=== PATIENT | male | born 1965 | race Caucasian/White ===

== ENCOUNTER → 2019-01-20 | Outpatient (CLI) | payer BC ==
[~2019-01-20] MED LIST: BUPIVACAINE MPF 0.5% 10 ML VIAL for KCIC. IJ ONE; IOHEXOL 300 MG/ML 50 ML VIAL. INT ART ONE; LIDOCAINE 1% Multi-Dose 20 ML VIAL. ID ONE; methylPREDNISolone ACETATE 40 MG/ML VIAL. INT ART ONE
--- NOTE | 2019-01-20 15:36 | KCIC ---
Examination: Fluoro Guided Therapeutic injection right hip. History: Right hip pain Findings: Relative benefits risks and alternatives to the procedure were discussed and verbal and written informed consent was obtained. The patient was carefully prepped and draped in a sterile fashion. Lidocaine was used for local anesthesia. A 22-gauge spinal needle was advanced to the level of the hip joint at the femoral neck. A mixture of 4 mL of lidocaine, 4 mL of Omnipaque 300, 4ml bupivacaine and 80 mg of Depo-Medrol was injected. Total fluoroscopic time 23 seconds. Total fluoroscopic images 1. No immediate complications. IMPRESSION: Therapeutic right hip steroid injection. Electronically signed by: Bernardino Munoz MD (01/20/2019 3:33 PM) [facility]-[id number]
== END ==
LOC: KCIC 10:01
PROVIDERS: ATTEND Orthopaedic Surgery Sports Medicine
DX: M25.551 Pain in right hip (principal); G89.29 Other chronic pain
CPT/HCPCS: 20610; 77002

== ENCOUNTER → 2020-02-29 | Outpatient (CLI) | payer BC ==
[~2020-02-29] MED LIST changes: -BUPIVACAINE MPF 0.5% 10 ML VIAL for KCIC. IJ ONE; +BUPIVACAINE MPF 0.5% 10 ML VIAL. INT ART ONE; +CONTRAST GIVEN. MC PRN
--- NOTE | 2020-02-29 17:05 | KCIC ---
Examination: Fluoro Guided Therapeutic injection bilateral hips History: Bilateral hip pain COMPARISON: 01/20/2019 Findings: Relative benefits risks and alternatives to the procedure were discussed and verbal and written informed consent was obtained. The patient was carefully prepped and draped in a sterile fashion. Lidocaine was used for local anesthesia. A 22-gauge spinal needle was advanced to the level of the hip joint at the femoral neck. A mixture of 40 Evans-Aramis and, 4 mL of bupivacaine, 4 mL of Omnipaque, 80 mg of Depo-Medrol was injected in the right and left hip joints. Digital image was obtained showing contrast in the joint. The left hip injection joint image could not be saved. No complications. Impression: Therapeutic injection bilateral hips. 48 seconds fluoroscopy for right hip and 23 seconds of fluoroscopy for left hip. 1 fluoroscopic image. Electronically signed by: Bernardino Munoz MD (02/29/2020 5:02 PM) [id number]
== END | disposition home or self-care (01) ==
LOC: KCIC 12:46
PROVIDERS: ATTEND Orthopaedic Surgery Sports Medicine
DX: M16.0 Bilateral primary osteoarthritis of hip (principal)
CPT/HCPCS: 20610; 77002; J1030; J3490; Q9967

== ENCOUNTER 2021-01-30 16:52 | Inpatient (IN) | payer BC ==
[~2021-01-30] VITALS: Ht 182.9 cm; Wt 100.1 kg
[2021-01-30 17:36] VITALS: BP 149/89
[2021-01-30] MEDS ORDERED: ACETAMINOPHEN 325 MG TABLET. PO PRN (19:00)
[2021-01-30 19:35] VITALS: BP 154/90
[2021-01-30] MEDS ORDERED: MORP2CAR3 IV (19:54)
[2021-01-30] MEDS ORDERED: IPRA4AER IH (19:54)
[2021-01-30] MEDS ORDERED: CHOL5000 PO (19:54)
[2021-01-30] MEDS ORDERED: ZINC220T3 PO (19:54)
[2021-01-30] MEDS ORDERED: ENOX30DI SQ (19:54)
[2021-01-30] MEDS ORDERED: CETI10TA74 PO (19:54)
[2021-01-30] MEDS ORDERED: ACET325T21 PO (19:54)
[2021-01-30] MEDS ORDERED: METH125V10 IJ (19:54)
[2021-01-30] MEDS ORDERED: ASCO500T3 PO (19:54)
[2021-01-30] MEDS ORDERED: FAMO-63 PO (19:54)
[2021-01-30] MEDS ORDERED: REMDESIVIR LOAD in IV NORMAL SALINE 250ML TV IV ONE (20:00)
--- NOTE | 2021-01-30 20:55 | NUR ---
Pt in bed assessment completed vss poc explained pt denied pain but c/o upset stomach pt a little anxious will resume care and continue to monitor pt. Call light in reach.
[2021-01-30] MEDS ORDERED: ENOXAPARIN 30 MG/0.3 ML SYRINGE. SQ SCH (21:00)
[2021-01-30] MEDS ORDERED: IPRATRPIUM/ALBUTEROL 0.5/2.5MG 3 ML NEBU. NEB SCH (21:00)
[2021-01-30] MEDS ORDERED: NON FORMULARY ITEM (Ipratropium/Albuterol Sulfate (Combivent Respimat Inhal) 2 INH) IH SCH (21:00)
[2021-01-30] MEDS: IPRATROPIUM/ALBUTEROL 20/100mcg/INH INHALER. INH SCH (21:00)
[2021-01-30] MEDS: methylPREDNISolone SOD SUCC PF 125 MG/2 ML VIAL. IV SCH (21:22)
[2021-01-30] MEDS: FAMOTIDINE 20 MG TABLET. PO SCH (21:22)
[2021-01-30] MEDS: ENOXAPARIN 40 MG/0.4 ML SYRINGE. SQ SCH (21:22)
[2021-01-30 22:34] VITALS: BP 145/85
[2021-01-31] MEDS: ACETAMINOPHEN 325 MG TABLET. PO PRN ×3 (02:54→18:39)
[2021-01-31 03:00] VITALS: BP 149/85
[2021-01-31] MEDS: methylPREDNISolone SOD SUCC PF 125 MG/2 ML VIAL. IV SCH ×3 (06:24→22:17)
[2021-01-31 07:00] VITALS: BP 130/84
[2021-01-31] MEDS: IPRATROPIUM/ALBUTEROL 20/100mcg/INH INHALER. INH SCH ×4 (08:00→19:27)
[2021-01-31] MEDS: ZINC SULFATE 220 MG CAPSULE. PO SCH (09:30)
[2021-01-31] MEDS: CETIRIZINE HCL 10 MG TABLET. PO SCH (09:30)
[2021-01-31] MEDS: CHOLECALCIFEROL (VITAMIN D3) 5,000 UNIT CAPSULE PO SCH (09:30)
[2021-01-31] MEDS: ASCORBIC ACID 1,000 MG TABLET PO SCH (09:30)
--- NOTE | 2021-01-31 11:18 | CONS ---
DATE OF CONSULTATION: 01/31/2021 REFERRING PHYSICIAN: Dr. Sharp. REASON FOR CONSULTATION: COVID-19 positive. HISTORY OF PRESENT ILLNESS: A 56-year-old male, otherwise healthy, presented to [facility] on 01/29/2021 with complaints of fever, headache, cough, congestion, sore throat, shortness of breath, nonproductive cough which kept on worsening. The patient was exposed to his son with COVID who did well in 3 days without any intervention. The patient was hypoxic at ED, initially requiring 2 liters of O2 by nasal cannula. Chest x-ray showed mild basilar infiltrates. COVID test was positive. The patient was transferred to [facility] for pulmonary evaluation and treatment. The patient was started on remdesivir, steroids. Currently, he is requiring 15 liters high flow O2 by nasal cannula, remains afebrile. T-max was 99.3. He had a little clear sputum after he took a bath this morning. Otherwise, basically feels the same. PAST MEDICAL HISTORY: DJD. PAST SURGICAL HISTORY: Appendectomy. SOCIAL HISTORY: Nonsmoker, nondrinker. Retired, worked for the [employer]. Lives with his children. He has not been Vaccinated for COVID 19 CURRENT MEDICATIONS: Methylprednisolone, remdesivir. Other medications reviewed in medication list. ALLERGIES: No known drug allergies. FAMILY HISTORY: As per HPI. REVIEW OF SYSTEMS: Loss of taste, low appetite; otherwise as per above in HPI. PHYSICAL EXAMINATION: VITAL SIGNS: Temperature 96.5, pulse 75, respiratory rate 18, blood pressure 130/84, oxygen saturation 92% on high flow nasal cannula 15 liters. HEENT: Normocephalic, atraumatic. Anicteric. No thrush. NECK: Supple, no JVD. LUNGS: Crackles bilaterally. No accessory muscle use. HEART: S1, S2. No murmurs. ABDOMEN: Soft, nontender, nondistended. Bowel sounds present. EXTREMITIES: No edema, no cyanosis. DERMATOLOGIC: Warm, dry, no generalized rash. NEUROLOGIC: Alert, oriented, grossly nonfocal. PSYCHIATRIC: Calm and cooperative. PIV looks clean. LABORATORY DATA: Labs none here. COVID positive at [facility]. WBC 7.4, hemoglobin 16.3, platelets 169. Sodium 138, potassium 3.4, chloride 101, bicarbonate 25, BUN 20, creatinine 1.1, glucose 135. Lactate 1.6. LFTs: AST 61, ALT 49, alkaline phosphatase 60, total protein 7.2. SARS COVID positive. Coronavirus positive. DIAGNOSTICS: Chest x-ray at [facility], mild ill-defined and bibasilar opacities. IMPRESSION: 1. COVID-19 pneumonia. 2. Acute hypoxic respiratory failure. 3. Degenerative joint disease. 4. Lymphopenia. 5. Hypokalemia. 6. Abnormal LFTs. RECOMMENDATIONS: 1. Continue remdesivir and steroids per primary. 2. Continue supportive care. 3. Follow up labs and cultures. 4. Maintain aspiration precaution. 5. Pulmonary consulted. 6. Medical records from [facility], reviewed. 7. Discussed with nursing staff. Thank you for allowing me to participate in this patient's care. If you have any questions, do not hesitate to contact me. TIM/KIKI DR: Evelyn TID: [id number] [facility]PITALHayley
[2021-01-31 11:33] VITALS: BP 143/85
--- NOTE | 2021-01-31 12:40 | NUR ---
SS following for discharge planning. SS reviewed pt chart and discussed with pt RN. Pt is from home with spouse and is currently requiring oxygen at ten to fifteen liters nasal canula. COVID19 positive. Pt on IV Remdesivir and IV Solu Medrol. ID and Pulmonology consulted. SS will continue to follow for discharge planning.
--- NOTE | 2021-01-31 15:04 | PDOC1 ---
History and Physical Date of Service: DOS: DATE: 01/31/21 TIME: 14:57 Chief Complaint: Chief Complain: Shortness of breath History of Present Illness: HPI: Patient is a 56-year-old male with no significant past medical history except for degenerative joint disease who was transferred from [facility] yesterday with complaints of fever, headache, dry cough, shortness of breath for the past 3 days. Patient stated that he was actually exposed from his son he was worsening and required to come to the ED at [facility] and he was found to be hypoxic and required 2 L of nasal cannula oxygen. Chest x-ray over there showed bilateral mild bibasilar infiltrates. Covid test was positive and patient was transferred to [facility] for pulmonary evaluation and treatment. Patient was started on Remdesivir and IV steroids. Currently patient is requiring 15 L high flow nasal cannula and IV steroids. Past Medical/Surgical History: PMH/PSH: Past medical history: Degenerative joint disease Surgical history: Appendectomy Allergies: Allergies: Coded Allergies: No Known Drug Allergies (Unverified , 01/20/19) Family History: Family History: Reviewed with no relevant findings Social History: Social History: SOCIAL HISTORY: Nonsmoker, nondrinker. Retired, working for the [employer]. Lives with his children. Current Medications: Current Medications Current Medications Acetaminophen (Tylenol) 650 mg PRN Q6HRS PRN PO MILD PAIN / TEMP > 100.3'F Last administered on 01/30/21at 20:09; Start 01/30/21 at 19:00; Stop 01/30/21 at 20:15; Status DC Enoxaparin Sodium (Lovenox Per Pharmacy Prophylaxis Dosing) 1 each PRN DAILY PRN MC SEE COMMENTS; Start 01/30/21 at 19:45 Enoxaparin Sodium (Lovenox 40mg Syringe) 40 mg Q24H SQ Last administered on 01/30/21at 21:22; Start 01/30/21 at 20:00 Remdesivir 200 mg/ Sodium Chloride 210 ml @ 210 mls/hr 1X ONCE IV Last administered on 01/30/21at 20:08; Start 01/30/21 at 20:00; Stop 01/30/21 at 20:59; Status DC Remdesivir 100 mg/ Sodium Chloride 230 ml @ 460 mls/hr Q24H IV ; Start 01/31/21 at 20:00; Stop 02/03/21 at 20:29 Acetaminophen (Tylenol) 650 mg PRN Q6HRS PRN PO pain or fever Last administered on 01/31/21at 09:42; Start 01/30/21 at 19:45 Ascorbic Acid (Vitamin C) 1,000 mg DAILY PO Last administered on 01/31/21at 09:30; Start 01/31/21 at 09:00 Cetirizine HCl (ZyrTEC) 10 mg DAILY PO Last administered on 01/31/21at 09:30; Start 01/31/21 at 09:00 Vitamin D (Vitamin D3) 5,000 unit DAILY PO Last administered on 01/31/21 09:30; Start 01/31/21 at 09:00 Enoxaparin Sodium (Lovenox 30mg Syringe) 30 mg Q24H SQ ; Start 01/30/21 at 21:00; Status Cancel Famotidine (Pepcid) 20 mg HS PO Last administered on 01/30/21at 21:22; Start 01/30/21 at 21:00 Non-Formulary Medication (Ipratropium/ Albuterol Sulfate (Combivent Respimat Inhal)) 2 inh QID IH ; Start 01/30/21 at 21:00; Status UNV Methylprednisolone Sodium Succinate (SOLU-Medrol 125MG VIAL) 60 mg Q8HRS IV Last administered on 01/31/21at 06:24; Start 01/30/21 at 22:00 Morphine Sulfate (Morphine Sulfate) 2 mg PRN Q2HR PRN IVP MODERATE TO SEVERE PAIN; Start 01/30/21 at 20:30 Zinc Sulfate (Orazinc) 220 mg DAILY PO Last administered on 01/31/21at 09:30; Start 01/31/21 at 09:00 Albuterol/ Ipratropium (Duoneb) 3 ml RTQID NEB ; Start 01/30/21 at 21:00; Status Cancel Albuterol/ Ipratropium (Combivent Respimat 20-100 Mcg) 2 puff RTQID INH Last administered on 01/31/21at 08:00; Start 01/30/21 at 21:00 Active Scripts Active Reported Morphine Sulfate 2 Mg/1 Ml Cartridge 2 Mg IV PRN Q4HRS PRN Zinc Sulfate 50 Mg Tablet 220 Mg PO DAILY Methylprednisolone Sod Succ 125 Mg Vial 60 Mg IJ Q8HRS Combivent Respimat Inhal (Ipratropium/Albuterol Sulfate) 4 Gm Aer.w.adap 2 Inh IH QID Pepcid (Famotidine) 20 Mg Tablet 20 Mg PO HS Lovenox (Enoxaparin Sodium) 30 Mg/0.3 Ml Disp.syrin 30 Mg SQ DAILY Vitamin D3 (Vitamin D) 125 Mcg Capsule 125 Mcg PO DAILY 5,000 UNITS = 125 MCG Zyrtec (Cetirizine Hcl) 10 Mg Tablet 1 Tab PO DAILY Ascorbic Acid 500 Mg Tablet 2 Mg PO DAILY Acetaminophen 325 Mg Tablet 2 Tab PO PRN Q6HRS PRN 30 Days No Known Medications Prior To Admisstion (Info) Each 1 Each ROS: Review of Systems Review of System REVIEW OF SYSTEMS: GENERAL: Denies weakness SKIN: No bruising, hair changes or rashes. EYES: No blurred, double or loss of vision. NOSE AND THROAT: No history of nosebleeds, hoarseness or sore throat. HEART: No history of palpitations, chest pain or shortness of breath on exertion. LUNGS: Denies cough, hemoptysis, wheezing or shortness of breath. GASTROINTESTINAL: Denies changes in appetite, nausea, vomiting, diarrhea or constipation. GENITOURINARY: No history of frequency, urgency, hesitancy or nocturia. NEUROLOGIC: Denies history of numbness, tingling, or tremor. PSYCHIATRIC: No history of panic, anxiety or depression. ENDOCRINE: No history of heat or cold intolerance, polyuria or polydipsia. EXTREMITIES: Denies joint pain, pain on walking or stiffness. Physical Exam: Vital Signs: Vital Signs Date Time Temp Pulse Resp B/P (MAP) Pulse Ox O2 Delivery O2 Flow Rate FiO2 01/31/21 11:33 97.9 85 18 143/85 (104) 89 High Flow Nasal Cannula 15.0 97.9 Physcial Exam: General: Well developed, well nourished, no acute distress, well appearing. Resting comfortably in bed HEENT: Pupils equally round and reactive to light, EOMI, no discharge, normal conjunctiva Neck: Supple, no nuchal rigidity, no JVD, trachea midline, no tenderness Cardiac: RRR, no murmurs, no gallops, no rubs Chest/Lungs: CTAB, no wheeze, no rhonchi, no crackles. Diminished bilateral breath sounds Abdomen: soft, non-distended, no guarding, no peritoneal signs, non-tender Back: No tenderness Extremities: no edema, pulses intact, non-tender,capillary refill <3 sec bilateral upper and lower extremities, Neuro: Alert and oriented x 4, no focal deficits, normal speech Labs: Labs: No recent images or labs to review Images: Images Chest x-ray from [facility] showed bilateral basilar infiltrates Assessment/Plan Assessment/Plan Acute hypoxic respiratory failure COVID-19 pneumonia Admit to medicine for further management Pulmonology consult ID consult Continue IV Remdesivir Continue IV thiamine and vitamin C Continue IV steroids Pending ferritin, LDH, CRP, D-dimer labs Titrate O2 supplementation to maintain O2 saturation greater than 92% Lovenox for DVT prophylaxis Protonix while on steroids GI prophylaxis ADA diet Full code Discussed with RN and SW Disposition patient management as above Surrogate decision maker is the Justifications for Admission Other Justification GURMEET ALBRIGHT MD Jan 31, 2021 15:04
--- NOTE | 2021-01-31 15:10 | PDOC ---
PULMONARY PROGRESS NOTES DATE: 01/31/21 TIME: 15:09 Vitals Vital Signs Date Time Temp Pulse Resp B/P (MAP) Pulse Ox O2 Delivery O2 Flow Rate FiO2 01/31/21 11:33 97.9 85 18 143/85 (104) 89 High Flow Nasal Cannula 15.0 97.9 Medications Active Scripts Medications Dose Route/Sig Max Daily Dose Days Date Category Dose Instructions Morphine Sulfate 2 Mg/1 Ml Cartridge 2 Mg IV PRN Q4HRS PRN 01/30/21 Reported Zinc Sulfate 50 Mg Tablet 220 Mg PO DAILY 01/30/21 Reported Methylprednisolone Sod Succ 125 Mg Vial 60 Mg IJ Q8HRS 01/30/21 Reported Combivent Respimat Inhal (Ipratropium/Albuterol Sulfate) 4 Gm Aer.w.adap 2 Inh IH QID 01/30/21 Reported Pepcid (Famotidine) 20 Mg Tablet 20 Mg PO HS 01/30/21 Reported Lovenox (Enoxaparin Sodium) 30 Mg/0.3 Ml Disp.syrin 30 Mg SQ DAILY 01/30/21 Reported Vitamin D3 (Vitamin D) 125 Mcg Capsule 125 Mcg PO DAILY 01/30/21 Reported 5,000 UNITS = 125 MCG Zyrtec (Cetirizine Hcl) 10 Mg Tablet 1 Tab PO DAILY 01/30/21 Reported Ascorbic Acid 500 Mg Tablet 2 Mg PO DAILY 01/30/21 Reported Acetaminophen 325 Mg Tablet 2 Tab PO PRN Q6HRS PRN 30 01/30/21 Reported No Known Medications Prior To Admisstion (Info) Each 1 Each 02/29/20 Reported Impression . Full consult dictated Spoke with Continue current care group for COVID-19 viral pneumonia REILLY MARAVILLA MD Jan 31, 2021 15:10
[2021-01-31 15:29] VITALS: BP 148/91
--- NOTE | 2021-01-31 16:14 | CONS ---
DATE OF CONSULTATION: 01/31/2021 ATTENDING PHYSICIAN: Zi Sharp DO REASON FOR CONSULTATION: The patient is seen in Pulmonary consultation at the request of Dr. Sharp for abnormal x-ray, COVID-19 viral pneumonia. HISTORY OF PRESENT ILLNESS: The patient is a 56-year-old healthy individual who presented to [facility] 2 days ago with complaints of fever, chills and body aches, tested positive for COVID-19. Initially, he required 2 liters. He is currently up to 15 liters nasal cannula. The patient is awake, alert, following commands. He is unvaccinated. 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 He states that he had COVID last 09/2019. He had symptoms at that time, lost his taste. He never has been vaccinated post-COVID a year ago. He thinks that currently he contracted COVID from his son who is also unvaccinated. He had chest x-ray which revealed bilateral pulmonary infiltrates. PAST MEDICAL HISTORY: DJD. PAST SURGICAL HISTORY: Appendectomy. SOCIAL HISTORY: He is a nonsmoker. Retired from the [employer]. Lives with his and children. CURRENT MEDICATIONS: List was reviewed. He has received Remdesivir and steroids. ALLERGIES: No known drug allergies. FAMILY HISTORY: As indicated above, his son with COVID. REVIEW OF SYSTEMS: As indicated in the history of present illness, otherwise other systems were reviewed and negative. PHYSICAL EXAMINATION: GENERAL: The patient was awake, alert, in no significant respiratory distress. He was evaluated during the COVID-19 pandemic on visual inspection. No significant respiratory distress. No paroxysmal breathing pattern. LABORATORY DATA: MAR was reviewed. Chest x-ray as indicated above. There were bilateral pulmonary infiltrates. I reviewed his records from [facility]. Initial O2 sat on room air was 88%. Sodium was 138, potassium 3.4, BUN was 20, creatinine was 1.1. Lactic acid level was 1.6. AST and ALT were noted at 61 and 49. WBC was 7.4, hemoglobin and hematocrit 16 and 49. IMPRESSION: 1. Acute hypoxemic respiratory failure secondary to COVID-19 viral pneumonia. 2. COVID-19 viral pneumonia. 3. Abnormal chest x-ray, compatible with viral pneumonia. PLAN: 1. We will continue support with oxygen supplementation. If required, we will increase to either nonrebreather or Vapotherm. 2. Continue Remdesivir and steroids. 3. Follow labs. The above was discussed with the . I do appreciate the privilege in sharing in the patient's care. GARRET/RADHIKA DR: Nohemy TID: [id number]
[2021-01-31] MEDS: MORPHINE SULFATE 2 MG/ML INJ. IVP PRN (18:22)
[2021-01-31] MEDS: ALPRAZolam 0.25 MG TABLET PO PRN (18:39)
[2021-01-31 18:46] VITALS: BP 157/83
[2021-01-31] MEDS: REMDESIVIR 100mg in NORMAL SALINE 250ML X 4 DAYS IV SCH (19:25)
[2021-01-31] MEDS: ENOXAPARIN 40 MG/0.4 ML SYRINGE. SQ SCH (19:26)
--- NOTE | 2021-01-31 19:30 | NUR ---
Assessment Completed vss poc explained pt denied pain call light in reach will resume care and continue to monitor pt.
[2021-01-31] MEDS: FAMOTIDINE 20 MG TABLET. PO SCH (20:28)
[2021-01-31 22:58] VITALS: BP 126/79
[2021-02-01 02:51] VITALS: BP 134/80
[2021-02-01] MEDS: methylPREDNISolone SOD SUCC PF 125 MG/2 ML VIAL. IV SCH ×3 (05:43→21:55)
[2021-02-01 07:00] VITALS: BP 146/82
--- NOTE | 2021-02-01 07:37 | PDOC ---
Infectious Disease Note Subjective: Subjective Patient remains on nonrebreather Feels the same Denies any nausea, vomiting, diarrhea, abdominal pain, chest pain Vital Signs: Vital Signs Vital Signs Date Time Temp Pulse Resp B/P (MAP) Pulse Ox O2 Delivery O2 Flow Rate FiO2 02/01/21 02:51 97.5 68 18 134/80 (98) 92 High Flow Nasal Cannula 15.0 97.5 Physical Exam: PHYSICAL EXAM GEN axo3 male in nad HEENT: Normocephalic, atraumatic. Anicteric. No thrush. NECK: Supple, no JVD. LUNGS: Crackles bilaterally. No accessory muscle use. HEART: S1, S2. No murmurs. ABDOMEN: Soft, nontender, nondistended. Bowel sounds present. EXTREMITIES: No edema, no cyanosis. DERMATOLOGIC: Warm, dry, no generalized rash. NEUROLOGIC: Alert, oriented, grossly nonfocal. PSYCHIATRIC: Calm and cooperative. PIV looks clean. Medications: Inpatient Meds: Medications reviewed. Objective: Assessment: 1. COVID-19 pneumonia. 2. Acute hypoxic respiratory failure. 3. Degenerative joint disease. 4. Lymphopenia. 5. Hypokalemia. 6. Abnormal LFTs. Plan: Plan of Care 1. Continue remdesivir and steroids per primary. 2. Continue supportive care. 3. Follow up labs and cultures. 4. Maintain aspiration precaution. 5. Pulmonary consulted. 6. Medical records from [facility], reviewed. . Discussed with nursing staff. NBA VICKERS MD Feb 01, 2021 07:36
[2021-02-01] MEDS: IPRATROPIUM/ALBUTEROL 20/100mcg/INH INHALER. INH SCH ×4 (08:00→20:51)
--- NOTE | 2021-02-01 08:38 | PDOC ---
PULMONARY PROGRESS NOTES DATE: 02/01/21 TIME: 08:38 Subjective Pt. remains on 15 liters NC anxious on exam Vitals Vital Signs Date Time Temp Pulse Resp B/P (MAP) Pulse Ox O2 Delivery O2 Flow Rate FiO2 02/01/21 02:51 97.5 68 18 134/80 (98) 92 High Flow Nasal Cannula 15.0 97.5 Comments Pt. seen during covid -19 pandemic visual exam preformed RRR on NC o2 no distress no obvious rash or edema Medications Active Scripts Medications Dose Route/Sig Max Daily Dose Days Date Category Dose Instructions Morphine Sulfate 2 Mg/1 Ml Cartridge 2 Mg IV PRN Q4HRS PRN 01/30/21 Reported Zinc Sulfate 50 Mg Tablet 220 Mg PO DAILY 01/30/21 Reported Methylprednisolone Sod Succ 125 Mg Vial 60 Mg IJ Q8HRS 01/30/21 Reported Combivent Respimat Inhal (Ipratropium/Albuterol Sulfate) 4 Gm Aer.w.adap 2 Inh IH QID 01/30/21 Reported Pepcid (Famotidine) 20 Mg Tablet 20 Mg PO HS 01/30/21 Reported Lovenox (Enoxaparin Sodium) 30 Mg/0.3 Ml Disp.syrin 30 Mg SQ DAILY 01/30/21 Reported Vitamin D3 (Vitamin D) 125 Mcg Capsule 125 Mcg PO DAILY 01/30/21 Reported 5,000 UNITS = 125 MCG Zyrtec (Cetirizine Hcl) 10 Mg Tablet 1 Tab PO DAILY 01/30/21 Reported Ascorbic Acid 500 Mg Tablet 2 Mg PO DAILY 01/30/21 Reported Acetaminophen 325 Mg Tablet 2 Tab PO PRN Q6HRS PRN 30 01/30/21 Reported No Known Medications Prior To Admisstion (Info) Each 1 Each 02/29/20 Reported Impression . IMPRESSION: 1. Acute hypoxemic respiratory failure secondary to COVID-19 viral pneumonia. 2. COVID-19 viral pneumonia. 3. Abnormal chest x-ray, compatible with viral pneumonia. Plan . Updated 02/01/21 Continue supplemental oxygen to keep sats above 92%, on 15 liters NC, may require Vapotherm BIPAP PRN Continue Remdesivir Continue steroids. PRN tx of Anxiety D/W RN and RT PLAN: 1. We will continue support with oxygen supplementation. If required, we will increase to either nonrebreather or Vapotherm. 2. Continue Remdesivir and steroids. 3. Follow labs. The above was discussed with the . I do appreciate the privilege in sharing in the patient's care. REILLY MARAVILLA MD Feb 01, 2021 08:38
[2021-02-01] MEDS: ALPRAZolam 0.25 MG TABLET PO PRN (08:59)
--- NOTE | 2021-02-01 09:00 | NUR ---
pt Oxygen saturation in low 80's to high 70's. Pt currently on 15 L NC. Pt placed on 15L non rebreather as well, oxygen saturation was at 84%. Physician notified and order given for bipap. Respiratory placed patient on bipap and oxygen saturation at 97%. ABG order given. Pt stable and resting comfortably at this time. Call light in reach.
[2021-02-01] MEDS: ZINC SULFATE 220 MG CAPSULE. PO SCH (09:01)
[2021-02-01] MEDS: CETIRIZINE HCL 10 MG TABLET. PO SCH (09:01)
[2021-02-01] MEDS: CHOLECALCIFEROL (VITAMIN D3) 5,000 UNIT CAPSULE PO SCH (09:01)
[2021-02-01] MEDS: ASCORBIC ACID 1,000 MG TABLET PO SCH (09:01)
[2021-02-01 11:00] VITALS: BP 138/79
--- NOTE | 2021-02-01 11:30 | NUR ---
Pt and son continually calling regarding patient updates and "numbers". Family are stating concerns given from other family members who are in the healthcare field and work with COVID patients. Family members are requesting certain treatments and medications. Physician is aware and has spoken with family. Family would like to request the patient be placed on vapotherm and given ativan for "air hunger". Family educated regarding disease process and equipment and treatments used. Family verbalized understanding, however, continued to ask for "treatments and test" that other family members would like. states that patient's sister works at the [employer] and is suggesting that staff obtain a "CT to get a baseline so you don't miss something". Sister would also like the patient to be placed on vapotherm and would like to know why the patient wasn't placed on bipap and given ativan upon admit. Again, and son educated on disease process and treatment plans. Son and inquiring about how long patient will be ill and if he will be okay. Son is concerned stating that the current treatment is not working and is requesting staff to check the patients lung capacity and to start different antibiotics. Families concerns and requests were given to pulmonology and physician to call family.
--- NOTE | 2021-02-01 11:44 | RAD ---
XR CHEST 1V 02/01/2021 11:31 AM Reason: hypoxia Comparison: Chest radiograph January 29, 2021 Technique: AP portable upright radiograph the chest Findings: Increased patchy airspace opacities and interstitial opacity bilaterally. No significant pleural effu maikel. The cardiomediastinal silhouette is stable. No pneumothorax. Impression: Worsening interstitial and airspace disease. Electronically signed by: Clovis Gage (02/01/2021 11:41 AM) [id number]
[2021-02-01 11:59] LABS: BASE EXCESS ABG 6 mmol/L (-3-3); HCO3 ABG 31 mmol/L (21-28); PCO2 ABG 46 mmHg (35-46); PO2 ABG 85 mmHg (75-108); SAT O2 ABG 96 % (92-99)
[2021-02-01 12:00] LABS: FIO2 ABG 100
--- NOTE | 2021-02-01 13:43 | PDOC ---
[employer] PROGRESS NOTE Date of Service DOS: DATE: 02/01/21 TIME: 13:41 Chief Complaint Chief Complaint Acute hypoxic respiratory failure COVID-19 pneumonia Admit to medicine for further management Pulmonology consult ID consult Continue IV Remdesivir Continue IV thiamine and vitamin C Continue IV steroids Pending ferritin, LDH, CRP, D-dimer labs Titrate O2 supplementation to maintain O2 saturation greater than 92% Lovenox for DVT prophylaxis Protonix while on steroids GI prophylaxis ADA diet Full code Discussed with RN and SW Disposition patient management as above Surrogate decision maker is the History of Present Illness History of Present Illness 56-year-old male with no significant past medical history except for degenerative joint disease who was transferred from [facility] yesterday with complaints of fever, headache, dry cough, shortness of breath for the past 3 days. Patient stated that he was actually exposed from his son he was worsening and required to come to the ED at [facility] and he was found to be hypoxic and required 2 L of nasal cannula oxygen. Chest x-ray over there showed bilateral mild bibasilar infiltrates. Covid test was positive and patient was transferred to [facility] for pulmonary evaluation and treatment. Patient was started on Remdesivir and IV steroids. Currently patient is requiring 15 L high flow nasal cannula and IV steroids. 02/01/2021 No acute events overnight. Patient was saturating 92% on 15 L nasal cannula and he had desatted down to 70% after he had to blow his nose. Patient was placed on BiPAP at 100% FiO2. Chest leg appears to be worsening. Patient's chart, labs, images were reviewed and discussed with RN Vitals/I&O Vitals/I&O: Vital Signs Date Time Temp Pulse Resp B/P (MAP) Pulse Ox O2 Delivery O2 Flow Rate FiO2 02/01/21 11:48 94 BiPAP/CPAP 02/01/21 11:00 98.3 61 18 138/79 (98) 98.3 02/01/21 07:00 15.0 I & O 01/31/21 01/31/21 02/01/21 15:00 23:00 07:00 Intake Total 120 ml 200 ml Output Total 700 ml Balance 120 ml -500 ml Physical Exam Physical Exam: GEN axo3 male in nad HEENT: Normocephalic, atraumatic. Anicteric. No thrush. NECK: Supple, no JVD. LUNGS: Crackles bilaterally. No accessory muscle use. HEART: S1, S2. No murmurs. ABDOMEN: Soft, nontender, nondistended. Bowel sounds present. EXTREMITIES: No edema, no cyanosis. DERMATOLOGIC: Warm, dry, no generalized rash. NEUROLOGIC: Alert, oriented, grossly nonfocal. PSYCHIATRIC: Calm and cooperative. PIV looks clean. Labs Labs: Laboratory Tests Test 02/01/21 11:56 O2 Saturation 96 % (92-99) Arterial Blood pH 7.44 (7.35-7.45) Arterial Blood pCO2 at Patient Temp 46 mmHg (35-46) Arterial Blood pO2 at Patient Temp 85 mmHg (75-108) Arterial Blood HCO3 31 mmol/L (21-28) Arterial Blood Base Excess 6 mmol/L (-3-3) FiO2 100 Comment Review of Relevant I have reviewed the following items rosalinda (where applicable) has been applied. Medications: Current Medications Medications (Trade) Dose Ordered Sig/Mateus Route PRN Reason Start Time Stop Time Status Last Admin Dose Admin Remdesivir 100 mg/ Sodium Chloride 230 ml @ 460 mls/hr Q24H IV 01/31/21 20:00 02/03/21 20:29 01/31/21 19:25 Alprazolam (Xanax) 0.25 mg PRN Q8HRS PRN PO ANXIETY / AGITATION 01/31/21 15:15 02/01/21 08:59 Justifications for Admission Other Justification GURMEET ALBRIGHT MD Feb 01, 2021 13:43
--- NOTE | 2021-02-01 13:50 | NUR ---
SS following up with discharge planning. SS reviewed pt chart and discussed with pt RN. Pt is currently requiring BIPAP at 90% and 15 liters nasal canula PRN. COVID19 positive. Pt on IV Remdesivir and IV Solu Medrol. SS will continue to follow for discharge planning.
[2021-02-01 15:00] VITALS: BP 99/56
--- NOTE | 2021-02-01 15:00 | NUR ---
Pt not on front desk monitor, upon entering patient room, patient noted to have taken bipap, oxygen probe, and front desk monitor off and was in the bathroom on RA. Pt noted to be short of breath and lips, nose, and ear lobes were blue. Pt stated he woke up and thought he was in [place]. He stated that he looked out the window and wasn't sure where he was; "I saw palm trees and boats". Pt was given IV Ativan per family request. Pt attempted to argue with staff to use the shower to get cleaned up. It was explained to the patient that if he did not get placed back on the bipap that he would mostly likely stop breathing. Pt finally agreed, allowed staff to place him back on 15L NC and 15L non rebreather. Pt taken back to bed and placed back on the bipap. Oxygen saturation started at 70% and patient slowly recovered to 93%. Pt continued to state he was confused as to what happened and what is going on. Pt re-educated on the disease process and his increasing need for oxygen. Pt back in bed on bipap resting comfortably with call light in reach.
--- NOTE | 2021-02-01 18:00 | NUR ---
Pt oxygen saturation showing 70% on the monitor. Upon entering the room, pt had taken bipap off. Pt states "I just can't do this anymore"; "I thought this was temporary and I can't take it anymore". Pt was educated that he needed quite a bit of oxygen and the 15 L NC and 15 L non rebreather were no longer allowing his body to get adequate oxygen. Pt agreed to go back on the bipap if nursing staff notified respiratory. Respiratory notified and vapotherm brought to patient room. Pt now on 40L vapotherm in addition to 15L nonbreather. Pt oxygen saturation is noted to be ranging from 92%-96%. Bipap is on standby and patient educated on the possibility of needing to use the bipap again. Pt verbalized understanding. Pt resting in bed with call light in reach.
[2021-02-01 19:00] VITALS: BP 138/79
--- NOTE | 2021-02-01 19:50 | NUR ---
pt in bed assessment completed vss poc explained vss pt denied pain, pt on Vapotherm@40L 15L non rebreather pt o2 sats 92% will resume care and continue to monitor pt. Call light in reach.
[2021-02-01] MEDS: REMDESIVIR 100mg in NORMAL SALINE 250ML X 4 DAYS IV SCH (19:55)
[2021-02-01] MEDS: ENOXAPARIN 40 MG/0.4 ML SYRINGE. SQ SCH (19:55)
[2021-02-01] MEDS: FAMOTIDINE 20 MG TABLET. PO SCH (20:51)
[2021-02-01 22:30] VITALS: BP 134/81
[2021-02-02] MEDS: STERILE WATER for RESP 1,000 ML BAG. INH PRN (00:34)
[2021-02-02 02:36] VITALS: BP 129/75
[2021-02-02 04:11] LABS: ALBUMIN 2.3 g/dL (3.4-5.0); ALBUMIN/GLOBULIN RATIO 0.6 (1.0-1.7); CALCIUM 8.7 mg/dL (8.5-10.1); CREATININE 0.8 mg/dL (0.7-1.3); POTASSIUM 4.1 mmol/L (3.5-5.1); TOTAL BILIRUBIN 1.1 mg/dL (0.2-1.0); TOTAL PROTEIN 5.9 g/dL (6.4-8.2)
[2021-02-02 04:35] LABS: HEMATOCRIT 45.1 % (39.0-53.0); HEMOGLOBIN 15.2 g/dL (13.0-17.5); RED BLOOD COUNT 4.82 x10^6/uL (4.30-5.70); RED CELL DISTRIBUTION WIDTH 12.8 % (11.5-14.5); WHITE BLOOD COUNT 10.2 x10^3/uL (4.0-11.0)
[2021-02-02] MEDS: methylPREDNISolone SOD SUCC PF 125 MG/2 ML VIAL. IV SCH ×3 (05:35→21:25)
[2021-02-02 07:00] VITALS: BP 147/88
--- NOTE | 2021-02-02 09:13 | PDOC ---
PULMONARY PROGRESS NOTES DATE: 02/02/21 TIME: 09:13 Subjective Pt. is resting on BIPAP tolerating BIPAP well Vitals Vital Signs Date Time Temp Pulse Resp B/P (MAP) Pulse Ox O2 Delivery O2 Flow Rate FiO2 02/02/21 07:00 97.9 64 20 147/88 (107) 95 BiPAP/CPAP 97.9 02/02/21 03:36 40.0 Comments Pt. seen during pandemic visual exam preformed RRR BIPAP no distress no obvious rash or edema Labs Laboratory Tests Test 02/01/21 11:56 02/02/21 03:30 O2 Saturation 96 % (92-99) Arterial Blood pH 7.44 (7.35-7.45) Arterial Blood pCO2 at Patient Temp 46 mmHg (35-46) Arterial Blood pO2 at Patient Temp 85 mmHg (75-108) Arterial Blood HCO3 31 mmol/L (21-28) Arterial Blood Base Excess 6 mmol/L (-3-3) FiO2 100 White Blood Count 10.2 x10^3/uL (4.0-11.0) Red Blood Count 4.82 x10^6/uL (4.30-5.70) Hemoglobin 15.2 g/dL (13.0-17.5) Hematocrit 45.1 % (39.0-53.0) Mean Corpuscular Volume 94 fL (79-100) Mean Corpuscular Hemoglobin 32 pg (25-35) Mean Corpuscular Hemoglobin Concent 34 g/dL (31-37) Red Cell Distribution Width 12.8 % (11.5-14.5) Platelet Count 265 x10^3/uL (140-400) Sodium Level 139 mmol/L (136-145) Potassium Level 4.1 mmol/L (3.5-5.1) Chloride Level 103 mmol/L (98-107) Carbon Dioxide Level 33 mmol/L (21-32) Anion Gap 3 (6-14) Blood Urea Nitrogen 30 mg/dL (8-26) Creatinine 0.8 mg/dL (0.7-1.3) Estimated GFR (Cockcroft-Gault) 100.0 BUN/Creatinine Ratio 38 (6-20) Glucose Level 140 mg/dL (70-99) Calcium Level 8.7 mg/dL (8.5-10.1) Total Bilirubin 1.1 mg/dL (0.2-1.0) Aspartate Amino Transf (AST/SGOT) 141 U/L (15-37) Alanine Aminotransferase (ALT/SGPT) 196 U/L (16-63) Alkaline Phosphatase 50 U/L (46-116) Total Protein 5.9 g/dL (6.4-8.2) Albumin 2.3 g/dL (3.4-5.0) Albumin/Globulin Ratio 0.6 (1.0-1.7) Laboratory Tests Test 02/01/21 11:56 02/02/21 03:30 O2 Saturation 96 % (92-99) Arterial Blood pH 7.44 (7.35-7.45) Arterial Blood pCO2 at Patient Temp 46 mmHg (35-46) Arterial Blood pO2 at Patient Temp 85 mmHg (75-108) Arterial Blood HCO3 31 mmol/L (21-28) Arterial Blood Base Excess 6 mmol/L (-3-3) FiO2 100 White Blood Count 10.2 x10^3/uL (4.0-11.0) Red Blood Count 4.82 x10^6/uL (4.30-5.70) Hemoglobin 15.2 g/dL (13.0-17.5) Hematocrit 45.1 % (39.0-53.0) Mean Corpuscular Volume 94 fL (79-100) Mean Corpuscular Hemoglobin 32 pg (25-35) Mean Corpuscular Hemoglobin Concent 34 g/dL (31-37) Red Cell Distribution Width 12.8 % (11.5-14.5) Platelet Count 265 x10^3/uL (140-400) Sodium Level 139 mmol/L (136-145) Potassium Level 4.1 mmol/L (3.5-5.1) Chloride Level 103 mmol/L (98-107) Carbon Dioxide Level 33 mmol/L (21-32) Anion Gap 3 (6-14) Blood Urea Nitrogen 30 mg/dL (8-26) Creatinine 0.8 mg/dL (0.7-1.3) Estimated GFR (Cockcroft-Gault) 100.0 BUN/Creatinine Ratio 38 (6-20) Glucose Level 140 mg/dL (70-99) Calcium Level 8.7 mg/dL (8.5-10.1) Total Bilirubin 1.1 mg/dL (0.2-1.0) Aspartate Amino Transf (AST/SGOT) 141 U/L (15-37) Alanine Aminotransferase (ALT/SGPT) 196 U/L (16-63) Alkaline Phosphatase 50 U/L (46-116) Total Protein 5.9 g/dL (6.4-8.2) Albumin 2.3 g/dL (3.4-5.0) Albumin/Globulin Ratio 0.6 (1.0-1.7) Medications Active Scripts Medications Dose Route/Sig Max Daily Dose Days Date Category Dose Instructions Morphine Sulfate 2 Mg/1 Ml Cartridge 2 Mg IV PRN Q4HRS PRN 01/30/21 Reported Zinc Sulfate 50 Mg Tablet 220 Mg PO DAILY 01/30/21 Reported Methylprednisolone Sod Succ 125 Mg Vial 60 Mg IJ Q8HRS 01/30/21 Reported Combivent Respimat Inhal (Ipratropium/Albuterol Sulfate) 4 Gm Aer.w.adap 2 Inh IH QID 01/30/21 Reported Pepcid (Famotidine) 20 Mg Tablet 20 Mg PO HS 01/30/21 Reported Lovenox (Enoxaparin Sodium) 30 Mg/0.3 Ml Disp.syrin 30 Mg SQ DAILY 01/30/21 Reported Vitamin D3 (Vitamin D) 125 Mcg Capsule 125 Mcg PO DAILY 01/30/21 Reported 5,000 UNITS = 125 MCG Zyrtec (Cetirizine Hcl) 10 Mg Tablet 1 Tab PO DAILY 01/30/21 Reported Ascorbic Acid 500 Mg Tablet 2 Mg PO DAILY 01/30/21 Reported Acetaminophen 325 Mg Tablet 2 Tab PO PRN Q6HRS PRN 30 01/30/21 Reported No Known Medications Prior To Admisstion (Info) Each 1 Each 02/29/20 Reported Impression . IMPRESSION: 1. Acute hypoxemic respiratory failure secondary to COVID-19 viral pneumonia. 2. COVID-19 viral pneumonia. 3. Abnormal chest x-ray, compatible with viral pneumonia. Plan . Updated 02/02/21 Continue supplemental oxygen to keep sats above 92%, Continue BIPAP Follow ID recs for ABX Continue Remdesivir for full course Continue steroids for full ten day course DC benzo pt. didn't tolerate well, obtain EKG and start IV haldol for anxiety D/W RN and RT Discussed with at bedside Updated 02/01/21 Continue supplemental oxygen to keep sats above 92%, on 15 liters NC, may require Vapotherm BIPAP PRN Continue Remdesivir Continue steroids. PRN tx of Anxiety D/W RN and RT REILLY MARAVILLA MD Feb 02, 2021 09:13
--- NOTE | 2021-02-02 09:13 | PDOC ---
PULMONARY PROGRESS NOTES DATE: 02/02/21 TIME: 09:13 Subjective Pt. remains on 15 liters NC anxious on exam Vitals Vital Signs Date Time Temp Pulse Resp B/P (MAP) Pulse Ox O2 Delivery O2 Flow Rate FiO2 02/02/21 07:00 97.9 64 20 147/88 (107) 95 BiPAP/CPAP 97.9 02/02/21 03:36 40.0 Comments Pt. seen during pandemic visual exam preformed RRR on NC o2 no distress no obvious rash or edema Labs Laboratory Tests Test 02/01/21 11:56 02/02/21 03:30 O2 Saturation 96 % (92-99) Arterial Blood pH 7.44 (7.35-7.45) Arterial Blood pCO2 at Patient Temp 46 mmHg (35-46) Arterial Blood pO2 at Patient Temp 85 mmHg (75-108) Arterial Blood HCO3 31 mmol/L (21-28) Arterial Blood Base Excess 6 mmol/L (-3-3) FiO2 100 White Blood Count 10.2 x10^3/uL (4.0-11.0) Red Blood Count 4.82 x10^6/uL (4.30-5.70) Hemoglobin 15.2 g/dL (13.0-17.5) Hematocrit 45.1 % (39.0-53.0) Mean Corpuscular Volume 94 fL (79-100) Mean Corpuscular Hemoglobin 32 pg (25-35) Mean Corpuscular Hemoglobin Concent 34 g/dL (31-37) Red Cell Distribution Width 12.8 % (11.5-14.5) Platelet Count 265 x10^3/uL (140-400) Sodium Level 139 mmol/L (136-145) Potassium Level 4.1 mmol/L (3.5-5.1) Chloride Level 103 mmol/L (98-107) Carbon Dioxide Level 33 mmol/L (21-32) Anion Gap 3 (6-14) Blood Urea Nitrogen 30 mg/dL (8-26) Creatinine 0.8 mg/dL (0.7-1.3) Estimated GFR (Cockcroft-Gault) 100.0 BUN/Creatinine Ratio 38 (6-20) Glucose Level 140 mg/dL (70-99) Calcium Level 8.7 mg/dL (8.5-10.1) Total Bilirubin 1.1 mg/dL (0.2-1.0) Aspartate Amino Transf (AST/SGOT) 141 U/L (15-37) Alanine Aminotransferase (ALT/SGPT) 196 U/L (16-63) Alkaline Phosphatase 50 U/L (46-116) Total Protein 5.9 g/dL (6.4-8.2) Albumin 2.3 g/dL (3.4-5.0) Albumin/Globulin Ratio 0.6 (1.0-1.7) Laboratory Tests Test 02/01/21 11:56 02/02/21 03:30 O2 Saturation 96 % (92-99) Arterial Blood pH 7.44 (7.35-7.45) Arterial Blood pCO2 at Patient Temp 46 mmHg (35-46) Arterial Blood pO2 at Patient Temp 85 mmHg (75-108) Arterial Blood HCO3 31 mmol/L (21-28) Arterial Blood Base Excess 6 mmol/L (-3-3) FiO2 100 White Blood Count 10.2 x10^3/uL (4.0-11.0) Red Blood Count 4.82 x10^6/uL (4.30-5.70) Hemoglobin 15.2 g/dL (13.0-17.5) Hematocrit 45.1 % (39.0-53.0) Mean Corpuscular Volume 94 fL (79-100) Mean Corpuscular Hemoglobin 32 pg (25-35) Mean Corpuscular Hemoglobin Concent 34 g/dL (31-37) Red Cell Distribution Width 12.8 % (11.5-14.5) Platelet Count 265 x10^3/uL (140-400) Sodium Level 139 mmol/L (136-145) Potassium Level 4.1 mmol/L (3.5-5.1) Chloride Level 103 mmol/L (98-107) Carbon Dioxide Level 33 mmol/L (21-32) Anion Gap 3 (6-14) Blood Urea Nitrogen 30 mg/dL (8-26) Creatinine 0.8 mg/dL (0.7-1.3) Estimated GFR (Cockcroft-Gault) 100.0 BUN/Creatinine Ratio 38 (6-20) Glucose Level 140 mg/dL (70-99) Calcium Level 8.7 mg/dL (8.5-10.1) Total Bilirubin 1.1 mg/dL (0.2-1.0) Aspartate Amino Transf (AST/SGOT) 141 U/L (15-37) Alanine Aminotransferase (ALT/SGPT) 196 U/L (16-63) Alkaline Phosphatase 50 U/L (46-116) Total Protein 5.9 g/dL (6.4-8.2) Albumin 2.3 g/dL (3.4-5.0) Albumin/Globulin Ratio 0.6 (1.0-1.7) Medications Active Scripts Medications Dose Route/Sig Max Daily Dose Days Date Category Dose Instructions Morphine Sulfate 2 Mg/1 Ml Cartridge 2 Mg IV PRN Q4HRS PRN 01/30/21 Reported Zinc Sulfate 50 Mg Tablet 220 Mg PO DAILY 01/30/21 Reported Methylprednisolone Sod Succ 125 Mg Vial 60 Mg IJ Q8HRS 01/30/21 Reported Combivent Respimat Inhal (Ipratropium/Albuterol Sulfate) 4 Gm Aer.w.adap 2 Inh IH QID 01/30/21 Reported Pepcid (Famotidine) 20 Mg Tablet 20 Mg PO HS 01/30/21 Reported Lovenox (Enoxaparin Sodium) 30 Mg/0.3 Ml Disp.syrin 30 Mg SQ DAILY 01/30/21 Reported Vitamin D3 (Vitamin D) 125 Mcg Capsule 125 Mcg PO DAILY 01/30/21 Reported 5,000 UNITS = 125 MCG Zyrtec (Cetirizine Hcl) 10 Mg Tablet 1 Tab PO DAILY 01/30/21 Reported Ascorbic Acid 500 Mg Tablet 2 Mg PO DAILY 01/30/21 Reported Acetaminophen 325 Mg Tablet 2 Tab PO PRN Q6HRS PRN 30 01/30/21 Reported No Known Medications Prior To Admisstion (Info) Each 1 Each 02/29/20 Reported Impression . IMPRESSION: 1. Acute hypoxemic respiratory failure secondary to COVID-19 viral pneumonia. 2. COVID-19 viral pneumonia. 3. Abnormal chest x-ray, compatible with viral pneumonia. Plan . Updated 02/01/21 Continue supplemental oxygen to keep sats above 92%, on 15 liters NC, may require Vapotherm BIPAP PRN Continue Remdesivir Continue steroids. PRN tx of Anxiety D/W RN and RT PLAN: 1. We will continue support with oxygen supplementation. If required, we will increase to either nonrebreather or Vapotherm. 2. Continue Remdesivir and steroids. 3. Follow labs. The above was discussed with the . I do appreciate the privilege in sharing in the patient's care. REILLY MARAVILLA MD Feb 02, 2021 09:13
[2021-02-02] MEDS: ASCORBIC ACID 1,000 MG TABLET PO SCH (09:18)
[2021-02-02] MEDS: IPRATROPIUM/ALBUTEROL 20/100mcg/INH INHALER. INH SCH ×4 (09:18→21:24)
[2021-02-02] MEDS: THIAMINE 100 MG TABLET. PO SCH (09:18)
[2021-02-02] MEDS: CHOLECALCIFEROL (VITAMIN D3) 5,000 UNIT CAPSULE PO SCH (09:18)
[2021-02-02] MEDS: ZINC SULFATE 220 MG CAPSULE. PO SCH (09:19)
[2021-02-02] MEDS: CETIRIZINE HCL 10 MG TABLET. PO SCH (09:19)
--- NOTE | 2021-02-02 10:01 | PDOC ---
Infectious Disease Note Subjective: Subjective Patient on BiPAP Discussed with RN Vital Signs: Vital Signs Vital Signs Date Time Temp Pulse Resp B/P (MAP) Pulse Ox O2 Delivery O2 Flow Rate FiO2 02/02/21 07:00 97.9 64 20 147/88 (107) 95 BiPAP/CPAP 97.9 02/02/21 03:36 40.0 Physical Exam: PHYSICAL EXAM GEN axo3 male in nad HEENT: Normocephalic, atraumatic. Anicteric. No thrush. NECK: Supple, no JVD. LUNGS: Crackles bilaterally. No accessory muscle use. HEART: S1, S2. No murmurs. ABDOMEN: Soft, nontender, nondistended. Bowel sounds present. EXTREMITIES: No edema, no cyanosis. DERMATOLOGIC: Warm, dry, no generalized rash. NEUROLOGIC: Alert, oriented, grossly nonfocal. PSYCHIATRIC: Calm and cooperative. PIV looks clean. Medications: Inpatient Meds: Medications reviewed. Labs: Lab Laboratory Tests Test 02/01/21 11:56 02/02/21 03:30 O2 Saturation 96 % (92-99) Arterial Blood pH 7.44 (7.35-7.45) Arterial Blood pCO2 at Patient Temp 46 mmHg (35-46) Arterial Blood pO2 at Patient Temp 85 mmHg (75-108) Arterial Blood HCO3 31 mmol/L (21-28) Arterial Blood Base Excess 6 mmol/L (-3-3) FiO2 100 White Blood Count 10.2 x10^3/uL (4.0-11.0) Red Blood Count 4.82 x10^6/uL (4.30-5.70) Hemoglobin 15.2 g/dL (13.0-17.5) Hematocrit 45.1 % (39.0-53.0) Mean Corpuscular Volume 94 fL (79-100) Mean Corpuscular Hemoglobin 32 pg (25-35) Mean Corpuscular Hemoglobin Concent 34 g/dL (31-37) Red Cell Distribution Width 12.8 % (11.5-14.5) Platelet Count 265 x10^3/uL (140-400) Sodium Level 139 mmol/L (136-145) Potassium Level 4.1 mmol/L (3.5-5.1) Chloride Level 103 mmol/L (98-107) Carbon Dioxide Level 33 mmol/L (21-32) Anion Gap 3 (6-14) Blood Urea Nitrogen 30 mg/dL (8-26) Creatinine 0.8 mg/dL (0.7-1.3) Estimated GFR (Cockcroft-Gault) 100.0 BUN/Creatinine Ratio 38 (6-20) Glucose Level 140 mg/dL (70-99) Calcium Level 8.7 mg/dL (8.5-10.1) Total Bilirubin 1.1 mg/dL (0.2-1.0) Aspartate Amino Transf (AST/SGOT) 141 U/L (15-37) Alanine Aminotransferase (ALT/SGPT) 196 U/L (16-63) Alkaline Phosphatase 50 U/L (46-116) Total Protein 5.9 g/dL (6.4-8.2) Albumin 2.3 g/dL (3.4-5.0) Albumin/Globulin Ratio 0.6 (1.0-1.7) Objective: Assessment: 1. COVID-19 pneumonia. 2. Acute hypoxic respiratory failure. 3. Degenerative joint disease. 4. Lymphopenia. 5. Hypokalemia. 6. Abnormal LFTs. Plan: Plan of Care 1. Continue supportive care. 2. Follow up labs and cultures. 3.on remdesivir and steroids per primary. 4. Maintain aspiration precaution. 5. Monitor LFTs closely . Discussed with nursing staff. NBA VICKERS MD Feb 02, 2021 10:01
--- NOTE | 2021-02-02 10:54 | PDOC ---
[employer] PROGRESS NOTE Date of Service DOS: DATE: 02/02/21 TIME: 10:52 Chief Complaint Chief Complaint Acute hypoxic respiratory failure COVID-19 pneumonia requiring BiPAP Obesity class I Admit to medicine for further management Pulmonology consult ID consult Continue IV Remdesivir Continue IV thiamine and vitamin C Continue IV steroids Pending ferritin, LDH, CRP, D-dimer labs Titrate O2 supplementation to maintain O2 saturation greater than 92% Lovenox for DVT prophylaxis Protonix while on steroids GI prophylaxis ADA diet Full code Discussed with RN and SW Disposition patient management as above Surrogate decision maker is the History of Present Illness History of Present Illness 56-year-old male with no significant past medical history except for degenerative joint disease who was transferred from [facility] yesterday with complaints of fever, headache, dry cough, shortness of breath for the past 3 days. Patient stated that he was actually exposed from his son he was worsening and required to come to the ED at [facility] and he was found to be hypoxic and required 2 L of nasal cannula oxygen. Chest x-ray over there showed bilateral mild bibasilar infiltrates. Covid test was positive and patient was transferred to [facility] for pulmonary evaluation and treatment. Patient was started on Remdesivir and IV steroids. Currently patient is requiring 15 L high flow nasal cannula and IV steroids. 02/01/2021 No acute events overnight. Patient was saturating 92% on 15 L nasal cannula and he had desatted down to 70% after he had to blow his nose. Patient was placed on BiPAP at 100% FiO2. Chest leg appears to be worsening. Patient's chart, l abs, images were reviewed and discussed with RN 08/05/2020 No acute events overnight. Patient saturating 96% on Vapotherm and BiPAP. Patient's chart, labs, images were reviewed and discussed with RN Vitals/I&O Vitals/I&O: Vital Signs Date Time Temp Pulse Resp B/P (MAP) Pulse Ox O2 Delivery O2 Flow Rate FiO2 02/02/21 10:10 92 BiPAP/CPAP 02/02/21 07:00 97.9 64 20 147/88 (107) 97.9 02/02/21 03:36 40.0 I & O 02/01/21 02/01/21 02/02/21 14:59 22:59 06:59 Intake Total 0 ml 0 ml Output Total 100 ml Balance 0 ml -100 ml Physical Exam Physical Exam: GEN axo3 male in nad HEENT: Normocephalic, atraumatic. Anicteric. No thrush. NECK: Supple, no JVD. LUNGS: Crackles bilaterally. No accessory muscle use. HEART: S1, S2. No murmurs. ABDOMEN: Soft, nontender, nondistended. Bowel sounds present. EXTREMITIES: No edema, no cyanosis. DERMATOLOGIC: Warm, dry, no generalized rash. NEUROLOGIC: Alert, oriented, grossly nonfocal. PSYCHIATRIC: Calm and cooperative. PIV looks clean. General: Alert, No acute distress Heart: Regular rate Lungs: Clear Abdomen: Normal bowel sounds Extremities: No clubbing Skin: No rashes, No significant lesion Labs Labs: Laboratory Tests Test 02/01/21 11:56 02/02/21 03:30 O2 Saturation 96 % (92-99) Arterial Blood pH 7.44 (7.35-7.45) Arterial Blood pCO2 at Patient Temp 46 mmHg (35-46) Arterial Blood pO2 at Patient Temp 85 mmHg (75-108) Arterial Blood HCO3 31 mmol/L (21-28) Arterial Blood Base Excess 6 mmol/L (-3-3) FiO2 100 White Blood Count 10.2 x10^3/uL (4.0-11.0) Red Blood Count 4.82 x10^6/uL (4.30-5.70) Hemoglobin 15.2 g/dL (13.0-17.5) Hematocrit 45.1 % (39.0-53.0) Mean Corpuscular Volume 94 fL (79-100) Mean Corpuscular Hemoglobin 32 pg (25-35) Mean Corpuscular Hemoglobin Concent 34 g/dL (31-37) Red Cell Distribution Width 12.8 % (11.5-14.5) Platelet Count 265 x10^3/uL (140-400) Sodium Level 139 mmol/L (136-145) Potassium Level 4.1 mmol/L (3.5-5.1) Chloride Level 103 mmol/L (98-107) Carbon Dioxide Level 33 mmol/L (21-32) Anion Gap 3 (6-14) Blood Urea Nitrogen 30 mg/dL (8-26) Creatinine 0.8 mg/dL (0.7-1.3) Estimated GFR (Cockcroft-Gault) 100.0 BUN/Creatinine Ratio 38 (6-20) Glucose Level 140 mg/dL (70-99) Calcium Level 8.7 mg/dL (8.5-10.1) Total Bilirubin 1.1 mg/dL (0.2-1.0) Aspartate Amino Transf (AST/SGOT) 141 U/L (15-37) Alanine Aminotransferase (ALT/SGPT) 196 U/L (16-63) Alkaline Phosphatase 50 U/L (46-116) Total Protein 5.9 g/dL (6.4-8.2) Albumin 2.3 g/dL (3.4-5.0) Albumin/Globulin Ratio 0.6 (1.0-1.7) Comment Review of Relevant I have reviewed the following items rosalinda (where applicable) has been applied. Medications: Current Medications Medications (Trade) Dose Ordered Sig/Mateus Route PRN Reason Start Time Stop Time Status Last Admin Dose Admin Lorazepam (Ativan Inj) 1 mg PRN Q8HRS PRN IVP ANXIETY / AGITATION 02/01/21 11:15 02/01/21 14:05 Thiamine Mononitrate (Vitamin B-1) 100 mg DAILY PO 02/02/21 09:00 02/02/21 09:18 Sterile Water (WATER for RESP) 1,000 ml CONT PRN INH VIA VAPOTHERM DEVICE 02/01/21 19:15 02/02/21 00:34 Justifications for Admission Other Justification GURMEET ALBRIGHT MD Feb 02, 2021 10:53
[2021-02-02 11:00] VITALS: BP 139/84
--- NOTE | 2021-02-02 13:53 | NUR ---
SS following up with discharge planning. SS reviewed pt chart and discussed with pt RN. Pt is currently on the BIPAP at 100%. COVID19 positive. Pt on IV Remdesivir and IV Solu Medrol. SS will continue to follow for discharge planning.
[2021-02-02] MEDS ORDERED: HALOPERIDOL LACTATE 5 MG/ML VIAL. IVP PRN (14:15)
[2021-02-02 15:00] VITALS: BP 142/83
[2021-02-02 19:45] VITALS: BP 162/93
[2021-02-02] MEDS: REMDESIVIR 100mg in NORMAL SALINE 250ML X 4 DAYS IV SCH (21:24)
[2021-02-02] MEDS: FAMOTIDINE 20 MG TABLET. PO SCH (21:24)
[2021-02-02] MEDS: ENOXAPARIN 40 MG/0.4 ML SYRINGE. SQ SCH (21:25)
[2021-02-02] MEDS: MORPHINE SULFATE 2 MG/ML INJ. IVP PRN ×2 (21:26→23:22)
[2021-02-02] MEDS: ACETAMINOPHEN 325 MG TABLET. PO PRN (21:28)
[2021-02-02 23:00] VITALS: BP 150/94
[2021-02-03 03:50] VITALS: BP 142/85
[2021-02-03] MEDS: methylPREDNISolone SOD SUCC PF 125 MG/2 ML VIAL. IV SCH ×3 (06:15→21:22)
[2021-02-03 07:00] VITALS: BP 139/83
--- NOTE | 2021-02-03 07:52 | PDOC ---
Infectious Disease Note Subjective: Subjective Patient on BiPAP Discussed with RN Vital Signs: Vital Signs Vital Signs Date Time Temp Pulse Resp B/P (MAP) Pulse Ox O2 Delivery O2 Flow Rate FiO2 02/03/21 04:00 96 BiPAP/CPAP 02/03/21 03:50 97.7 58 32 142/85 (104) 97.7 02/02/21 23:52 40.0 Physical Exam: PHYSICAL EXAM GEN axo3 male in nad HEENT: Normocephalic, atraumatic. Anicteric. No thrush. NECK: Supple, no JVD. LUNGS: Crackles bilaterally. No accessory muscle use. HEART: S1, S2. No murmurs. ABDOMEN: Soft, nontender, nondistended. Bowel sounds present. EXTREMITIES: No edema, no cyanosis. DERMATOLOGIC: Warm, dry, no generalized rash. NEUROLOGIC: Alert, oriented, grossly nonfocal. PSYCHIATRIC: Calm and cooperative. PIV looks clean. Medications: Inpatient Meds: Medications reviewed. Objective: Assessment: 1. COVID-19 pneumonia. 2. Acute hypoxic respiratory failure. 3. Degenerative joint disease. 4. Lymphopenia. 5. Hypokalemia. 6. Abnormal LFTs. Plan: Plan of Care 1. Continue supportive care. 2. Follow up labs and cultures. 3.on remdesivir and steroids per primary. 4. Maintain aspiration precaution. 5. Monitor lfts closely . Discussed with nursing staff. NBA VICKERS MD Feb 03, 2021 07:52
[2021-02-03] MEDS: IPRATROPIUM/ALBUTEROL 20/100mcg/INH INHALER. INH SCH ×4 (08:00→20:00)
[2021-02-03] MEDS: ASCORBIC ACID 1,000 MG TABLET PO SCH (09:27)
[2021-02-03] MEDS: ZINC SULFATE 220 MG CAPSULE. PO SCH (09:27)
[2021-02-03] MEDS: CHOLECALCIFEROL (VITAMIN D3) 5,000 UNIT CAPSULE PO SCH (09:27)
[2021-02-03] MEDS: THIAMINE 100 MG TABLET. PO SCH (09:27)
[2021-02-03] MEDS: CETIRIZINE HCL 10 MG TABLET. PO SCH (09:27)
[2021-02-03] MEDS: ACETAMINOPHEN 325 MG TABLET. PO PRN ×2 (09:33→21:22)
--- NOTE | 2021-02-03 09:56 | PDOC ---
[employer] PROGRESS NOTE Date of Service DOS: DATE: 02/03/21 TIME: 09:52 Chief Complaint Chief Complaint SEPSIS, was POA severe malnutrition was POA, with obesity, BMI 32 Acute hypoxic respiratory failure COVID-19 pneumonia requiring BiPAP transaminitis, ID consult Continue IV Remdesivir Continue IV thiamine and vitamin C Continue IV steroids Pending ferritin, LDH, CRP, D-dimer labs Titrate O2 supplementation to maintain O2 saturation greater than 92% Lovenox for DVT prophylaxis Protonix while on steroids GI prophylaxis ADA diet Full code Discussed with RN and SW Disposition patient management as above Surrogate decision maker is the History of Present Illness History of Present Illness 56-year-old male with no significant past medical history except for degenerative joint disease who was transferred from [facility] yesterday with complaints of fever, headache, dry cough, shortness of breath for the past 3 days. Patient stated that he was actually exposed from his son he was worsening and required to come to the ED at [facility] and he was found to be hypoxic and required 2 L of nasal cannula oxygen. Chest x-ray over there showed bilateral mild bibasilar infiltrates. Covid test was positive and patient was transferred to [facility] for pulmonary evaluation and treatment. Patient was started on Remdesivir and IV steroids. Currently patient is requiring 15 L high flow nasal cannula and IV steroids. 02/02/2021 No acute events overnight. Patient was saturating 92% on 15 L nasal cannula and he had desatted down to 70% after he had to blow his nose. Patient was placed on BiPAP at 100% FiO2. Chest leg appears to be worsening. Patient's chart, labs, images were reviewed and discussed with AMERICA vieira Po inakem, dry, dark urine Vitals/I&O Vitals/I&O: Vital Signs Date Time Temp Pulse Resp B/P (MAP) Pulse Ox O2 Delivery O2 Flow Rate FiO2 02/03/21 07:58 92 BiPAP/CPAP 02/03/21 07:00 97.5 55 16 139/83 (101) 97.5 02/02/21 23:52 40.0 I & O 02/02/21 02/02/21 02/03/21 15:00 23:00 07:00 Intake Total 500 ml 0 ml Output Total 600 ml 600 ml Balance -600 ml 500 ml -600 ml Physical Exam Physical Exam: GEN axo3 male in some mild resp distres LIMTIED COVID EXAM . NEUROLOGIC: Alert, oriented, grossly nonfocal. PSYCHIATRIC: Calm and cooperative. General: Alert, mild distress Heart: Regular rate (tele reg, reviewed) Lungs: Other (no gross rhonchi) Extremities: No clubbing Labs Labs: cough is worse at night, LFT up noted Review of Systems Review of Systems: cont current, day 3/4 remdesivir Comment Review of Relevant I have reviewed the following items rosalinda (where applicable) has been applied. Justifications for Admission Other Justification MARGIE FOLEY MD Feb 03, 2021 09:55
[2021-02-03] MEDS ORDERED: DEXTROSE 50% 25 GM / 50ML DISP.SYRIN. IV PRN (10:15)
[2021-02-03 11:00] VITALS: BP 143/89
[2021-02-03] MEDS: POTASSIUM CL 20MEQ D5-0.45NACL 1,000 ML IV SCH ×2 (11:36→21:21)
[2021-02-03] MEDS: INSULIN LISPRO 300 UNITS/3 ML VIAL. SQ SCH ×2 (12:00→17:00)
--- NOTE | 2021-02-03 13:41 | PDOC ---
PULMONARY PROGRESS NOTES DATE: 02/03/21 TIME: 13:39 Subjective Patient's slept well Currently on BiPAP Not more short of breath Vitals Vital Signs Date Time Temp Pulse Resp B/P (MAP) Pulse Ox O2 Delivery O2 Flow Rate FiO2 02/03/21 11:30 97 BiPAP/CPAP 02/03/21 11:00 97.6 70 18 143/89 (107) 97.6 02/02/21 23:52 40.0 Comments Pt. seen during id - pandemic visual exam preformed RRR BIPAP no distress no obvious rash or edema Labs Laboratory Tests Test 02/02/21 03:30 White Blood Count 10.2 x10^3/uL (4.0-11.0) Red Blood Count 4.82 x10^6/uL (4.30-5.70) Hemoglobin 15.2 g/dL (13.0-17.5) Hematocrit 45.1 % (39.0-53.0) Mean Corpuscular Volume 94 fL (79-100) Mean Corpuscular Hemoglobin 32 pg (25-35) Mean Corpuscular Hemoglobin Concent 34 g/dL (31-37) Red Cell Distribution Width 12.8 % (11.5-14.5) Platelet Count 265 x10^3/uL (140-400) Sodium Level 139 mmol/L (136-145) Potassium Level 4.1 mmol/L (3.5-5.1) Chloride Level 103 mmol/L (98-107) Carbon Dioxide Level 33 mmol/L (21-32) Anion Gap 3 (6-14) Blood Urea Nitrogen 30 mg/dL (8-26) Creatinine 0.8 mg/dL (0.7-1.3) Estimated GFR (Cockcroft-Gault) 100.0 BUN/Creatinine Ratio 38 (6-20) Glucose Level 140 mg/dL (70-99) Calcium Level 8.7 mg/dL (8.5-10.1) Total Bilirubin 1.1 mg/dL (0.2-1.0) Aspartate Amino Transf (AST/SGOT) 141 U/L (15-37) Alanine Aminotransferase (ALT/SGPT) 196 U/L (16-63) Alkaline Phosphatase 50 U/L (46-116) Total Protein 5.9 g/dL (6.4-8.2) Albumin 2.3 g/dL (3.4-5.0) Albumin/Globulin Ratio 0.6 (1.0-1.7) Medications Active Scripts Medications Dose Route/Sig Max Daily Dose Days Date Category Dose Instructions Morphine Sulfate 2 Mg/1 Ml Cartridge 2 Mg IV PRN Q4HRS PRN 01/30/21 Reported Zinc Sulfate 50 Mg Tablet 220 Mg PO DAILY 01/30/21 Reported Methylprednisolone Sod Succ 125 Mg Vial 60 Mg IJ Q8HRS 01/30/21 Reported Combivent Respimat Inhal (Ipratropium/Albuterol Sulfate) 4 Gm Aer.w.adap 2 Inh IH QID 01/30/21 Reported Pepcid (Famotidine) 20 Mg Tablet 20 Mg PO HS 01/30/21 Reported Lovenox (Enoxaparin Sodium) 30 Mg/0.3 Ml Disp.syrin 30 Mg SQ DAILY 01/30/21 Reported Vitamin D3 (Vitamin D) 125 Mcg Capsule 125 Mcg PO DAILY 01/30/21 Reported 5,000 UNITS = 125 MCG Zyrtec (Cetirizine Hcl) 10 Mg Tablet 1 Tab PO DAILY 01/30/21 Reported Ascorbic Acid 500 Mg Tablet 2 Mg PO DAILY 01/30/21 Reported Acetaminophen 325 Mg Tablet 2 Tab PO PRN Q6HRS PRN 30 01/30/21 Reported No Known Medications Prior To Admisstion (Info) Each 1 Each 02/29/20 Reported Impression . IMPRESSION: 1. Acute hypoxemic respiratory failure secondary to COVID-19 viral pneumonia. 2. COVID-19 viral pneumonia. 3. Abnormal chest x-ray, compatible with viral pneumonia. Plan . Updated 02/03 Patient continues to do well with BiPAP High flow oxygen when eating Remdesivir Steroids As needed Haldol, for anxiety Updated 02/02/21 Continue supplemental oxygen to keep sats above 92%, Continue BIPAP Follow ID recs for ABX Continue Remdesivir for full course Continue steroids for full ten day course DC benzo pt. didn't tolerate well, obtain EKG and start IV haldol for anxiety D/W RN and RT Discussed with at bedside Updated 02/01/21 Continue supplemental oxygen to keep sats above 92%, on 15 liters NC, may require Vapotherm BIPAP PRN Continue Remdesivir Continue steroids. PRN tx of Anxiety D/W RN and RT REILLY MARAVILLA MD 31, 2021 13:41
[2021-02-03 15:00] VITALS: BP 138/83
[2021-02-03 19:45] VITALS: BP 141/86
[2021-02-03] MEDS: REMDESIVIR 100mg in NORMAL SALINE 250ML X 4 DAYS IV SCH (21:20)
[2021-02-03] MEDS: ENOXAPARIN 40 MG/0.4 ML SYRINGE. SQ SCH (21:21)
[2021-02-03] MEDS: FAMOTIDINE 20 MG TABLET. PO SCH (21:22)
[2021-02-03] MEDS: MORPHINE SULFATE 2 MG/ML INJ. IVP PRN (21:23)
[2021-02-03 23:20] VITALS: BP 140/87
[2021-02-04 03:40] VITALS: BP 143/90
[2021-02-04 04:37] LABS: BASO % 0 % (0-3); EOS % 0 % (0-3); HEMATOCRIT 45.5 % (39.0-53.0); HEMOGLOBIN 15.4 g/dL (13.0-17.5); LYMPH # 0.4 x10^3/uL (1.0-4.8); LYMPH % 4 % (24-48); MEAN CORPUSCULAR HEMOGLOBIN 32 pg (25-35); MEAN CORPUSCULAR HGB CONC 34 g/dL (31-37); MEAN CORPUSCULAR VOLUME 95 fL (79-100); MONO # 0.3 x10^3/uL (0.0-1.1); MONO % 3 % (0-9); NEUT % 93 % (31-73); PLATELET COUNT 262 x10^3/uL (140-400); WHITE BLOOD COUNT 10.9 x10^3/uL (4.0-11.0)
[2021-02-04 04:58] LABS: ALBUMIN 2.4 g/dL (3.4-5.0); ALBUMIN/GLOBULIN RATIO 0.7 (1.0-1.7); CALCIUM 8.3 mg/dL (8.5-10.1); CREATININE 0.7 mg/dL (0.7-1.3); GFR 116.7; POTASSIUM 4.8 mmol/L (3.5-5.1); TOTAL BILIRUBIN 0.6 mg/dL (0.2-1.0); TOTAL PROTEIN 5.9 g/dL (6.4-8.2)
[2021-02-04 05:37] LABS: % BANDS 6 % (0-9); % LYMPHS 4 % (24-48); % SEGS 90 % (35-66); PLT ESTIMATE ADEQUATE (ADEQUATE)
[2021-02-04] MEDS: methylPREDNISolone SOD SUCC PF 125 MG/2 ML VIAL. IV SCH ×3 (05:54→21:16)
[2021-02-04 07:00] VITALS: BP 147/88
[2021-02-04] MEDS: IPRATROPIUM/ALBUTEROL 20/100mcg/INH INHALER. INH SCH ×4 (08:00→21:14)
[2021-02-04] MEDS: INSULIN LISPRO 300 UNITS/3 ML VIAL. SQ SCH (08:00)
[2021-02-04] MEDS: POTASSIUM CL 20MEQ D5-0.45NACL 1,000 ML IV SCH ×2 (08:25→16:54)
[2021-02-04] MEDS: CHOLECALCIFEROL (VITAMIN D3) 5,000 UNIT CAPSULE PO SCH (08:26)
[2021-02-04] MEDS: ZINC SULFATE 220 MG CAPSULE. PO SCH (08:26)
[2021-02-04] MEDS: ACETAMINOPHEN 325 MG TABLET. PO PRN ×2 (08:26→21:15)
[2021-02-04] MEDS: THIAMINE 100 MG TABLET. PO SCH (08:26)
[2021-02-04] MEDS: CETIRIZINE HCL 10 MG TABLET. PO SCH (08:26)
--- NOTE | 2021-02-04 08:27 | PDOC ---
[employer] PROGRESS NOTE Date of Service DOS: DATE: 02/04/21 TIME: 08:25 Chief Complaint Chief Complaint SEPSIS, was POA severe malnutrition was POA, with obesity, BMI 32 Acute hypoxic respiratory failure COVID-19 pneumonia requiring BiPAP transaminitis, iv fluid started Continue IV Remdesivir Continue IV thiamine and vitamin C Continue IV steroids Pending ferritin, LDH, CRP, D-dimer labs Titrate O2 supplementation to maintain O2 saturation greater than 92% Lovenox for DVT prophylaxis History of Present Illness History of Present Illness 56-year-old male - transferred from [facility] yesterday with complaints of fever, headache, dry cough, shortness of breath for the past 3 days. Patient stated that he was actually exposed from his son he was worsening and required to come to the ED at [facility] and he was found to be hypoxic and required 2 L of nasal cannula oxygen. Chest x-ray over there showed bilateral mild bibasilar infiltrates. Covid test was positive and patient was transferred to [facility] for pulmonary evaluation and treatment. Patient was started on Remdesivir and IV steroids. Currently patient is requiring 15 L high flow nasal cannula and IV steroids. 02/04,. IV fluid started yesterday still weak, cough, poor po intake Vitals/I&O Vitals/I&O: Vital Signs Date Time Temp Pulse Resp B/P (MAP) Pulse Ox O2 Delivery O2 Flow Rate FiO2 02/04/21 06:01 95 BiPAP/CPAP 02/04/21 03:40 97.1 59 20 143/90 (107) 97.1 02/03/21 21:53 80.0 I & O 02/03/21 02/03/21 02/04/21 15:00 23:00 07:00 Intake Total 480 ml 1440 ml 0 ml Output Total 700 ml 650 ml 650 ml Balance -220 ml 790 ml -650 ml Physical Exam Physical Exam: GEN axo3 male in some mild resp distres LIMTIED COVID EXAM . NEUROLOGIC: Alert, oriented, grossly nonfocal. PSYCHIATRIC: Calm and cooperative. General: Alert, mild distress Heart: Regular rate (tele reg, reviewed) Extremities: No clubbing Labs Labs: Laboratory Tests Test 02/03/21 21:06 02/04/21 04:00 Glucose (Fingerstick) 156 mg/dL (70-99) White Blood Count 10.9 x10^3/uL (4.0-11.0) Red Blood Count 4.80 x10^6/uL (4.30-5.70) Hemoglobin 15.4 g/dL (13.0-17.5) Hematocrit 45.5 % (39.0-53.0) Mean Corpuscular Volume 95 fL (79-100) Mean Corpuscular Hemoglobin 32 pg (25-35) Mean Corpuscular Hemoglobin Concent 34 g/dL (31-37) Red Cell Distribution Width 13.0 % (11.5-14.5) Platelet Count 262 x10^3/uL (140-400) Neutrophils (%) (Auto) 93 % (31-73) Lymphocytes (%) (Auto) 4 % (24-48) Monocytes (%) (Auto) 3 % (0-9) Eosinophils (%) (Auto) 0 % (0-3) Basophils (%) (Auto) 0 % (0-3) Neutrophils # (Auto) 10.0 x10^3/uL (1.8-7.7) Lymphocytes # (Auto) 0.4 x10^3/uL (1.0-4.8) Monocytes # (Auto) 0.3 x10^3/uL (0.0-1.1) Eosinophils # (Auto) 0.0 x10^3/uL (0.0-0.7) Basophils # (Auto) 0.0 x10^3/uL (0.0-0.2) Segmented Neutrophils % 90 % (35-66) Band Neutrophils % 6 % (0-9) Lymphocytes % 4 % (24-48) Platelet Estimate Adequate (ADEQUATE) Sodium Level 137 mmol/L (136-145) Potassium Level 4.8 mmol/L (3.5-5.1) Chloride Level 105 mmol/L (98-107) Carbon Dioxide Level 28 mmol/L (21-32) Anion Gap 4 (6-14) Blood Urea Nitrogen 22 mg/dL (8-26) Creatinine 0.7 mg/dL (0.7-1.3) Estimated GFR (Cockcroft-Gault) 116.7 BUN/Creatinine Ratio 31 (6-20) Glucose Level 175 mg/dL (70-99) Calcium Level 8.3 mg/dL (8.5-10.1) Total Bilirubin 0.6 mg/dL (0.2-1.0) Aspartate Amino Transf (AST/SGOT) 83 U/L (15-37) Alanine Aminotransferase (ALT/SGPT) 254 U/L (16-63) Alkaline Phosphatase 54 U/L (46-116) Total Protein 5.9 g/dL (6.4-8.2) Albumin 2.4 g/dL (3.4-5.0) Albumin/Globulin Ratio 0.7 (1.0-1.7) Comment Review of Relevant I have reviewed the following items rosalinda (where applicable) has been applied. Medications: Current Medications Medications (Trade) Dose Ordered Sig/Mateus Route PRN Reason Start Time Stop Time Status Last Admin Dose Admin Potassium Chloride/Dextrose/ Sod Cl 1,000 ml @ 100 mls/hr Q10H IV 02/03/21 10:15 02/03/21 21:21 Justifications for Admission Other Justification AMRGIE FOLEY MD Feb 04, 2021 08:27
--- NOTE | 2021-02-04 08:32 | PDOC ---
Infectious Disease Note Subjective: Subjective Patient on BiPAP Frustrated as he is not able to go home Remdesivir discontinued yesterday Discussed with RN Vital Signs: Vital Signs Vital Signs Date Time Temp Pulse Resp B/P (MAP) Pulse Ox O2 Delivery O2 Flow Rate FiO2 02/04/21 06:01 95 BiPAP/CPAP 02/04/21 03:40 97.1 59 20 143/90 (107) 97.1 02/03/21 21:53 80.0 Physical Exam: PHYSICAL EXAM GEN axo3 male in some mild resp distres LIMTIED COVID EXAM . NEUROLOGIC: Alert, oriented, grossly nonfocal. PSYCHIATRIC: Calm and cooperative. Medications: Inpatient Meds: Medications reviewed. Labs: Lab Laboratory Tests Test 02/03/21 21:06 02/04/21 04:00 Glucose (Fingerstick) 156 mg/dL (70-99) White Blood Count 10.9 x10^3/uL (4.0-11.0) Red Blood Count 4.80 x10^6/uL (4.30-5.70) Hemoglobin 15.4 g/dL (13.0-17.5) Hematocrit 45.5 % (39.0-53.0) Mean Corpuscular Volume 95 fL (79-100) Mean Corpuscular Hemoglobin 32 pg (25-35) Mean Corpuscular Hemoglobin Concent 34 g/dL (31-37) Red Cell Distribution Width 13.0 % (11.5-14.5) Platelet Count 262 x10^3/uL (140-400) Neutrophils (%) (Auto) 93 % (31-73) Lymphocytes (%) (Auto) 4 % (24-48) Monocytes (%) (Auto) 3 % (0-9) Eosinophils (%) (Auto) 0 % (0-3) Basophils (%) (Auto) 0 % (0-3) Neutrophils # (Auto) 10.0 x10^3/uL (1.8-7.7) Lymphocytes # (Auto) 0.4 x10^3/uL (1.0-4.8) Monocytes # (Auto) 0.3 x10^3/uL (0.0-1.1) Eosinophils # (Auto) 0.0 x10^3/uL (0.0-0.7) Basophils # (Auto) 0.0 x10^3/uL (0.0-0.2) Segmented Neutrophils % 90 % (35-66) Band Neutrophils % 6 % (0-9) Lymphocytes % 4 % (24-48) Platelet Estimate Adequate (ADEQUATE) Sodium Level 137 mmol/L (136-145) Potassium Level 4.8 mmol/L (3.5-5.1) Chloride Level 105 mmol/L (98-107) Carbon Dioxide Level 28 mmol/L (21-32) Anion Gap 4 (6-14) Blood Urea Nitrogen 22 mg/dL (8-26) Creatinine 0.7 mg/dL (0.7-1.3) Estimated GFR (Cockcroft-Gault) 116.7 BUN/Creatinine Ratio 31 (6-20) Glucose Level 175 mg/dL (70-99) Calcium Level 8.3 mg/dL (8.5-10.1) Total Bilirubin 0.6 mg/dL (0.2-1.0) Aspartate Amino Transf (AST/SGOT) 83 U/L (15-37) Alanine Aminotransferase (ALT/SGPT) 254 U/L (16-63) Alkaline Phosphatase 54 U/L (46-116) Total Protein 5.9 g/dL (6.4-8.2) Albumin 2.4 g/dL (3.4-5.0) Albumin/Globulin Ratio 0.7 (1.0-1.7) Objective: Assessment: 1. COVID-19 pneumonia. 2. Acute hypoxic respiratory failure. 3. Degenerative joint disease. 4. Lymphopenia. 5. Hypokalemia. Resolved 6. Abnormal LFTs. Worsened Plan: Plan of Care 1. Continue supportive care. 2. Follow up labs and cultures. 3. s/p remdesivir.on steroids per primary. 4. Maintain aspiration precaution. 5. We will sign off, call if any questions . Discussed with nursing staff. NBA VICKERS MD Feb 04, 2021 08:32
[2021-02-04] MEDS ORDERED: INSULIN GLARGINE SYRINGE. SQ SCH (09:00)
--- NOTE | 2021-02-04 09:21 | PDOC ---
PULMONARY PROGRESS NOTES DATE: 02/04/21 TIME: 09:17 Subjective No new symptoms, feels better, slept okay 75% BiPAP Vitals Vital Signs Date Time Temp Pulse Resp B/P (MAP) Pulse Ox O2 Delivery O2 Flow Rate FiO2 02/04/21 07:00 96.3 68 22 147/88 (107) 93 BiPAP/CPAP 96.3 02/03/21 21:53 80.0 Comments Pt. seen during covid - pandemic visual exam preformed RRR BIPAP no distress no obvious rash or edema Labs Laboratory Tests Test 02/03/21 21:06 02/04/21 04:00 02/04/21 08:30 Glucose (Fingerstick) 156 mg/dL (70-99) 141 mg/dL (70-99) White Blood Count 10.9 x10^3/uL (4.0-11.0) Red Blood Count 4.80 x10^6/uL (4.30-5.70) Hemoglobin 15.4 g/dL (13.0-17.5) Hematocrit 45.5 % (39.0-53.0) Mean Corpuscular Volume 95 fL (79-100) Mean Corpuscular Hemoglobin 32 pg (25-35) Mean Corpuscular Hemoglobin Concent 34 g/dL (31-37) Red Cell Distribution Width 13.0 % (11.5-14.5) Platelet Count 262 x10^3/uL (140-400) Neutrophils (%) (Auto) 93 % (31-73) Lymphocytes (%) (Auto) 4 % (24-48) Monocytes (%) (Auto) 3 % (0-9) Eosinophils (%) (Auto) 0 % (0-3) Basophils (%) (Auto) 0 % (0-3) Neutrophils # (Auto) 10.0 x10^3/uL (1.8-7.7) Lymphocytes # (Auto) 0.4 x10^3/uL (1.0-4.8) Monocytes # (Auto) 0.3 x10^3/uL (0.0-1.1) Eosinophils # (Auto) 0.0 x10^3/uL (0.0-0.7) Basophils # (Auto) 0.0 x10^3/uL (0.0-0.2) Segmented Neutrophils % 90 % (35-66) Band Neutrophils % 6 % (0-9) Lymphocytes % 4 % (24-48) Platelet Estimate Adequate (ADEQUATE) Sodium Level 137 mmol/L (136-145) Potassium Level 4.8 mmol/L (3.5-5.1) Chloride Level 105 mmol/L (98-107) Carbon Dioxide Level 28 mmol/L (21-32) Anion Gap 4 (6-14) Blood Urea Nitrogen 22 mg/dL (8-26) Creatinine 0.7 mg/dL (0.7-1.3) Estimated GFR (Cockcroft-Gault) 116.7 BUN/Creatinine Ratio 31 (6-20) Glucose Level 175 mg/dL (70-99) Calcium Level 8.3 mg/dL (8.5-10.1) Total Bilirubin 0.6 mg/dL (0.2-1.0) Aspartate Amino Transf (AST/SGOT) 83 U/L (15-37) Alanine Aminotransferase (ALT/SGPT) 254 U/L (16-63) Alkaline Phosphatase 54 U/L (46-116) Total Protein 5.9 g/dL (6.4-8.2) Albumin 2.4 g/dL (3.4-5.0) Albumin/Globulin Ratio 0.7 (1.0-1.7) Laboratory Tests Test 02/03/21 21:06 02/04/21 04:00 02/04/21 08:30 Glucose (Fingerstick) 156 mg/dL (70-99) 141 mg/dL (70-99) White Blood Count 10.9 x10^3/uL (4.0-11.0) Red Blood Count 4.80 x10^6/uL (4.30-5.70) Hemoglobin 15.4 g/dL (13.0-17.5) Hematocrit 45.5 % (39.0-53.0) Mean Corpuscular Volume 95 fL (79-100) Mean Corpuscular Hemoglobin 32 pg (25-35) Mean Corpuscular Hemoglobin Concent 34 g/dL (31-37) Red Cell Distribution Width 13.0 % (11.5-14.5) Platelet Count 262 x10^3/uL (140-400) Neutrophils (%) (Auto) 93 % (31-73) Lymphocytes (%) (Auto) 4 % (24-48) Monocytes (%) (Auto) 3 % (0-9) Eosinophils (%) (Auto) 0 % (0-3) Basophils (%) (Auto) 0 % (0-3) Neutrophils # (Auto) 10.0 x10^3/uL (1.8-7.7) Lymphocytes # (Auto) 0.4 x10^3/uL (1.0-4.8) Monocytes # (Auto) 0.3 x10^3/uL (0.0-1.1) Eosinophils # (Auto) 0.0 x10^3/uL (0.0-0.7) Basophils # (Auto) 0.0 x10^3/uL (0.0-0.2) Segmented Neutrophils % 90 % (35-66) Band Neutrophils % 6 % (0-9) Lymphocytes % 4 % (24-48) Platelet Estimate Adequate (ADEQUATE) Sodium Level 137 mmol/L (136-145) Potassium Level 4.8 mmol/L (3.5-5.1) Chloride Level 105 mmol/L (98-107) Carbon Dioxide Level 28 mmol/L (21-32) Anion Gap 4 (6-14) Blood Urea Nitrogen 22 mg/dL (8-26) Creatinine 0.7 mg/dL (0.7-1.3) Estimated GFR (Cockcroft-Gault) 116.7 BUN/Creatinine Ratio 31 (6-20) Glucose Level 175 mg/dL (70-99) Calcium Level 8.3 mg/dL (8.5-10.1) Total Bilirubin 0.6 mg/dL (0.2-1.0) Aspartate Amino Transf (AST/SGOT) 83 U/L (15-37) Alanine Aminotransferase (ALT/SGPT) 254 U/L (16-63) Alkaline Phosphatase 54 U/L (46-116) Total Protein 5.9 g/dL (6.4-8.2) Albumin 2.4 g/dL (3.4-5.0) Albumin/Globulin Ratio 0.7 (1.0-1.7) Medications Active Scripts Medications Dose Route/Sig Max Daily Dose Days Date Category Dose Instructions Morphine Sulfate 2 Mg/1 Ml Cartridge 2 Mg IV PRN Q4HRS PRN 01/30/21 Reported Zinc Sulfate 50 Mg Tablet 220 Mg PO DAILY 01/30/21 Reported Methylprednisolone Sod Succ 125 Mg Vial 60 Mg IJ Q8HRS 01/30/21 Reported Combivent Respimat Inhal (Ipratropium/Albuterol Sulfate) 4 Gm Aer.w.adap 2 Inh IH QID 01/30/21 Reported Pepcid (Famotidine) 20 Mg Tablet 20 Mg PO HS 01/30/21 Reported Lovenox (Enoxaparin Sodium) 30 Mg/0.3 Ml Disp.syrin 30 Mg SQ DAILY 01/30/21 Reported Vitamin D3 (Vitamin D) 125 Mcg Capsule 125 Mcg PO DAILY 01/30/21 Reported 5,000 UNITS = 125 MCG Zyrtec (Cetirizine Hcl) 10 Mg Tablet 1 Tab PO DAILY 01/30/21 Reported Ascorbic Acid 500 Mg Tablet 2 Mg PO DAILY 01/30/21 Reported Acetaminophen 325 Mg Tablet 2 Tab PO PRN Q6HRS PRN 30 01/30/21 Reported No Known Medications Prior To Admisstion (Info) Each 1 Each 02/29/20 Reported Impression . IMPRESSION: 1. Acute hypoxemic respiratory failure secondary to COVID-19 viral pneumonia. 2. COVID-19 viral pneumonia. 3. Abnormal chest x-ray, compatible with viral pneumonia. 4. Nonspecific anxiety, possible clinical depression Plan . Updated 02/04 Continue BiPAP at 75%, decrease FiO2 as tolerated Stressed the importance of sitting up in a chair, Continue remdesivir, steroids, As needed Haldol for anxiety Discussed case with per telephone, updated her, answered all questions. Updated 02/03 Patient continues to do well with BiPAP High flow oxygen when eating Remdesivir Steroids As needed Haldol, for anxiety REILLY MARAVILLA MD Feb 04, 2021 09:21
[2021-02-04 11:00] VITALS: BP 144/99
[2021-02-04] MEDS: ASCORBIC ACID 1,000 MG TABLET PO SCH (11:47)
[2021-02-04 15:00] VITALS: BP 147/92
[2021-02-04 19:50] VITALS: BP 163/87
--- NOTE | 2021-02-04 20:08 | NUR ---
Patient refusing to continue to have IV fluids running it is keeping him awake with the beeping. Educated patient why he is receiving fluids. He still does not want it. Patient is eating and drinking.
[2021-02-04] MEDS: ENOXAPARIN 40 MG/0.4 ML SYRINGE. SQ SCH (21:15)
[2021-02-04] MEDS: FAMOTIDINE 20 MG TABLET. PO SCH (21:15)
[2021-02-04] MEDS: MORPHINE SULFATE 2 MG/ML INJ. IVP PRN (21:16)
[2021-02-04 23:25] VITALS: BP 137/85
[2021-02-05 03:35] VITALS: BP 147/81
[2021-02-05] MEDS: methylPREDNISolone SOD SUCC PF 125 MG/2 ML VIAL. IV SCH ×3 (05:59→20:34)
[2021-02-05 07:00] VITALS: BP 148/82
[2021-02-05] MEDS ORDERED: TOCILIZUMAB IV ONE (09:00)
[2021-02-05] MEDS ORDERED: NORMAL SALINE IV ONE (09:00)
[2021-02-05 09:27] LABS: BASO % 0 % (0-3); EOS % 0 % (0-3); HEMATOCRIT 48.6 % (39.0-53.0); HEMOGLOBIN 16.4 g/dL (13.0-17.5); LYMPH # 0.5 x10^3/uL (1.0-4.8); LYMPH % 4 % (24-48); MEAN CORPUSCULAR HEMOGLOBIN 32 pg (25-35); MEAN CORPUSCULAR HGB CONC 34 g/dL (31-37); MEAN CORPUSCULAR VOLUME 94 fL (79-100); MONO # 0.4 x10^3/uL (0.0-1.1); MONO % 3 % (0-9); NEUT # 12.5 x10^3/uL (1.8-7.7); NEUT % 93 % (31-73); PLATELET COUNT 220 x10^3/uL (140-400); RED BLOOD COUNT 5.18 x10^6/uL (4.30-5.70); WHITE BLOOD COUNT 13.5 x10^3/uL (4.0-11.0)
--- NOTE | 2021-02-05 10:00 | PDOC ---
PULMONARY PROGRESS NOTES DATE: 02/05/21 TIME: 10:00 Subjective remains on Bipap at 75% hypoxia when off BIPAP frustrated with current illness no increased SOA or cough Vitals Vital Signs Date Time Temp Pulse Resp B/P (MAP) Pulse Ox O2 Delivery O2 Flow Rate FiO2 02/05/21 07:00 98.6 70 28 148/82 (104) 91 BiPAP/CPAP 98.6 02/04/21 21:46 15.0 Comments Pt. seen during covid - pandemic visual exam preformed RRR BIPAP no distress no obvious rash or edema Labs Laboratory Tests Test 02/03/21 21:06 02/04/21 04:00 02/04/21 08:30 02/04/21 11:39 Glucose (Fingerstick) 156 mg/dL (70-99) 141 mg/dL (70-99) 137 mg/dL (70-99) White Blood Count 10.9 x10^3/uL (4.0-11.0) Red Blood Count 4.80 x10^6/uL (4.30-5.70) Hemoglobin 15.4 g/dL (13.0-17.5) Hematocrit 45.5 % (39.0-53.0) Mean Corpuscular Volume 95 fL (79-100) Mean Corpuscular Hemoglobin 32 pg (25-35) Mean Corpuscular Hemoglobin Concent 34 g/dL (31-37) Red Cell Distribution Width 13.0 % (11.5-14.5) Platelet Count 262 x10^3/uL (140-400) Neutrophils (%) (Auto) 93 % (31-73) Lymphocytes (%) (Auto) 4 % (24-48) Monocytes (%) (Auto) 3 % (0-9) Eosinophils (%) (Auto) 0 % (0-3) Basophils (%) (Auto) 0 % (0-3) Neutrophils # (Auto) 10.0 x10^3/uL (1.8-7.7) Lymphocytes # (Auto) 0.4 x10^3/uL (1.0-4.8) Monocytes # (Auto) 0.3 x10^3/uL (0.0-1.1) Eosinophils # (Auto) 0.0 x10^3/uL (0.0-0.7) Basophils # (Auto) 0.0 x10^3/uL (0.0-0.2) Segmented Neutrophils % 90 % (35-66) Band Neutrophils % 6 % (0-9) Lymphocytes % 4 % (24-48) Platelet Estimate Adequate (ADEQUATE) Sodium Level 137 mmol/L (136-145) Potassium Level 4.8 mmol/L (3.5-5.1) Chloride Level 105 mmol/L (98-107) Carbon Dioxide Level 28 mmol/L (21-32) Anion Gap 4 (6-14) Blood Urea Nitrogen 22 mg/dL (8-26) Creatinine 0.7 mg/dL (0.7-1.3) Estimated GFR (Cockcroft-Gault) 116.7 BUN/Creatinine Ratio 31 (6-20) Glucose Level 175 mg/dL (70-99) Calcium Level 8.3 mg/dL (8.5-10.1) Total Bilirubin 0.6 mg/dL (0.2-1.0) Aspartate Amino Transf (AST/SGOT) 83 U/L (15-37) Alanine Aminotransferase (ALT/SGPT) 254 U/L (16-63) Alkaline Phosphatase 54 U/L (46-116) Total Protein 5.9 g/dL (6.4-8.2) Albumin 2.4 g/dL (3.4-5.0) Albumin/Globulin Ratio 0.7 (1.0-1.7) Test 02/05/21 09:00 White Blood Count 13.5 x10^3/uL (4.0-11.0) Red Blood Count 5.18 x10^6/uL (4.30-5.70) Hemoglobin 16.4 g/dL (13.0-17.5) Hematocrit 48.6 % (39.0-53.0) Mean Corpuscular Volume 94 fL (79-100) Mean Corpuscular Hemoglobin 32 pg (25-35) Mean Corpuscular Hemoglobin Concent 34 g/dL (31-37) Red Cell Distribution Width 13.0 % (11.5-14.5) Platelet Count 220 x10^3/uL (140-400) Neutrophils (%) (Auto) 93 % (31-73) Lymphocytes (%) (Auto) 4 % (24-48) Monocytes (%) (Auto) 3 % (0-9) Eosinophils (%) (Auto) 0 % (0-3) Basophils (%) (Auto) 0 % (0-3) Neutrophils # (Auto) 12.5 x10^3/uL (1.8-7.7) Lymphocytes # (Auto) 0.5 x10^3/uL (1.0-4.8) Monocytes # (Auto) 0.4 x10^3/uL (0.0-1.1) Eosinophils # (Auto) 0.0 x10^3/uL (0.0-0.7) Basophils # (Auto) 0.0 x10^3/uL (0.0-0.2) Laboratory Tests Test 02/04/21 11:39 02/05/21 09:00 Glucose (Fingerstick) 137 mg/dL (70-99) White Blood Count 13.5 x10^3/uL (4.0-11.0) Red Blood Count 5.18 x10^6/uL (4.30-5.70) Hemoglobin 16.4 g/dL (13.0-17.5) Hematocrit 48.6 % (39.0-53.0) Mean Corpuscular Volume 94 fL (79-100) Mean Corpuscular Hemoglobin 32 pg (25-35) Mean Corpuscular Hemoglobin Concent 34 g/dL (31-37) Red Cell Distribution Width 13.0 % (11.5-14.5) Platelet Count 220 x10^3/uL (140-400) Neutrophils (%) (Auto) 93 % (31-73) Lymphocytes (%) (Auto) 4 % (24-48) Monocytes (%) (Auto) 3 % (0-9) Eosinophils (%) (Auto) 0 % (0-3) Basophils (%) (Auto) 0 % (0-3) Neutrophils # (Auto) 12.5 x10^3/uL (1.8-7.7) Lymphocytes # (Auto) 0.5 x10^3/uL (1.0-4.8) Monocytes # (Auto) 0.4 x10^3/uL (0.0-1.1) Eosinophils # (Auto) 0.0 x10^3/uL (0.0-0.7) Basophils # (Auto) 0.0 x10^3/uL (0.0-0.2) Medications Active Scripts Medications Dose Route/Sig Max Daily Dose Days Date Category Dose Instructions Morphine Sulfate 2 Mg/1 Ml Cartridge 2 Mg IV PRN Q4HRS PRN 01/30/21 Reported Zinc Sulfate 50 Mg Tablet 220 Mg PO DAILY 01/30/21 Reported Methylprednisolone Sod Succ 125 Mg Vial 60 Mg IJ Q8HRS 01/30/21 Reported Combivent Respimat Inhal (Ipratropium/Albuterol Sulfate) 4 Gm Aer.w.adap 2 Inh IH QID 01/30/21 Reported Pepcid (Famotidine) 20 Mg Tablet 20 Mg PO HS 01/30/21 Reported Lovenox (Enoxaparin Sodium) 30 Mg/0.3 Ml Disp.syrin 30 Mg SQ DAILY 01/30/21 Reported Vitamin D3 (Vitamin D) 125 Mcg Capsule 125 Mcg PO DAILY 01/30/21 Reported 5,000 UNITS = 125 MCG Zyrtec (Cetirizine Hcl) 10 Mg Tablet 1 Tab PO DAILY 01/30/21 Reported Ascorbic Acid 500 Mg Tablet 2 Mg PO DAILY 01/30/21 Reported Acetaminophen 325 Mg Tablet 2 Tab PO PRN Q6HRS PRN 30 01/30/21 Reported No Known Medications Prior To Admisstion (Info) Each 1 Each 02/29/20 Reported Impression . IMPRESSION: 1. Acute hypoxemic respiratory failure secondary to COVID-19 viral pneumonia. 2. COVID-19 viral pneumonia. 3. Abnormal chest x-ray, compatible with viral pneumonia. 4. Nonspecific anxiety, possible clinical depression Plan . Updated 02/05/21 Continue supplemental oxygen to keep sats above 92% on BIPAP 75%, monitor respiratory status closely S/P remdesivir Continue steroids Off ABX and ID has signed off PT/OT DVT/GI PPX :lovenox D/W RN and RT Updated 02/04 Continue BiPAP at 75%, decrease FiO2 as tolerated Stressed the importance of sitting up in a chair, Continue remdesivir, steroids, As needed Haldol for anxiety Discussed case with per telephone, updated her, answered all questions. Updated 02/03 Patient continues to do well with BiPAP High flow oxygen when eating Remdesivir Steroids As needed Haldol, for anxiety REILLY MARAVILLA MD Feb 05, 2021 10:00
[2021-02-05 10:04] LABS: ALBUMIN 2.7 g/dL (3.4-5.0); ALBUMIN/GLOBULIN RATIO 0.7 (1.0-1.7); CREATININE 0.9 mg/dL (0.7-1.3); GFR 87.3; POTASSIUM 4.8 mmol/L (3.5-5.1); TOTAL PROTEIN 6.7 g/dL (6.4-8.2)
[2021-02-05] MEDS: ASCORBIC ACID 1,000 MG TABLET PO SCH (10:11)
[2021-02-05] MEDS: CETIRIZINE HCL 10 MG TABLET. PO SCH (10:11)
[2021-02-05] MEDS: THIAMINE 100 MG TABLET. PO SCH (10:11)
[2021-02-05] MEDS: IPRATROPIUM/ALBUTEROL 20/100mcg/INH INHALER. INH SCH ×4 (10:11→20:00)
[2021-02-05] MEDS: CHOLECALCIFEROL (VITAMIN D3) 5,000 UNIT CAPSULE PO SCH (10:11)
[2021-02-05] MEDS: ZINC SULFATE 220 MG CAPSULE. PO SCH (10:11)
[2021-02-05 11:00] VITALS: BP 141/88
--- NOTE | 2021-02-05 11:01 | PDOC ---
Infectious Disease Note Subjective Subjective Patient on BiPAP Frustrated as he is not able to go home Remdesivir discontinued yesterday Discussed with RN Vital Sign Vital Signs Vital Signs Date Time Temp Pulse Resp B/P (MAP) Pulse Ox O2 Delivery O2 Flow Rate FiO2 02/05/21 07:00 98.6 70 28 148/82 (104) 91 BiPAP/CPAP 98.6 02/04/21 21:46 15.0 Physical Exam PHYSICAL EXAM GEN axo3 male on BIPAP HEENT: Normocephalic, atraumatic. Anicteric. NECK: Supple, no JVD. LUNGS: Crackles bilaterally. HEART: S1, S2. ABDOMEN: Soft, nontender, nondistended. Bowel sounds present. EXTREMITIES: No edema, no cyanosis. DERMATOLOGIC: Warm, dry, no generalized rash. NEUROLOGIC: Alert, oriented, grossly nonfocal. PSYCHIATRIC: Calm and cooperative. PIV looks clean. Labs Lab Laboratory Tests Test 02/04/21 11:39 02/05/21 09:00 Glucose (Fingerstick) 137 mg/dL (70-99) White Blood Count 13.5 x10^3/uL (4.0-11.0) Red Blood Count 5.18 x10^6/uL (4.30-5.70) Hemoglobin 16.4 g/dL (13.0-17.5) Hematocrit 48.6 % (39.0-53.0) Mean Corpuscular Volume 94 fL (79-100) Mean Corpuscular Hemoglobin 32 pg (25-35) Mean Corpuscular Hemoglobin Concent 34 g/dL (31-37) Red Cell Distribution Width 13.0 % (11.5-14.5) Platelet Count 220 x10^3/uL (140-400) Neutrophils (%) (Auto) 93 % (31-73) Lymphocytes (%) (Auto) 4 % (24-48) Monocytes (%) (Auto) 3 % (0-9) Eosinophils (%) (Auto) 0 % (0-3) Basophils (%) (Auto) 0 % (0-3) Neutrophils # (Auto) 12.5 x10^3/uL (1.8-7.7) Lymphocytes # (Auto) 0.5 x10^3/uL (1.0-4.8) Monocytes # (Auto) 0.4 x10^3/uL (0.0-1.1) Eosinophils # (Auto) 0.0 x10^3/uL (0.0-0.7) Basophils # (Auto) 0.0 x10^3/uL (0.0-0.2) Sodium Level 139 mmol/L (136-145) Potassium Level 4.8 mmol/L (3.5-5.1) Chloride Level 100 mmol/L (98-107) Carbon Dioxide Level 35 mmol/L (21-32) Anion Gap 4 (6-14) Blood Urea Nitrogen 23 mg/dL (8-26) Creatinine 0.9 mg/dL (0.7-1.3) Estimated GFR (Cockcroft-Gault) 87.3 BUN/Creatinine Ratio 26 (6-20) Glucose Level 132 mg/dL (70-99) Calcium Level 9.0 mg/dL (8.5-10.1) Total Bilirubin 1.0 mg/dL (0.2-1.0) Aspartate Amino Transf (AST/SGOT) 48 U/L (15-37) Alanine Aminotransferase (ALT/SGPT) 190 U/L (16-63) Alkaline Phosphatase 60 U/L (46-116) Total Protein 6.7 g/dL (6.4-8.2) Albumin 2.7 g/dL (3.4-5.0) Albumin/Globulin Ratio 0.7 (1.0-1.7) Objective Assessment 1. COVID-19 pneumonia. 2. Acute hypoxic respiratory failure. 3. Degenerative joint disease. 4. Lymphopenia. 5. Hypokalemia. Resolved 6. Abnormal LFTs. Worsened Plan Plan of Care 1. Continue supportive care. 2. Follow up labs and cultures. 3. s/p remdesivir.on steroids per primary. 4. Maintain aspiration precaution. 5. We will sign off, call if any questions . Discussed with nursing staff. NINA VICKERS MD Feb 05, 2021 11:01
--- NOTE | 2021-02-05 12:16 | PDOC ---
[employer] PROGRESS NOTE Date of Service DOS: DATE: 02/05/21 TIME: 12:15 Chief Complaint Chief Complaint SEPSIS, was POA severe malnutrition was POA, with obesity, BMI 32 Acute hypoxic respiratory failure COVID-19 pneumonia requiring BiPAP transaminitis, iv fluid started Continue IV Remdesivir Continue IV thiamine and vitamin C Continue IV steroids Pending ferritin, LDH, CRP, D-dimer labs Titrate O2 supplementation to maintain O2 saturation greater than 92% Lovenox for DVT prophylaxis History of Present Illness History of Present Illness Mr Preciado is a 56-year-old male with no significant past medical history except for degenerative joint disease who was transferred from [facility] yesterday with complaints of fever, headache, dry cough, shortness of breath for the past 3 days. Patient stated that he was actually exposed from his son he was worsening and required to come to the ED at [facility] and he was found to be hypoxic and required 2 L of nasal cannula oxygen. Chest x-ray over there showed bilateral mild bibasilar infiltrates. Covid test was positive and patient was transferred to [facility] for pulmonary evaluation and treatment. Patient was started on Remdesivir and IV steroids. Currently patient is requiring 15 L high flow nasal cannula and IV steroids. 02/02/2021 No acute events overnight. Patient was saturating 92% on 15 L nasal cannula and he had desatted down to 70% after he had to blow his nose. Patient was placed on BiPAP at 100% FiO2. Chest leg appears to be worsening. Patient's chart, labs, images were reviewed and discussed with RN 02/04: poor Po intake, dry, dark urine Desaturates to 72% when he takes off his BiPAP. Advised to get back on BIPAP after eating. he is able to place himself back on. Frustrated with the severity of his hypoxia. Vitals/I&O Vitals/I&O: Vital Signs Date Time Temp Pulse Resp B/P (MAP) Pulse Ox O2 Delivery O2 Flow Rate FiO2 02/05/21 11:00 97.1 70 31 141/88 (105) 95 BiPAP/CPAP 97.1 02/04/21 21:46 15.0 I & O 02/04/21 02/04/21 02/05/21 15:00 23:00 07:00 Intake Total 210 ml 420 ml 300 ml Output Total 700 ml 1000 ml 700 ml Balance -490 ml -580 ml -400 ml Physical Exam Physical Exam: GEN axo3 male on BIPAP HEENT: Normocephalic, atraumatic. Anicteric. NECK: Supple, no JVD. LUNGS: Crackles bilaterally. HEART: S1, S2. ABDOMEN: Soft, nontender, nondistended. Bowel sounds present. EXTREMITIES: No edema, no cyanosis. DERMATOLOGIC: Warm, dry, no generalized rash. NEUROLOGIC: Alert, oriented, grossly nonfocal. PSYCHIATRIC: Calm and cooperative. PIV looks clean. General: Alert, mild distress Heart: Regular rate (tele reg, reviewed) Extremities: No clubbing Labs Labs: Laboratory Tests Test 02/05/21 09:00 White Blood Count 13.5 x10^3/uL (4.0-11.0) Red Blood Count 5.18 x10^6/uL (4.30-5.70) Hemoglobin 16.4 g/dL (13.0-17.5) Hematocrit 48.6 % (39.0-53.0) Mean Corpuscular Volume 94 fL (79-100) Mean Corpuscular Hemoglobin 32 pg (25-35) Mean Corpuscular Hemoglobin Concent 34 g/dL (31-37) Red Cell Distribution Width 13.0 % (11.5-14.5) Platelet Count 220 x10^3/uL (140-400) Neutrophils (%) (Auto) 93 % (31-73) Lymphocytes (%) (Auto) 4 % (24-48) Monocytes (%) (Auto) 3 % (0-9) Eosinophils (%) (Auto) 0 % (0-3) Basophils (%) (Auto) 0 % (0-3) Neutrophils # (Auto) 12.5 x10^3/uL (1.8-7.7) Lymphocytes # (Auto) 0.5 x10^3/uL (1.0-4.8) Monocytes # (Auto) 0.4 x10^3/uL (0.0-1.1) Eosinophils # (Auto) 0.0 x10^3/uL (0.0-0.7) Basophils # (Auto) 0.0 x10^3/uL (0.0-0.2) Sodium Level 139 mmol/L (136-145) Potassium Level 4.8 mmol/L (3.5-5.1) Chloride Level 100 mmol/L (98-107) Carbon Dioxide Level 35 mmol/L (21-32) Anion Gap 4 (6-14) Blood Urea Nitrogen 23 mg/dL (8-26) Creatinine 0.9 mg/dL (0.7-1.3) Estimated GFR (Cockcroft-Gault) 87.3 BUN/Creatinine Ratio 26 (6-20) Glucose Level 132 mg/dL (70-99) Calcium Level 9.0 mg/dL (8.5-10.1) Total Bilirubin 1.0 mg/dL (0.2-1.0) Aspartate Amino Transf (AST/SGOT) 48 U/L (15-37) Alanine Aminotransferase (ALT/SGPT) 190 U/L (16-63) Alkaline Phosphatase 60 U/L (46-116) Total Protein 6.7 g/dL (6.4-8.2) Albumin 2.7 g/dL (3.4-5.0) Albumin/Globulin Ratio 0.7 (1.0-1.7) Comment Review of Relevant I have reviewed the following items rosalinda (where applicable) has been applied. Justifications for Admission Other Justification KWABENA SWENSON MD Feb 05, 2021 12:16
--- NOTE | 2021-02-05 13:38 | NUR ---
SS following up with discharge planning. SS reviewed pt chart and discussed with pt RN. Pt is currently on the BIPAP at 75%. COVID19 positive. Pt on IV Solu Medrol. SS will continue to follow for discharge planning.
[2021-02-05 15:00] VITALS: BP 160/87
[2021-02-05 19:21] VITALS: BP 162/104
[2021-02-05] MEDS: FAMOTIDINE 20 MG TABLET. PO SCH (20:33)
[2021-02-05] MEDS: ENOXAPARIN 40 MG/0.4 ML SYRINGE. SQ SCH (20:33)
[2021-02-05] MEDS: MORPHINE SULFATE 2 MG/ML INJ. IVP PRN (20:35)
[2021-02-05] MEDS: ACETAMINOPHEN 325 MG TABLET. PO PRN (20:46)
[2021-02-05 23:20] VITALS: BP 138/85
[2021-02-06 03:29] VITALS: BP 149/82
[2021-02-06] MEDS: methylPREDNISolone SOD SUCC PF 125 MG/2 ML VIAL. IV SCH ×3 (04:52→20:34)
[2021-02-06 07:00] VITALS: BP 137/79
[2021-02-06] MEDS: IPRATROPIUM/ALBUTEROL 20/100mcg/INH INHALER. INH SCH ×4 (08:00→20:33)
[2021-02-06] MEDS: THIAMINE 100 MG TABLET. PO SCH (08:25)
[2021-02-06] MEDS: CETIRIZINE HCL 10 MG TABLET. PO SCH (08:25)
[2021-02-06] MEDS: ZINC SULFATE 220 MG CAPSULE. PO SCH (08:25)
[2021-02-06] MEDS: ASCORBIC ACID 1,000 MG TABLET PO SCH (08:25)
[2021-02-06] MEDS: CHOLECALCIFEROL (VITAMIN D3) 5,000 UNIT CAPSULE PO SCH (08:25)
--- NOTE | 2021-02-06 09:12 | PDOC ---
Infectious Disease Note Subjective Subjective Patient on BiPAP Frustrated as he is not able to go home Remdesivir discontinued yesterday Discussed with AMERICA SINGH No nausea vomiting diarrhea or fever Vital Sign Vital Signs Vital Signs Date Time Temp Pulse Resp B/P (MAP) Pulse Ox O2 Delivery O2 Flow Rate FiO2 02/06/21 05:31 97 BiPAP/CPAP 02/06/21 03:29 97.5 63 20 149/82 (104) 97.5 02/05/21 20:58 15.0 Physical Exam PHYSICAL EXAM GEN axo3 male on BIPAP HEENT: Normocephalic, atraumatic. Anicteric. NECK: Supple, no JVD. LUNGS: Crackles bilaterally. HEART: S1, S2. ABDOMEN: Soft, nontender, nondistended. Bowel sounds present. EXTREMITIES: No edema, no cyanosis. DERMATOLOGIC: Warm, dry, no generalized rash. NEUROLOGIC: Alert, oriented, grossly nonfocal. PSYCHIATRIC: Calm and cooperative. PIV looks clean. Objective Assessment 1. COVID-19 pneumonia. 2. Acute hypoxic respiratory failure. 3. Degenerative joint disease. 4. Lymphopenia. 5. Hypokalemia. Resolved 6. Abnormal LFTs. Worsened Plan Plan of Care 1. Continue supportive care. 2. Follow up labs and cultures. 3. s/p remdesivir.on steroids per primary. 4. Maintain aspiration precaution. 5. . Discussed with nursing staff. NINA VICKERS MD Feb 06, 2021 09:12
--- NOTE | 2021-02-06 09:54 | PDOC ---
PULMONARY PROGRESS NOTES DATE: 02/06/21 TIME: 09:52 Subjective Patient remains 75% BiPAP No increased shortness of breath or cough Afebrile Vitals Vital Signs Date Time Temp Pulse Resp B/P (MAP) Pulse Ox O2 Delivery O2 Flow Rate FiO2 02/06/21 09:41 94 BiPAP/CPAP 02/06/21 03:29 97.5 63 20 149/82 (104) 97.5 02/05/21 20:58 15.0 Comments Pt. seen during covid - pandemic visual exam preformed RRR BIPAP no distress no obvious rash or edema Labs Laboratory Tests Test 02/04/21 11:39 02/05/21 09:00 Glucose (Fingerstick) 137 mg/dL (70-99) White Blood Count 13.5 x10^3/uL (4.0-11.0) Red Blood Count 5.18 x10^6/uL (4.30-5.70) Hemoglobin 16.4 g/dL (13.0-17.5) Hematocrit 48.6 % (39.0-53.0) Mean Corpuscular Volume 94 fL (79-100) Mean Corpuscular Hemoglobin 32 pg (25-35) Mean Corpuscular Hemoglobin Concent 34 g/dL (31-37) Red Cell Distribution Width 13.0 % (11.5-14.5) Platelet Count 220 x10^3/uL (140-400) Neutrophils (%) (Auto) 93 % (31-73) Lymphocytes (%) (Auto) 4 % (24-48) Monocytes (%) (Auto) 3 % (0-9) Eosinophils (%) (Auto) 0 % (0-3) Basophils (%) (Auto) 0 % (0-3) Neutrophils # (Auto) 12.5 x10^3/uL (1.8-7.7) Lymphocytes # (Auto) 0.5 x10^3/uL (1.0-4.8) Monocytes # (Auto) 0.4 x10^3/uL (0.0-1.1) Eosinophils # (Auto) 0.0 x10^3/uL (0.0-0.7) Basophils # (Auto) 0.0 x10^3/uL (0.0-0.2) Sodium Level 139 mmol/L (136-145) Potassium Level 4.8 mmol/L (3.5-5.1) Chloride Level 100 mmol/L (98-107) Carbon Dioxide Level 35 mmol/L (21-32) Anion Gap 4 (6-14) Blood Urea Nitrogen 23 mg/dL (8-26) Creatinine 0.9 mg/dL (0.7-1.3) Estimated GFR (Cockcroft-Gault) 87.3 BUN/Creatinine Ratio 26 (6-20) Glucose Level 132 mg/dL (70-99) Calcium Level 9.0 mg/dL (8.5-10.1) Total Bilirubin 1.0 mg/dL (0.2-1.0) Aspartate Amino Transf (AST/SGOT) 48 U/L (15-37) Alanine Aminotransferase (ALT/SGPT) 190 U/L (16-63) Alkaline Phosphatase 60 U/L (46-116) Total Protein 6.7 g/dL (6.4-8.2) Albumin 2.7 g/dL (3.4-5.0) Albumin/Globulin Ratio 0.7 (1.0-1.7) Medications Active Scripts Medications Dose Route/Sig Max Daily Dose Days Date Category Dose Instructions Morphine Sulfate 2 Mg/1 Ml Cartridge 2 Mg IV PRN Q4HRS PRN 01/30/21 Reported Zinc Sulfate 50 Mg Tablet 220 Mg PO DAILY 01/30/21 Reported Methylprednisolone Sod Succ 125 Mg Vial 60 Mg IJ Q8HRS 01/30/21 Reported Combivent Respimat Inhal (Ipratropium/Albuterol Sulfate) 4 Gm Aer.w.adap 2 Inh IH QID 01/30/21 Reported Pepcid (Famotidine) 20 Mg Tablet 20 Mg PO HS 01/30/21 Reported Lovenox (Enoxaparin Sodium) 30 Mg/0.3 Ml Disp.syrin 30 Mg SQ DAILY 01/30/21 Reported Vitamin D3 (Vitamin D) 125 Mcg Capsule 125 Mcg PO DAILY 01/30/21 Reported 5,000 UNITS = 125 MCG Zyrtec (Cetirizine Hcl) 10 Mg Tablet 1 Tab PO DAILY 01/30/21 Reported Ascorbic Acid 500 Mg Tablet 2 Mg PO DAILY 01/30/21 Reported Acetaminophen 325 Mg Tablet 2 Tab PO PRN Q6HRS PRN 30 01/30/21 Reported No Known Medications Prior To Admisstion (Info) Each 1 Each 02/29/20 Reported Impression . IMPRESSION: 1. Acute hypoxemic respiratory failure secondary to COVID-19 viral pneumonia. 2. COVID-19 viral pneumonia. 3. Abnormal chest x-ray, compatible with viral pneumonia. 4. Nonspecific anxiety, possible clinical depression Plan . Updated 02/06/21 Continue supplemental oxygen to keep sats above 92% on BIPAP 75%, monitor respiratory status closely S/P remdesivir Continue steroids currently on 60 mg IV twice daily, with slow taper, will need full 10-day course, started on 01/30/2021 PT/OT DVT/GI PPX :lovenox D/W RN and RT Updated 02/05/21 Continue supplemental oxygen to keep sats above 92% on BIPAP 75%, monitor respiratory status closely S/P remdesivir Continue steroids Off ABX and ID has signed off PT/OT DVT/GI PPX :lovenox D/W RN and RT Updated 02/04 Continue BiPAP at 75%, decrease FiO2 as tolerated Stressed the importance of sitting up in a chair, Continue remdesivir, steroids, As needed Haldol for anxiety Discussed case with per telephone, updated her, answered all questions. ELIZABETH ODELL MD Feb 06, 2021 09:54
[2021-02-06 11:00] VITALS: BP 135/78
--- NOTE | 2021-02-06 11:10 | PDOC ---
[employer] PROGRESS NOTE Date of Service DOS: DATE: 02/06/21 TIME: 11:09 Chief Complaint Chief Complaint SEPSIS, was POA severe malnutrition was POA, with obesity, BMI 32 Acute hypoxic respiratory failure COVID-19 pneumonia requiring BiPAP transaminitis, iv fluid started Continue IV Remdesivir Continue IV thiamine and vitamin C Continue IV steroids Pending ferritin, LDH, CRP, D-dimer labs Titrate O2 supplementation to maintain O2 saturation greater than 92% Lovenox for DVT prophylaxis History of Present Illness History of Present Illness Mr Preciado is a 56-year-old male with no significant past medical history except for degenerative joint disease who was transferred from [facility] yesterday with complaints of fever, headache, dry cough, shortness of breath for the past 3 days. Patient stated that he was actually exposed from his son he was worsening and required to come to the ED at [facility] and he was found to be hypoxic and required 2 L of nasal cannula oxygen. Chest x-ray over there showed bilateral mild bibasilar infiltrates. Covid test was positive and patient was transferred to [facility] for pulmonary evaluation and treatment. Patient was started on Remdesivir and IV steroids. Currently patient is requiring 15 L high flow nasal cannula and IV steroids. 02/02/2021 No acute events overnight. Patient was saturating 92% on 15 L nasal cannula and he had desatted down to 70% after he had to blow his nose. Patient was placed on BiPAP at 100% FiO2. Chest leg appears to be worsening. Patient's chart, labs, images were reviewed and discussed with RN 02/04: poor Po intake, dry, dark urine 02/05: Desaturates to 72% when he takes off his BiPAP. Advised to get back on BIPAP after eating. he is able to place himself back on. Frustrated with the s everity of his hypoxia. Status post remdesivir. Still requiring BiPAP 75% FiO2 with significant desaturations when he is not wearing assessment with nonrebreather O2. Vitals/I&O Vitals/I&O: Vital Signs Date Time Temp Pulse Resp B/P (MAP) Pulse Ox O2 Delivery O2 Flow Rate FiO2 02/06/21 09:41 94 BiPAP/CPAP 02/06/21 07:00 96.9 66 24 137/79 (98) 96.9 02/05/21 20:58 15.0 I & O 02/05/21 02/05/21 02/06/21 15:00 23:00 07:00 Intake Total 530 ml 400 ml 300 ml Output Total 800 ml 550 ml Balance 530 ml -400 ml -250 ml Physical Exam Physical Exam: GEN axo3 male on BIPAP HEENT: Normocephalic, atraumatic. Anicteric. NECK: Supple, no JVD. LUNGS: Crackles bilaterally. HEART: S1, S2. ABDOMEN: Soft, nontender, nondistended. Bowel sounds present. EXTREMITIES: No edema, no cyanosis. DERMATOLOGIC: Warm, dry, no generalized rash. NEUROLOGIC: Alert, oriented, grossly nonfocal. PSYCHIATRIC: Calm and cooperative. PIV looks clean. General: Alert, mild distress Heart: Regular rate (tele reg, reviewed) Extremities: No clubbing Comment Review of Relevant I have reviewed the following items rosalinda (where applicable) has been applied. Justifications for Admission Other Justification KWABENA SWENSON MD Feb 06, 2021 11:09
--- NOTE | 2021-02-06 12:37 | NUR ---
SS following up with discharge planning. SS reviewed pt chart and discussed with pt RN. Pt is currently on the BIPAP at 75%. COVID19 positive. Pt on IV Solu-Medrol. ID and Pulmonology following. SS will continue to follow with discharge planning.
[2021-02-06 15:00] VITALS: BP 146/81
[2021-02-06 19:05] VITALS: BP 140/80
[2021-02-06] MEDS: FAMOTIDINE 20 MG TABLET. PO SCH (20:33)
[2021-02-06] MEDS: ENOXAPARIN 40 MG/0.4 ML SYRINGE. SQ SCH (20:33)
[2021-02-06] MEDS: ACETAMINOPHEN 325 MG TABLET. PO PRN (20:34)
[2021-02-06 23:35] VITALS: BP 161/94
[2021-02-07 02:18] VITALS: BP 148/85
[2021-02-07] MEDS: methylPREDNISolone SOD SUCC PF 125 MG/2 ML VIAL. IV SCH ×3 (05:10→22:00)
[2021-02-07 07:00] VITALS: BP 139/87
--- NOTE | 2021-02-07 07:49 | PDOC ---
[employer] PROGRESS NOTE Date of Service DOS: DATE: 02/07/21 TIME: 07:47 Chief Complaint Chief Complaint A/P: SEPSIS, was POA Severe malnutrition was POA, with obesity, BMI 32 Acute hypoxic respiratory failure COVID-19 pneumonia requiring BiPAP transaminitis, iv fluid started Continue IV Remdesivir Continue IV thiamine and vitamin C Continue IV steroids Pending ferritin, LDH, CRP, D-dimer labs Titrate O2 supplementation to maintain O2 saturation greater than 92% Lovenox for DVT prophylaxis History of Present Illness History of Present Illness Mr Preciado is a 56-year-old male with no significant past medical history except for degenerative joint disease who was transferred from [facility] with complaints of fever, headache, dry cough, shortness of breath for the past 3 days. Patient stated that he was actually exposed from his son he was worsening and required to come to the ED at [facility] and he was found to be hypoxic and required 2 L of nasal cannula oxygen. Chest x-ray over there showed bilateral mild bibasilar infiltrates. Covid test was positive and patient was transferred to [facility] for pulmonary evaluation and treatment. Patient was started on Remdesivir and IV steroids. Currently patient is requiring 15 L high flow nasal cannula and IV steroids. 02/02: No acute events overnight. Patient was saturating 92% on 15 L nasal cannula and he had desatted down to 70% after he had to blow his nose. Patient was placed on BiPAP at 100% FiO2. Chest leg appears to be worsening. 02/03: Last dose of remdesivir. Could not tolerate vapotherm and is now on BIPAP. 02/04: poor Po intake, dry, dark urine 02/05: Desaturates to 72% when he takes off his BiPAP. Advised to get back on BIPAP after eating. he is able to place himself back on. Frustrated with the severity of his hypoxia. 02/06: Status post remdesivir. Still requiring BiPAP 75% FiO2 with significant desaturations when he is not wearing assessment with nonrebreather O2. Still with significant desaturations when he raises BiPAP even on 15 L high flow nasal cannula. Discussed transitioning back to Vapotherm if we can treat his anxiety. He is amenable to this. He is frustrated with staying in the hospital understands he may be a longer term COVID recovery and is amenable to LTACH referral. I discussed with pulmonology. Vitals/I&O Vitals/I&O: Vital Signs Date Time Temp Pulse Resp B/P (MAP) Pulse Ox O2 Delivery O2 Flow Rate FiO2 02/07/21 07:20 91 BiPAP/CPAP 02/07/21 02:18 97.5 63 24 148/85 (106) 97.5 I & O 02/06/21 02/06/21 02/07/21 15:00 23:00 07:00 Intake Total 200 ml Output Total 675 ml 500 ml 1150 ml Balance -675 ml -500 ml -950 ml Physical Exam Physical Exam: GEN axo3 male on BIPAP HEENT: Normocephalic, atraumatic. Anicteric. NECK: Supple, no JVD. LUNGS: Crackles bilaterally. HEART: S1, S2. ABDOMEN: Soft, nontender, nondistended. Bowel sounds present. EXTREMITIES: No edema, no cyanosis. DERMATOLOGIC: Warm, dry, no generalized rash. NEUROLOGIC: Alert, oriented, grossly nonfocal. PSYCHIATRIC: Calm and cooperative. PIV looks clean. General: Alert, mild distress Heart: Regular rate (tele reg, reviewed) Extremities: No clubbing Comment Review of Relevant I have reviewed the following items rosalinda (where applicable) has been applied. Justifications for Admission Other Justification KWABENA SWENSON MD Feb 07, 2021 07:49
--- NOTE | 2021-02-07 08:29 | NUR ---
PT USES NONREBREATHER WHEN EATING BREAKFAST. SPO2 DROPS TO 78-81% WHEN HE TAKES BITES. PT EDUCATED ON PUTTING NONREBREATHER ON LUL AFTER GETTING A BITE OR EVEN KEEPING NONREBREATHER BELOW MOUTH AND NOSE FOR BLOWBY.
[2021-02-07] MEDS: ASCORBIC ACID 1,000 MG TABLET PO SCH (09:00)
[2021-02-07] MEDS: THIAMINE 100 MG TABLET. PO SCH (09:51)
[2021-02-07] MEDS: CHOLECALCIFEROL (VITAMIN D3) 5,000 UNIT CAPSULE PO SCH (09:51)
[2021-02-07] MEDS: IPRATROPIUM/ALBUTEROL 20/100mcg/INH INHALER. INH SCH ×4 (09:51→20:00)
[2021-02-07] MEDS: CETIRIZINE HCL 10 MG TABLET. PO SCH (09:51)
[2021-02-07] MEDS: ZINC SULFATE 220 MG CAPSULE. PO SCH (09:51)
--- NOTE | 2021-02-07 10:09 | PDOC ---
PULMONARY PROGRESS NOTES DATE: 02/07/21 TIME: 10:08 Subjective Patient patient down to 70% FiO2. Via BiPAP. Setting at 12/6. Feels better. No increased shortness of breath or cough Afebrile Vitals Vital Signs Date Time Temp Pulse Resp B/P (MAP) Pulse Ox O2 Delivery O2 Flow Rate FiO2 02/07/21 07:20 91 BiPAP/CPAP 02/07/21 07:00 97.8 64 16 139/87 (104) 97.8 Comments Pt. seen during covid -19 pandemic visual exam preformed RRR BIPAP no distress no obvious rash or edema Medications Active Scripts Medications Dose Route/Sig Max Daily Dose Days Date Category Dose Instructions Morphine Sulfate 2 Mg/1 Ml Cartridge 2 Mg IV PRN Q4HRS PRN 01/30/21 Reported Zinc Sulfate 50 Mg Tablet 220 Mg PO DAILY 01/30/21 Reported Methylprednisolone Sod Succ 125 Mg Vial 60 Mg IJ Q8HRS 01/30/21 Reported Combivent Respimat Inhal (Ipratropium/Albuterol Sulfate) 4 Gm Aer.w.adap 2 Inh IH QID 01/30/21 Reported Pepcid (Famotidine) 20 Mg Tablet 20 Mg PO HS 01/30/21 Reported Lovenox (Enoxaparin Sodium) 30 Mg/0.3 Ml Disp.syrin 30 Mg SQ DAILY 01/30/21 Reported Vitamin D3 (Vitamin D) 125 Mcg Capsule 125 Mcg PO DAILY 01/30/21 Reported 5,000 UNITS = 125 MCG Zyrtec (Cetirizine Hcl) 10 Mg Tablet 1 Tab PO DAILY 01/30/21 Reported Ascorbic Acid 500 Mg Tablet 2 Mg PO DAILY 01/30/21 Reported Acetaminophen 325 Mg Tablet 2 Tab PO PRN Q6HRS PRN 30 01/30/21 Reported No Known Medications Prior To Admisstion (Info) Each 1 Each 02/29/20 Reported Impression . IMPRESSION: 1. Acute hypoxemic respiratory failure secondary to COVID-19 viral pneumonia./Acute lung injury and early ARDS. Slowly improving 2. COVID-19 viral pneumonia. 3. Abnormal chest x-ray, compatible with viral pneumonia. 4. Nonspecific anxiety, possible clinical depression Plan . Updated 02/06/21 Continue supplemental oxygen to keep sats above 92% on BIPAP 70%, monitor respiratory status closely S/P remdesivir Continue steroids currently on 60 mg IV twice daily, with slow taper, will need full 10-day course, started on 01/30/2021 PT/OT DVT/GI PPX :lovenox D/W RN and RT Updated 02/06/21 Continue supplemental oxygen to keep sats above 92% on BIPAP 75%, monitor respiratory status closely S/P remdesivir Continue steroids currently on 60 mg IV twice daily, with slow taper, will need full 10-day course, started on 01/30/2021 PT/OT DVT/GI PPX :lovenox D/W RN and RT Updated 02/05/21 Continue supplemental oxygen to keep sats above 92% on BIPAP 75%, monitor respiratory status closely S/P remdesivir Continue steroids Off ABX and ID has signed off PT/OT DVT/GI PPX :lovenox D/W RN and RT Updated 02/04 Continue BiPAP at 75%, decrease FiO2 as tolerated Stressed the importance of sitting up in a chair, Continue remdesivir, steroids, As needed Haldol for anxiety Discussed case with per telephone, updated her, answered all questions. ELIZABETH ODELL MD Feb 07, 2021 10:09
--- NOTE | 2021-02-07 10:38 | NUR ---
SS following up with discharge planning. SS reviewed pt chart and discussed with pt RN. Pt is currently on BIPAP at 70%. COVID19 positive. Pt on IV Solu Medrol. Dr. Parker met with pt and discussed plan of care. Pt agreeable to referral to LTACH facility and notified Dr. Parker that his #1 choice is [facility], ; fax [phone], and #2 choice is [facility], ; fax [phone]. Referral phoned and faxed to [facility]. SS will continue to follow for discharge planning. Addendum: 02/07/21 at 1626 by SONAL POLANCO SS [facility] contacted SS and stated that they have no [employer] beds for more than a week. SS phoned and faxed referral to [facility]. Currently awaiting acceptance decision at this time.
[2021-02-07 11:00] VITALS: BP 149/93
--- NOTE | 2021-02-07 11:16 | PDOC ---
Infectious Disease Note Subjective Subjective Patient on BiPAP Frustrated as he is not able to go home Remdesivir discontinued yesterday Discussed with RN Vital Sign Vital Signs Vital Signs Date Time Temp Pulse Resp B/P (MAP) Pulse Ox O2 Delivery O2 Flow Rate FiO2 02/07/21 07:20 91 BiPAP/CPAP 02/07/21 07:00 97.8 64 16 139/87 (104) 97.8 Physical Exam PHYSICAL EXAM GEN axo3 male on BIPAP HEENT: Normocephalic, atraumatic. Anicteric. NECK: Supple, no JVD. LUNGS: Crackles bilaterally. HEART: S1, S2. ABDOMEN: Soft, nontender, nondistended. Bowel sounds present. EXTREMITIES: No edema, no cyanosis. DERMATOLOGIC: Warm, dry, no generalized rash. NEUROLOGIC: Alert, oriented, grossly nonfocal. PSYCHIATRIC: Calm and cooperative. PIV looks clean. Objective Assessment 1. COVID-19 pneumonia. 2. Acute hypoxic respiratory failure. 3. Degenerative joint disease. 4. Lymphopenia. 5. Hypokalemia. Resolved 6. Abnormal LFTs. Worsened Plan Plan of Care 1. Continue supportive care. 2. Follow up labs and cultures. 3. s/p remdesivir.on steroids per primary. 4. Maintain aspiration precaution. 5. . Discussed with nursing staff. NINA VICKERS MD Feb 07, 2021 11:16
--- NOTE | 2021-02-07 12:18 | NUR ---
SPO2 64%. THIS RN ENTERED PT'S ROOM. PT SITTING AT BEDSIDE, FACE SLIGHTLY FLUSHED. PT SAID HE HAD JUST FINISHED EATING AND USING URINAL USING NONREBREATHER. PT TRANSITIONED HIMSELF TO BIPAP. PT'S SPO2 REMAINS 79%. Addendum: 02/07/21 at 1226 by JILL BENAVIDEZ RN RN THIS RN REENTERED PT'S ROOM. PT IS STILL SITTING UPRIGHT ON BEDSIDE. PT SAYS HE'S TRYING TO COUGH SO HE PULLS THE BIPAP AWAY FROM HIS FACE TO DO THIS. PT SAYS HE'S ALSO TRYING TO PERFORM PERICARE. I OFFERED TO HELP BUT PT DECLINED. PT ALSO DECLINES CHANGING THE SETTINGS ON BIPAP UNTIL HE IMPROVES ON SPO2. WILL CONTINUE TO MONITOR.
[2021-02-07 15:00] VITALS: BP 143/83
[2021-02-07 19:30] VITALS: BP 155/87
[2021-02-07] MEDS: ENOXAPARIN 40 MG/0.4 ML SYRINGE. SQ SCH (20:00)
[2021-02-07] MEDS: FAMOTIDINE 20 MG TABLET. PO SCH (21:00)
[2021-02-07 23:25] VITALS: BP 145/89
[2021-02-08 03:40] VITALS: BP 135/85
[2021-02-08] MEDS: methylPREDNISolone SOD SUCC PF 125 MG/2 ML VIAL. IV SCH ×3 (06:28→20:56)
[2021-02-08] MEDS: ACETAMINOPHEN 325 MG TABLET. PO PRN ×2 (06:28→20:55)
[2021-02-08 07:00] VITALS: BP 141/72
[2021-02-08] MEDS: ZINC SULFATE 220 MG CAPSULE. PO SCH (08:31)
[2021-02-08] MEDS: THIAMINE 100 MG TABLET. PO SCH (08:31)
[2021-02-08] MEDS: IPRATROPIUM/ALBUTEROL 20/100mcg/INH INHALER. INH SCH ×4 (08:31→20:00)
[2021-02-08] MEDS: CETIRIZINE HCL 10 MG TABLET. PO SCH (08:31)
[2021-02-08] MEDS: ASCORBIC ACID 1,000 MG TABLET PO SCH (08:31)
[2021-02-08] MEDS: CHOLECALCIFEROL (VITAMIN D3) 5,000 UNIT CAPSULE PO SCH (08:31)
--- NOTE | 2021-02-08 10:04 | PDOC ---
PULMONARY PROGRESS NOTES DATE: 02/08/21 TIME: 10:02 Subjective Patient patient down to 70% FiO2. Via BiPAP. Setting at 12/6. Feels better. Did not tolerated Vapotherm. No increased shortness of breath or cough Afebrile Vitals Vital Signs Date Time Temp Pulse Resp B/P (MAP) Pulse Ox O2 Delivery O2 Flow Rate FiO2 02/08/21 07:55 93 BiPAP/CPAP 02/08/21 07:00 97.8 75 16 141/72 (95) 97.8 Comments Pt. seen during covid -19 pandemic visual exam preformed BIPAP no distress no obvious rash or edema Medications Active Scripts Medications Dose Route/Sig Max Daily Dose Days Date Category Dose Instructions Morphine Sulfate 2 Mg/1 Ml Cartridge 2 Mg IV PRN Q4HRS PRN 01/30/21 Reported Zinc Sulfate 50 Mg Tablet 220 Mg PO DAILY 01/30/21 Reported Methylprednisolone Sod Succ 125 Mg Vial 60 Mg IJ Q8HRS 01/30/21 Reported Combivent Respimat Inhal (Ipratropium/Albuterol Sulfate) 4 Gm Aer.w.adap 2 Inh IH QID 01/30/21 Reported Pepcid (Famotidine) 20 Mg Tablet 20 Mg PO HS 01/30/21 Reported Lovenox (Enoxaparin Sodium) 30 Mg/0.3 Ml Disp.syrin 30 Mg SQ DAILY 01/30/21 Reported Vitamin D3 (Vitamin D) 125 Mcg Capsule 125 Mcg PO DAILY 01/30/21 Reported 5,000 UNITS = 125 MCG Zyrtec (Cetirizine Hcl) 10 Mg Tablet 1 Tab PO DAILY 01/30/21 Reported Ascorbic Acid 500 Mg Tablet 2 Mg PO DAILY 01/30/21 Reported Acetaminophen 325 Mg Tablet 2 Tab PO PRN Q6HRS PRN 30 01/30/21 Reported No Known Medications Prior To Admisstion (Info) Each 1 Each 02/29/20 Reported Impression . IMPRESSION: 1. Acute hypoxemic respiratory failure secondary to COVID-19 viral pneumonia./Acute lung injury and early ARDS. Slowly improving 2. COVID-19 viral pneumonia. 3. Abnormal chest x-ray, compatible with viral pneumonia. 4. Nonspecific anxiety, possible clinical depression Plan . Updated 02/08/21 Continue supplemental oxygen to keep sats above 92% on BIPAP 70%, monitor respiratory status closely S/P remdesivir Continue steroids currently on 60 mg IV twice daily, with slow taper, will need full 10-day course, started on 01/30/2021 PT/OT DVT/GI PPX :lovenox D/W RN and RT Awaiting LTAC transfer Updated 02/07/21 Continue supplemental oxygen to keep sats above 92% on BIPAP 70%, monitor respiratory status closely S/P remdesivir Continue steroids currently on 60 mg IV twice daily, with slow taper, will need full 10-day course, started on 01/30/2021 PT/OT DVT/GI PPX :lovenox D/W RN and RT Updated 02/06/21 Continue supplemental oxygen to keep sats above 92% on BIPAP 75%, monitor respiratory status closely S/P remdesivir Continue steroids currently on 60 mg IV twice daily, with slow taper, will need full 10-day course, started on 01/30/2021 PT/OT DVT/GI PPX :lovenox D/W RN and RT Updated 02/05/21 Continue supplemental oxygen to keep sats above 92% on BIPAP 75%, monitor respiratory status closely S/P remdesivir Continue steroids Off ABX and ID has signed off PT/OT DVT/GI PPX :lovenox D/W RN and RT Updated 02/04 Continue BiPAP at 75%, decrease FiO2 as tolerated Stressed the importance of sitting up in a chair, Continue remdesivir, steroids, As needed Haldol for anxiety Discussed case with per telephone, updated her, answered all questions. ELIZABETH ODELL MD Feb 08, 2021 10:04
--- NOTE | 2021-02-08 10:57 | PDOC ---
[employer] PROGRESS NOTE Date of Service DOS: DATE: 02/08/21 TIME: 10:56 Chief Complaint Chief Complaint A/P: SEPSIS, was POA Severe malnutrition was POA, with obesity, BMI 32 Acute hypoxic respiratory failure COVID-19 pneumonia requiring BiPAP transaminitis, iv fluid started Continue IV Remdesivir Continue IV thiamine and vitamin C Continue IV steroids Pending ferritin, LDH, CRP, D-dimer labs Titrate O2 supplementation to maintain O2 saturation greater than 92% Lovenox for DVT prophylaxis History of Present Illness History of Present Illness Mr Preciado is a 56-year-old male with no significant past medical history except for degenerative joint disease who was transferred from [facility] with complaints of fever, headache, dry cough, shortness of breath for the past 3 days. Patient stated that he was actually exposed from his son he was worsening and required to come to the ED at [facility] and he was found to be hypoxic and required 2 L of nasal cannula oxygen. Chest x-ray over there showed bilateral mild bibasilar infiltrates. Covid test was positive and patient was transferred to [facility] for pulmonary evaluation and treatment. Patient was started on Remdesivir and IV steroids. Currently patient is requiring 15 L high flow nasal cannula and IV steroids. 02/02: No acute events overnight. Patient was saturating 92% on 15 L nasal cannula and he had desatted down to 70% after he had to blow his nose. Patient was placed on BiPAP at 100% FiO2. Chest leg appears to be worsening. 02/03: Last dose of remdesivir. Could not tolerate vapotherm and is now on BIPAP. 81: poor Po intake, dry, dark urine 8/2: Desaturates to 72% when he takes off his BiPAP. Advised to get back on BIPAP after eating. he is able to place himself back on. Frustrated with the severity of his hypoxia. 83: Status post remdesivir. Still requiring BiPAP 75% FiO2 with significant desaturations when he is not wearing assessment with nonrebreather O2. 84: Still with significant desaturations when he raises BiPAP even on 15 L high flow nasal cannula. Discussed transitioning back to Vapotherm if we can treat his anxiety. He is amenable to this. He is frustrated with staying in the hospital understands he may be a longer term COVID recovery and is amenable to LTACH referral. I discussed with pulmonology. Afebrile. 70% FiO2 on BiPAP 06/11. Feels better. Did not tolerated Vapotherm. Significant desaturations when he transitions to high flow nasal cannula O2 while eating. Discussed referral to LTACH with pulmonology and ID as it appears he will need a longer COVID recovery. Vitals/I&O Vitals/I&O: Vital Signs Date Time Temp Pulse Resp B/P (MAP) Pulse Ox O2 Delivery O2 Flow Rate FiO2 02/08/21 09:45 73 Room Air 02/08/21 07:00 97.8 75 16 141/72 (95) 97.8 I & O 02/07/21 02/07/21 02/08/21 15:00 23:00 07:00 Intake Total 500 ml 200 ml Output Total 1650 ml 200 ml Balance -1150 ml 0 ml Physical Exam Physical Exam: GEN axo3 male on BIPAP HEENT: Normocephalic, atraumatic. Anicteric. NECK: Supple, no JVD. LUNGS: Crackles bilaterally. HEART: S1, S2. ABDOMEN: Soft, nontender, nondistended. Bowel sounds present. EXTREMITIES: No edema, no cyanosis. DERMATOLOGIC: Warm, dry, no generalized rash. NEUROLOGIC: Alert, oriented, grossly nonfocal. PSYCHIATRIC: Calm and cooperative. PIV looks clean. General: Alert, mild distress Heart: Regular rate (tele reg, reviewed) Extremities: No clubbing Comment Review of Relevant I have reviewed the following items rosalinda (where applicable) has been applied. Justifications for Admission Other Justification KWABENA SWENSON MD Feb 08, 2021 10:57
[2021-02-08 11:00] VITALS: BP 141/88
--- NOTE | 2021-02-08 14:38 | NUR ---
SS following up with discharge planning. SS reviewed pt chart and discussed with pt RN. Pt is currently requiring BIPAP at 70%. COVID19 positive. Pt on IV Solu-Medrol. LTACH referral recommended. Pt accepted at [facility], ; fax [phone], pending insurance authorization. SS will continue to follow for discharge planning.
[2021-02-08 15:00] VITALS: BP 139/83
[2021-02-08 19:25] VITALS: BP 148/95
[2021-02-08] MEDS: ENOXAPARIN 40 MG/0.4 ML SYRINGE. SQ SCH (20:55)
[2021-02-08] MEDS: FAMOTIDINE 20 MG TABLET. PO SCH (20:55)
[2021-02-08 23:25] VITALS: BP 144/89
[2021-02-09 03:35] VITALS: BP 128/83
[2021-02-09] MEDS: methylPREDNISolone SOD SUCC PF 125 MG/2 ML VIAL. IV SCH (05:41)
[2021-02-09 07:00] VITALS: BP 142/96
[2021-02-09] MEDS: CETIRIZINE HCL 10 MG TABLET. PO SCH (08:27)
[2021-02-09] MEDS: CHOLECALCIFEROL (VITAMIN D3) 5,000 UNIT CAPSULE PO SCH (08:27)
[2021-02-09] MEDS: IPRATROPIUM/ALBUTEROL 20/100mcg/INH INHALER. INH SCH ×4 (08:27→20:00)
[2021-02-09] MEDS: ZINC SULFATE 220 MG CAPSULE. PO SCH (08:27)
[2021-02-09] MEDS: THIAMINE 100 MG TABLET. PO SCH (08:27)
[2021-02-09] MEDS: ASCORBIC ACID 1,000 MG TABLET PO SCH (10:00)
--- NOTE | 2021-02-09 10:12 | PDOC ---
PULMONARY PROGRESS NOTES DATE: 02/09/21 TIME: 10:10 Subjective Patient on 70% FiO2. Via BiPAP. Setting at 06/11. Feels better. Did not tolerated Vapotherm. But willing to try again No increased shortness of breath or cough Afebrile Vitals Vital Signs Date Time Temp Pulse Resp B/P (MAP) Pulse Ox O2 Delivery O2 Flow Rate FiO2 02/09/21 09:21 83 NonRebreather Mask 15.0 02/09/21 07:00 97.1 86 18 142/96 (111) 97.1 Comments Pt. seen during covid -19 pandemic visual exam preformed BIPAP no distress no obvious rash or edema Medications Active Scripts Medications Dose Route/Sig Max Daily Dose Days Date Category Dose Instructions Morphine Sulfate 2 Mg/1 Ml Cartridge 2 Mg IV PRN Q4HRS PRN 01/30/21 Reported Zinc Sulfate 50 Mg Tablet 220 Mg PO DAILY 01/30/21 Reported Methylprednisolone Sod Succ 125 Mg Vial 60 Mg IJ Q8HRS 01/30/21 Reported Combivent Respimat Inhal (Ipratropium/Albuterol Sulfate) 4 Gm Aer.w.adap 2 Inh IH QID 01/30/21 Reported Pepcid (Famotidine) 20 Mg Tablet 20 Mg PO HS 01/30/21 Reported Lovenox (Enoxaparin Sodium) 30 Mg/0.3 Ml Disp.syrin 30 Mg SQ DAILY 01/30/21 Reported Vitamin D3 (Vitamin D) 125 Mcg Capsule 125 Mcg PO DAILY 01/30/21 Reported 5,000 UNITS = 125 MCG Zyrtec (Cetirizine Hcl) 10 Mg Tablet 1 Tab PO DAILY 01/30/21 Reported Ascorbic Acid 500 Mg Tablet 2 Mg PO DAILY 01/30/21 Reported Acetaminophen 325 Mg Tablet 2 Tab PO PRN Q6HRS PRN 30 01/30/21 Reported No Known Medications Prior To Admisstion (Info) Each 1 Each 02/29/20 Reported Impression . IMPRESSION: 1. Acute hypoxemic respiratory failure secondary to COVID-19 viral pneumonia./Acute lung injury and early ARDS. Slowly improving 2. COVID-19 viral pneumonia. 3. Abnormal chest x-ray, compatible with viral pneumonia. 4. Nonspecific anxiety, possible clinical depression Plan . Updated 02/09/21 Continue supplemental oxygen to keep sats above 92% on BIPAP 70%, monitor respiratory status closely S/P remdesivir Continue steroids currently on 60 mg IV twice daily, with slow taper, will need full 10-day course, started on 01/30/2021,taper PT/OT DVT/GI PPX :lovenox D/W RN and RT Patient willing to try Vapotherm. Discussed with RN. Updated 02/08/21 Continue supplemental oxygen to keep sats above 92% on BIPAP 70%, monitor respiratory status closely S/P remdesivir Continue steroids currently on 60 mg IV twice daily, with slow taper, will need full 10-day course, started on 01/30/2021 PT/OT DVT/GI PPX :lovenox D/W RN and RT Awaiting LTAC transfer Updated 02/07/21 Continue supplemental oxygen to keep sats above 92% on BIPAP 70%, monitor respiratory status closely S/P remdesivir Continue steroids currently on 60 mg IV twice daily, with slow taper, will need full 10-day course, started on 01/30/2021 PT/OT DVT/GI PPX :lovenox D/W RN and RT Updated 02/06/21 Continue supplemental oxygen to keep sats above 92% on BIPAP 75%, monitor re spiratory status closely S/P remdesivir Continue steroids currently on 60 mg IV twice daily, with slow taper, will need full 10-day course, started on 01/30/2021 PT/OT DVT/GI PPX :lovenox D/W RN and RT Updated 02/05/21 Continue supplemental oxygen to keep sats above 92% on BIPAP 75%, monitor respiratory status closely S/P remdesivir Continue steroids Off ABX and ID has signed off PT/OT DVT/GI PPX :lovenox D/W RN and RT Updated 02/04 Continue BiPAP at 75%, decrease FiO2 as tolerated Stressed the importance of sitting up in a chair, Continue remdesivir, steroids, As needed Haldol for anxiety Discussed case with per telephone, updated her, answered all questions. ELIZABETH ODELL MD Feb 09, 2021 10:12
[2021-02-09 11:00] VITALS: BP 142/80
--- NOTE | 2021-02-09 11:02 | PDOC ---
[employer] PROGRESS NOTE Date of Service DOS: DATE: 02/09/21 TIME: 11:00 Chief Complaint Chief Complaint A/P: SEPSIS, was POA Severe malnutrition was POA, with obesity, BMI 32 Acute hypoxic respiratory failure COVID-19 pneumonia requiring BiPAP transaminitis, iv fluid started Continue IV Remdesivir Continue IV thiamine and vitamin C Continue IV steroids Pending ferritin, LDH, CRP, D-dimer labs Titrate O2 supplementation to maintain O2 saturation greater than 92% Lovenox for DVT prophylaxis History of Present Illness History of Present Illness Mr Preciado is a 56-year-old male with no significant past medical history except for degenerative joint disease who was transferred from [facility] with complaints of fever, headache, dry cough, shortness of breath for the past 3 days, admitted on 01/29/2021. Patient stated that he was actually exposed from his son he was worsening and required to come to the ED at [facility] and he was found to be hypoxic and required 2 L of nasal cannula oxygen. Chest x-ray over there showed bilateral mild bibasilar infiltrates. Covid test was positive and patient was transferred to [facility] for pulmonary evaluation and treatment. Patient was started on Remdesivir and IV steroids. Currently patient is requiring 15 L high flow nasal cannula and IV steroids. 02/02: No acute events overnight. Patient was saturating 92% on 15 L nasal cannula and he had desatted down to 70% after he had to blow his nose. Patient was placed on BiPAP at 100% FiO2. Chest leg appears to be worsening. 02/03: Last dose of remdesivir. Could not tolerate vapotherm and is now on BIPAP. 81: poor Po intake, dry, dark urine 82: Desaturates to 72% when he takes off his BiPAP. Advised to get back on BIPAP after eating. he is able to place himself back on. Frustrated with the severity of his hypoxia. 3: Status post remdesivir. Still requiring BiPAP 75% FiO2 with significant desaturations when he is not wearing assessment with nonrebreather O2. 4: Still with significant desaturations when he raises BiPAP even on 15 L high flow nasal cannula. Discussed transitioning back to Vapotherm if we can treat his anxiety. He is amenable to this. He is frustrated with staying in the hospital understands he may be a longer term COVID recovery and is amenable to LTACH referral. I discussed with pulmonology. 02/08: Afebrile. 70% FiO2 on BiPAP 06/11. Feels better. Did not tolerated Vapot herm. Significant desaturations when he transitions to high flow nasal cannula O2 while eating. Discussed referral to LTACH with pulmonology and ID as it appears he will need a longer COVID recovery. Patient on 70% FiO2. Via BiPAP 06/11 when seen by pulmonology. Feels better and is seen on vapotherm 40l/min 100% FiO2 with saturations 89%, tolerating well. Vitals/I&O Vitals/I&O: Vital Signs Date Time Temp Pulse Resp B/P (MAP) Pulse Ox O2 Delivery O2 Flow Rate FiO2 02/09/21 09:21 83 NonRebreather Mask 15.0 02/09/21 07:00 97.1 86 18 142/96 (111) 97.1 I & O 02/08/21 02/08/21 02/09/21 15:00 23:00 07:00 Intake Total 400 ml 300 ml Output Total 1450 ml 1500 ml Balance -1050 ml -1500 ml 300 ml Physical Exam Physical Exam: GEN axo3 male on BIPAP HEENT: Normocephalic, atraumatic. Anicteric. NECK: Supple, no JVD. LUNGS: Crackles bilaterally. HEART: S1, S2. ABDOMEN: Soft, nontender, nondistended. Bowel sounds present. EXTREMITIES: No edema, no cyanosis. DERMATOLOGIC: Warm, dry, no generalized rash. NEUROLOGIC: Alert, oriented, grossly nonfocal. PSYCHIATRIC: Calm and cooperative. PIV looks clean. General: Alert, mild distress Heart: Regular rate (tele reg, reviewed) Extremities: No clubbing Comment Review of Relevant I have reviewed the following items rosalinda (where applicable) has been applied. Justifications for Admission Other Justification KWABENA SWENSON MD Feb 09, 2021 11:02
[2021-02-09] MEDS: ACETAMINOPHEN 325 MG TABLET. PO PRN ×2 (11:51→18:03)
--- NOTE | 2021-02-09 14:22 | NUR ---
SS following up with discharge planning. SS reviewed pt chart and discussed with pt RN. Pt is currently on Vapotherm at 100%. COVID19 positive. Pt on IV Solu-Medrol. LTACH referral recommended. Pt accepted at [facility], ; fax [phone], pending insurance authorization. SS phoned and faxed clinical updates to [facility]. SS will continue to follow for discharge planning. Addendum: 02/09/21 at 1633 by SONAL POLANCO SS [employer] contacted [facility] and denied LTACH. Amadeo from [facility] awaiting denial letter with peer to peer information and will fax to [facility]. Pt's RN notified.
[2021-02-09 15:00] VITALS: BP 135/84
[2021-02-09] MEDS: STERILE WATER for RESP 1,000 ML BAG. INH PRN ×2 (16:32→18:00)
[2021-02-09] MEDS: methylPREDNISolone SOD SUCC PF 40 MG/ML VIAL. IV SCH ×2 (18:04→18:35)
[2021-02-09 19:54] VITALS: BP 135/83
[2021-02-09] MEDS: FAMOTIDINE 20 MG TABLET. PO SCH (20:45)
[2021-02-09] MEDS: ENOXAPARIN 40 MG/0.4 ML SYRINGE. SQ SCH (20:46)
[2021-02-09 22:31] VITALS: BP_SYST 113; BP_SYST 139; BP_DIAS 103; BP_DIAS 62
[2021-02-10 02:04] VITALS: BP 130/77
[2021-02-10] MEDS: methylPREDNISolone SOD SUCC PF 40 MG/ML VIAL. IV SCH ×2 (06:00→18:22)
[2021-02-10] MEDS: ACETAMINOPHEN 325 MG TABLET. PO PRN ×2 (06:41→21:40)
[2021-02-10] MEDS: IPRATROPIUM/ALBUTEROL 20/100mcg/INH INHALER. INH SCH ×4 (08:00→20:00)
--- NOTE | 2021-02-10 08:56 | PDOC ---
[employer] PROGRESS NOTE Date of Service DOS: DATE: 02/10/21 TIME: 08:55 Chief Complaint Chief Complaint A/P: SEPSIS, was POA Severe malnutrition was POA, with obesity, BMI 32 Acute hypoxic respiratory failure COVID-19 pneumonia requiring BiPAP --> Vapotherm transaminitis, Completed IV Remdesivir Continue IV thiamine and vitamin C Continue IV steroids Titrate O2 supplementation to maintain O2 saturation greater than 92% Lovenox for DVT prophylaxis History of Present Illness History of Present Illness Mr Preciado is a 56-year-old male with no significant past medical history except for degenerative joint disease who was transferred from [facility] with complaints of fever, headache, dry cough, shortness of breath for the past 3 days, admitted on 01/29/2021. Patient stated that he was actually exposed from his son he was worsening and required to come to the ED at [facility] and he was found to be hypoxic and required 2 L of nasal cannula oxygen. Chest x-ray over there showed bilateral mild bibasilar infiltrates. Covid test was positive and patient was transferred to [facility] for pulmonary evaluation and treatment. Patient was started on Remdesivir and IV steroids. Currently patient is requiring 15 L high flow nasal cannula and IV steroids. 02/02: No acute events overnight. Patient was saturating 92% on 15 L nasal cannula and he had desatted down to 70% after he had to blow his nose. Patient was placed on BiPAP at 100% FiO2. Chest leg appears to be worsening. 02/03: Last dose of remdesivir. Could not tolerate vapotherm and is now on BIPAP. 81: poor Po intake, dry, dark urine 8/2: Desaturates to 72% when he takes off his BiPAP. Advised to get back on BIPAP after eating. he is able to place himself back on. Frustrated with the severity of his hypoxia. 83: Status post remdesivir. Still requiring BiPAP 75% FiO2 with significant desaturations when he is not wearing assessment with nonrebreather O2. 8/4: Still with significant desaturations when he raises BiPAP even on 15 L high flow nasal cannula. Discussed transitioning back to Vapotherm if we can treat his anxiety. He is amenable to this. He is frustrated with staying in the hospital understands he may be a longer term COVID recovery and is amenable to LTACH referral. I discussed with pulmonology. 02/08: Afebrile. 70% FiO2 on BiPAP 06/11. Feels better. Did not tolerated Vapotherm. Significant desaturations when he transitions to high flow nasal cannula O2 while eating. Discussed referral to LTACH with pulmonology and ID as it appears he will need a longer COVID recovery. 02/09: Patient on 70% FiO2. Via BiPAP 06/11 when seen by pulmonology. Feels better and is seen on vapotherm 40l/min 100% FiO2 with saturations 89%, tolerating well. Transition to Vapotherm well. He is on 40 L/min of 100% FiO2 with O2 saturations 89% to 91%. He is asking if he can try proning today. Still with significant cough of white frothy sputum. Plan: Repeat labs, check NT-proBNP and f/u CXR Vitals/I&O Vitals/I&O: Vital Signs Date Time Temp Pulse Resp B/P (MAP) Pulse Ox O2 Delivery O2 Flow Rate FiO2 02/10/21 07:34 94 VAPOTHERM 40.0 02/10/21 02:04 96.4 63 130/77 (94) 96.4 02/09/21 22:31 19 I & O 02/09/21 02/09/21 02/10/21 15:00 23:00 07:00 Intake Total 760 ml 380 ml 0 ml Output Total 1350 ml 1250 ml Balance -590 ml 380 ml -1250 ml Physical Exam Physical Exam: GEN axo3 male on BIPAP HEENT: Normocephalic, atraumatic. Anicteric. NECK: Supple, no JVD. LUNGS: Crackles bilaterally. HEART: S1, S2. ABDOMEN: Soft, nontender, nondistended. Bowel sounds present. EXTREMITIES: No edema, no cyanosis. DERMATOLOGIC: Warm, dry, no generalized rash. NEUROLOGIC: Alert, oriented, grossly nonfocal. PSYCHIATRIC: Calm and cooperative. PIV looks clean. General: Alert, mild distress Heart: Regular rate (tele reg, reviewed) Extremities: No clubbing Comment Review of Relevant I have reviewed the following items rosalinda (where applicable) has been applied. Medications: Current Medications Medications (Trade) Dose Ordered Sig/Mateus Route PRN Reason Start Time Stop Time Status Last Admin Dose Admin Methylprednisolone Sodium Succinate (SOLU-Medrol 40MG VIAL) 60 mg [id number] IV 02/09/21 18:00 02/10/21 06:00 Justifications for Admission Other Justification KWABENA SWENSON MD Feb 10, 2021 08:56
--- NOTE | 2021-02-10 10:04 | PDOC ---
PULMONARY PROGRESS NOTES DATE: 02/10/21 TIME: 10:02 Subjective Patient is back on Vapotherm. At 100% FiO2 and 40 L and tolerating well. No increased shortness of breath or cough Afebrile Vitals Vital Signs Date Time Temp Pulse Resp B/P (MAP) Pulse Ox O2 Delivery O2 Flow Rate FiO2 02/10/21 07:34 94 VAPOTHERM 40.0 02/10/21 02:04 96.4 63 130/77 (94) 96.4 02/09/21 22:31 19 Comments Pt. seen during covid -19 pandemic visual exam preformed no distress no obvious rash or edema Medications Active Scripts Medications Dose Route/Sig Max Daily Dose Days Date Category Dose Instructions Morphine Sulfate 2 Mg/1 Ml Cartridge 2 Mg IV PRN Q4HRS PRN 01/30/21 Reported Zinc Sulfate 50 Mg Tablet 220 Mg PO DAILY 01/30/21 Reported Methylprednisolone Sod Succ 125 Mg Vial 60 Mg IJ Q8HRS 01/30/21 Reported Combivent Respimat Inhal (Ipratropium/Albuterol Sulfate) 4 Gm Aer.w.adap 2 Inh IH QID 01/30/21 Reported Pepcid (Famotidine) 20 Mg Tablet 20 Mg PO HS 01/30/21 Reported Lovenox (Enoxaparin Sodium) 30 Mg/0.3 Ml Disp.syrin 30 Mg SQ DAILY 01/30/21 Reported Vitamin D3 (Vitamin D) 125 Mcg Capsule 125 Mcg PO DAILY 01/30/21 Reported 5,000 UNITS = 125 MCG Zyrtec (Cetirizine Hcl) 10 Mg Tablet 1 Tab PO DAILY 01/30/21 Reported Ascorbic Acid 500 Mg Tablet 2 Mg PO DAILY 01/30/21 Reported Acetaminophen 325 Mg Tablet 2 Tab PO PRN Q6HRS PRN 30 01/30/21 Reported No Known Medications Prior To Admisstion (Info) Each 1 Each 02/29/20 Reported Impression . IMPRESSION: 1. Acute hypoxemic respiratory failure secondary to COVID-19 viral pneumonia./Acute lung injury and early ARDS. Slowly improving 2. COVID-19 viral pneumonia. 3. Abnormal chest x-ray, compatible with viral pneumonia. 4. Nonspecific anxiety, possible clinical depression Plan . Updated 02/10/21 Continue supplemental oxygen to keep sats above 92% currently back on Vapotherm and tolerating well. 100% FiO2 and 40 L flow. S/P remdesivir Continue steroids with taper Off antibiotics. PT/OT DVT/GI PPX :lovenox D/W RN and RT Updated 02/09/21 Continue supplemental oxygen to keep sats above 92% on BIPAP 70%, monitor respiratory status closely S/P remdesivir Continue steroids currently on 60 mg IV twice daily, with slow taper, will need full 10-day course, started on 01/30/2021,taper PT/OT DVT/GI PPX :lovenox D/W RN and RT Patient willing to try Vapotherm. Discussed with RN. Updated 02/08/21 Continue supplemental oxygen to keep sats above 92% on BIPAP 70%, monitor respiratory status closely S/P remdesivir Continue steroids currently on 60 mg IV twice daily, with slow taper, will need full 10-day course, started on 01/30/2021 PT/OT DVT/GI PPX :lovenox D/W RN and RT Awaiting LTAC transfer Updated 02/07/21 Continue supplemental oxygen to keep sats above 92% on BIPAP 70%, monitor respiratory status closely S/P remdesivir Continue steroids currently on 60 mg IV twice daily, with slow taper, will need full 10-day course, started on 01/30/2021 PT/OT DVT/GI PPX :lovenox D/W RN and RT Updated 02/06/21 Continue supplemental oxygen to keep sats above 92% on BIPAP 75%, monitor respiratory status closely S/P remdesivir Continue steroids currently on 60 mg IV twice daily, with slow taper, will need full 10-day course, started on 01/30/2021 PT/OT DVT/GI PPX :lovenox D/W RN and RT Updated 02/05/21 Continue supplemental oxygen to keep sats above 92% on BIPAP 75%, monitor respiratory status closely S/P remdesivir Continue steroids Off ABX and ID has signed off PT/OT DVT/GI PPX :lovenox D/W RN and RT Updated 02/04 Continue BiPAP at 75%, decrease FiO2 as tolerated Stressed the importance of sitting up in a chair, Continue remdesivir, steroids, As needed Haldol for anxiety Discussed case with per telephone, updated her, answered all questions. ELIZABETH ODELL MD Feb 10, 2021 10:04
[2021-02-10] MEDS: THIAMINE 100 MG TABLET. PO SCH (11:01)
[2021-02-10] MEDS: ASCORBIC ACID 1,000 MG TABLET PO SCH (11:01)
[2021-02-10] MEDS: CETIRIZINE HCL 10 MG TABLET. PO SCH (11:01)
[2021-02-10] MEDS: CHOLECALCIFEROL (VITAMIN D3) 5,000 UNIT CAPSULE PO SCH (11:01)
[2021-02-10] MEDS: ZINC SULFATE 220 MG CAPSULE. PO SCH (11:01)
--- NOTE | 2021-02-10 11:24 | RAD ---
EXAM: AP View of the chest DATE: 02/10/2021 10:14 AM INDICATION: Reason: COVID 19 Poor progression, concern for secondary process / Spl. Instructions: / History: COMPARISON: 02/01/2021 FINDINGS/ IMPRESSION: The heart is not enlarged. Mediastinal and hilar contours are stable. Diffuse bilateral parenchymal airspace opacities have progressed compared to 02/01/2021. No pleural effusion or pneumothorax. Electronically signed by: Aaron Robertson MD (02/10/2021 11:21 AM) [id number]
[2021-02-10 11:31] VITALS: BP 146/79
[2021-02-10 15:00] VITALS: BP 109/61
[2021-02-10 19:39] VITALS: BP 119/78
--- NOTE | 2021-02-10 19:55 | NUR ---
Pt in bed assessment completed vss poc explained pt denied pain at time of assessment will resume care and continue to monitor pt. Call light in reach.
[2021-02-10] MEDS: ENOXAPARIN 40 MG/0.4 ML SYRINGE. SQ SCH (21:40)
[2021-02-10] MEDS: FAMOTIDINE 20 MG TABLET. PO SCH (21:41)
[2021-02-10 22:23] VITALS: BP 132/80
[2021-02-11] MEDS: STERILE WATER for RESP 1,000 ML BAG. INH PRN ×3 (01:15→20:44)
[2021-02-11 02:41] VITALS: BP 118/68
[2021-02-11 05:03] LABS: BASO % 0 % (0-3); EOS % 0 % (0-3); HEMOGLOBIN 15.3 g/dL (13.0-17.5); LYMPH # 0.3 x10^3/uL (1.0-4.8); LYMPH % 2 % (24-48); MEAN CORPUSCULAR HEMOGLOBIN 32 pg (25-35); MEAN CORPUSCULAR HGB CONC 34 g/dL (31-37); MEAN CORPUSCULAR VOLUME 93 fL (79-100); MONO # 0.5 x10^3/uL (0.0-1.1); MONO % 4 % (0-9); NEUT # 13.2 x10^3/uL (1.8-7.7); NEUT % 94 % (31-73); PLATELET COUNT 126 x10^3/uL (140-400); RED BLOOD COUNT 4.84 x10^6/uL (4.30-5.70); RED CELL DISTRIBUTION WIDTH 12.8 % (11.5-14.5)
[2021-02-11 05:36] LABS: ALBUMIN 2.2 g/dL (3.4-5.0); ALBUMIN/GLOBULIN RATIO 0.6 (1.0-1.7); CALCIUM 8.4 mg/dL (8.5-10.1); CREATININE 0.8 mg/dL (0.7-1.3); POTASSIUM 4.6 mmol/L (3.5-5.1); TOTAL BILIRUBIN 0.6 mg/dL (0.2-1.0); TOTAL PROTEIN 5.6 g/dL (6.4-8.2)
[2021-02-11] MEDS: methylPREDNISolone SOD SUCC PF 40 MG/ML VIAL. IV SCH ×2 (05:37→18:19)
[2021-02-11 07:00] VITALS: BP 130/81
[2021-02-11] MEDS: IPRATROPIUM/ALBUTEROL 20/100mcg/INH INHALER. INH SCH ×4 (08:00→20:43)
[2021-02-11 11:00] VITALS: BP 138/73
[2021-02-11] MEDS: CHOLECALCIFEROL (VITAMIN D3) 5,000 UNIT CAPSULE PO SCH (11:17)
[2021-02-11] MEDS: CETIRIZINE HCL 10 MG TABLET. PO SCH (11:17)
[2021-02-11] MEDS: THIAMINE 100 MG TABLET. PO SCH (11:17)
[2021-02-11] MEDS: ZINC SULFATE 220 MG CAPSULE. PO SCH (11:17)
[2021-02-11] MEDS: ASCORBIC ACID 1,000 MG TABLET PO SCH (11:17)
--- NOTE | 2021-02-11 12:13 | PDOC ---
PULMONARY PROGRESS NOTES DATE: 02/11/21 TIME: 12:12 Subjective Patient is on Vapotherm. At 100% FiO2 and 40 L and tolerating well. No increased shortness of breath or cough Afebrile Vitals Vital Signs Date Time Temp Pulse Resp B/P (MAP) Pulse Ox O2 Delivery O2 Flow Rate FiO2 02/11/21 11:40 92 VAPOTHERM 40.0 02/11/21 07:00 97.5 80 18 130/81 (97) 97.5 Comments Pt. seen during covid -19 pandemic visual exam preformed no distress no obvious rash or edema Labs Laboratory Tests Test 02/11/21 04:30 White Blood Count 14.0 x10^3/uL (4.0-11.0) Red Blood Count 4.84 x10^6/uL (4.30-5.70) Hemoglobin 15.3 g/dL (13.0-17.5) Hematocrit 45.0 % (39.0-53.0) Mean Corpuscular Volume 93 fL (79-100) Mean Corpuscular Hemoglobin 32 pg (25-35) Mean Corpuscular Hemoglobin Concent 34 g/dL (31-37) Red Cell Distribution Width 12.8 % (11.5-14.5) Platelet Count 126 x10^3/uL (140-400) Neutrophils (%) (Auto) 94 % (31-73) Lymphocytes (%) (Auto) 2 % (24-48) Monocytes (%) (Auto) 4 % (0-9) Eosinophils (%) (Auto) 0 % (0-3) Basophils (%) (Auto) 0 % (0-3) Neutrophils # (Auto) 13.2 x10^3/uL (1.8-7.7) Lymphocytes # (Auto) 0.3 x10^3/uL (1.0-4.8) Monocytes # (Auto) 0.5 x10^3/uL (0.0-1.1) Eosinophils # (Auto) 0.0 x10^3/uL (0.0-0.7) Basophils # (Auto) 0.0 x10^3/uL (0.0-0.2) Sodium Level 139 mmol/L (136-145) Potassium Level 4.6 mmol/L (3.5-5.1) Chloride Level 104 mmol/L (98-107) Carbon Dioxide Level 32 mmol/L (21-32) Anion Gap 3 (6-14) Blood Urea Nitrogen 23 mg/dL (8-26) Creatinine 0.8 mg/dL (0.7-1.3) Estimated GFR (Cockcroft-Gault) 100.0 BUN/Creatinine Ratio 29 (6-20) Glucose Level 133 mg/dL (70-99) Calcium Level 8.4 mg/dL (8.5-10.1) Total Bilirubin 0.6 mg/dL (0.2-1.0) Aspartate Amino Transf (AST/SGOT) 27 U/L (15-37) Alanine Aminotransferase (ALT/SGPT) 122 U/L (16-63) Alkaline Phosphatase 61 U/L (46-116) QR-Hwb-U-Type Natriuretic Peptide 135 pg/mL (0-124) Total Protein 5.6 g/dL (6.4-8.2) Albumin 2.2 g/dL (3.4-5.0) Albumin/Globulin Ratio 0.6 (1.0-1.7) Laboratory Tests Test 02/11/21 04:30 White Blood Count 14.0 x10^3/uL (4.0-11.0) Red Blood Count 4.84 x10^6/uL (4.30-5.70) Hemoglobin 15.3 g/dL (13.0-17.5) Hematocrit 45.0 % (39.0-53.0) Mean Corpuscular Volume 93 fL (79-100) Mean Corpuscular Hemoglobin 32 pg (25-35) Mean Corpuscular Hemoglobin Concent 34 g/dL (31-37) Red Cell Distribution Width 12.8 % (11.5-14.5) Platelet Count 126 x10^3/uL (140-400) Neutrophils (%) (Auto) 94 % (31-73) Lymphocytes (%) (Auto) 2 % (24-48) Monocytes (%) (Auto) 4 % (0-9) Eosinophils (%) (Auto) 0 % (0-3) Basophils (%) (Auto) 0 % (0-3) Neutrophils # (Auto) 13.2 x10^3/uL (1.8-7.7) Lymphocytes # (Auto) 0.3 x10^3/uL (1.0-4.8) Monocytes # (Auto) 0.5 x10^3/uL (0.0-1.1) Eosinophils # (Auto) 0.0 x10^3/uL (0.0-0.7) Basophils # (Auto) 0.0 x10^3/uL (0.0-0.2) Sodium Level 139 mmol/L (136-145) Potassium Level 4.6 mmol/L (3.5-5.1) Chloride Level 104 mmol/L (98-107) Carbon Dioxide Level 32 mmol/L (21-32) Anion Gap 3 (6-14) Blood Urea Nitrogen 23 mg/dL (8-26) Creatinine 0.8 mg/dL (0.7-1.3) Estimated GFR (Cockcroft-Gault) 100.0 BUN/Creatinine Ratio 29 (6-20) Glucose Level 133 mg/dL (70-99) Calcium Level 8.4 mg/dL (8.5-10.1) Total Bilirubin 0.6 mg/dL (0.2-1.0) Aspartate Amino Transf (AST/SGOT) 27 U/L (15-37) Alanine Aminotransferase (ALT/SGPT) 122 U/L (16-63) Alkaline Phosphatase 61 U/L (46-116) EI-Swn-P-Type Natriuretic Peptide 135 pg/mL (0-124) Total Protein 5.6 g/dL (6.4-8.2) Albumin 2.2 g/dL (3.4-5.0) Albumin/Globulin Ratio 0.6 (1.0-1.7) Medications Active Scripts Medications Dose Route/Sig Max Daily Dose Days Date Category Dose Instructions Morphine Sulfate 2 Mg/1 Ml Cartridge 2 Mg IV PRN Q4HRS PRN 01/30/21 Reported Zinc Sulfate 50 Mg Tablet 220 Mg PO DAILY 01/30/21 Reported Methylprednisolone Sod Succ 125 Mg Vial 60 Mg IJ Q8HRS 01/30/21 Reported Combivent Respimat Inhal (Ipratropium/Albuterol Sulfate) 4 Gm Aer.w.adap 2 Inh IH QID 01/30/21 Reported Pepcid (Famotidine) 20 Mg Tablet 20 Mg PO HS 01/30/21 Reported Lovenox (Enoxaparin Sodium) 30 Mg/0.3 Ml Disp.syrin 30 Mg SQ DAILY 01/30/21 Reported Vitamin D3 (Vitamin D) 125 Mcg Capsule 125 Mcg PO DAILY 01/30/21 Reported 5,000 UNITS = 125 MCG Zyrtec (Cetirizine Hcl) 10 Mg Tablet 1 Tab PO DAILY 01/30/21 Reported Ascorbic Acid 500 Mg Tablet 2 Mg PO DAILY 01/30/21 Reported Acetaminophen 325 Mg Tablet 2 Tab PO PRN Q6HRS PRN 30 01/30/21 Reported No Known Medications Prior To Admisstion (Info) Each 1 Each 02/29/20 Reported Impression . IMPRESSION: 1. Acute hypoxemic respiratory failure secondary to COVID-19 viral pneumonia./Acute lung injury and early ARDS. Slowly improving 2. COVID-19 viral pneumonia. 3. Abnormal chest x-ray, compatible with viral pneumonia. 4. Nonspecific anxiety, possible clinical depression Plan . Updated 02/11/21 Continue supplemental oxygen to keep sats above 92% currently back on Vapotherm and tolerating well. 100% FiO2 and 40 L flow. S/P remdesivir Continue steroids with taper Off antibiotics. PT/OT DVT/GI PPX :lovenox D/W RN and RT remains critical but stable Updated 02/10/21 Continue supplemental oxygen to keep sats above 92% currently back on Vapotherm and tolerating well. 100% FiO2 and 40 L flow. S/P remdesivir Continue steroids with taper Off antibiotics. PT/OT DVT/GI PPX :lovenox D/W RN and RT Updated 02/09/21 Continue supplemental oxygen to keep sats above 92% on BIPAP 70%, monitor respiratory status closely S/P remdesivir Continue steroids currently on 60 mg IV twice daily, with slow taper, will need full 10-day course, started on 01/30/2021,taper PT/OT DVT/GI PPX :lovenox D/W RN and RT Patient willing to try Vapotherm. Discussed with RN. Updated 02/08/21 Continue supplemental oxygen to keep sats above 92% on BIPAP 70%, monitor respiratory status closely S/P remdesivir Continue steroids currently on 60 mg IV twice daily, with slow taper, will need full 10-day course, started on 01/30/2021 PT/OT DVT/GI PPX :lovenox D/W RN and RT Awaiting LTAC transfer Updated 02/07/21 Continue supplemental oxygen to keep sats above 92% on BIPAP 70%, monitor respiratory status closely S/P remdesivir Continue steroids currently on 60 mg IV twice daily, with slow taper, will need full 10-day course, started on 01/30/2021 PT/OT DVT/GI PPX :lovenox D/W RN and RT Updated 02/06/21 Continue supplemental oxygen to keep sats above 92% on BIPAP 75%, monitor respiratory status closely S/P remdesivir Continue steroids currently on 60 mg IV twice daily, with slow taper, will need full 10-day course, started on 01/30/2021 PT/OT DVT/GI PPX :lovenox D/W RN and RT Updated 02/05/21 Continue supplemental oxygen to keep sats above 92% on BIPAP 75%, monitor respiratory status closely S/P remdesivir Continue steroids Off ABX and ID has signed off PT/OT DVT/GI PPX :lovenox D/W RN and RT Updated 02/04 Continue BiPAP at 75%, decrease FiO2 as tolerated Stressed the importance of sitting up in a chair, Continue remdesivir, steroids, As needed Haldol for anxiety Discussed case with per telephone, updated her, answered all questions. ELIZABETH ODELL MD Feb 11, 2021 12:13
--- NOTE | 2021-02-11 14:03 | PDOC ---
[employer] PROGRESS NOTE Date of Service DOS: DATE: 02/11/21 TIME: 13:57 Chief Complaint Chief Complaint SEPSIS, was POA Severe malnutrition was POA, with obesity, BMI 32 Acute hypoxic respiratory failure COVID-19 pneumonia r transaminitis History of Present Illness History of Present Illness Mr Preciado is a 56-year-old male with no significant past medical history except for degenerative joint disease who was transferred from [facility] with complaints of fever, headache, dry cough, shortness of breath for the past 3 days, admitted on 01/29/2021. Patient stated that he was actually exposed from his son he was worsening and required to come to the ED at [facility] and he was found to be hypoxic and required 2 L of nasal cannula oxygen. Chest x-ray over there showed bilateral mild bibasilar infiltrates. Covid test was positive and patient was transferred to [facility] for pulmonary evaluation and treatment. Patient was started on Remdesivir and IV steroids. Currently patient is requiring 15 L high flow nasal cannula and IV steroids. 02/02: No acute events overnight. Patient was saturating 92% on 15 L nasal cannula and he had desatted down to 70% after he had to blow his nose. Patient was placed on BiPAP at 100% FiO2. Chest leg appears to be worsening. 02/03: Last dose of remdesivir. Could not tolerate vapotherm and is now on BIPAP. 02/04: poor Po intake, dry, dark urine 02/05: Desaturates to 72% when he takes off his BiPAP. Advised to get back on BIPAP after eating. he is able to place himself back on. Frustrated with the severity of his hypoxia. 02/06: Status post remdesivir. Still requiring BiPAP 75% FiO2 with significant desaturations when he is not wearing assessment with nonrebreather O2. 02/07: Still with significant desaturations when he raises BiPAP even on 15 L high flow nasal cannula. Discussed transitioning back to Vapotherm if we can treat his anxiety. He is amenable to this. He is frustrated with staying in the hospital understands he may be a longer term COVID recovery and is amenable to LTACH referral. I discussed with pulmonology. 02/08: Afebrile. 70% FiO2 on BiPAP 06/11. Feels better. Did not tolerated Vapotherm. Significant desaturations when he transitions to high flow nasal cannula O2 while eating. Discussed referral to LTACH with pulmonology and ID as it appears he will need a longer COVID recovery. 02/09: Patient on 70% FiO2. Via BiPAP 06/11 when seen by pulmonology. Feels better and is seen on vapotherm 40l/min 100% FiO2 with saturations 89%, tolerating well. 02/11/2021 patient seen at edge of bed. FiO2 at 89%. Dropped to low 80s while talking to us. Educated patient on conserving energy and working to keep FiO2 higher. D/W RN Chart Reviewed Vitals/I&O Vitals/I&O: Vital Signs Date Time Temp Pulse Resp B/P (MAP) Pulse Ox O2 Delivery O2 Flow Rate FiO2 02/11/21 11:40 92 VAPOTHERM 40.0 02/11/21 11:00 98.3 89 18 138/73 (94) 98.3 I & O 02/10/21 02/10/21 02/11/21 15:00 23:00 07:00 Intake Total 580 ml 760 ml 300 ml Output Total 450 ml 600 ml 950 ml Balance 130 ml 160 ml -650 ml Physical Exam Physical Exam: GEN axo3 male on BIPAP HEENT: Normocephalic, atraumatic. Anicteric. NECK: Supple, no JVD. LUNGS: Crackles bilaterally. HEART: S1, S2. ABDOMEN: Soft, nontender, nondistended. Bowel sounds present. EXTREMITIES: No edema, no cyanosis. DERMATOLOGIC: Warm, dry, no generalized rash. NEUROLOGIC: Alert, oriented, grossly nonfocal. PSYCHIATRIC: Calm and cooperative. PIV looks clean. General: Alert, mild distress Heart: Regular rate (tele reg, reviewed) Abdomen: Normal bowel sounds Extremities: No clubbing Skin: No rashes Labs Labs: Laboratory Tests Test 02/11/21 04:30 White Blood Count 14.0 x10^3/uL (4.0-11.0) Red Blood Count 4.84 x10^6/uL (4.30-5.70) Hemoglobin 15.3 g/dL (13.0-17.5) Hematocrit 45.0 % (39.0-53.0) Mean Corpuscular Volume 93 fL (79-100) Mean Corpuscular Hemoglobin 32 pg (25-35) Mean Corpuscular Hemoglobin Concent 34 g/dL (31-37) Red Cell Distribution Width 12.8 % (11.5-14.5) Platelet Count 126 x10^3/uL (140-400) Neutrophils (%) (Auto) 94 % (31-73) Lymphocytes (%) (Auto) 2 % (24-48) Monocytes (%) (Auto) 4 % (0-9) Eosinophils (%) (Auto) 0 % (0-3) Basophils (%) (Auto) 0 % (0-3) Neutrophils # (Auto) 13.2 x10^3/uL (1.8-7.7) Lymphocytes # (Auto) 0.3 x10^3/uL (1.0-4.8) Monocytes # (Auto) 0.5 x10^3/uL (0.0-1.1) Eosinophils # (Auto) 0.0 x10^3/uL (0.0-0.7) Basophils # (Auto) 0.0 x10^3/uL (0.0-0.2) Sodium Level 139 mmol/L (136-145) Potassium Level 4.6 mmol/L (3.5-5.1) Chloride Level 104 mmol/L (98-107) Carbon Dioxide Level 32 mmol/L (21-32) Anion Gap 3 (6-14) Blood Urea Nitrogen 23 mg/dL (8-26) Creatinine 0.8 mg/dL (0.7-1.3) Estimated GFR (Cockcroft-Gault) 100.0 BUN/Creatinine Ratio 29 (6-20) Glucose Level 133 mg/dL (70-99) Calcium Level 8.4 mg/dL (8.5-10.1) Total Bilirubin 0.6 mg/dL (0.2-1.0) Aspartate Amino Transf (AST/SGOT) 27 U/L (15-37) Alanine Aminotransferase (ALT/SGPT) 122 U/L (16-63) Alkaline Phosphatase 61 U/L (46-116) NY-Xko-G-Type Natriuretic Peptide 135 pg/mL (0-124) Total Protein 5.6 g/dL (6.4-8.2) Albumin 2.2 g/dL (3.4-5.0) Albumin/Globulin Ratio 0.6 (1.0-1.7) Review of Systems Review of Systems: bowel and bladder continent denies L[place]ON[place] or dizziness denies fever or chills Assessment and Plan Assessmemt and Plan SEPSIS, was POA Severe malnutrition was POA, with obesity, BMI 32 Acute hypoxic respiratory failure COVID-19 pneumonia requiring transaminitis, Plan Continue COVID protocol Completed IV Remdesivir Continue IV thiamine and vitamin C Continue IV steroids Titrate O2 supplementation to maintain O2 saturation greater than 92% Lovenox for DVT prophylaxis Trend labs PT/OT anoxic encephalopathy Full code Cardiac monitoring Pulmonary following Infectious disease following Appreciate subspecialist input Discussed with RN Chart reviewed Prognosis guarded CC time 31 minutes Comment Review of Relevant I have reviewed the following items rosalinda (where applicable) has been applied. Justifications for Admission Other Justification LETICIA GIBBS III DO Feb 11, 2021 14:03
[2021-02-11 15:00] VITALS: BP 129/84
[2021-02-11 19:25] VITALS: BP 139/84
--- NOTE | 2021-02-11 19:40 | NUR ---
PT IN BED AWAKE ASSESSMENT COMPLETED VSS POC EXPLAINED PT DENIED PAIN WILL RESUME CARE AND CONTINUE TO MONITOR PT.
[2021-02-11] MEDS: ENOXAPARIN 40 MG/0.4 ML SYRINGE. SQ SCH (20:43)
[2021-02-11] MEDS: FAMOTIDINE 20 MG TABLET. PO SCH (20:44)
[2021-02-11 22:48] VITALS: BP 134/79
[2021-02-12 02:42] VITALS: BP 124/70
[2021-02-12] MEDS: methylPREDNISolone SOD SUCC PF 40 MG/ML VIAL. IV SCH ×2 (05:35→17:33)
[2021-02-12 06:18] VITALS: BP 137/78
[2021-02-12] MEDS: STERILE WATER for RESP 1,000 ML BAG. INH PRN ×2 (08:34→19:50)
[2021-02-12] MEDS: THIAMINE 100 MG TABLET. PO SCH (09:31)
[2021-02-12] MEDS: ASCORBIC ACID 1,000 MG TABLET PO SCH (09:31)
[2021-02-12] MEDS: IPRATROPIUM/ALBUTEROL 20/100mcg/INH INHALER. INH SCH ×4 (09:31→20:17)
[2021-02-12] MEDS: ZINC SULFATE 220 MG CAPSULE. PO SCH (09:31)
[2021-02-12] MEDS: CHOLECALCIFEROL (VITAMIN D3) 5,000 UNIT CAPSULE PO SCH (09:31)
[2021-02-12] MEDS: CETIRIZINE HCL 10 MG TABLET. PO SCH (09:31)
--- NOTE | 2021-02-12 09:47 | PDOC ---
PULMONARY PROGRESS NOTES DATE: 02/12/21 TIME: 09:46 Subjective Patient is on Vapotherm. Down to 95% FiO2 and 40 L and tolerating well. No increased shortness of breath or cough Afebrile Vitals Vital Signs Date Time Temp Pulse Resp B/P (MAP) Pulse Ox O2 Delivery O2 Flow Rate FiO2 02/12/21 08:32 90 VAPOTHERM 40.0 02/12/21 06:18 95.0 85 20 137/78 (97) 95.0 Comments Pt. seen during covid -19 pandemic visual exam preformed no distress no obvious rash or edema Labs Laboratory Tests Test 02/11/21 04:30 White Blood Count 14.0 x10^3/uL (4.0-11.0) Red Blood Count 4.84 x10^6/uL (4.30-5.70) Hemoglobin 15.3 g/dL (13.0-17.5) Hematocrit 45.0 % (39.0-53.0) Mean Corpuscular Volume 93 fL (79-100) Mean Corpuscular Hemoglobin 32 pg (25-35) Mean Corpuscular Hemoglobin Concent 34 g/dL (31-37) Red Cell Distribution Width 12.8 % (11.5-14.5) Platelet Count 126 x10^3/uL (140-400) Neutrophils (%) (Auto) 94 % (31-73) Lymphocytes (%) (Auto) 2 % (24-48) Monocytes (%) (Auto) 4 % (0-9) Eosinophils (%) (Auto) 0 % (0-3) Basophils (%) (Auto) 0 % (0-3) Neutrophils # (Auto) 13.2 x10^3/uL (1.8-7.7) Lymphocytes # (Auto) 0.3 x10^3/uL (1.0-4.8) Monocytes # (Auto) 0.5 x10^3/uL (0.0-1.1) Eosinophils # (Auto) 0.0 x10^3/uL (0.0-0.7) Basophils # (Auto) 0.0 x10^3/uL (0.0-0.2) Sodium Level 139 mmol/L (136-145) Potassium Level 4.6 mmol/L (3.5-5.1) Chloride Level 104 mmol/L (98-107) Carbon Dioxide Level 32 mmol/L (21-32) Anion Gap 3 (6-14) Blood Urea Nitrogen 23 mg/dL (8-26) Creatinine 0.8 mg/dL (0.7-1.3) Estimated GFR (Cockcroft-Gault) 100.0 BUN/Creatinine Ratio 29 (6-20) Glucose Level 133 mg/dL (70-99) Calcium Level 8.4 mg/dL (8.5-10.1) Total Bilirubin 0.6 mg/dL (0.2-1.0) Aspartate Amino Transf (AST/SGOT) 27 U/L (15-37) Alanine Aminotransferase (ALT/SGPT) 122 U/L (16-63) Alkaline Phosphatase 61 U/L (46-116) ZH-Pid-O-Type Natriuretic Peptide 135 pg/mL (0-124) Total Protein 5.6 g/dL (6.4-8.2) Albumin 2.2 g/dL (3.4-5.0) Albumin/Globulin Ratio 0.6 (1.0-1.7) Medications Active Scripts Medications Dose Route/Sig Max Daily Dose Days Date Category Dose Instructions Morphine Sulfate 2 Mg/1 Ml Cartridge 2 Mg IV PRN Q4HRS PRN 01/30/21 Reported Zinc Sulfate 50 Mg Tablet 220 Mg PO DAILY 01/30/21 Reported Methylprednisolone Sod Succ 125 Mg Vial 60 Mg IJ Q8HRS 01/30/21 Reported Combivent Respimat Inhal (Ipratropium/Albuterol Sulfate) 4 Gm Aer.w.adap 2 Inh IH QID 01/30/21 Reported Pepcid (Famotidine) 20 Mg Tablet 20 Mg PO HS 01/30/21 Reported Lovenox (Enoxaparin Sodium) 30 Mg/0.3 Ml Disp.syrin 30 Mg SQ DAILY 01/30/21 Reported Vitamin D3 (Vitamin D) 125 Mcg Capsule 125 Mcg PO DAILY 01/30/21 Reported 5,000 UNITS = 125 MCG Zyrtec (Cetirizine Hcl) 10 Mg Tablet 1 Tab PO DAILY 01/30/21 Reported Ascorbic Acid 500 Mg Tablet 2 Mg PO DAILY 01/30/21 Reported Acetaminophen 325 Mg Tablet 2 Tab PO PRN Q6HRS PRN 30 01/30/21 Reported No Known Medications Prior To Admisstion (Info) Each 1 Each 02/29/20 Reported Impression . IMPRESSION: 1. Acute hypoxemic respiratory failure secondary to COVID-19 viral pneumo chris./Acute lung injury and early ARDS. Slowly improving 2. COVID-19 viral pneumonia. 3. Abnormal chest x-ray, compatible with viral pneumonia. 4. Nonspecific anxiety, possible clinical depression Plan . Updated 02/12/21 Continue supplemental oxygen to keep sats above 92% currently on Vapotherm and tolerating well. 95% FiO2 and 40 L flow. S/P remdesivir Continue steroids with taper Off antibiotics. PT/OT DVT/GI PPX :lovenox D/W RN and RT remains critical but stable Updated 02/11/21 Continue supplemental oxygen to keep sats above 92% currently back on Vapotherm and tolerating well. 100% FiO2 and 40 L flow. S/P remdesivir Continue steroids with taper Off antibiotics. PT/OT DVT/GI PPX :lovenox D/W RN and RT remains critical but stable Updated 02/10/21 Continue supplemental oxygen to keep sats above 92% currently back on Vapotherm and tolerating well. 100% FiO2 and 40 L flow. S/P remdesivir Continue steroids with taper Off antibiotics. PT/OT DVT/GI PPX :lovenox D/W RN and RT Updated 02/09/21 Continue supplemental oxygen to keep sats above 92% on BIPAP 70%, monitor respiratory status closely S/P remdesivir Continue steroids currently on 60 mg IV twice daily, with slow taper, will need full 10-day course, started on 01/30/2021,taper PT/OT DVT/GI PPX :lovenox D/W RN and RT Patient willing to try Vapotherm. Discussed with RN. Updated 02/08/21 Continue supplemental oxygen to keep sats above 92% on BIPAP 70%, monitor respiratory status closely S/P remdesivir Continue steroids currently on 60 mg IV twice daily, with slow taper, will need full 10-day course, started on 01/30/2021 PT/OT DVT/GI PPX :lovenox D/W RN and RT Awaiting LTAC transfer Updated 02/07/21 Continue supplemental oxygen to keep sats above 92% on BIPAP 70%, monitor resp iratory status closely S/P remdesivir Continue steroids currently on 60 mg IV twice daily, with slow taper, will need full 10-day course, started on 01/30/2021 PT/OT DVT/GI PPX :lovenox D/W RN and RT Updated 02/06/21 Continue supplemental oxygen to keep sats above 92% on BIPAP 75%, monitor respiratory status closely S/P remdesivir Continue steroids currently on 60 mg IV twice daily, with slow taper, will need full 10-day course, started on 01/30/2021 PT/OT DVT/GI PPX :lovenox D/W RN and RT Updated 02/05/21 Continue supplemental oxygen to keep sats above 92% on BIPAP 75%, monitor respiratory status closely S/P remdesivir Continue steroids Off ABX and ID has signed off PT/OT DVT/GI PPX :lovenox D/W RN and RT Updated 02/04 Continue BiPAP at 75%, decrease FiO2 as tolerated Stressed the importance of sitting up in a chair, Continue remdesivir, steroids, As needed Haldol for anxiety Discussed case with per telephone, updated her, answered all questions. ELIZABETH ODELL MD Feb 12, 2021 09:47
[2021-02-12 09:53] LABS: BASO % 0 % (0-3); EOS % 0 % (0-3); HEMATOCRIT 47.3 % (39.0-53.0); HEMOGLOBIN 15.9 g/dL (13.0-17.5); LYMPH # 0.3 x10^3/uL (1.0-4.8); LYMPH % 2 % (24-48); MEAN CORPUSCULAR HEMOGLOBIN 31 pg (25-35); MEAN CORPUSCULAR HGB CONC 34 g/dL (31-37); MEAN CORPUSCULAR VOLUME 93 fL (79-100); MONO # 0.4 x10^3/uL (0.0-1.1); MONO % 2 % (0-9); NEUT # 15.9 x10^3/uL (1.8-7.7); NEUT % 96 % (31-73); PLATELET COUNT 132 x10^3/uL (140-400); RED BLOOD COUNT 5.06 x10^6/uL (4.30-5.70); RED CELL DISTRIBUTION WIDTH 12.9 % (11.5-14.5); WHITE BLOOD COUNT 16.6 x10^3/uL (4.0-11.0)
[2021-02-12 10:11] LABS: ALBUMIN 2.4 g/dL (3.4-5.0); ALBUMIN/GLOBULIN RATIO 0.6 (1.0-1.7); CALCIUM 8.8 mg/dL (8.5-10.1); CREATININE 0.9 mg/dL (0.7-1.3); GFR 87.3; POTASSIUM 4.6 mmol/L (3.5-5.1); TOTAL BILIRUBIN 0.5 mg/dL (0.2-1.0); TOTAL PROTEIN 6.1 g/dL (6.4-8.2)
[2021-02-12] MEDS ORDERED: POLYETHYLENE GLYCOL 3350 17 GM PACKET. PO PRN (10:30)
[2021-02-12 11:44] VITALS: BP 130/84
--- NOTE | 2021-02-12 11:50 | PDOC ---
[employer] PROGRESS NOTE Date of Service DOS: DATE: 02/12/21 TIME: 11:44 Chief Complaint Chief Complaint SEPSIS, was POA Severe malnutrition was POA, with obesity, BMI 32 Acute hypoxic respiratory failure COVID-19 pneumonia r transaminitis History of Present Illness History of Present Illness Mr Preciado is a 56-year-old male with no significant past medical history except for degenerative joint disease who was transferred from [facility] with complaints of fever, headache, dry cough, shortness of breath for the past 3 days, admitted on 01/29/2021. Patient stated that he was actually exposed from his son he was worsening and required to come to the ED at [facility] and he was found to be hypoxic and required 2 L of nasal cannula oxygen. Chest x-ray over there showed bilateral mild bibasilar infiltrates. Covid test was positive and patient was transferred to [facility] for pulmonary evaluation and treatment. Patient was started on Remdesivir and IV steroids. Currently patient is requiring 15 L high flow nasal cannula and IV steroids. 02/02: No acute events overnight. Patient was saturating 92% on 15 L nasal cannula and he had desatted down to 70% after he had to blow his nose. Patient was placed on BiPAP at 100% FiO2. Chest leg appears to be worsening. 02/03: Last dose of remdesivir. Could not tolerate vapotherm and is now on BIPAP. 02/04: poor Po intake, dry, dark urine 02/05: Desaturates to 72% when he takes off his BiPAP. Advised to get back on BIPAP after eating. he is able to place himself back on. Frustrated with the severity of his hypoxia. 3: Status post remdesivir. Still requiring BiPAP 75% FiO2 with significant desaturations when he is not wearing assessment with nonrebreather O2. 4: Still with significant desaturations when he raises BiPAP even on 15 L high flow nasal cannula. Discussed transitioning back to Vapotherm if we can treat his anxiety. He is amenable to this. He is frustrated with staying in the hospital understands he may be a longer term COVID recovery and is amenable to LTACH referral. I discussed with pulmonology. 02/08: Afebrile. 70% FiO2 on BiPAP 06/11. Feels better. Did not tolerated Vapotherm. Significant desaturations when he transitions to high flow nasal cannula O2 while eating. Discussed referral to LTACH with pulmonology and ID as it appears he will need a longer COVID recovery. 02/09: Patient on 70% FiO2. Via BiPAP 06/11 when seen by pulmonology. Feels better and is seen on vapotherm 40l/min 100% FiO2 with saturations 89%, tolerating well. 02/11/2021 patient seen at edge of bed. FiO2 at 89%. Dropped to low 80s while talking to us. Educated patient on conserving energy and working to keep FiO2 higher. D/W RN Chart Reviewed 02/12/2021 Patient was seen and examined in bed. FiO2 of 87% while on Vapotherm with 40L of 90% O2. D/W RN, Chart Review Patient has not had a bowel movement in two days. Patient feels he is doing better but his FiO2 still drops with activity or speaking Discussed need to rest and focus on breathing to maintain proper FiO2. Vitals/I&O Vitals/I&O: Vital Signs Date Time Temp Pulse Resp B/P (MAP) Pulse Ox O2 Delivery O2 Flow Rate FiO2 02/12/21 10:19 90 VAPOTHERM 40.0 02/12/21 06:18 95.0 85 20 137/78 (97) 95.0 I & O 02/11/21 02/11/21 02/12/21 15:00 23:00 07:00 Intake Total 580 ml 100 ml Output Total 600 ml 600 ml Balance 580 ml -600 ml -500 ml Physical Exam Physical Exam: GEN axo3 male on BIPAP HEENT: Normocephalic, atraumatic. Anicteric. NECK: Supple, no JVD. LUNGS: Crackles bilaterally. HEART: S1, S2. ABDOMEN: Soft, nontender, nondistended. Bowel sounds present. EXTREMITIES: No edema, no cyanosis. DERMATOLOGIC: Warm, dry, no generalized rash. NEUROLOGIC: Alert, oriented, grossly nonfocal. PSYCHIATRIC: Calm and cooperative. PIV looks clean. General: Alert, mild distress Heart: Regular rate (tele reg, reviewed) Abdomen: Normal bowel sounds Extremities: No clubbing Skin: No rashes Labs Labs: Laboratory Tests Test 02/12/21 09:05 White Blood Count 16.6 x10^3/uL (4.0-11.0) Red Blood Count 5.06 x10^6/uL (4.30-5.70) Hemoglobin 15.9 g/dL (13.0-17.5) Hematocrit 47.3 % (39.0-53.0) Mean Corpuscular Volume 93 fL (79-100) Mean Corpuscular Hemoglobin 31 pg (25-35) Mean Corpuscular Hemoglobin Concent 34 g/dL (31-37) Red Cell Distribution Width 12.9 % (11.5-14.5) Platelet Count 132 x10^3/uL (140-400) Neutrophils (%) (Auto) 96 % (31-73) Lymphocytes (%) (Auto) 2 % (24-48) Monocytes (%) (Auto) 2 % (0-9) Eosinophils (%) (Auto) 0 % (0-3) Basophils (%) (Auto) 0 % (0-3) Neutrophils # (Auto) 15.9 x10^3/uL (1.8-7.7) Lymphocytes # (Auto) 0.3 x10^3/uL (1.0-4.8) Monocytes # (Auto) 0.4 x10^3/uL (0.0-1.1) Eosinophils # (Auto) 0.0 x10^3/uL (0.0-0.7) Basophils # (Auto) 0.0 x10^3/uL (0.0-0.2) Sodium Level 138 mmol/L (136-145) Potassium Level 4.6 mmol/L (3.5-5.1) Chloride Level 102 mmol/L (98-107) Carbon Dioxide Level 28 mmol/L (21-32) Anion Gap 8 (6-14) Blood Urea Nitrogen 21 mg/dL (8-26) Creatinine 0.9 mg/dL (0.7-1.3) Estimated GFR (Cockcroft-Gault) 87.3 BUN/Creatinine Ratio 23 (6-20) Glucose Level 155 mg/dL (70-99) Calcium Level 8.8 mg/dL (8.5-10.1) Total Bilirubin 0.5 mg/dL (0.2-1.0) Aspartate Amino Transf (AST/SGOT) 28 U/L (15-37) Alanine Aminotransferase (ALT/SGPT) 111 U/L (16-63) Alkaline Phosphatase 95 U/L (46-116) Total Protein 6.1 g/dL (6.4-8.2) Albumin 2.4 g/dL (3.4-5.0) Albumin/Globulin Ratio 0.6 (1.0-1.7) Review of Systems Review of Systems: Patient denies any numbness or tingling in extremities Denies [place] or dizziness Assessment and Plan Assessmemt and Plan SEPSIS, was POA Severe malnutrition was POA, with obesity, BMI 32 Acute hypoxic respiratory failure COVID-19 pneumonia requiring transaminitis, Plan Begin laxative Continue COVID protocol Completed IV Remdesivir Continue IV thiamine and vitamin C Continue IV steroids Maintain O2 saturation greater than 92% DVT prophylaxis with Lovenox Trend labs PT/OT Anoxic encephalopathy Full code Cardiac monitoring Pulmonary following Infectious disease following Appreciate subspecialist input Prognosis guarded Comment Review of Relevant I have reviewed the following items rosalinda (where applicable) has been applied. Medications: Current Medications Medications (Trade) Dose Ordered Sig/Mateus Route PRN Reason Start Time Stop Time Status Last Admin Dose Admin Guaifenesin (Mucinex) 1,200 mg BID PO 02/11/21 21:00 02/12/21 09:31 Justifications for Admission Other Justification LETICIA GIBBS III DO Feb 12, 2021 11:50
[2021-02-12 15:00] VITALS: BP 147/73
--- NOTE | 2021-02-12 15:10 | NUR ---
SS following up with discharge planning. SS reviewed pt chart and discussed with pt RN. Pt is currently on Vapotherm at 40 liters. COVID19 positive. Pt on IV Solu-Medrol. Insurance denied pt for LTACH placement. SS will continue to follow for discharge planning.
[2021-02-12 19:26] VITALS: BP 147/80
--- NOTE | 2021-02-12 19:45 | NUR ---
Assessment completed vss poc explained pt denied pain at time of assessment pt request Tylenol 325mg instead of 650mg ordered will resume care and continue to monitor pt.
[2021-02-12] MEDS: FAMOTIDINE 20 MG TABLET. PO SCH (20:18)
[2021-02-12] MEDS: ACETAMINOPHEN 325 MG TABLET. PO PRN (20:18)
[2021-02-12] MEDS: ENOXAPARIN 40 MG/0.4 ML SYRINGE. SQ SCH (20:18)
[2021-02-12 22:40] VITALS: BP 130/76
[2021-02-13 02:29] VITALS: BP 130/87
[2021-02-13 04:50] LABS: BASO % 0 % (0-3); EOS % 0 % (0-3); HEMATOCRIT 44.4 % (39.0-53.0); HEMOGLOBIN 15.1 g/dL (13.0-17.5); LYMPH # 0.4 x10^3/uL (1.0-4.8); LYMPH % 3 % (24-48); MEAN CORPUSCULAR HEMOGLOBIN 32 pg (25-35); MEAN CORPUSCULAR HGB CONC 34 g/dL (31-37); MEAN CORPUSCULAR VOLUME 93 fL (79-100); MONO # 0.4 x10^3/uL (0.0-1.1); MONO % 3 % (0-9); NEUT # 13.4 x10^3/uL (1.8-7.7); NEUT % 94 % (31-73); PLATELET COUNT 118 x10^3/uL (140-400); RED BLOOD COUNT 4.78 x10^6/uL (4.30-5.70); RED CELL DISTRIBUTION WIDTH 13.2 % (11.5-14.5); WHITE BLOOD COUNT 14.2 x10^3/uL (4.0-11.0)
[2021-02-13 05:17] LABS: ALBUMIN 2.2 g/dL (3.4-5.0); ALBUMIN/GLOBULIN RATIO 0.6 (1.0-1.7); CALCIUM 8.5 mg/dL (8.5-10.1); CREATININE 0.7 mg/dL (0.7-1.3); GFR 116.7; POTASSIUM 4.3 mmol/L (3.5-5.1); TOTAL BILIRUBIN 0.5 mg/dL (0.2-1.0); TOTAL PROTEIN 5.6 g/dL (6.4-8.2)
[2021-02-13] MEDS: methylPREDNISolone SOD SUCC PF 40 MG/ML VIAL. IV SCH ×2 (06:01→17:49)
[2021-02-13] MEDS: STERILE WATER for RESP 1,000 ML BAG. INH PRN ×2 (06:01→08:14)
[2021-02-13 07:00] VITALS: BP 134/84
[2021-02-13] MEDS: ASCORBIC ACID 1,000 MG TABLET PO SCH (09:59)
[2021-02-13] MEDS: THIAMINE 100 MG TABLET. PO SCH (09:59)
[2021-02-13] MEDS: ZINC SULFATE 220 MG CAPSULE. PO SCH (09:59)
[2021-02-13] MEDS: CETIRIZINE HCL 10 MG TABLET. PO SCH (09:59)
[2021-02-13] MEDS: CHOLECALCIFEROL (VITAMIN D3) 5,000 UNIT CAPSULE PO SCH (09:59)
[2021-02-13] MEDS: IPRATROPIUM/ALBUTEROL 20/100mcg/INH INHALER. INH SCH ×4 (10:00→20:00)
--- NOTE | 2021-02-13 10:46 | PDOC ---
PULMONARY PROGRESS NOTES DATE: 02/13/21 TIME: 10:45 Subjective Patient is on Vapotherm. Down to 90% FiO2 and 40 L and tolerating well. No increased shortness of breath or cough Afebrile Vitals Vital Signs Date Time Temp Pulse Resp B/P (MAP) Pulse Ox O2 Delivery O2 Flow Rate FiO2 02/13/21 10:06 88 VAPOTHERM 40.0 02/13/21 07:00 97.9 89 18 134/84 (101) 97.9 Comments Pt. seen during covid -19 pandemic visual exam preformed no distress no obvious rash or edema Labs Laboratory Tests Test 02/12/21 09:05 02/13/21 03:34 White Blood Count 16.6 x10^3/uL (4.0-11.0) 14.2 x10^3/uL (4.0-11.0) Red Blood Count 5.06 x10^6/uL (4.30-5.70) 4.78 x10^6/uL (4.30-5.70) Hemoglobin 15.9 g/dL (13.0-17.5) 15.1 g/dL (13.0-17.5) Hematocrit 47.3 % (39.0-53.0) 44.4 % (39.0-53.0) Mean Corpuscular Volume 93 fL (79-100) 93 fL (79-100) Mean Corpuscular Hemoglobin 31 pg (25-35) 32 pg (25-35) Mean Corpuscular Hemoglobin Concent 34 g/dL (31-37) 34 g/dL (31-37) Red Cell Distribution Width 12.9 % (11.5-14.5) 13.2 % (11.5-14.5) Platelet Count 132 x10^3/uL (140-400) 118 x10^3/uL (140-400) Neutrophils (%) (Auto) 96 % (31-73) 94 % (31-73) Lymphocytes (%) (Auto) 2 % (24-48) 3 % (24-48) Monocytes (%) (Auto) 2 % (0-9) 3 % (0-9) Eosinophils (%) (Auto) 0 % (0-3) 0 % (0-3) Basophils (%) (Auto) 0 % (0-3) 0 % (0-3) Neutrophils # (Auto) 15.9 x10^3/uL (1.8-7.7) 13.4 x10^3/uL (1.8-7.7) Lymphocytes # (Auto) 0.3 x10^3/uL (1.0-4.8) 0.4 x10^3/uL (1.0-4.8) Monocytes # (Auto) 0.4 x10^3/uL (0.0-1.1) 0.4 x10^3/uL (0.0-1.1) Eosinophils # (Auto) 0.0 x10^3/uL (0.0-0.7) 0.0 x10^3/uL (0.0-0.7) Basophils # (Auto) 0.0 x10^3/uL (0.0-0.2) 0.0 x10^3/uL (0.0-0.2) Sodium Level 138 mmol/L (136-145) 138 mmol/L (136-145) Potassium Level 4.6 mmol/L (3.5-5.1) 4.3 mmol/L (3.5-5.1) Chloride Level 102 mmol/L (98-107) 104 mmol/L (98-107) Carbon Dioxide Level 28 mmol/L (21-32) 30 mmol/L (21-32) Anion Gap 8 (6-14) 4 (6-14) Blood Urea Nitrogen 21 mg/dL (8-26) 24 mg/dL (8-26) Creatinine 0.9 mg/dL (0.7-1.3) 0.7 mg/dL (0.7-1.3) Estimated GFR (Cockcroft-Gault) 87.3 116.7 BUN/Creatinine Ratio 23 (6-20) 34 (6-20) Glucose Level 155 mg/dL (70-99) 130 mg/dL (70-99) Calcium Level 8.8 mg/dL (8.5-10.1) 8.5 mg/dL (8.5-10.1) Total Bilirubin 0.5 mg/dL (0.2-1.0) 0.5 mg/dL (0.2-1.0) Aspartate Amino Transf (AST/SGOT) 28 U/L (15-37) 31 U/L (15-37) Alanine Aminotransferase (ALT/SGPT) 111 U/L (16-63) 110 U/L (16-63) Alkaline Phosphatase 95 U/L (46-116) 71 U/L (46-116) Total Protein 6.1 g/dL (6.4-8.2) 5.6 g/dL (6.4-8.2) Albumin 2.4 g/dL (3.4-5.0) 2.2 g/dL (3.4-5.0) Albumin/Globulin Ratio 0.6 (1.0-1.7) 0.6 (1.0-1.7) Laboratory Tests Test 02/13/21 03:34 White Blood Count 14.2 x10^3/uL (4.0-11.0) Red Blood Count 4.78 x10^6/uL (4.30-5.70) Hemoglobin 15.1 g/dL (13.0-17.5) Hematocrit 44.4 % (39.0-53.0) Mean Corpuscular Volume 93 fL (79-100) Mean Corpuscular Hemoglobin 32 pg (25-35) Mean Corpuscular Hemoglobin Concent 34 g/dL (31-37) Red Cell Distribution Width 13.2 % (11.5-14.5) Platelet Count 118 x10^3/uL (140-400) Neutrophils (%) (Auto) 94 % (31-73) Lymphocytes (%) (Auto) 3 % (24-48) Monocytes (%) (Auto) 3 % (0-9) Eosinophils (%) (Auto) 0 % (0-3) Basophils (%) (Auto) 0 % (0-3) Neutrophils # (Auto) 13.4 x10^3/uL (1.8-7.7) Lymphocytes # (Auto) 0.4 x10^3/uL (1.0-4.8) Monocytes # (Auto) 0.4 x10^3/uL (0.0-1.1) Eosinophils # (Auto) 0.0 x10^3/uL (0.0-0.7) Basophils # (Auto) 0.0 x10^3/uL (0.0-0.2) Sodium Level 138 mmol/L (136-145) Potassium Level 4.3 mmol/L (3.5-5.1) Chloride Level 104 mmol/L (98-107) Carbon Dioxide Level 30 mmol/L (21-32) Anion Gap 4 (6-14) Blood Urea Nitrogen 24 mg/dL (8-26) Creatinine 0.7 mg/dL (0.7-1.3) Estimated GFR (Cockcroft-Gault) 116.7 BUN/Creatinine Ratio 34 (6-20) Glucose Level 130 mg/dL (70-99) Calcium Level 8.5 mg/dL (8.5-10.1) Total Bilirubin 0.5 mg/dL (0.2-1.0) Aspartate Amino Transf (AST/SGOT) 31 U/L (15-37) Alanine Aminotransferase (ALT/SGPT) 110 U/L (16-63) Alkaline Phosphatase 71 U/L (46-116) Total Protein 5.6 g/dL (6.4-8.2) Albumin 2.2 g/dL (3.4-5.0) Albumin/Globulin Ratio 0.6 (1.0-1.7) Medications Active Scripts Medications Dose Route/Sig Max Daily Dose Days Date Category Dose Instructions Morphine Sulfate 2 Mg/1 Ml Cartridge 2 Mg IV PRN Q4HRS PRN 01/30/21 Reported Zinc Sulfate 50 Mg Tablet 220 Mg PO DAILY 01/30/21 Reported Methylprednisolone Sod Succ 125 Mg Vial 60 Mg IJ Q8HRS 01/30/21 Reported Combivent Respimat Inhal (Ipratropium/Albuterol Sulfate) 4 Gm Aer.w.adap 2 Inh IH QID 01/30/21 Reported Pepcid (Famotidine) 20 Mg Tablet 20 Mg PO HS 01/30/21 Reported Lovenox (Enoxaparin Sodium) 30 Mg/0.3 Ml Disp.syrin 30 Mg SQ DAILY 01/30/21 Reported Vitamin D3 (Vitamin D) 125 Mcg Capsule 125 Mcg PO DAILY 01/30/21 Reported 5,000 UNITS = 125 MCG Zyrtec (Cetirizine Hcl) 10 Mg Tablet 1 Tab PO DAILY 01/30/21 Reported Ascorbic Acid 500 Mg Tablet 2 Mg PO DAILY 01/30/21 Reported Acetaminophen 325 Mg Tablet 2 Tab PO PRN Q6HRS PRN 30 01/30/21 Reported No Known Medications Prior To Admisstion (Info) Each 1 Each 02/29/20 Reported Impression . IMPRESSION: 1. Acute hypoxemic respiratory failure secondary to COVID-19 viral pneumonia./Acute lung injury and early ARDS. Slowly improving 2. COVID-19 viral pneumonia. 3. Abnormal chest x-ray, compatible with viral pneumonia. 4. Nonspecific anxiety, possible clinical depression Plan . Updated 02/13/21 Continue supplemental oxygen to keep sats above 92% currently on Vapotherm and tolerating well. 90% FiO2 and 40 L flow. S/P remdesivir Continue steroids with taper Off antibiotics. PT/OT DVT/GI PPX :lovenox D/W RN and RT remains critical but stable and slowly improving Updated 02/12/21 Continue supplemental oxygen to keep sats above 92% currently on Vapotherm and tolerating well. 95% FiO2 and 40 L flow. S/P remdesivir Continue steroids with taper Off antibiotics. PT/OT DVT/GI PPX :lovenox D/W RN and RT remains critical but stable Updated 02/11/21 Continue supplemental oxygen to keep sats above 92% currently back on Vapotherm and tolerating well. 100% FiO2 and 40 L flow. S/P remdesivir Continue steroids with taper Off antibiotics. PT/OT DVT/GI PPX :lovenox D/W RN and RT remains critical but stable Updated 02/10/21 Continue supplemental oxygen to keep sats above 92% currently back on Vapotherm and tolerating well. 100% FiO2 and 40 L flow. S/P remdesivir Continue steroids with taper Off antibiotics. PT/OT DVT/GI PPX :lovenox D/W RN and RT Updated 02/09/21 Continue supplemental oxygen to keep sats above 92% on BIPAP 70%, monitor respiratory status closely S/P remdesivir Continue steroids currently on 60 mg IV twice daily, with slow taper, will need full 10-day course, started on 01/30/2021,taper PT/OT DVT/GI PPX :lovenox D/W RN and RT Patient willing to try Vapotherm. Discussed with RN. Updated 02/08/21 Continue supplemental oxygen to keep sats above 92% on BIPAP 70%, monitor respiratory status closely S/P remdesivir Continue steroids currently on 60 mg IV twice daily, with slow taper, will need full 10-day course, started on 01/30/2021 PT/OT DVT/GI PPX :lovenox D/W RN and RT Awaiting LTAC transfer Updated 02/07/21 Continue supplemental oxygen to keep sats above 92% on BIPAP 70%, monitor respiratory status closely S/P remdesivir Continue steroids currently on 60 mg IV twice daily, with slow taper, will need full 10-day course, started on 01/30/2021 PT/OT DVT/GI PPX :lovenox D/W RN and RT Updated 02/06/21 Continue supplemental oxygen to keep sats above 92% on BIPAP 75%, monitor respiratory status closely S/P remdesivir Continue steroids currently on 60 mg IV twice daily, with slow taper, will need full 10-day course, started on 01/30/2021 PT/OT DVT/GI PPX :lovenox D/W RN and RT Updated 02/05/21 Continue supplemental oxygen to keep sats above 92% on BIPAP 75%, monitor respiratory status closely S/P remdesivir Continue steroids Off ABX and ID has signed off PT/OT DVT/GI PPX :lovenox D/W RN and RT Updated 02/04 Continue BiPAP at 75%, decrease FiO2 as tolerated Stressed the importance of sitting up in a chair, Continue remdesivir, steroids, As needed Haldol for anxiety Discussed case with per telephone, updated her, answered all questions. ELIZABETH ODELL MD Feb 13, 2021 10:46
[2021-02-13 11:00] VITALS: BP 122/64
--- NOTE | 2021-02-13 12:10 | PDOC ---
[employer] PROGRESS NOTE Date of Service DOS: DATE: 02/13/21 TIME: 12:04 Chief Complaint Chief Complaint SEPSIS, was POA Severe malnutrition was POA, with obesity, BMI 32 Acute hypoxic respiratory failure COVID-19 pneumonia r transaminitis History of Present Illness History of Present Illness Mr Preciado is a 56-year-old male with no significant past medical history except for degenerative joint disease who was transferred from [facility] with complaints of fever, headache, dry cough, shortness of breath for the past 3 days, admitted on 01/29/2021. Patient stated that he was actually exposed from his son he was worsening and required to come to the ED at [facility] and he was found to be hypoxic and required 2 L of nasal cannula oxygen. Chest x-ray over there showed bilateral mild bibasilar infiltrates. Covid test was positive and patient was transferred to [facility] for pulmonary evaluation and treatment. Patient was started on Remdesivir and IV steroids. Currently patient is requiring 15 L high flow nasal cannula and IV steroids. 02/02: No acute events overnight. Patient was saturating 92% on 15 L nasal cannula and he had desatted down to 70% after he had to blow his nose. Patient was placed on BiPAP at 100% FiO2. Chest leg appears to be worsening. 02/03: Last dose of remdesivir. Could not tolerate vapotherm and is now on BIPAP. 02/04: poor Po intake, dry, dark urine 02/05: Desaturates to 72% when he takes off his BiPAP. Advised to get back on BIPAP after eating. he is able to place himself back on. Frustrated with the severity of his hypoxia. 3: Status post remdesivir. Still requiring BiPAP 75% FiO2 with significant desaturations when he is not wearing assessment with nonrebreather O2. 02/07: Still with significant desaturations when he raises BiPAP even on 15 L high flow nasal cannula. Discussed transitioning back to Vapotherm if we can treat his anxiety. He is amenable to this. He is frustrated with staying in the hospital understands he may be a longer term COVID recovery and is amenable to LTACH referral. I discussed with pulmonology. 02/08: Afebrile. 70% FiO2 on BiPAP 06/11. Feels better. Did not tolerated Vapotherm. Significant desaturations when he transitions to high flow nasal cannula O2 while eating. Discussed referral to LTACH with pulmonology and ID as it appears he will need a longer COVID recovery. 02/09: Patient on 70% FiO2. Via BiPAP 06/11 when seen by pulmonology. Feels better and is seen on vapotherm 40l/min 100% FiO2 with saturations 89%, tolerating well. 02/11/2021 patient seen at edge of bed. FiO2 at 89%. Dropped to low 80s while talking to us. Educated patient on conserving energy and working to keep FiO2 higher. D/W RN Chart Reviewed 02/12/2021 Patient was seen and examined in bed. FiO2 of 87% while on Vapotherm with 40L of 90% O2. D/W RN, Chart Review Patient has not had a bowel movement in two days. Patient feels he is doing better but his FiO2 still drops with activity or speaking Discussed need to rest and focus on breathing to maintain proper FiO2. 02/13/2021 Patient was resting in bed with NAD Seen and examined in bed. FiO2 of 92% while on Vapotherm with 40L of 90% O2. D/W RN Chart Review Discussed need to rest and focus on breathing to maintain proper FiO2 Vitals/I&O Vitals/I&O: Vital Signs Date Time Temp Pulse Resp B/P (MAP) Pulse Ox O2 Delivery O2 Flow Rate FiO2 02/13/21 11:50 96 VAPOTHERM 40.0 02/13/21 11:00 98.1 68 18 122/64 (83) 98.1 I & O 02/12/21 02/12/21 02/13/21 15:00 23:00 07:00 Intake Total 900 ml 620 ml 420 ml Output Total 450 ml 600 ml 1600 ml Balance 450 ml 20 ml -1180 ml Physical Exam Physical Exam: GEN axo3 male on BIPAP HEENT: Normocephalic, atraumatic. Anicteric. NECK: Supple, no JVD. LUNGS: Crackles bilaterally. HEART: S1, S2. ABDOMEN: Soft, nontender, nondistended. Bowel sounds present. EXTREMITIES: No edema, no cyanosis. DERMATOLOGIC: Warm, dry, no generalized rash. NEUROLOGIC: Alert, oriented, grossly nonfocal. PSYCHIATRIC: Calm and cooperative. PIV looks clean. General: Alert, mild distress Heart: Regular rate (tele reg, reviewed) Abdomen: Normal bowel sounds Extremities: No clubbing Skin: No rashes Labs Labs: Laboratory Tests Test 02/13/21 03:34 White Blood Count 14.2 x10^3/uL (4.0-11.0) Red Blood Count 4.78 x10^6/uL (4.30-5.70) Hemoglobin 15.1 g/dL (13.0-17.5) Hematocrit 44.4 % (39.0-53.0) Mean Corpuscular Volume 93 fL (79-100) Mean Corpuscular Hemoglobin 32 pg (25-35) Mean Corpuscular Hemoglobin Concent 34 g/dL (31-37) Red Cell Distribution Width 13.2 % (11.5-14.5) Platelet Count 118 x10^3/uL (140-400) Neutrophils (%) (Auto) 94 % (31-73) Lymphocytes (%) (Auto) 3 % (24-48) Monocytes (%) (Auto) 3 % (0-9) Eosinophils (%) (Auto) 0 % (0-3) Basophils (%) (Auto) 0 % (0-3) Neutrophils # (Auto) 13.4 x10^3/uL (1.8-7.7) Lymphocytes # (Auto) 0.4 x10^3/uL (1.0-4.8) Monocytes # (Auto) 0.4 x10^3/uL (0.0-1.1) Eosinophils # (Auto) 0.0 x10^3/uL (0.0-0.7) Basophils # (Auto) 0.0 x10^3/uL (0.0-0.2) Sodium Level 138 mmol/L (136-145) Potassium Level 4.3 mmol/L (3.5-5.1) Chloride Level 104 mmol/L (98-107) Carbon Dioxide Level 30 mmol/L (21-32) Anion Gap 4 (6-14) Blood Urea Nitrogen 24 mg/dL (8-26) Creatinine 0.7 mg/dL (0.7-1.3) Estimated GFR (Cockcroft-Gault) 116.7 BUN/Creatinine Ratio 34 (6-20) Glucose Level 130 mg/dL (70-99) Calcium Level 8.5 mg/dL (8.5-10.1) Total Bilirubin 0.5 mg/dL (0.2-1.0) Aspartate Amino Transf (AST/SGOT) 31 U/L (15-37) Alanine Aminotransferase (ALT/SGPT) 110 U/L (16-63) Alkaline Phosphatase 71 U/L (46-116) Total Protein 5.6 g/dL (6.4-8.2) Albumin 2.2 g/dL (3.4-5.0) Albumin/Globulin Ratio 0.6 (1.0-1.7) Review of Systems Review of Systems: Denies [place] or dizzness Bladder continent Denies fevers, chills or pain Assessment and Plan Assessmemt and Plan SEPSIS, was POA Severe malnutrition was POA, with obesity, BMI 32 Acute hypoxic respiratory failure COVID-19 pneumonia requiring transaminitis, Plan COVID protocol Completed IV Remdesivir Continue IV thiamine and vitamin C Continue IV steroids Maintain O2 saturation greater than 92% via NC or 100% non-rebreather DVT prophylaxis Trend labs PT/OT Full code Cardiac monitoring Appreciate Pulmonology and Infectious Disease Input Prognosis guarded Comment Review of Relevant I have reviewed the following items rosalinda (where applicable) has been applied. Justifications for Admission Other Justification LETICIA GIBBS III DO Feb 13, 2021 12:10
--- NOTE | 2021-02-13 13:12 | NUR ---
SS following up with discharge planning. SS reviewed pt chart and discussed with pt RN. Pt is currently on Vapotherm. COVID19 positive. Pt on IV Solu Medrol. PT/OT recommended home. [employer] denied pt for LTACH placement. SS will continue to follow for discharge planning.
[2021-02-13 15:00] VITALS: BP 139/78
[2021-02-13 19:00] VITALS: BP 134/87
[2021-02-13] MEDS: ACETAMINOPHEN 325 MG TABLET. PO PRN (21:46)
[2021-02-13] MEDS: ENOXAPARIN 40 MG/0.4 ML SYRINGE. SQ SCH (21:46)
[2021-02-13] MEDS: FAMOTIDINE 20 MG TABLET. PO SCH (21:48)
[2021-02-13 23:00] VITALS: BP 128/79
[2021-02-14 03:00] VITALS: BP 120/76
[2021-02-14 05:02] LABS: BASO % 0 % (0-3); EOS % 0 % (0-3); HEMATOCRIT 43.9 % (39.0-53.0); LYMPH # 0.4 x10^3/uL (1.0-4.8); LYMPH % 2 % (24-48); MEAN CORPUSCULAR HEMOGLOBIN 32 pg (25-35); MEAN CORPUSCULAR HGB CONC 34 g/dL (31-37); MEAN CORPUSCULAR VOLUME 93 fL (79-100); MONO # 0.5 x10^3/uL (0.0-1.1); MONO % 3 % (0-9); NEUT # 15.8 x10^3/uL (1.8-7.7); NEUT % 94 % (31-73); PLATELET COUNT 126 x10^3/uL (140-400); RED BLOOD COUNT 4.71 x10^6/uL (4.30-5.70); RED CELL DISTRIBUTION WIDTH 13.2 % (11.5-14.5); WHITE BLOOD COUNT 16.7 x10^3/uL (4.0-11.0)
[2021-02-14 05:28] LABS: ALBUMIN 2.2 g/dL (3.4-5.0); ALBUMIN/GLOBULIN RATIO 0.7 (1.0-1.7); CALCIUM 8.4 mg/dL (8.5-10.1); CREATININE 0.8 mg/dL (0.7-1.3); POTASSIUM 4.9 mmol/L (3.5-5.1); TOTAL BILIRUBIN 0.5 mg/dL (0.2-1.0); TOTAL PROTEIN 5.4 g/dL (6.4-8.2)
[2021-02-14] MEDS: methylPREDNISolone SOD SUCC PF 40 MG/ML VIAL. IV SCH (05:45)
[2021-02-14 07:00] VITALS: BP 143/95
--- NOTE | 2021-02-14 09:23 | PDOC ---
[employer] PROGRESS NOTE Date of Service DOS: DATE: 02/14/21 TIME: 09:18 Chief Complaint Chief Complaint SEPSIS, was POA Severe malnutrition was POA, with obesity, BMI 32 Acute hypoxic respiratory failure COVID-19 pneumonia r transaminitis History of Present Illness History of Present Illness Mr Preciado is a 56-year-old male with no significant past medical history except for degenerative joint disease who was transferred from [facility] with complaints of fever, headache, dry cough, shortness of breath for the past 3 days, admitted on 01/29/2021. Patient stated that he was actually exposed from his son he was worsening and required to come to the ED at [facility] and he was found to be hypoxic and required 2 L of nasal cannula oxygen. Chest x-ray over there showed bilateral mild bibasilar infiltrates. Covid test was positive and patient was transferred to [facility] for pulmonary evaluation and treatment. Patient was started on Remdesivir and IV steroids. Currently patient is requiring 15 L high flow nasal cannula and IV steroids. 02/02: No acute events overnight. Patient was saturating 92% on 15 L nasal cannula and he had desatted down to 70% after he had to blow his nose. Patient was placed on BiPAP at 100% FiO2. Chest leg appears to be worsening. 02/03: Last dose of remdesivir. Could not tolerate vapotherm and is now on BIPAP. 02/04: poor Po intake, dry, dark urine 02/05: Desaturates to 72% when he takes off his BiPAP. Advised to get back on BIPAP after eating. he is able to place himself back on. Frustrated with the severity of his hypoxia. 3: Status post remdesivir. Still requiring BiPAP 75% FiO2 with significant desaturations when he is not wearing assessment with nonrebreather O2. 4: Still with significant desaturations when he raises BiPAP even on 15 L high flow nasal cannula. Discussed transitioning back to Vapotherm if we can treat his anxiety. He is amenable to this. He is frustrated with staying in the hospital understands he may be a longer term COVID recovery and is amenable to LTACH referral. I discussed with pulmonology. 02/08: Afebrile. 70% FiO2 on BiPAP 06/11. Feels better. Did not tolerated Vapotherm. Significant desaturations when he transitions to high flow nasal cannula O2 while eating. Discussed referral to LTACH with pulmonology and ID as it appears he will need a longer COVID recovery. 02/09: Patient on 70% FiO2. Via BiPAP 06/11 when seen by pulmonology. Feels better and is seen on vapotherm 40l/min 100% FiO2 with saturations 89%, tolerating well. 02/11/2021 patient seen at edge of bed. FiO2 at 89%. Dropped to low 80s while talking to us. Educated patient on conserving energy and working to keep FiO2 higher. D/W RN Chart Reviewed 02/12/2021 Patient was seen and examined in bed. FiO2 of 87% while on Vapotherm with 40L of 90% O2. D/W RN, Chart Review Patient has not had a bowel movement in two days. Patient feels he is doing better but his FiO2 still drops with activity or speaking Discussed need to rest and focus on breathing to maintain proper FiO2. 02/13/2021 Patient was resting in bed with NAD Seen and examined in bed. FiO2 of 92% while on Vapotherm with 40L of 90% O2. D/W RN Chart Review Discussed need to rest and focus on breathing to maintain proper FiO2 02/14/2021 Patient was awake, alert and NAD Seen and examine in bed. FiO2 92% while on Vapotherm with 40L of 90% O2 Discussed that we will continue to monitor for clinical improvement Vitals/I&O Vitals/I&O: Vital Signs Date Time Temp Pulse Resp B/P (MAP) Pulse Ox O2 Delivery O2 Flow Rate FiO2 02/14/21 08:08 89 VAPOTHERM 40.0 02/14/21 07:00 96.8 87 18 143/95 (111) 96.8 I & O 02/13/21 02/13/21 02/14/21 15:00 23:00 07:00 Intake Total 240 ml 700 ml 200 ml Output Total 400 ml 300 ml 550 ml Balance -160 ml 400 ml -350 ml Physical Exam Physical Exam: GEN axo3 male on BIPAP HEENT: Normocephalic, atraumatic. Anicteric. NECK: Supple, no JVD. LUNGS: Crackles bilaterally. HEART: S1, S2. ABDOMEN: Soft, nontender, nondistended. Bowel sounds present. EXTREMITIES: No edema, no cyanosis. DERMATOLOGIC: Warm, dry, no generalized rash. NEUROLOGIC: Alert, oriented, grossly nonfocal. PSYCHIATRIC: Calm and cooperative. PIV looks clean. General: Alert, mild distress Heart: Regular rate (tele reg, reviewed) Abdomen: Normal bowel sounds Extremities: No clubbing Skin: No rashes Labs Labs: Laboratory Tests Test 02/14/21 03:00 White Blood Count 16.7 x10^3/uL (4.0-11.0) Red Blood Count 4.71 x10^6/uL (4.30-5.70) Hemoglobin 15.0 g/dL (13.0-17.5) Hematocrit 43.9 % (39.0-53.0) Mean Corpuscular Volume 93 fL (79-100) Mean Corpuscular Hemoglobin 32 pg (25-35) Mean Corpuscular Hemoglobin Concent 34 g/dL (31-37) Red Cell Distribution Width 13.2 % (11.5-14.5) Platelet Count 126 x10^3/uL (140-400) Neutrophils (%) (Auto) 94 % (31-73) Lymphocytes (%) (Auto) 2 % (24-48) Monocytes (%) (Auto) 3 % (0-9) Eosinophils (%) (Auto) 0 % (0-3) Basophils (%) (Auto) 0 % (0-3) Neutrophils # (Auto) 15.8 x10^3/uL (1.8-7.7) Lymphocytes # (Auto) 0.4 x10^3/uL (1.0-4.8) Monocytes # (Auto) 0.5 x10^3/uL (0.0-1.1) Eosinophils # (Auto) 0.0 x10^3/uL (0.0-0.7) Basophils # (Auto) 0.0 x10^3/uL (0.0-0.2) Sodium Level 138 mmol/L (136-145) Potassium Level 4.9 mmol/L (3.5-5.1) Chloride Level 102 mmol/L (98-107) Carbon Dioxide Level 30 mmol/L (21-32) Anion Gap 6 (6-14) Blood Urea Nitrogen 26 mg/dL (8-26) Creatinine 0.8 mg/dL (0.7-1.3) Estimated GFR (Cockcroft-Gault) 100.0 BUN/Creatinine Ratio 33 (6-20) Glucose Level 130 mg/dL (70-99) Calcium Level 8.4 mg/dL (8.5-10.1) Total Bilirubin 0.5 mg/dL (0.2-1.0) Aspartate Amino Transf (AST/SGOT) 37 U/L (15-37) Alanine Aminotransferase (ALT/SGPT) 118 U/L (16-63) Alkaline Phosphatase 73 U/L (46-116) Total Protein 5.4 g/dL (6.4-8.2) Albumin 2.2 g/dL (3.4-5.0) Albumin/Globulin Ratio 0.7 (1.0-1.7) Review of Systems Review of Systems: Denies fever or chills Denies numbess or tingling Denies heart palpatation or chest pain Bowel and bladder continent Assessment and Plan Assessmemt and Plan SEPSIS, was POA Severe malnutrition was POA, with obesity, BMI 32 Acute hypoxic respiratory failure COVID-19 pneumonia requiring transaminitis, Plan COVID protocol Completed IV Remdesivir Continue IV thiamine and vitamin C Continue IV steroids Maintain O2 saturation greater than 92% Appreciate Pulmonology and Infectious Disease Input DVT prophylaxis Trend labs PT/OT Full code Cardiac monitoring Prognosis guarded Comment Review of Relevant I have reviewed the following items rosalinda (where applicable) has been applied. Justifications for Admission Other Justification LETICIA GIBBS III DO Feb 14, 2021 09:23
--- NOTE | 2021-02-14 09:56 | PDOC ---
PULMONARY PROGRESS NOTES DATE: 02/14/21 TIME: 09:53 Subjective Patient remains on Vapotherm 40 L, 90% No increased shortness of breath or cough Afebrile No overnight concerns per nursing. Vitals Vital Signs Date Time Temp Pulse Resp B/P (MAP) Pulse Ox O2 Delivery O2 Flow Rate FiO2 02/14/21 08:08 89 VAPOTHERM 40.0 02/14/21 07:00 96.8 87 18 143/95 (111) 96.8 Comments Pt. seen during covid -19 pandemic visual exam preformed no distress Vapotherm no obvious rash or edema Labs Laboratory Tests Test 02/13/21 03:34 02/14/21 03:00 White Blood Count 14.2 x10^3/uL (4.0-11.0) 16.7 x10^3/uL (4.0-11.0) Red Blood Count 4.78 x10^6/uL (4.30-5.70) 4.71 x10^6/uL (4.30-5.70) Hemoglobin 15.1 g/dL (13.0-17.5) 15.0 g/dL (13.0-17.5) Hematocrit 44.4 % (39.0-53.0) 43.9 % (39.0-53.0) Mean Corpuscular Volume 93 fL (79-100) 93 fL (79-100) Mean Corpuscular Hemoglobin 32 pg (25-35) 32 pg (25-35) Mean Corpuscular Hemoglobin Concent 34 g/dL (31-37) 34 g/dL (31-37) Red Cell Distribution Width 13.2 % (11.5-14.5) 13.2 % (11.5-14.5) Platelet Count 118 x10^3/uL (140-400) 126 x10^3/uL (140-400) Neutrophils (%) (Auto) 94 % (31-73) 94 % (31-73) Lymphocytes (%) (Auto) 3 % (24-48) 2 % (24-48) Monocytes (%) (Auto) 3 % (0-9) 3 % (0-9) Eosinophils (%) (Auto) 0 % (0-3) 0 % (0-3) Basophils (%) (Auto) 0 % (0-3) 0 % (0-3) Neutrophils # (Auto) 13.4 x10^3/uL (1.8-7.7) 15.8 x10^3/uL (1.8-7.7) Lymphocytes # (Auto) 0.4 x10^3/uL (1.0-4.8) 0.4 x10^3/uL (1.0-4.8) Monocytes # (Auto) 0.4 x10^3/uL (0.0-1.1) 0.5 x10^3/uL (0.0-1.1) Eosinophils # (Auto) 0.0 x10^3/uL (0.0-0.7) 0.0 x10^3/uL (0.0-0.7) Basophils # (Auto) 0.0 x10^3/uL (0.0-0.2) 0.0 x10^3/uL (0.0-0.2) Sodium Level 138 mmol/L (136-145) 138 mmol/L (136-145) Potassium Level 4.3 mmol/L (3.5-5.1) 4.9 mmol/L (3.5-5.1) Chloride Level 104 mmol/L (98-107) 102 mmol/L (98-107) Carbon Dioxide Level 30 mmol/L (21-32) 30 mmol/L (21-32) Anion Gap 4 (6-14) 6 (6-14) Blood Urea Nitrogen 24 mg/dL (8-26) 26 mg/dL (8-26) Creatinine 0.7 mg/dL (0.7-1.3) 0.8 mg/dL (0.7-1.3) Estimated GFR (Cockcroft-Gault) 116.7 100.0 BUN/Creatinine Ratio 34 (6-20) 33 (6-20) Glucose Level 130 mg/dL (70-99) 130 mg/dL (70-99) Calcium Level 8.5 mg/dL (8.5-10.1) 8.4 mg/dL (8.5-10.1) Total Bilirubin 0.5 mg/dL (0.2-1.0) 0.5 mg/dL (0.2-1.0) Aspartate Amino Transf (AST/SGOT) 31 U/L (15-37) 37 U/L (15-37) Alanine Aminotransferase (ALT/SGPT) 110 U/L (16-63) 118 U/L (16-63) Alkaline Phosphatase 71 U/L (46-116) 73 U/L (46-116) Total Protein 5.6 g/dL (6.4-8.2) 5.4 g/dL (6.4-8.2) Albumin 2.2 g/dL (3.4-5.0) 2.2 g/dL (3.4-5.0) Albumin/Globulin Ratio 0.6 (1.0-1.7) 0.7 (1.0-1.7) Laboratory Tests Test 02/14/21 03:00 White Blood Count 16.7 x10^3/uL (4.0-11.0) Red Blood Count 4.71 x10^6/uL (4.30-5.70) Hemoglobin 15.0 g/dL (13.0-17.5) Hematocrit 43.9 % (39.0-53.0) Mean Corpuscular Volume 93 fL (79-100) Mean Corpuscular Hemoglobin 32 pg (25-35) Mean Corpuscular Hemoglobin Concent 34 g/dL (31-37) Red Cell Distribution Width 13.2 % (11.5-14.5) Platelet Count 126 x10^3/uL (140-400) Neutrophils (%) (Auto) 94 % (31-73) Lymphocytes (%) (Auto) 2 % (24-48) Monocytes (%) (Auto) 3 % (0-9) Eosinophils (%) (Auto) 0 % (0-3) Basophils (%) (Auto) 0 % (0-3) Neutrophils # (Auto) 15.8 x10^3/uL (1.8-7.7) Lymphocytes # (Auto) 0.4 x10^3/uL (1.0-4.8) Monocytes # (Auto) 0.5 x10^3/uL (0.0-1.1) Eosinophils # (Auto) 0.0 x10^3/uL (0.0-0.7) Basophils # (Auto) 0.0 x10^3/uL (0.0-0.2) Sodium Level 138 mmol/L (136-145) Potassium Level 4.9 mmol/L (3.5-5.1) Chloride Level 102 mmol/L (98-107) Carbon Dioxide Level 30 mmol/L (21-32) Anion Gap 6 (6-14) Blood Urea Nitrogen 26 mg/dL (8-26) Creatinine 0.8 mg/dL (0.7-1.3) Estimated GFR (Cockcroft-Gault) 100.0 BUN/Creatinine Ratio 33 (6-20) Glucose Level 130 mg/dL (70-99) Calcium Level 8.4 mg/dL (8.5-10.1) Total Bilirubin 0.5 mg/dL (0.2-1.0) Aspartate Amino Transf (AST/SGOT) 37 U/L (15-37) Alanine Aminotransferase (ALT/SGPT) 118 U/L (16-63) Alkaline Phosphatase 73 U/L (46-116) Total Protein 5.4 g/dL (6.4-8.2) Albumin 2.2 g/dL (3.4-5.0) Albumin/Globulin Ratio 0.7 (1.0-1.7) Medications Active Scripts Medications Dose Route/Sig Max Daily Dose Days Date Category Dose Instructions Morphine Sulfate 2 Mg/1 Ml Cartridge 2 Mg IV PRN Q4HRS PRN 01/30/21 Reported Zinc Sulfate 50 Mg Tablet 220 Mg PO DAILY 01/30/21 Reported Methylprednisolone Sod Succ 125 Mg Vial 60 Mg IJ Q8HRS 01/30/21 Reported Combivent Respimat Inhal (Ipratropium/Albuterol Sulfate) 4 Gm Aer.w.adap 2 Inh IH QID 01/30/21 Reported Pepcid (Famotidine) 20 Mg Tablet 20 Mg PO HS 01/30/21 Reported Lovenox (Enoxaparin Sodium) 30 Mg/0.3 Ml Disp.syrin 30 Mg SQ DAILY 01/30/21 Reported Vitamin D3 (Vitamin D) 125 Mcg Capsule 125 Mcg PO DAILY 01/30/21 Reported 5,000 UNITS = 125 MCG Zyrtec (Cetirizine Hcl) 10 Mg Tablet 1 Tab PO DAILY 01/30/21 Reported Ascorbic Acid 500 Mg Tablet 2 Mg PO DAILY 01/30/21 Reported Acetaminophen 325 Mg Tablet 2 Tab PO PRN Q6HRS PRN 30 7/27/21 Reported No Known Medications Prior To Admisstion (Info) Each 1 Each 02/29/20 Reported Impression . IMPRESSION: 1. Acute hypoxemic respiratory failure secondary to COVID-19 viral pne umonia./Acute lung injury and early ARDS. Slowly improving 2. COVID-19 viral pneumonia. 3. Abnormal chest x-ray, compatible with viral pneumonia. 4. Nonspecific anxiety, possible clinical depression Plan . Updated 02/14/21 Continue supplemental oxygen to keep sats above 92% currently on Vapotherm, currently on 90% and 40 liters will slowly wean as tolerated S/P remdesivir Continue steroids with taper, now on daily dosing PT/OT DVT/GI PPX :lovenox D/W RN and RT Social work for DC planning Updated 02/13/21 Continue supplemental oxygen to keep sats above 92% currently on Vapotherm and tolerating well. 90% FiO2 and 40 L flow. S/P remdesivir Continue steroids with taper Off antibiotics. PT/OT DVT/GI PPX :lovenox D/W RN and RT remains critical but stable and slowly improving Updated 02/12/21 Continue supplemental oxygen to keep sats above 92% currently on Vapotherm and tolerating well. 95% FiO2 and 40 L flow. S/P remdesivir Continue steroids with taper Off antibiotics. PT/OT DVT/GI PPX :lovenox D/W RN and RT remains critical but stable ELIZABETH ODELL MD Feb 14, 2021 09:56
[2021-02-14] MEDS: IPRATROPIUM/ALBUTEROL 20/100mcg/INH INHALER. INH SCH ×4 (10:31→20:00)
[2021-02-14] MEDS: CHOLECALCIFEROL (VITAMIN D3) 5,000 UNIT CAPSULE PO SCH (10:32)
[2021-02-14] MEDS: CETIRIZINE HCL 10 MG TABLET. PO SCH (10:32)
[2021-02-14] MEDS: ZINC SULFATE 220 MG CAPSULE. PO SCH (10:32)
[2021-02-14] MEDS: THIAMINE 100 MG TABLET. PO SCH (10:32)
[2021-02-14] MEDS: ASCORBIC ACID 1,000 MG TABLET PO SCH (10:32)
[2021-02-14 11:00] VITALS: BP 135/86
[2021-02-14] MEDS: ACETAMINOPHEN 325 MG TABLET. PO PRN ×2 (11:13→20:46)
--- NOTE | 2021-02-14 12:59 | NUR ---
SS following up with discharge planning. SS reviewed pt chart and discussed with pt RN. Pt is currently on Vapotherm at 40 liters today. COVID19 positive. Pt on IV Solu Medrol. PT/OT recommended home. [employer] denied pt for LTACH placement. SS will continue to follow for discharge planning.
[2021-02-14 15:00] VITALS: BP 135/81
[2021-02-14 19:48] VITALS: BP 139/85
[2021-02-14] MEDS: ENOXAPARIN 40 MG/0.4 ML SYRINGE. SQ SCH (20:46)
[2021-02-14] MEDS: FAMOTIDINE 20 MG TABLET. PO SCH (20:46)
[2021-02-14] MEDS: MORPHINE SULFATE 2 MG/ML INJ. IVP PRN ×2 (20:47→22:56)
--- NOTE | 2021-02-14 22:23 | RAD ---
Exam: Chest one view INDICATION: Chest pain TECHNIQUE: Frontal view of the chest Comparisons: 02/10/2021 FINDINGS: The cardiomediastinal silhouette and pulmonary vessels are within normal limits. Patchy bilateral airspace disease. No pleural effusion. IMPRESSION: Patchy bilateral airspace disease, similar to mildly increased when compared to prior study. Electronically signed by: Aquilino Zayas MD (02/14/2021 10:21 PM) DEVEN
[2021-02-14 22:36] VITALS: BP 145/85
[2021-02-15 03:01] VITALS: BP 140/89
[2021-02-15] MEDS: ACETAMINOPHEN 325 MG TABLET. PO PRN ×2 (06:13→20:46)
[2021-02-15 06:27] LABS: BASO % 0 % (0-3); EOS # 0.1 x10^3/uL (0.0-0.7); EOS % 1 % (0-3); HEMATOCRIT 46.4 % (39.0-53.0); HEMOGLOBIN 15.5 g/dL (13.0-17.5); LYMPH # 0.9 x10^3/uL (1.0-4.8); LYMPH % 5 % (24-48); MEAN CORPUSCULAR HEMOGLOBIN 32 pg (25-35); MEAN CORPUSCULAR HGB CONC 33 g/dL (31-37); MEAN CORPUSCULAR VOLUME 96 fL (79-100); MONO # 0.5 x10^3/uL (0.0-1.1); MONO % 3 % (0-9); NEUT # 15.4 x10^3/uL (1.8-7.7); NEUT % 91 % (31-73); PLATELET COUNT 129 x10^3/uL (140-400); RED BLOOD COUNT 4.86 x10^6/uL (4.30-5.70); RED CELL DISTRIBUTION WIDTH 13.7 % (11.5-14.5)
[2021-02-15 06:41] LABS: ALBUMIN 2.4 g/dL (3.4-5.0); ALBUMIN/GLOBULIN RATIO 0.7 (1.0-1.7); CALCIUM 8.7 mg/dL (8.5-10.1); CREATININE 0.8 mg/dL (0.7-1.3); TOTAL BILIRUBIN 0.7 mg/dL (0.2-1.0); TOTAL PROTEIN 5.8 g/dL (6.4-8.2)
[2021-02-15 07:00] VITALS: BP 127/73
[2021-02-15] MEDS: IPRATROPIUM/ALBUTEROL 20/100mcg/INH INHALER. INH SCH ×4 (08:00→21:08)
--- NOTE | 2021-02-15 08:21 | PDOC ---
PULMONARY PROGRESS NOTES DATE: 02/15/21 TIME: 08:18 Subjective Patient remains on Vapotherm 40 L, 90% Reports episodes of shortness of breath with ambulation overnight, and fatigue this morning Vitals Vital Signs Date Time Temp Pulse Resp B/P (MAP) Pulse Ox O2 Delivery O2 Flow Rate FiO2 02/15/21 06:04 94 VAPOTHERM 40.0 02/15/21 03:01 98.0 83 32 140/89 (106) 98.0 Comments Pt. seen during covid - pandemic visual exam preformed no distress Vapotherm 90% no obvious rash or edema Labs Laboratory Tests Test 02/14/21 03:00 02/15/21 05:20 White Blood Count 16.7 x10^3/uL (4.0-11.0) 17.0 x10^3/uL (4.0-11.0) Red Blood Count 4.71 x10^6/uL (4.30-5.70) 4.86 x10^6/uL (4.30-5.70) Hemoglobin 15.0 g/dL (13.0-17.5) 15.5 g/dL (13.0-17.5) Hematocrit 43.9 % (39.0-53.0) 46.4 % (39.0-53.0) Mean Corpuscular Volume 93 fL (79-100) 96 fL (79-100) Mean Corpuscular Hemoglobin 32 pg (25-35) 32 pg (25-35) Mean Corpuscular Hemoglobin Concent 34 g/dL (31-37) 33 g/dL (31-37) Red Cell Distribution Width 13.2 % (11.5-14.5) 13.7 % (11.5-14.5) Platelet Count 126 x10^3/uL (140-400) 129 x10^3/uL (140-400) Neutrophils (%) (Auto) 94 % (31-73) 91 % (31-73) Lymphocytes (%) (Auto) 2 % (24-48) 5 % (24-48) Monocytes (%) (Auto) 3 % (0-9) 3 % (0-9) Eosinophils (%) (Auto) 0 % (0-3) 1 % (0-3) Basophils (%) (Auto) 0 % (0-3) 0 % (0-3) Neutrophils # (Auto) 15.8 x10^3/uL (1.8-7.7) 15.4 x10^3/uL (1.8-7.7) Lymphocytes # (Auto) 0.4 x10^3/uL (1.0-4.8) 0.9 x10^3/uL (1.0-4.8) Monocytes # (Auto) 0.5 x10^3/uL (0.0-1.1) 0.5 x10^3/uL (0.0-1.1) Eosinophils # (Auto) 0.0 x10^3/uL (0.0-0.7) 0.1 x10^3/uL (0.0-0.7) Basophils # (Auto) 0.0 x10^3/uL (0.0-0.2) 0.0 x10^3/uL (0.0-0.2) Sodium Level 138 mmol/L (136-145) 136 mmol/L (136-145) Potassium Level 4.9 mmol/L (3.5-5.1) 4.0 mmol/L (3.5-5.1) Chloride Level 102 mmol/L (98-107) 100 mmol/L (98-107) Carbon Dioxide Level 30 mmol/L (21-32) 32 mmol/L (21-32) Anion Gap 6 (6-14) 4 (6-14) Blood Urea Nitrogen 26 mg/dL (8-26) 33 mg/dL (8-26) Creatinine 0.8 mg/dL (0.7-1.3) 0.8 mg/dL (0.7-1.3) Estimated GFR (Cockcroft-Gault) 100.0 100.0 BUN/Creatinine Ratio 33 (6-20) 41 (6-20) Glucose Level 130 mg/dL (70-99) 104 mg/dL (70-99) Calcium Level 8.4 mg/dL (8.5-10.1) 8.7 mg/dL (8.5-10.1) Total Bilirubin 0.5 mg/dL (0.2-1.0) 0.7 mg/dL (0.2-1.0) Aspartate Amino Transf (AST/SGOT) 37 U/L (15-37) 22 U/L (15-37) Alanine Aminotransferase (ALT/SGPT) 118 U/L (16-63) 101 U/L (16-63) Alkaline Phosphatase 73 U/L (46-116) 64 U/L (46-116) Total Protein 5.4 g/dL (6.4-8.2) 5.8 g/dL (6.4-8.2) Albumin 2.2 g/dL (3.4-5.0) 2.4 g/dL (3.4-5.0) Albumin/Globulin Ratio 0.7 (1.0-1.7) 0.7 (1.0-1.7) Laboratory Tests Test 02/15/21 05:20 White Blood Count 17.0 x10^3/uL (4.0-11.0) Red Blood Count 4.86 x10^6/uL (4.30-5.70) Hemoglobin 15.5 g/dL (13.0-17.5) Hematocrit 46.4 % (39.0-53.0) Mean Corpuscular Volume 96 fL (79-100) Mean Corpuscular Hemoglobin 32 pg (25-35) Mean Corpuscular Hemoglobin Concent 33 g/dL (31-37) Red Cell Distribution Width 13.7 % (11.5-14.5) Platelet Count 129 x10^3/uL (140-400) Neutrophils (%) (Auto) 91 % (31-73) Lymphocytes (%) (Auto) 5 % (24-48) Monocytes (%) (Auto) 3 % (0-9) Eosinophils (%) (Auto) 1 % (0-3) Basophils (%) (Auto) 0 % (0-3) Neutrophils # (Auto) 15.4 x10^3/uL (1.8-7.7) Lymphocytes # (Auto) 0.9 x10^3/uL (1.0-4.8) Monocytes # (Auto) 0.5 x10^3/uL (0.0-1.1) Eosinophils # (Auto) 0.1 x10^3/uL (0.0-0.7) Basophils # (Auto) 0.0 x10^3/uL (0.0-0.2) Sodium Level 136 mmol/L (136-145) Potassium Level 4.0 mmol/L (3.5-5.1) Chloride Level 100 mmol/L (98-107) Carbon Dioxide Level 32 mmol/L (21-32) Anion Gap 4 (6-14) Blood Urea Nitrogen 33 mg/dL (8-26) Creatinine 0.8 mg/dL (0.7-1.3) Estimated GFR (Cockcroft-Gault) 100.0 BUN/Creatinine Ratio 41 (6-20) Glucose Level 104 mg/dL (70-99) Calcium Level 8.7 mg/dL (8.5-10.1) Total Bilirubin 0.7 mg/dL (0.2-1.0) Aspartate Amino Transf (AST/SGOT) 22 U/L (15-37) Alanine Aminotransferase (ALT/SGPT) 101 U/L (16-63) Alkaline Phosphatase 64 U/L (46-116) Total Protein 5.8 g/dL (6.4-8.2) Albumin 2.4 g/dL (3.4-5.0) Albumin/Globulin Ratio 0.7 (1.0-1.7) Medications Active Scripts Medications Dose Route/Sig Max Daily Dose Days Date Category Dose Instructions Morphine Sulfate 2 Mg/1 Ml Cartridge 2 Mg IV PRN Q4HRS PRN 01/30/21 Reported Zinc Sulfate 50 Mg Tablet 220 Mg PO DAILY 01/30/21 Reported Methylprednisolone Sod Succ 125 Mg Vial 60 Mg IJ Q8HRS 01/30/21 Reported Combivent Respimat Inhal (Ipratropium/Albuterol Sulfate) 4 Gm Aer.w.adap 2 Inh IH QID 01/30/21 Reported Pepcid (Famotidine) 20 Mg Tablet 20 Mg PO HS 01/30/21 Reported Lovenox (Enoxaparin Sodium) 30 Mg/0.3 Ml Disp.syrin 30 Mg SQ DAILY 01/30/21 Reported Vitamin D3 (Vitamin D) 125 Mcg Capsule 125 Mcg PO DAILY 01/30/21 Reported 5,000 UNITS = 125 MCG Zyrtec (Cetirizine Hcl) 10 Mg Tablet 1 Tab PO DAILY 01/30/21 Reported Ascorbic Acid 500 Mg Tablet 2 Mg PO DAILY 01/30/21 Reported Acetaminophen 325 Mg Tablet 2 Tab PO PRN Q6HRS PRN 30 7/27/21 Reported No Known Medications Prior To Admisstion (Info) Each 1 Each 02/29/20 Reported Impression . IMPRESSION: 1. Acute hypoxemic respiratory failure secondary to COVID-19 viral pneumonia./Acute lung injury and early ARDS. Slowly improving 2. COVID-19 viral pneumonia. 3. Abnormal chest x-ray, compatible with viral pneumonia. 4. Nonspecific anxiety, possible clinical depression Plan . Updated 02/15/21 Continue supplemental oxygen to keep sats above 92% currently on Vapotherm, currently on 90% and 40 liters will slowly wean as tolerated, slowly improving Symptomatic treatment of cough Continue steroids with taper PT/OT DVT/GI PPX :lovenox D/W RN and RT Social work for DC planning Updated 02/14/21 Continue supplemental oxygen to keep sats above 92% currently on Vapotherm, currently on 90% and 40 liters will slowly wean as tolerated S/P remdesivir Continue steroids with taper, now on daily dosing PT/OT DVT/GI PPX :lovenox D/W RN and RT Social work for DC planning Updated 02/13/21 Continue supplemental oxygen to keep sats above 92% currently on Vapotherm and tolerating well. 90% FiO2 and 40 L flow. S/P remdesivir Continue steroids with taper Off antibiotics. PT/OT DVT/GI PPX :lovenox D/W RN and RT remains critical but stable and slowly improving MANUEL MCKEON APRN Feb 15, 2021 08:21
[2021-02-15] MEDS: ASCORBIC ACID 1,000 MG TABLET PO SCH (08:49)
[2021-02-15] MEDS: CETIRIZINE HCL 10 MG TABLET. PO SCH (08:49)
[2021-02-15] MEDS: THIAMINE 100 MG TABLET. PO SCH (08:49)
[2021-02-15] MEDS: ZINC SULFATE 220 MG CAPSULE. PO SCH (08:49)
[2021-02-15] MEDS: CHOLECALCIFEROL (VITAMIN D3) 5,000 UNIT CAPSULE PO SCH (08:49)
[2021-02-15] MEDS: methylPREDNISolone SOD SUCC PF 125 MG/2 ML VIAL. IV SCH ×2 (08:55→20:47)
[2021-02-15 11:00] VITALS: BP 126/88
--- NOTE | 2021-02-15 11:13 | PDOC ---
[employer] PROGRESS NOTE Date of Service DOS: DATE: 02/15/21 TIME: 11:05 Chief Complaint Chief Complaint SEPSIS, was POA Severe malnutrition was POA, with obesity, BMI 32 Acute hypoxic respiratory failure COVID-19 pneumonia r transaminitis History of Present Illness History of Present Illness Mr Preciado is a 56-year-old male with no significant past medical history except for degenerative joint disease who was transferred from [facility] with complaints of fever, headache, dry cough, shortness of breath for the past 3 days, admitted on 01/29/2021. Patient stated that he was actually exposed from his son he was worsening and required to come to the ED at [facility] and he was found to be hypoxic and required 2 L of nasal cannula oxygen. Chest x-ray over there showed bilateral mild bibasilar infiltrates. Covid test was positive and patient was transferred to [facility] for pulmonary evaluation and treatment. Patient was started on Remdesivir and IV steroids. Currently patient is requiring 15 L high flow nasal cannula and IV steroids. 02/02: No acute events overnight. Patient was saturating 92% on 15 L nasal cannula and he had desatted down to 70% after he had to blow his nose. Patient was placed on BiPAP at 100% FiO2. Chest leg appears to be worsening. 02/03: Last dose of remdesivir. Could not tolerate vapotherm and is now on BIPAP. 02/04: poor Po intake, dry, dark urine 02/05: Desaturates to 72% when he takes off his BiPAP. Advised to get back on BIPAP after eating. he is able to place himself back on. Frustrated with the severity of his hypoxia. 02/06: Status post remdesivir. Still requiring BiPAP 75% FiO2 with significant desaturations when he is not wearing assessment with nonrebreather O2. 02/07: Still with significant desaturations when he raises BiPAP even on 15 L high flow nasal cannula. Discussed transitioning back to Vapotherm if we can treat his anxiety. He is amenable to this. He is frustrated with staying in the hospital understands he may be a longer term COVID recovery and is amenable to LTACH referral. I discussed with pulmonology. 02/08: Afebrile. 70% FiO2 on BiPAP 06/11. Feels better. Did not tolerated Vapotherm. Significant desaturations when he transitions to high flow nasal cannula O2 while eating. Discussed referral to LTACH with pulmonology and ID as it appears he will need a longer COVID recovery. 02/09: Patient on 70% FiO2. Via BiPAP 06/11 when seen by pulmonology. Feels better and is seen on vapotherm 40l/min 100% FiO2 with saturations 89%, tolerating well. 02/11/2021 patient seen at edge of bed. FiO2 at 89%. Dropped to low 80s while talking to us. Educated patient on conserving energy and working to keep FiO2 higher. D/W RN Chart Reviewed 02/12/2021 Patient was seen and examined in bed. FiO2 of 87% while on Vapotherm with 40L of 90% O2. D/W RN, Chart Review Patient has not had a bowel movement in two days. Patient feels he is doing better but his FiO2 still drops with activity or speaking Discussed need to rest and focus on breathing to maintain proper FiO2. 02/13/2021 Patient was resting in bed with NAD Seen and examined in bed. FiO2 of 92% while on Vapotherm with 40L of 90% O2. D/W RN Chart Review Discussed need to rest and focus on breathing to maintain proper FiO2 02/14/2021 Patient was awake, alert and NAD Seen and examine in bed. FiO2 92% while on Vapotherm with 40L of 90% O2 Discussed that we will continue to monitor for clinical improvement 02/15/2021 Patient resting upon entry into room. Upon exam in bed he was awake, alert and NAD FiO2 90% while on Vapotherm with 40L of 90% O2 Discussed continued monitoring and that he is making slow improvements. Patient was encouraged by improvements and eager to return to as high of function as possible. Vitals/I&O Vitals/I&O: Vital Signs Date Time Temp Pulse Resp B/P (MAP) Pulse Ox O2 Delivery O2 Flow Rate FiO2 02/15/21 08:57 95 VAPOTHERM 40.0 02/15/21 07:00 98.3 90 24 127/73 (91) 98.3 I & O 02/14/21 02/14/21 02/15/21 15:00 23:00 07:00 Intake Total 540 ml 380 ml 0 ml Output Total 850 ml 780 ml 600 ml Balance -310 ml -400 ml -600 ml Physical Exam Physical Exam: GEN axo3 male on BIPAP HEENT: Normocephalic, atraumatic. Anicteric. NECK: Supple, no JVD. LUNGS: Crackles bilaterally. HEART: S1, S2. ABDOMEN: Soft, nontender, nondistended. Bowel sounds present. EXTREMITIES: No edema, no cyanosis. DERMATOLOGIC: Warm, dry, no generalized rash. NEUROLOGIC: Alert, oriented, grossly nonfocal. PSYCHIATRIC: Calm and cooperative. PIV looks clean. General: Alert, mild distress Heart: Regular rate (tele reg, reviewed) Abdomen: Normal bowel sounds Extremities: No clubbing Skin: No rashes Labs Labs: Laboratory Tests Test 02/15/21 05:20 White Blood Count 17.0 x10^3/uL (4.0-11.0) Red Blood Count 4.86 x10^6/uL (4.30-5.70) Hemoglobin 15.5 g/dL (13.0-17.5) Hematocrit 46.4 % (39.0-53.0) Mean Corpuscular Volume 96 fL (79-100) Mean Corpuscular Hemoglobin 32 pg (25-35) Mean Corpuscular Hemoglobin Concent 33 g/dL (31-37) Red Cell Distribution Width 13.7 % (11.5-14.5) Platelet Count 129 x10^3/uL (140-400) Neutrophils (%) (Auto) 91 % (31-73) Lymphocytes (%) (Auto) 5 % (24-48) Monocytes (%) (Auto) 3 % (0-9) Eosinophils (%) (Auto) 1 % (0-3) Basophils (%) (Auto) 0 % (0-3) Neutrophils # (Auto) 15.4 x10^3/uL (1.8-7.7) Lymphocytes # (Auto) 0.9 x10^3/uL (1.0-4.8) Monocytes # (Auto) 0.5 x10^3/uL (0.0-1.1) Eosinophils # (Auto) 0.1 x10^3/uL (0.0-0.7) Basophils # (Auto) 0.0 x10^3/uL (0.0-0.2) Sodium Level 136 mmol/L (136-145) Potassium Level 4.0 mmol/L (3.5-5.1) Chloride Level 100 mmol/L (98-107) Carbon Dioxide Level 32 mmol/L (21-32) Anion Gap 4 (6-14) Blood Urea Nitrogen 33 mg/dL (8-26) Creatinine 0.8 mg/dL (0.7-1.3) Estimated GFR (Cockcroft-Gault) 100.0 BUN/Creatinine Ratio 41 (6-20) Glucose Level 104 mg/dL (70-99) Calcium Level 8.7 mg/dL (8.5-10.1) Total Bilirubin 0.7 mg/dL (0.2-1.0) Aspartate Amino Transf (AST/SGOT) 22 U/L (15-37) Alanine Aminotransferase (ALT/SGPT) 101 U/L (16-63) Alkaline Phosphatase 64 U/L (46-116) Total Protein 5.8 g/dL (6.4-8.2) Albumin 2.4 g/dL (3.4-5.0) Albumin/Globulin Ratio 0.7 (1.0-1.7) Review of Systems Review of Systems: Denies [place] and dizziness Denies SOB Denies chest pain or palpitations Denies N/V Bowel and bladder continent Assessment and Plan Assessmemt and Plan SEPSIS, was POA Severe malnutrition was POA, with obesity, BMI 32 Acute hypoxic respiratory failure COVID-19 pneumonia requiring transaminitis, Plan COVID protocol Completed IV Remdesivir Continue IV thiamine and vitamin C Symptomatic treatment of cough Continue steroids with taper Continue supplemental oxygen to keep sats above 92% currently on Vapotherm, currently on 90% and 40 liters will slowly wean as tolerated, slowly improving Appreciate Pulmonology and Infectious Disease Input DVT prophylaxis Trend labs PT/OT Full code Cardiac monitoring Social work for DC planning Comment Review of Relevant I have reviewed the following items rosalinda (where applicable) has been applied. Medications: Current Medications Medications (Trade) Dose Ordered Sig/Mateus Route PRN Reason Start Time Stop Time Status Last Admin Dose Admin Methylprednisolone Sodium Succinate (SOLU-Medrol 125MG VIAL) 60 mg DAILY IV 02/15/21 09:00 02/15/21 08:55 Justifications for Admission Other Justification LETICIA GIBBS III DO Feb 15, 2021 11:13
[2021-02-15 11:43] LABS: % EOS 1 % (0-5); % LYMPHS 2 % (24-48); % MONOS 4 % (0-10); % SEGS 93 % (35-66)
[2021-02-15 11:44] LABS: PLT ESTIMATE ADEQUATE (ADEQUATE)
[2021-02-15 15:00] VITALS: BP 145/89
[2021-02-15 19:00] VITALS: BP 146/85
[2021-02-15] MEDS: FAMOTIDINE 20 MG TABLET. PO SCH (20:46)
[2021-02-15] MEDS: ENOXAPARIN 40 MG/0.4 ML SYRINGE. SQ SCH (20:46)
[2021-02-16] MEDS: STERILE WATER for RESP 1,000 ML BAG. INH PRN ×2 (02:55→14:00)
[2021-02-16 03:10] VITALS: BP 126/74
[2021-02-16 04:46] LABS: BASO % 0 % (0-3); EOS % 0 % (0-3); HEMATOCRIT 43.3 % (39.0-53.0); HEMOGLOBIN 14.7 g/dL (13.0-17.5); LYMPH # 0.3 x10^3/uL (1.0-4.8); LYMPH % 2 % (24-48); MEAN CORPUSCULAR HEMOGLOBIN 32 pg (25-35); MEAN CORPUSCULAR HGB CONC 34 g/dL (31-37); MEAN CORPUSCULAR VOLUME 93 fL (79-100); MONO # 0.2 x10^3/uL (0.0-1.1); MONO % 1 % (0-9); NEUT # 14.8 x10^3/uL (1.8-7.7); NEUT % 97 % (31-73); PLATELET COUNT 100 x10^3/uL (140-400); RED BLOOD COUNT 4.64 x10^6/uL (4.30-5.70); RED CELL DISTRIBUTION WIDTH 13.3 % (11.5-14.5); WHITE BLOOD COUNT 15.2 x10^3/uL (4.0-11.0)
[2021-02-16 05:52] LABS: ALBUMIN 2.1 g/dL (3.4-5.0); ALBUMIN/GLOBULIN RATIO 0.6 (1.0-1.7); CALCIUM 8.1 mg/dL (8.5-10.1); CREATININE 0.7 mg/dL (0.7-1.3); GFR 116.7; POTASSIUM 4.5 mmol/L (3.5-5.1); TOTAL BILIRUBIN 0.5 mg/dL (0.2-1.0); TOTAL PROTEIN 5.6 g/dL (6.4-8.2)
[2021-02-16 06:40] VITALS: BP 130/73
[2021-02-16] MEDS: ASCORBIC ACID 1,000 MG TABLET PO SCH (08:59)
[2021-02-16] MEDS: IPRATROPIUM/ALBUTEROL 20/100mcg/INH INHALER. INH SCH ×4 (08:59→20:55)
[2021-02-16] MEDS: CETIRIZINE HCL 10 MG TABLET. PO SCH (08:59)
[2021-02-16] MEDS: ACETAMINOPHEN 325 MG TABLET. PO PRN ×2 (08:59→20:56)
[2021-02-16] MEDS: ZINC SULFATE 220 MG CAPSULE. PO SCH (08:59)
[2021-02-16] MEDS: CHOLECALCIFEROL (VITAMIN D3) 5,000 UNIT CAPSULE PO SCH (08:59)
[2021-02-16] MEDS: THIAMINE 100 MG TABLET. PO SCH (08:59)
[2021-02-16 11:00] VITALS: BP 168/88
--- NOTE | 2021-02-16 11:19 | PDOC ---
[employer] PROGRESS NOTE Date of Service DOS: DATE: 02/16/21 TIME: 11:13 Chief Complaint Chief Complaint SEPSIS, was POA Severe malnutrition was POA, with obesity, BMI 32 Acute hypoxic respiratory failure COVID-19 pneumonia r transaminitis History of Present Illness History of Present Illness Mr Preciado is a 56-year-old male with no significant past medical history except for degenerative joint disease who was transferred from [facility] with complaints of fever, headache, dry cough, shortness of breath for the past 3 days, admitted on 01/29/2021. Patient stated that he was actually exposed from his son he was worsening and required to come to the ED at [facility] and he was found to be hypoxic and required 2 L of nasal cannula oxygen. Chest x-ray over there showed bilateral mild bibasilar infiltrates. Covid test was positive and patient was transferred to [facility] for pulmonary evaluation and treatment. Patient was started on Remdesivir and IV steroids. Currently patient is requiring 15 L high flow nasal cannula and IV steroids. 02/02: No acute events overnight. Patient was saturating 92% on 15 L nasal cannula and he had desatted down to 70% after he had to blow his nose. Patient was placed on BiPAP at 100% FiO2. Chest leg appears to be worsening. 02/03: Last dose of remdesivir. Could not tolerate vapotherm and is now on BIPAP. 02/04: poor Po intake, dry, dark urine 02/05: Desaturates to 72% when he takes off his BiPAP. Advised to get back on BIPAP after eating. he is able to place himself back on. Frustrated with the severity of his hypoxia. 3: Status post remdesivir. Still requiring BiPAP 75% FiO2 with significant desaturations when he is not wearing assessment with nonrebreather O2. 4: Still with significant desaturations when he raises BiPAP even on 15 L high flow nasal cannula. Discussed transitioning back to Vapotherm if we can treat his anxiety. He is amenable to this. He is frustrated with staying in the hospital understands he may be a longer term COVID recovery and is amenable to LTACH referral. I discussed with pulmonology. 02/08: Afebrile. 70% FiO2 on BiPAP 06/11. Feels better. Did not tolerated Vapotherm. Significant desaturations when he transitions to high flow nasal cannula O2 while eating. Discussed referral to LTACH with pulmonology and ID as it appears he will need a longer COVID recovery. 02/09: Patient on 70% FiO2. Via BiPAP 06/11 when seen by pulmonology. Feels better and is seen on vapotherm 40l/min 100% FiO2 with saturations 89%, tolerating well. 02/11/2021 patient seen at edge of bed. FiO2 at 89%. Dropped to low 80s while talking to us. Educated patient on conserving energy and working to keep FiO2 higher. D/W RN Chart Reviewed 02/12/2021 Patient was seen and examined in bed. FiO2 of 87% while on Vapotherm with 40L of 90% O2. D/W RN, Chart Review Patient has not had a bowel movement in two days. Patient feels he is doing better but his FiO2 still drops with activity or speaking Discussed need to rest and focus on breathing to maintain proper FiO2. 02/13/2021 Patient was resting in bed with NAD Seen and examined in bed. FiO2 of 92% while on Vapotherm with 40L of 90% O2. D/W RN Chart Review Discussed need to rest and focus on breathing to maintain proper FiO2 02/14/2021 Patient was awake, alert and NAD Seen and examine in bed. FiO2 92% while on Vapotherm with 40L of 90% O2 Discussed that we will continue to monitor for clinical improvement 02/15/2021 Patient resting upon entry into room. Upon exam in bed he was awake, alert and NAD FiO2 90% while on Vapotherm with 40L of 90% O2 Discussed continued monitoring and that he is making slow improvements. Patient was encouraged by improvements and eager to return to as high of function as possible. 02/16/2021 Patient awake, alert and on computer. FiO2 92% while on Vapotherm with 40L of 90% O2 Continuing to make slow improvements Discussed continuing treatment plan at this time Vitals/I&O Vitals/I&O: Vital Signs Date Time Temp Pulse Resp B/P (MAP) Pulse Ox O2 Delivery O2 Flow Rate FiO2 02/16/21 08:17 88 VAPOTHERM 40.0 02/16/21 06:40 97.5 60 26 130/73 (92) 97.5 I & O 802/15/21 02/16/21 15:00 23:00 07:00 Intake Total 550 ml 500 ml 200 ml Output Total 1800 ml 500 ml Balance 550 ml -1300 ml -300 ml Physical Exam Physical Exam: GEN axo3 male on BIPAP HEENT: Normocephalic, atraumatic. Anicteric. NECK: Supple, no JVD. LUNGS: Crackles bilaterally. HEART: S1, S2. ABDOMEN: Soft, nontender, nondistended. Bowel sounds present. EXTREMITIES: No edema, no cyanosis. DERMATOLOGIC: Warm, dry, no generalized rash. NEUROLOGIC: Alert, oriented, grossly nonfocal. PSYCHIATRIC: Calm and cooperative. PIV looks clean. General: Alert, mild distress Heart: Regular rate (tele reg, reviewed) Abdomen: Normal bowel sounds Extremities: No clubbing Skin: No rashes Labs Labs: Laboratory Tests Test 02/16/21 04:30 White Blood Count 15.2 x10^3/uL (4.0-11.0) Red Blood Count 4.64 x10^6/uL (4.30-5.70) Hemoglobin 14.7 g/dL (13.0-17.5) Hematocrit 43.3 % (39.0-53.0) Mean Corpuscular Volume 93 fL (79-100) Mean Corpuscular Hemoglobin 32 pg (25-35) Mean Corpuscular Hemoglobin Concent 34 g/dL (31-37) Red Cell Distribution Width 13.3 % (11.5-14.5) Platelet Count 100 x10^3/uL (140-400) Neutrophils (%) (Auto) 97 % (31-73) Lymphocytes (%) (Auto) 2 % (24-48) Monocytes (%) (Auto) 1 % (0-9) Eosinophils (%) (Auto) 0 % (0-3) Basophils (%) (Auto) 0 % (0-3) Neutrophils # (Auto) 14.8 x10^3/uL (1.8-7.7) Lymphocytes # (Auto) 0.3 x10^3/uL (1.0-4.8) Monocytes # (Auto) 0.2 x10^3/uL (0.0-1.1) Eosinophils # (Auto) 0.0 x10^3/uL (0.0-0.7) Basophils # (Auto) 0.0 x10^3/uL (0.0-0.2) Sodium Level 139 mmol/L (136-145) Potassium Level 4.5 mmol/L (3.5-5.1) Chloride Level 102 mmol/L (98-107) Carbon Dioxide Level 33 mmol/L (21-32) Anion Gap 4 (6-14) Blood Urea Nitrogen 23 mg/dL (8-26) Creatinine 0.7 mg/dL (0.7-1.3) Estimated GFR (Cockcroft-Gault) 116.7 BUN/Creatinine Ratio 33 (6-20) Glucose Level 183 mg/dL (70-99) Calcium Level 8.1 mg/dL (8.5-10.1) Total Bilirubin 0.5 mg/dL (0.2-1.0) Aspartate Amino Transf (AST/SGOT) 21 U/L (15-37) Alanine Aminotransferase (ALT/SGPT) 100 U/L (16-63) Alkaline Phosphatase 62 U/L (46-116) Total Protein 5.6 g/dL (6.4-8.2) Albumin 2.1 g/dL (3.4-5.0) Albumin/Globulin Ratio 0.6 (1.0-1.7) Review of Systems Review of Systems: Denies numbness or tingling in extremities Denies fever or chills Bowel and bladder continent Assessment and Plan Assessmemt and Plan SEPSIS, was POA Severe malnutrition was POA, with obesity, BMI 32 Acute hypoxic respiratory failure COVID-19 pneumonia requiring transaminitis, Plan Continue supplemental oxygen to keep sats above 92% currently on Vapotherm, currently on 90% and 40 liters will slowly wean as tolerated, slowly improving Appreciate Pulmonology and Infectious Disease Input COVID protocol Completed IV Remdesivir Completed steroid taper Continue IV vitamins PRN treatment of cough DVT prophylaxis Trend labs PT/OT Full code Cardiac monitoring Social work for DC planning Comment Review of Relevant I have reviewed the following items rosalinda (where applicable) has been applied. Justifications for Admission Other Justification LETICIA GIBBS III DO Feb 16, 2021 11:19
[2021-02-16 14:47] VITALS: BP 123/80
[2021-02-16 19:45] VITALS: BP 138/87
[2021-02-16] MEDS: ENOXAPARIN 40 MG/0.4 ML SYRINGE. SQ SCH (20:56)
[2021-02-16] MEDS: FAMOTIDINE 20 MG TABLET. PO SCH (20:56)
[2021-02-16 23:05] VITALS: BP 127/85
[2021-02-17] MEDS: STERILE WATER for RESP 1,000 ML BAG. INH PRN ×2 (01:47→10:24)
[2021-02-17 03:50] VITALS: BP 116/71
[2021-02-17 06:56] VITALS: BP 128/78
--- NOTE | 2021-02-17 09:28 | PDOC ---
PULMONARY PROGRESS NOTES DATE: 02/17/21 TIME: 09:27 Subjective Patient remains on Vapotherm 40 L, 85% Reports episodes of shortness of breath with ambulation overnight, and fatigue this morning Vitals Vital Signs Date Time Temp Pulse Resp B/P (MAP) Pulse Ox O2 Delivery O2 Flow Rate FiO2 02/17/21 09:05 94 VAPOTHERM 40.0 02/17/21 06:56 98.2 92 23 128/78 (95) 98.2 Comments Pt. seen during covid - pandemic visual exam preformed no distress Vapotherm 90% no obvious rash or edema Labs Laboratory Tests Test 02/16/21 04:30 White Blood Count 15.2 x10^3/uL (4.0-11.0) Red Blood Count 4.64 x10^6/uL (4.30-5.70) Hemoglobin 14.7 g/dL (13.0-17.5) Hematocrit 43.3 % (39.0-53.0) Mean Corpuscular Volume 93 fL (79-100) Mean Corpuscular Hemoglobin 32 pg (25-35) Mean Corpuscular Hemoglobin Concent 34 g/dL (31-37) Red Cell Distribution Width 13.3 % (11.5-14.5) Platelet Count 100 x10^3/uL (140-400) Neutrophils (%) (Auto) 97 % (31-73) Lymphocytes (%) (Auto) 2 % (24-48) Monocytes (%) (Auto) 1 % (0-9) Eosinophils (%) (Auto) 0 % (0-3) Basophils (%) (Auto) 0 % (0-3) Neutrophils # (Auto) 14.8 x10^3/uL (1.8-7.7) Lymphocytes # (Auto) 0.3 x10^3/uL (1.0-4.8) Monocytes # (Auto) 0.2 x10^3/uL (0.0-1.1) Eosinophils # (Auto) 0.0 x10^3/uL (0.0-0.7) Basophils # (Auto) 0.0 x10^3/uL (0.0-0.2) Sodium Level 139 mmol/L (136-145) Potassium Level 4.5 mmol/L (3.5-5.1) Chloride Level 102 mmol/L (98-107) Carbon Dioxide Level 33 mmol/L (21-32) Anion Gap 4 (6-14) Blood Urea Nitrogen 23 mg/dL (8-26) Creatinine 0.7 mg/dL (0.7-1.3) Estimated GFR (Cockcroft-Gault) 116.7 BUN/Creatinine Ratio 33 (6-20) Glucose Level 183 mg/dL (70-99) Calcium Level 8.1 mg/dL (8.5-10.1) Total Bilirubin 0.5 mg/dL (0.2-1.0) Aspartate Amino Transf (AST/SGOT) 21 U/L (15-37) Alanine Aminotransferase (ALT/SGPT) 100 U/L (16-63) Alkaline Phosphatase 62 U/L (46-116) Total Protein 5.6 g/dL (6.4-8.2) Albumin 2.1 g/dL (3.4-5.0) Albumin/Globulin Ratio 0.6 (1.0-1.7) Medications Active Scripts Medications Dose Route/Sig Max Daily Dose Days Date Category Dose Instructions Morphine Sulfate 2 Mg/1 Ml Cartridge 2 Mg IV PRN Q4HRS PRN 01/30/21 Reported Zinc Sulfate 50 Mg Tablet 220 Mg PO DAILY 01/30/21 Reported Methylprednisolone Sod Succ 125 Mg Vial 60 Mg IJ Q8HRS 01/30/21 Reported Combivent Respimat Inhal (Ipratropium/Albuterol Sulfate) 4 Gm Aer.w.adap 2 Inh IH QID 01/30/21 Reported Pepcid (Famotidine) 20 Mg Tablet 20 Mg PO HS 01/30/21 Reported Lovenox (Enoxaparin Sodium) 30 Mg/0.3 Ml Disp.syrin 30 Mg SQ DAILY 01/30/21 Reported Vitamin D3 (Vitamin D) 125 Mcg Capsule 125 Mcg PO DAILY 01/30/21 Reported 5,000 UNITS = 125 MCG Zyrtec (Cetirizine Hcl) 10 Mg Tablet 1 Tab PO DAILY 01/30/21 Reported Ascorbic Acid 500 Mg Tablet 2 Mg PO DAILY 01/30/21 Reported Acetaminophen 325 Mg Tablet 2 Tab PO PRN Q6HRS PRN 30 01/30/21 Reported No Known Medications Prior To Admisstion (Info) Each 1 Each 02/29/20 Reported Impression . IMPRESSION: 1. Acute hypoxemic respiratory failure secondary to COVID-19 viral pneumonia./Acute lung injury and early ARDS. Slowly improving 2. COVID-19 viral pneumonia. 3. Abnormal chest x-ray, compatible with viral pneumonia. 4. Nonspecific anxiety, possible clinical depression Plan . Updated 02/17/21 Continue supplemental oxygen to keep sats above 92% currently on Vapotherm, currently on 85% and 40 liters will slowly wean as tolerated, slowly improving Symptomatic treatment of cough Continue steroids with taper PT/OT DVT/GI PPX :lovenox D/W RN and RT Social work for DC planning once oxygen requirement improves or if insurance approves for LTAC Updated 02/16/21 Continue supplemental oxygen to keep sats above 92% currently on Vapotherm, currently on 90% and 40 liters will slowly wean as tolerated, slowly improving Symptomatic treatment of cough Continue steroids with taper PT/OT DVT/GI PPX :lovenox D/W RN and RT Social work for DC planning Updated 02/15/21 Continue supplemental oxygen to keep sats above 92% currently on Vapotherm, currently on 90% and 40 liters will slowly wean as tolerated, slowly improving Symptomatic treatment of cough Continue steroids with taper PT/OT DVT/GI PPX :lovenox D/W RN and RT Social work for DC planning Updated 02/14/21 Continue supplemental oxygen to keep sats above 92% currently on Vapotherm, cu rrently on 90% and 40 liters will slowly wean as tolerated S/P remdesivir Continue steroids with taper, now on daily dosing PT/OT DVT/GI PPX :lovenox D/W RN and RT Social work for DC planning Updated 02/13/21 Continue supplemental oxygen to keep sats above 92% currently on Vapotherm and tolerating well. 90% FiO2 and 40 L flow. S/P remdesivir Continue steroids with taper Off antibiotics. PT/OT DVT/GI PPX :lovenox D/W RN and RT remains critical but stable and slowly improving ELIZABETH ODELL MD Feb 17, 2021 09:28
[2021-02-17] MEDS: IPRATROPIUM/ALBUTEROL 20/100mcg/INH INHALER. INH SCH ×4 (10:20→23:08)
[2021-02-17] MEDS: ASCORBIC ACID 1,000 MG TABLET PO SCH (10:21)
[2021-02-17] MEDS: ZINC SULFATE 220 MG CAPSULE. PO SCH (10:21)
[2021-02-17] MEDS: CHOLECALCIFEROL (VITAMIN D3) 5,000 UNIT CAPSULE PO SCH (10:21)
[2021-02-17] MEDS: methylPREDNISolone SOD SUCC PF 125 MG/2 ML VIAL. IV SCH (10:21)
[2021-02-17] MEDS: CETIRIZINE HCL 10 MG TABLET. PO SCH (10:21)
[2021-02-17] MEDS: THIAMINE 100 MG TABLET. PO SCH (10:21)
[2021-02-17 11:00] VITALS: BP 125/75
--- NOTE | 2021-02-17 11:22 | PDOC ---
[employer] PROGRESS NOTE Date of Service DOS: DATE: 02/17/21 TIME: 11:17 Chief Complaint Chief Complaint SEPSIS, was POA Severe malnutrition was POA, with obesity, BMI 32 Acute hypoxic respiratory failure COVID-19 pneumonia r transaminitis History of Present Illness History of Present Illness Mr Preciado is a 56-year-old male with no significant past medical history except for degenerative joint disease who was transferred from [facility] with complaints of fever, headache, dry cough, shortness of breath for the past 3 days, admitted on 01/29/2021. Patient stated that he was actually exposed from his son he was worsening and required to come to the ED at [facility] and he was found to be hypoxic and required 2 L of nasal cannula oxygen. Chest x-ray over there showed bilateral mild bibasilar infiltrates. Covid test was positive and patient was transferred to [facility] for pulmonary evaluation and treatment. Patient was started on Remdesivir and IV steroids. Currently patient is requiring 15 L high flow nasal cannula and IV steroids. 02/02: No acute events overnight. Patient was saturating 92% on 15 L nasal cannula and he had desatted down to 70% after he had to blow his nose. Patient was placed on BiPAP at 100% FiO2. Chest leg appears to be worsening. 02/03: Last dose of remdesivir. Could not tolerate vapotherm and is now on BIPAP. 02/04: poor Po intake, dry, dark urine 02/05: Desaturates to 72% when he takes off his BiPAP. Advised to get back on BIPAP after eating. he is able to place himself back on. Frustrated with the severity of his hypoxia. 3: Status post remdesivir. Still requiring BiPAP 75% FiO2 with significant desaturations when he is not wearing assessment with nonrebreather O2. 4: Still with significant desaturations when he raises BiPAP even on 15 L high flow nasal cannula. Discussed transitioning back to Vapotherm if we can treat his anxiety. He is amenable to this. He is frustrated with staying in the hospital understands he may be a longer term COVID recovery and is amenable to LTACH referral. I discussed with pulmonology. 02/08: Afebrile. 70% FiO2 on BiPAP 06/11. Feels better. Did not tolerated Vapotherm. Significant desaturations when he transitions to high flow nasal cannula O2 while eating. Discussed referral to LTACH with pulmonology and ID as it appears he will need a longer COVID recovery. 02/09: Patient on 70% FiO2. Via BiPAP 06/11 when seen by pulmonology. Feels better and is seen on vapotherm 40l/min 100% FiO2 with saturations 89%, tolerating well. 02/11/2021 patient seen at edge of bed. FiO2 at 89%. Dropped to low 80s while talking to us. Educated patient on conserving energy and working to keep FiO2 higher. D/W RN Chart Reviewed 02/12/2021 Patient was seen and examined in bed. FiO2 of 87% while on Vapotherm with 40L of 90% O2. D/W RN, Chart Review Patient has not had a bowel movement in two days. Patient feels he is doing better but his FiO2 still drops with activity or speaking Discussed need to rest and focus on breathing to maintain proper FiO2. 02/13/2021 Patient was resting in bed with NAD Seen and examined in bed. FiO2 of 92% while on Vapotherm with 40L of 90% O2. D/W RN Chart Review Discussed need to rest and focus on breathing to maintain proper FiO2 02/14/2021 Patient was awake, alert and NAD Seen and examine in bed. FiO2 92% while on Vapotherm with 40L of 90% O2 Discussed that we will continue to monitor for clinical improvement 02/15/2021 Patient resting upon entry into room. Upon exam in bed he was awake, alert and NAD FiO2 90% while on Vapotherm with 40L of 90% O2 Discussed continued monitoring and that he is making slow improvements. Patient was encouraged by improvements and eager to return to as high of function as possible. 02/16/2021 Patient awake, alert and on computer. FiO2 92% while on Vapotherm with 40L of 90% O2 Continuing to make slow improvements Discussed continuing treatment plan at this time 02/17/2021 Patient resting upon entry into room. Upon exam in bed he was awake, alert and NAD FiO2 90% while on Vapotherm with 40L of 85% O2 We will continue to monitor as he is making slow improvements Discharge plan will be created as he continues with current treatment Vitals/I&O Vitals/I&O: Vital Signs Date Time Temp Pulse Resp B/P (MAP) Pulse Ox O2 Delivery O2 Flow Rate FiO2 02/17/21 09:05 94 VAPOTHERM 40.0 02/17/21 06:56 98.2 92 23 128/78 (95) 98.2 I & O 02/16/21 02/16/21 02/17/21 15:00 23:00 07:00 Intake Total 440 ml 560 ml 200 ml Output Total 1200 ml 500 ml Balance 440 ml -640 ml -300 ml Physical Exam Physical Exam: GEN axo3 male on BIPAP HEENT: Normocephalic, atraumatic. Anicteric. NECK: Supple, no JVD. LUNGS: Crackles bilaterally. HEART: S1, S2. ABDOMEN: Soft, nontender, nondistended. Bowel sounds present. EXTREMITIES: No edema, no cyanosis. DERMATOLOGIC: Warm, dry, no generalized rash. NEUROLOGIC: Alert, oriented, grossly nonfocal. PSYCHIATRIC: Calm and cooperative. PIV looks clean. General: Alert, mild distress Heart: Regular rate (tele reg, reviewed) Abdomen: Normal bowel sounds Extremities: No clubbing Skin: No rashes Review of Systems Review of Systems: Denies LONDONO or dizziness Denies fevers or chills Bowel and bladder continent Denies vision changes Assessment and Plan Assessmemt and Plan SEPSIS, was POA Severe malnutrition was POA, with obesity, BMI 32 Acute hypoxic respiratory failure COVID-19 pneumonia requiring transaminitis, Plan Continue supplemental oxygen on Vapotherm, currently on 85% and 40 liters will slowly wean as tolerated, slowly improving Appreciate Pulmonology and Infectious Disease Input DVT prophylaxis COVID protocol Completed IV Remdesivir Completed steroid taper Continue IV vitamins PRN treatment of cough Trend labs PT/OT Full code Cardiac monitoring Prognosis guarded CC time 31 minutes Social work for DC planning once oxygen requirement improves or if insurance approves for LTAC Comment Review of Relevant I have reviewed the following items rosalinda (where applicable) has been applied. Justifications for Admission Other Justification LETICIA GIBBS III DO Feb 17, 2021 11:22
[2021-02-17 15:00] VITALS: BP 147/73
[2021-02-17 19:45] VITALS: BP 144/95
[2021-02-17] MEDS: ENOXAPARIN 40 MG/0.4 ML SYRINGE. SQ SCH (23:08)
[2021-02-17] MEDS: FAMOTIDINE 20 MG TABLET. PO SCH (23:08)
[2021-02-17] MEDS: ACETAMINOPHEN 325 MG TABLET. PO PRN (23:09)
[2021-02-17 23:35] VITALS: BP 124/68
[2021-02-18] MEDS: STERILE WATER for RESP 1,000 ML BAG. INH PRN ×2 (03:19→14:56)
[2021-02-18 07:39] VITALS: BP 120/76
[2021-02-18] MEDS: IPRATROPIUM/ALBUTEROL 20/100mcg/INH INHALER. INH SCH ×4 (08:00→20:00)
[2021-02-18] MEDS: ZINC SULFATE 220 MG CAPSULE. PO SCH (09:31)
[2021-02-18] MEDS: methylPREDNISolone SOD SUCC PF 125 MG/2 ML VIAL. IV SCH (09:32)
[2021-02-18] MEDS: THIAMINE 100 MG TABLET. PO SCH (09:32)
[2021-02-18] MEDS: CHOLECALCIFEROL (VITAMIN D3) 5,000 UNIT CAPSULE PO SCH (09:32)
[2021-02-18] MEDS: CETIRIZINE HCL 10 MG TABLET. PO SCH (09:32)
[2021-02-18] MEDS: ASCORBIC ACID 1,000 MG TABLET PO SCH (09:32)
--- NOTE | 2021-02-18 09:50 | PDOC ---
PULMONARY PROGRESS NOTES DATE: 02/18/21 TIME: 09:50 Subjective Patient remains on Vapotherm 40 L, 85% Reports episodes of shortness of breath with ambulation overnight, and fatigue this morning Vitals Vital Signs Date Time Temp Pulse Resp B/P (MAP) Pulse Ox O2 Delivery O2 Flow Rate FiO2 02/18/21 07:39 98.7 77 21 120/76 (91) 94 vapotherm 98.7 02/18/21 05:00 40.0 Comments Pt. seen during covid -19 pandemic visual exam preformed no distress Vapotherm 90% no obvious rash or edema Medications Active Scripts Medications Dose Route/Sig Max Daily Dose Days Date Category Dose Instructions Morphine Sulfate 2 Mg/1 Ml Cartridge 2 Mg IV PRN Q4HRS PRN 01/30/21 Reported Zinc Sulfate 50 Mg Tablet 220 Mg PO DAILY 01/30/21 Reported Methylprednisolone Sod Succ 125 Mg Vial 60 Mg IJ Q8HRS 01/30/21 Reported Combivent Respimat Inhal (Ipratropium/Albuterol Sulfate) 4 Gm Aer.w.adap 2 Inh IH QID 01/30/21 Reported Pepcid (Famotidine) 20 Mg Tablet 20 Mg PO HS 01/30/21 Reported Lovenox (Enoxaparin Sodium) 30 Mg/0.3 Ml Disp.syrin 30 Mg SQ DAILY 01/30/21 Reported Vitamin D3 (Vitamin D) 125 Mcg Capsule 125 Mcg PO DAILY 01/30/21 Reported 5,000 UNITS = 125 MCG Zyrtec (Cetirizine Hcl) 10 Mg Tablet 1 Tab PO DAILY 01/30/21 Reported Ascorbic Acid 500 Mg Tablet 2 Mg PO DAILY 01/30/21 Reported Acetaminophen 325 Mg Tablet 2 Tab PO PRN Q6HRS PRN 30 01/30/21 Reported No Known Medications Prior To Admisstion (Info) Each 1 Each 02/29/20 Reported Impression . IMPRESSION: 1. Acute hypoxemic respiratory failure secondary to COVID-19 viral pneumonia./Acute lung injury and early ARDS. Slowly improving 2. COVID-19 viral pneumonia. 3. Abnormal chest x-ray, compatible with viral pneumonia. 4. Nonspecific anxiety, possible clinical depression Plan . Updated 02/18/21 Continue supplemental oxygen to keep sats above 92% currently on Vapotherm, currently on 85% and 40 liters will slowly wean as tolerated, slowly improving Symptomatic treatment of cough Continue steroids with taper PT/OT DVT/GI PPX :lovenox D/W RN and RT Social work for DC planning once oxygen requirement improves or if insurance approves for LTAC Updated 02/17/21 Continue supplemental oxygen to keep sats above 92% currently on Vapotherm, currently on 85% and 40 liters will slowly wean as tolerated, slowly improving Symptomatic treatment of cough Continue steroids with taper PT/OT DVT/GI PPX :lovenox D/W RN and RT Social work for DC planning once oxygen requirement improves or if insurance approves for LTAC Updated 02/16/21 Continue supplemental oxygen to keep sats above 92% currently on Vapotherm, currently on 90% and 40 liters will slowly wean as tolerated, slowly improving Symptomatic treatment of cough Continue steroids with taper PT/OT DVT/GI PPX :lovenox D/W RN and RT Social work for DC planning Updated 02/15/21 Continue supplemental oxygen to keep sats above 92% currently on Vapotherm, currently on 90% and 40 liters will slowly wean as tolerated, slowly improving Symptomatic treatment of cough Continue steroids with taper PT/OT DVT/GI PPX :lovenox D/W RN and RT Social work for DC planning Updated 02/14/21 Continue supplemental oxygen to keep sats above 92% currently on Vapotherm, currently on 90% and 40 liters will slowly wean as tolerated S/P remdesivir Continue steroids with taper, now on daily dosing PT/OT DVT/GI PPX :lovenox D/W RN and RT Social work for DC planning Updated 02/13/21 Continue supplemental oxygen to keep sats above 92% currently on Vapotherm and tolerating well. 90% FiO2 and 40 L flow. S/P remdesivir Continue steroids with taper Off antibiotics. PT/OT DVT/GI PPX :lovenox D/W RN and RT remains critical but stable and slowly improving ELIZABETH ODELL MD Feb 18, 2021 09:50
[2021-02-18 11:00] VITALS: BP 109/64
--- NOTE | 2021-02-18 13:13 | PDOC ---
[employer] PROGRESS NOTE Date of Service DOS: DATE: 02/18/21 TIME: 13:07 Chief Complaint Chief Complaint SEPSIS, was POA Severe malnutrition was POA, with obesity, BMI 32 Acute hypoxic respiratory failure COVID-19 pneumonia r transaminitis History of Present Illness History of Present Illness Mr Preciado is a 56-year-old male with no significant past medical history except for degenerative joint disease who was transferred from [facility] with complaints of fever, headache, dry cough, shortness of breath for the past 3 days, admitted on 01/29/2021. Patient stated that he was actually exposed from his son he was worsening and required to come to the ED at [facility] and he was found to be hypoxic and required 2 L of nasal cannula oxygen. Chest x-ray over there showed bilateral mild bibasilar infiltrates. Covid test was positive and patient was transferred to [facility] for pulmonary evaluation and treatment. Patient was started on Remdesivir and IV steroids. Currently patient is requiring 15 L high flow nasal cannula and IV steroids. 02/02: No acute events overnight. Patient was saturating 92% on 15 L nasal cannula and he had desatted down to 70% after he had to blow his nose. Patient was placed on BiPAP at 100% FiO2. Chest leg appears to be worsening. 02/03: Last dose of remdesivir. Could not tolerate vapotherm and is now on BIPAP. 02/04: poor Po intake, dry, dark urine 02/05: Desaturates to 72% when he takes off his BiPAP. Advised to get back on BIPAP after eating. he is able to place himself back on. Frustrated with the severity of his hypoxia. 3: Status post remdesivir. Still requiring BiPAP 75% FiO2 with significant desaturations when he is not wearing assessment with nonrebreather O2. 4: Still with significant desaturations when he raises BiPAP even on 15 L high flow nasal cannula. Discussed transitioning back to Vapotherm if we can treat his anxiety. He is amenable to this. He is frustrated with staying in the hospital understands he may be a longer term COVID recovery and is amenable to LTACH referral. I discussed with pulmonology. 02/08: Afebrile. 70% FiO2 on BiPAP 06/11. Feels better. Did not tolerated Vapotherm. Significant desaturations when he transitions to high flow nasal cannula O2 while eating. Discussed referral to LTACH with pulmonology and ID as it appears he will need a longer COVID recovery. 02/09: Patient on 70% FiO2. Via BiPAP 06/11 when seen by pulmonology. Feels better and is seen on vapotherm 40l/min 100% FiO2 with saturations 89%, tolerating well. 02/11/2021 patient seen at edge of bed. FiO2 at 89%. Dropped to low 80s while talking to us. Educated patient on conserving energy and working to keep FiO2 higher. D/W RN Chart Reviewed 02/12/2021 Patient was seen and examined in bed. FiO2 of 87% while on Vapotherm with 40L of 90% O2. D/W RN, Chart Review Patient has not had a bowel movement in two days. Patient feels he is doing better but his FiO2 still drops with activity or speaking Discussed need to rest and focus on breathing to maintain proper FiO2. 02/13/2021 Patient was resting in bed with NAD Seen and examined in bed. FiO2 of 92% while on Vapotherm with 40L of 90% O2. D/W RN Chart Review Discussed need to rest and focus on breathing to maintain proper FiO2 02/14/2021 Patient was awake, alert and NAD Seen and examine in bed. FiO2 92% while on Vapotherm with 40L of 90% O2 Discussed that we will continue to monitor for clinical improvement 02/15/2021 Patient resting upon entry into room. Upon exam in bed he was awake, alert and NAD FiO2 90% while on Vapotherm with 40L of 90% O2 Discussed continued monitoring and that he is making slow improvements. Patient was encouraged by improvements and eager to return to as high of function as possible. 02/16/2021 Patient awake, alert and on computer. FiO2 92% while on Vapotherm with 40L of 90% O2 Continuing to make slow improvements Discussed continuing treatment plan at this time 02/17/2021 Patient resting upon entry into room. Upon exam in bed he was awake, alert and NAD FiO2 90% while on Vapotherm with 40L of 85% O2 We will continue to monitor as he is making slow improvements Discharge plan will be created as he continues with current treatment 02/18/2021 Patient in prone position upon entry into room. States that he placed himself in this position after he had read that it would help online. Upon exam in bed he was awake, alert and NAD FiO2 90% while on Vapotherm with 40L of 85% O2 D/W RN, Chart review We will continue to monitor and discharge disposition in process via social work Vitals/I&O Vitals/I&O: Vital Signs Date Time Temp Pulse Resp B/P (MAP) Pulse Ox O2 Delivery O2 Flow Rate FiO2 02/18/21 11:00 97.0 78 22 109/64 (79) 99 vapotherm 40.0 97.0 I & O 02/17/21 02/17/21 02/18/21 15:00 23:00 07:00 Intake Total 240 ml 360 ml 500 ml Output Total 1600 ml Balance 240 ml 360 ml -1100 ml Physical Exam Physical Exam: GEN axo3 male on BIPAP HEENT: Normocephalic, atraumatic. Anicteric. NECK: Supple, no JVD. LUNGS: Crackles bilaterally. HEART: S1, S2. ABDOMEN: Soft, nontender, nondistended. Bowel sounds present. EXTREMITIES: No edema, no cyanosis. DERMATOLOGIC: Warm, dry, no generalized rash. NEUROLOGIC: Alert, oriented, grossly nonfocal. PSYCHIATRIC: Calm and cooperative. PIV looks clean. General: Alert, mild distress Heart: Regular rate (tele reg, reviewed) Abdomen: Normal bowel sounds Extremities: No clubbing Skin: No rashes Review of Systems Review of Systems: Denies LONDONO or dizziness Denies fevers or chills Bowel and bladder continent Assessment and Plan Assessmemt and Plan SEPSIS, was POA Severe malnutrition was POA, with obesity, BMI 32 Acute hypoxic respiratory failure COVID-19 pneumonia requiring transaminitis, Plan COVID protocol -Continue supplemental oxygen on Vapotherm, currently on 85% and 40 liters will slowly wean as tolerated, slowly improving -Completed IV Remdesivir -Completed steroid taper -Continue IV vitamins -PRN treatment of cough Appreciate Pulmonology and Infectious Disease Input Trend labs DVT prophylaxis Full code Cardiac monitoring Prognosis guarded CC time 32 minutes Social work for DC planning if insurance approves for LTAC or improved O2 requirement Comment Review of Relevant I have reviewed the following items rosalinda (where applicable) has been applied. Justifications for Admission Other Justification LETICIA GIBBS III DO Feb 18, 2021 13:13
[2021-02-18 15:00] VITALS: BP 103/54
[2021-02-18 19:00] VITALS: BP 182/73
[2021-02-18] MEDS: ENOXAPARIN 40 MG/0.4 ML SYRINGE. SQ SCH (21:25)
[2021-02-18] MEDS: FAMOTIDINE 20 MG TABLET. PO SCH (21:25)
[2021-02-18] MEDS: ACETAMINOPHEN 325 MG TABLET. PO PRN (21:38)
[2021-02-18 23:38] VITALS: BP 154/90
[2021-02-19] MEDS: STERILE WATER for RESP 1,000 ML BAG. INH PRN (01:35)
[2021-02-19 07:00] VITALS: BP 133/92
[2021-02-19] MEDS: CETIRIZINE HCL 10 MG TABLET. PO SCH (08:53)
[2021-02-19] MEDS: CHOLECALCIFEROL (VITAMIN D3) 5,000 UNIT CAPSULE PO SCH (08:53)
[2021-02-19] MEDS: ASCORBIC ACID 1,000 MG TABLET PO SCH (08:53)
[2021-02-19] MEDS: THIAMINE 100 MG TABLET. PO SCH (08:53)
[2021-02-19] MEDS: ZINC SULFATE 220 MG CAPSULE. PO SCH (08:53)
[2021-02-19] MEDS: methylPREDNISolone SOD SUCC PF 125 MG/2 ML VIAL. IV SCH (08:53)
--- NOTE | 2021-02-19 09:16 | PDOC ---
PULMONARY PROGRESS NOTES DATE: 02/19/21 TIME: 09:14 Subjective Patient remains on Vapotherm 40 L, 80% Reports episodes of shortness of breath with ambulation overnight, and fatigue this morning Vitals Vital Signs Date Time Temp Pulse Resp B/P (MAP) Pulse Ox O2 Delivery O2 Flow Rate FiO2 02/19/21 08:10 96 VAPOTHERM 40.0 02/19/21 07:00 96.8 87 20 133/92 (106) 96.8 Comments Pt. seen during covid -19 pandemic visual exam preformed no distress Vapotherm 90% no obvious rash or edema Medications Active Scripts Medications Dose Route/Sig Max Daily Dose Days Date Category Dose Instructions Morphine Sulfate 2 Mg/1 Ml Cartridge 2 Mg IV PRN Q4HRS PRN 01/30/21 Reported Zinc Sulfate 50 Mg Tablet 220 Mg PO DAILY 01/30/21 Reported Methylprednisolone Sod Succ 125 Mg Vial 60 Mg IJ Q8HRS 01/30/21 Reported Combivent Respimat Inhal (Ipratropium/Albuterol Sulfate) 4 Gm Aer.w.adap 2 Inh IH QID 01/30/21 Reported Pepcid (Famotidine) 20 Mg Tablet 20 Mg PO HS 01/30/21 Reported Lovenox (Enoxaparin Sodium) 30 Mg/0.3 Ml Disp.syrin 30 Mg SQ DAILY 01/30/21 Reported Vitamin D3 (Vitamin D) 125 Mcg Capsule 125 Mcg PO DAILY 01/30/21 Reported 5,000 UNITS = 125 MCG Zyrtec (Cetirizine Hcl) 10 Mg Tablet 1 Tab PO DAILY 01/30/21 Reported Ascorbic Acid 500 Mg Tablet 2 Mg PO DAILY 01/30/21 Reported Acetaminophen 325 Mg Tablet 2 Tab PO PRN Q6HRS PRN 30 01/30/21 Reported No Known Medications Prior To Admisstion (Info) Each 1 Each 02/29/20 Reported Impression . IMPRESSION: 1. Acute hypoxemic respiratory failure secondary to COVID-19 viral pneumonia./Acute lung injury and early ARDS. Slowly improving 2. COVID-19 viral pneumonia. 3. Abnormal chest x-ray, compatible with viral pneumonia. 4. Nonspecific anxiety, possible clinical depression Plan . Updated 02/19/21 Continue supplemental oxygen to keep sats above 92% currently on Vapotherm, currently on 80% and 40 liters will slowly wean as tolerated, slowly improving Symptomatic treatment of cough Continue steroids with taper PT/OT DVT/GI PPX :lovenox D/W RN and RT Social work for DC planning once oxygen requirement improves or if insurance approves for LTAC Updated 02/18/21 Continue supplemental oxygen to keep sats above 92% currently on Vapotherm, currently on 85% and 40 liters will slowly wean as tolerated, slowly improving Symptomatic treatment of cough Continue steroids with taper PT/OT DVT/GI PPX :lovenox D/W RN and RT Social work for DC planning once oxygen requirement improves or if insurance approves for LTAC Updated 02/17/21 Continue supplemental oxygen to keep sats above 92% currently on Vapotherm, currently on 85% and 40 liters will slowly wean as tolerated, slowly improving Symptomatic treatment of cough Continue steroids with taper PT/OT DVT/GI PPX :lovenox D/W RN and RT Social work for DC planning once oxygen requirement improves or if insurance approves for LTAC Updated 02/16/21 Continue supplemental oxygen to keep sats above 92% currently on Vapotherm, currently on 90% and 40 liters will slowly wean as tolerated, slowly improving Symptomatic treatment of cough Continue steroids with taper PT/OT DVT/GI PPX :lovenox D/W RN and RT Social work for DC planning Updated 02/15/21 Continue supplemental oxygen to keep sats above 92% currently on Vapotherm, currently on 90% and 40 liters will slowly wean as tolerated, slowly improving Symptomatic treatment of cough Continue steroids with taper PT/OT DVT/GI PPX :lovenox D/W RN and RT Social work for DC planning Updated 02/14/21 Continue supplemental oxygen to keep sats above 92% currently on Vapotherm, currently on 90% and 40 liters will slowly wean as tolerated S/P remdesivir Continue steroids with taper, now on daily dosing PT/OT DVT/GI PPX :lovenox D/W RN and RT Social work for DC planning Updated 02/13/21 Continue supplemental oxygen to keep sats above 92% currently on Vapotherm and tolerating well. 90% FiO2 and 40 L flow. S/P remdesivir Continue steroids with taper Off antibiotics. PT/OT DVT/GI PPX :lovenox D/W RN and RT remains critical but stable and slowly improving ELIZABETH ODELL MD Feb 19, 2021 09:16
[2021-02-19] MEDS: IPRATROPIUM/ALBUTEROL 20/100mcg/INH INHALER. INH SCH ×4 (09:20→22:41)
--- NOTE | 2021-02-19 09:55 | PDOC ---
PROGRESS NOTES Date of Service: DATE: 02/19/21 TIME: 09:55 Chief Complaint Chief Complaint SEPSIS, was POA Severe malnutrition was POA, with obesity, BMI 32 Acute hypoxic respiratory failure COVID-19 pneumonia r transaminitis History of Present Illness History of Present Illness Mr Preciado is a 56-year-old male with no significant past medical history except for degenerative joint disease who was transferred from [facility] with complaints of fever, headache, dry cough, shortness of breath for the past 3 days, admitted on 01/29/2021. Patient stated that he was actually exposed from his son he was worsening and required to come to the ED at [facility] and he was found to be hypoxic and required 2 L of nasal cannula oxygen. Chest x-ray over there showed bilateral mild bibasilar infiltrates. Covid test was positive and patient was transferred to [facility] for pulmonary evaluation and treatment. Patient was started on Remdesivir and IV steroids. Currently patient is requiring 15 L high flow nasal cannula and IV steroids. 02/02: No acute events overnight. Patient was saturating 92% on 15 L nasal cannula and he had desatted down to 70% after he had to blow his nose. Patient was placed on BiPAP at 100% FiO2. Chest leg appears to be worsening. 02/03: Last dose of remdesivir. Could not tolerate vapotherm and is now on BIPAP. 02/04: poor Po intake, dry, dark urine 02/05: Desaturates to 72% when he takes off his BiPAP. Advised to get back on BIPAP after eating. he is able to place himself back on. Frustrated with the severity of his hypoxia. 02/06: Status post remdesivir. Still requiring BiPAP 75% FiO2 with significant desaturations when he is not wearing assessment with nonrebreather O2. 02/07: Still with significant desaturations when he raises BiPAP even on 15 L high flow nasal cannula. Discussed transitioning back to Vapotherm if we can treat his anxiety. He is amenable to this. He is frustrated with staying in the hospital understands he may be a longer term COVID recovery and is amenable to LTACH referral. I discussed with pulmonology. 02/08: Afebrile. 70% FiO2 on BiPAP 06/11. Feels better. Did not tolerated Vapotherm. Significant desaturations when he transitions to high flow nasal cannula O2 while eating. Discussed referral to LTACH with pulmonology and ID as it appears he will need a longer COVID recovery. 02/09: Patient on 70% FiO2. Via BiPAP 06/11 when seen by pulmonology. Feels better and is seen on vapotherm 40l/min 100% FiO2 with saturations 89%, tolerating well. 02/11/2021 patient seen at edge of bed. FiO2 at 89%. Dropped to low 80s while talking to us. Educated patient on conserving energy and working to keep FiO2 higher. D/W RN Chart Reviewed 02/12/2021 Patient was seen and examined in bed. FiO2 of 87% while on Vapotherm with 40L of 90% O2. D/W RN, Chart Review Patient has not had a bowel movement in two days. Patient feels he is doing better but his FiO2 still drops with activity or speaking Discussed need to rest and focus on breathing to maintain proper FiO2. 02/13/2021 Patient was resting in bed with NAD Seen and examined in bed. FiO2 of 92% while on Vapotherm with 40L of 90% O2. D/W RN Chart Review Discussed need to rest and focus on breathing to maintain proper FiO2 02/14/2021 Patient was awake, alert and NAD Seen and examine in bed. FiO2 92% while on Vapotherm with 40L of 90% O2 Discussed that we will continue to monitor for clinical improvement 02/15/2021 Patient resting upon entry into room. Upon exam in bed he was awake, alert and NAD FiO2 90% while on Vapotherm with 40L of 90% O2 Discussed continued monitoring and that he is making slow improvements. Patient was encouraged by improvements and eager to return to as high of function as possible. 02/16/2021 Patient awake, alert and on computer. FiO2 92% while on Vapotherm with 40L of 90% O2 Continuing to make slow improvements Discussed continuing treatment plan at this time 02/17/2021 Patient resting upon entry into room. Upon exam in bed he was awake, alert and NAD FiO2 90% while on Vapotherm with 40L of 85% O2 We will continue to monitor as he is making slow improvements Discharge plan will be created as he continues with current treatment 02/18/2021 Patient in prone position upon entry into room. States that he placed himself in this position after he had read that it would help online. Upon exam in bed he was awake, alert and NAD FiO2 90% while on Vapotherm with 40L of 85% O2 D/W RN, Chart review We will continue to monitor and discharge disposition in process via social work Vitals Vitals Vital Signs Date Time Temp Pulse Resp B/P (MAP) Pulse Ox O2 Delivery O2 Flow Rate FiO2 02/19/21 08:10 96 VAPOTHERM 40.0 02/19/21 07:00 96.8 87 20 133/92 (106) 96.8 Physical Exam Physical Exam GEN [email or web address] male on BIPAP HEENT: Normocephalic, atraumatic. Anicteric. NECK: Supple, no JVD. LUNGS: Crackles bilaterally. HEART: S1, S2. ABDOMEN: Soft, nontender, nondistended. Bowel sounds present. EXTREMITIES: No edema, no cyanosis. DERMATOLOGIC: Warm, dry, no generalized rash. NEUROLOGIC: Alert, oriented, grossly nonfocal. PSYCHIATRIC: Calm and cooperative. PIV looks clean. General: Alert, mild distress Heart: Regular rate (tele reg, reviewed) Abdomen: Normal bowel sounds Extremities: No clubbing Skin: No rashes Comment Review of Relevant I have reviewed the following items rosalinda (where applicable) has been applied. Medications Current Medications Acetaminophen (Tylenol) 650 mg PRN Q6HRS PRN PO MILD PAIN / TEMP > 100.3'F Last administered on 01/30/21at 20:09; Start 01/30/21 at 19:00; Stop 01/30/21 at 20:15; Status DC Enoxaparin Sodium (Lovenox Per Pharmacy Prophylaxis Dosing) 1 each PRN DAILY PRN MC SEE COMMENTS; Start 01/30/21 at 19:45 Enoxaparin Sodium (Lovenox 40mg Syringe) 40 mg Q24H SQ Last administered on 02/18/21at 21:25; Start 01/30/21 at 20:00 Remdesivir 200 mg/ Sodium Chloride 210 ml @ 210 mls/hr 1X ONCE IV Last administered on 01/30/21at 20:08; Start 01/30/21 at 20:00; Stop 01/30/21 at 20: 59; Status DC Remdesivir 100 mg/ Sodium Chloride 230 ml @ 460 mls/hr Q24H IV Last administered on 02/03/21 21:20; Start 01/31/21 at 20:00; Stop 02/03/21 at 20:29; Status DC Acetaminophen (Tylenol) 650 mg PRN Q6HRS PRN PO MILD PAIN OR FEVER Last admin istered on 02/18/21at 21:38; Start 01/30/21 at 19:45 Ascorbic Acid (Vitamin C) 1,000 mg DAILY PO Last administered on 02/19/21 08:53; Start 01/31/21 at 09:00 Cetirizine HCl (ZyrTEC) 10 mg DAILY PO Last administered on 02/19/21 08:53; Start 01/31/21 at 09:00 Vitamin D (Vitamin D3) 5,000 unit DAILY PO Last administered on 02/19/21 08:53; Start 01/31/21 at 09:00 Enoxaparin Sodium (Lovenox 30mg Syringe) 30 mg Q24H SQ ; Start 01/30/21 at 21:00; Status Cancel Famotidine (Pepcid) 20 mg HS PO Last administered on 02/18/21at 21:25; Start 01/30/21 at 21:00 Non-Formulary Medication (Ipratropium/ Albuterol Sulfate (Combivent Respimat Inhal)) 2 inh QID IH ; Start 01/30/21 at 21:00; Status UNV Methylprednisolone Sodium Succinate (SOLU-Medrol 125MG VIAL) 60 mg Q8HRS IV Last administered on 02/09/21at 05:41; Start 01/30/21 at 22:00; Stop 02/09/21 at 10:13; Status DC Morphine Sulfate (Morphine Sulfate) 2 mg PRN Q2HR PRN IVP MODERATE TO SEVERE PAIN Last administered on 02/14/21at 22:56; Start 01/30/21 at 20:30 Zinc Sulfate (Orazinc) 220 mg DAILY PO Last administered on 02/19/21 08:53; Start 01/31/21 at 09:00 Albuterol/ Ipratropium (Duoneb) 3 ml RTQID NEB ; Start 01/30/21 at 21:00; Status Cancel Albuterol/ Ipratropium (Combivent Respimat 20-100 Mcg) 2 puff RTQID INH Last administered on 8/16/21at 09:20; Start 01/30/21 at 21:00 Alprazolam (Xanax) 0.25 mg PRN Q8HRS PRN PO ANXIETY / AGITATION Last administered on 02/01/21at 08:59; Start 01/31/21 at 15:15; Stop 02/02/21 at 14:14; Status DC Lorazepam (Ativan Inj) 1 mg PRN Q8HRS PRN IVP ANXIETY / AGITATION Last administered on 02/01/21at 14:05; Start 02/01/21 at 11:15; Stop 02/02/21 at 14:14; Status DC Thiamine Mononitrate (Vitamin B-1) 100 mg DAILY PO Last administered on 02/19/21at 08:53; Start 02/02/21 at 09:00 Sterile Water (WATER for RESP) 1,000 ml CONT PRN INH VIA VAPOTHERM DEVICE Last administered on 02/19/21at 01:35; Start 02/01/21 at 19:15 Haloperidol Lactate (Haldol Inj) 5 mg PRN Q6HRS PRN IVP AGITATION; Start 02/02/21 at 14:15 Insulin Human Lispro (HumaLOG) 0-7 UNITS TIDWMEALS SQ ; Start 02/03/21 at 12:00; Stop 02/04/21 at 09:08; Status DC Dextrose (Dextrose 50%-Water Syringe) 12.5 gm PRN Q15MIN PRN IV SEE COMMENTS; Start 02/03/21 at 10:15 Potassium Chloride/Dextrose/ Sod Cl 1,000 ml @ 100 mls/hr Q10H IV Last ad ministered on 02/04/21at 16:54; Start 02/03/21 at 10:15; Stop 02/04/21 at 22:33; Status DC Insulin Glargine (Lantus Syringe) 8 unit DAILY SQ ; Start 02/04/21 at 09:00; Stop 02/04/21 at 08:50; Status DC Tocilizumab 800 mg/Sodium Chloride 100 ml @ 100 mls/hr 1X ONCE IV ; Start 02/05/21 at 09:00; Stop 02/05/21 at 09:59; Status Cancel Methylprednisolone Sodium Succinate (SOLU-Medrol 40MG VIAL) 60 mg [id number] IV Last administered on 02/14/21at 05:45; Start 02/09/21 at 18:00; Stop 02/14/21 at 09:54; Status DC Guaifenesin (Mucinex) 1,200 mg BID PO Last administered on 02/19/21at 08:53; Start 02/11/21 at 21:00 Polyethylene Glycol (miraLAX PACKET) 17 gm PRN BID PRN PO CONSTIPATION; Start 02/12/21 at 10:30 Methylprednisolone Sodium Succinate (SOLU-Medrol 125MG VIAL) 60 mg DAILY IV Last administered on 02/19/21at 08:53; Start 02/15/21 at 09:00 Active Scripts Active Reported Morphine Sulfate 2 Mg/1 Ml Cartridge 2 Mg IV PRN Q4HRS PRN Zinc Sulfate 50 Mg Tablet 220 Mg PO DAILY Methylprednisolone Sod Succ 125 Mg Vial 60 Mg IJ Q8HRS Combivent Respimat Inhal (Ipratropium/Albuterol Sulfate) 4 Gm Aer.w.adap 2 Inh IH QID Pepcid (Famotidine) 20 Mg Tablet 20 Mg PO HS Lovenox (Enoxaparin Sodium) 30 Mg/0.3 Ml Disp.syrin 30 Mg SQ DAILY Vitamin D3 (Vitamin D) 125 Mcg Capsule 125 Mcg PO DAILY 5,000 UNITS = 125 MCG Zyrtec (Cetirizine Hcl) 10 Mg Tablet 1 Tab PO DAILY Ascorbic Acid 500 Mg Tablet 2 Mg PO DAILY Acetaminophen 325 Mg Tablet 2 Tab PO PRN Q6HRS PRN 30 Days No Known Medications Prior To Admisstion (Info) Each 1 Each Vitals/I & O Vital Sign - Last 24 Hours 02/18/21 02/18/21 02/18/21 02/18/21 11:00 11:45 15:00 16:19 Temp 97.0 97.8 97.0 97.8 Pulse 78 90 Resp 22 20 B/P (MAP) 109/64 (79) 103/54 (70) Pulse Ox 99 94 96 93 O2 Delivery vapotherm VAPOTHERM vapotherm VAPOTHERM O2 Flow Rate 40.0 40.0 40.0 40.0 02/18/21 02/18/21 02/18/21 02/18/21 19:00 19:35 20:43 23:30 Temp 98.0 98.0 Pulse 86 Resp 26 B/P (MAP) 182/73 (109) Pulse Ox 96 93 94 O2 Delivery vapotherm Vapotherm VAPOTHERM VAPOTHERM O2 Flow Rate 40.0 40.0 40.0 40.0 02/18/21 02/19/21 02/19/21 02/19/21 23:38 02:00 02:44 05:15 Temp 98.0 98.0 Pulse 95 63 Resp 26 B/P (MAP) 154/90 (111) Pulse Ox 97 95 96 95 O2 Delivery vapotherm VAPOTHERM vapotherm VAPOTHERM O2 Flow Rate 40.0 40.0 40.0 40.0 02/19/21 02/19/21 07:00 08:10 Temp 96.8 96.8 Pulse 87 Resp 20 B/P (MAP) 133/92 (106) Pulse Ox 96 96 O2 Delivery Nasal Cannula VAPOTHERM O2 Flow Rate 4.0 40.0 Intake and Output 02/18/21 02/18/21 02/19/21 15:00 23:00 07:00 Intake Total 610 ml 510 ml 150 ml Output Total 660 ml 1500 ml 900 ml Balance -50 ml -990 ml -750 ml Justicifation of Admission Dx: Justifications for Admission: Justification of Admission Dx: Yes Sepsis: Hypoxemia JACQUELINE MCGARRY MD Feb 19, 2021 09:55
[2021-02-19 11:00] VITALS: BP 131/67
[2021-02-19 15:00] VITALS: BP 133/81
[2021-02-19 19:00] VITALS: BP 132/79
[2021-02-19] MEDS: ENOXAPARIN 40 MG/0.4 ML SYRINGE. SQ SCH (22:41)
[2021-02-19] MEDS: FAMOTIDINE 20 MG TABLET. PO SCH (22:42)
[2021-02-19 23:00] VITALS: BP 133/85
[2021-02-20 04:00] VITALS: BP 141/87
[2021-02-20 05:54] LABS: HEMATOCRIT 42.6 % (39.0-53.0); HEMOGLOBIN 14.6 g/dL (13.0-17.5); RED BLOOD COUNT 4.56 x10^6/uL (4.30-5.70); RED CELL DISTRIBUTION WIDTH 13.5 % (11.5-14.5)
[2021-02-20 06:12] LABS: CALCIUM 8.5 mg/dL (8.5-10.1); CREATININE 0.7 mg/dL (0.7-1.3); GFR 116.7; POTASSIUM 3.9 mmol/L (3.5-5.1)
[2021-02-20 07:00] VITALS: BP 131/81
[2021-02-20] MEDS: IPRATROPIUM/ALBUTEROL 20/100mcg/INH INHALER. INH SCH ×4 (08:00→21:32)
--- NOTE | 2021-02-20 08:34 | PDOC ---
PULMONARY PROGRESS NOTES DATE: 02/20/21 TIME: 08:28 Subjective Patient remains on Vapotherm 40 L, 80% afebrile anxious about getting better no overnight concerns Vitals Vital Signs Date Time Temp Pulse Resp B/P (MAP) Pulse Ox O2 Delivery O2 Flow Rate FiO2 02/20/21 07:00 97.3 85 18 131/81 (98) 94 40.0 97.3 02/20/21 05:09 VAPOTHERM Comments Pt. seen during id - pandemic visual exam preformed no distress RRR Vapotherm 80% no obvious rash or edema Labs Laboratory Tests Test 02/20/21 05:10 White Blood Count 13.0 x10^3/uL (4.0-11.0) Red Blood Count 4.56 x10^6/uL (4.30-5.70) Hemoglobin 14.6 g/dL (13.0-17.5) Hematocrit 42.6 % (39.0-53.0) Mean Corpuscular Volume 94 fL (79-100) Mean Corpuscular Hemoglobin 32 pg (25-35) Mean Corpuscular Hemoglobin Concent 34 g/dL (31-37) Red Cell Distribution Width 13.5 % (11.5-14.5) Platelet Count 110 x10^3/uL (140-400) Sodium Level 138 mmol/L (136-145) Potassium Level 3.9 mmol/L (3.5-5.1) Chloride Level 103 mmol/L (98-107) Carbon Dioxide Level 29 mmol/L (21-32) Anion Gap 6 (6-14) Blood Urea Nitrogen 23 mg/dL (8-26) Creatinine 0.7 mg/dL (0.7-1.3) Estimated GFR (Cockcroft-Gault) 116.7 Glucose Level 134 mg/dL (70-99) Calcium Level 8.5 mg/dL (8.5-10.1) Laboratory Tests Test 02/20/21 05:10 White Blood Count 13.0 x10^3/uL (4.0-11.0) Red Blood Count 4.56 x10^6/uL (4.30-5.70) Hemoglobin 14.6 g/dL (13.0-17.5) Hematocrit 42.6 % (39.0-53.0) Mean Corpuscular Volume 94 fL (79-100) Mean Corpuscular Hemoglobin 32 pg (25-35) Mean Corpuscular Hemoglobin Concent 34 g/dL (31-37) Red Cell Distribution Width 13.5 % (11.5-14.5) Platelet Count 110 x10^3/uL (140-400) Sodium Level 138 mmol/L (136-145) Potassium Level 3.9 mmol/L (3.5-5.1) Chloride Level 103 mmol/L (98-107) Carbon Dioxide Level 29 mmol/L (21-32) Anion Gap 6 (6-14) Blood Urea Nitrogen 23 mg/dL (8-26) Creatinine 0.7 mg/dL (0.7-1.3) Estimated GFR (Cockcroft-Gault) 116.7 Glucose Level 134 mg/dL (70-99) Calcium Level 8.5 mg/dL (8.5-10.1) Medications Active Scripts Medications Dose Route/Sig Max Daily Dose Days Date Category Dose Instructions Morphine Sulfate 2 Mg/1 Ml Cartridge 2 Mg IV PRN Q4HRS PRN 01/30/21 Reported Zinc Sulfate 50 Mg Tablet 220 Mg PO DAILY 01/30/21 Reported Methylprednisolone Sod Succ 125 Mg Vial 60 Mg IJ Q8HRS 01/30/21 Reported Combivent Respimat Inhal (Ipratropium/Albuterol Sulfate) 4 Gm Aer.w.adap 2 Inh IH QID 01/30/21 Reported Pepcid (Famotidine) 20 Mg Tablet 20 Mg PO HS 01/30/21 Reported Lovenox (Enoxaparin Sodium) 30 Mg/0.3 Ml Disp.syrin 30 Mg SQ DAILY 01/30/21 Reported Vitamin D3 (Vitamin D) 125 Mcg Capsule 125 Mcg PO DAILY 01/30/21 Reported 5,000 UNITS = 125 MCG Zyrtec (Cetirizine Hcl) 10 Mg Tablet 1 Tab PO DAILY 01/30/21 Reported Ascorbic Acid 500 Mg Tablet 2 Mg PO DAILY 01/30/21 Reported Acetaminophen 325 Mg Tablet 2 Tab PO PRN Q6HRS PRN 30 01/30/21 Reported No Known Medications Prior To Admisstion (Info) Each 1 Each 02/29/20 Reported Impression . IMPRESSION: 1. Acute hypoxemic respiratory failure secondary to COVID-19 viral pneumonia./Acute lung injury and early ARDS. Slowly improving 2. COVID-19 viral pneumonia. 3. Abnormal chest x-ray, compatible with viral pneumonia. 4. Nonspecific anxiety, possible clinical depression Plan . Updated 02/20/21 Continue supplemental oxygen to keep sats above 92% currently on Vapotherm, currently on 80% and 40 liters will slowly wean as tolerated, slowly improving reduce Fi02 to 75% today IS at bedside Continue steroids with taper, will reduce dose today S/P remdesivir/Tocilizumab PT/OT DVT/GI PPX :lovenox D/W RN and RT Socailw ork for DC planning ELIZABETH ODELL MD Feb 20, 2021 08:34
[2021-02-20] MEDS: methylPREDNISolone SOD SUCC PF 125 MG/2 ML VIAL. IV SCH (08:49)
[2021-02-20] MEDS: ZINC SULFATE 220 MG CAPSULE. PO SCH (08:50)
[2021-02-20] MEDS: CHOLECALCIFEROL (VITAMIN D3) 5,000 UNIT CAPSULE PO SCH (08:50)
[2021-02-20] MEDS: ASCORBIC ACID 1,000 MG TABLET PO SCH (08:50)
[2021-02-20] MEDS: CETIRIZINE HCL 10 MG TABLET. PO SCH (08:50)
[2021-02-20] MEDS: THIAMINE 100 MG TABLET. PO SCH (08:50)
--- NOTE | 2021-02-20 09:58 | PDOC ---
PROGRESS NOTES Date of Service: DATE: 02/20/21 TIME: 09:58 Chief Complaint Chief Complaint SEPSIS, was POA Severe malnutrition was POA, with obesity, BMI 32 Acute hypoxic respiratory failure COVID-19 pneumonia r transaminitis History of Present Illness History of Present Illness Mr Preciado is a 56-year-old male with no significant past medical history except for degenerative joint disease who was transferred from [facility] with complaints of fever, headache, dry cough, shortness of breath for the past 3 days, admitted on 01/29/2021. Patient stated that he was actually exposed from his son he was worsening and required to come to the ED at [facility] and he was found to be hypoxic and required 2 L of nasal cannula oxygen. Chest x-ray over there showed bilateral mild bibasilar infiltrates. Covid test was positive and patient was transferred to [facility] for pulmonary evaluation and treatment. Patient was started on Remdesivir and IV steroids. Currently patient is requiring 15 L high flow nasal cannula and IV steroids. 02/02: No acute events overnight. Patient was saturating 92% on 15 L nasal cannula and he had desatted down to 70% after he had to blow his nose. Patient was placed on BiPAP at 100% FiO2. Chest leg appears to be worsening. 02/03: Last dose of remdesivir. Could not tolerate vapotherm and is now on BIPAP. 02/04: poor Po intake, dry, dark urine 02/05: Desaturates to 72% when he takes off his BiPAP. Advised to get back on BIPAP after eating. he is able to place himself back on. Frustrated with the severity of his hypoxia. 02/06: Status post remdesivir. Still requiring BiPAP 75% FiO2 with significant desaturations when he is not wearing assessment with nonrebreather O2. 02/07: Still with significant desaturations when he raises BiPAP even on 15 L high flow nasal cannula. Discussed transitioning back to Vapotherm if we can treat his anxiety. He is amenable to this. He is frustrated with staying in the hospital understands he may be a longer term COVID recovery and is amenable to LTACH referral. I discussed with pulmonology. 02/08: Afebrile. 70% FiO2 on BiPAP 06/11. Feels better. Did not tolerated Vapotherm. Significant desaturations when he transitions to high flow nasal cannula O2 while eating. Discussed referral to LTACH with pulmonology and ID as it appears he will need a longer COVID recovery. 02/09: Patient on 70% FiO2. Via BiPAP 06/11 when seen by pulmonology. Feels better and is seen on vapotherm 40l/min 100% FiO2 with saturations 89%, tolerating well. 02/11/2021 patient seen at edge of bed. FiO2 at 89%. Dropped to low 80s while talking to us. Educated patient on conserving energy and working to keep FiO2 higher. D/W RN Chart Reviewed 02/12/2021 Patient was seen and examined in bed. FiO2 of 87% while on Vapotherm with 40L of 90% O2. D/W RN, Chart Review Patient has not had a bowel movement in two days. Patient feels he is doing better but his FiO2 still drops with activity or speaking Discussed need to rest and focus on breathing to maintain proper FiO2. 02/13/2021 Patient was resting in bed with NAD Seen and examined in bed. FiO2 of 92% while on Vapotherm with 40L of 90% O2. D/W RN Chart Review Discussed need to rest and focus on breathing to maintain proper FiO2 02/14/2021 Patient was awake, alert and NAD Seen and examine in bed. FiO2 92% while on Vapotherm with 40L of 90% O2 Discussed that we will continue to monitor for clinical improvement 02/15/2021 Patient resting upon entry into room. Upon exam in bed he was awake, alert and NAD FiO2 90% while on Vapotherm with 40L of 90% O2 Discussed continued monitoring and that he is making slow improvements. Patient was encouraged by improvements and eager to return to as high of function as possible. 02/16/2021 Patient awake, alert and on computer. FiO2 92% while on Vapotherm with 40L of 90% O2 Continuing to make slow improvements Discussed continuing treatment plan at this time 02/17/2021 Patient resting upon entry into room. Upon exam in bed he was awake, alert and NAD FiO2 90% while on Vapotherm with 40L of 85% O2 We will continue to monitor as he is making slow improvements Discharge plan will be created as he continues with current treatment 02/18/2021 Patient in prone position upon entry into room. States that he placed himself in this position after he had read that it would help online. Upon exam in bed he was awake, alert and NAD FiO2 90% while on Vapotherm with 40L of 85% O2 D/W RN, Chart review We will continue to monitor and discharge disposition in process via social work 02/19/2021 Patient in prone position upon entry into room. States that he placed himself in this position after he had read that it would help online. Upon exam in bed he was awake, alert and NAD FiO2 90% while on Vapotherm with 40L of 85% O2 D/W RN, Chart review We will continue to monitor and discharge disposition in process via social work Patient remains on Vapotherm 40 L, 80% afebrile 02/20/2021 Patient in prone position upon entry into room. States that he placed himself in this position after he had read that it would help online. Upon exam in bed he was awake, alert and NAD FiO2 90% while on Vapotherm with 40L of 85% O2 D/W RN, Chart review We will continue to monitor and discharge disposition in process via social work Patient remains on Vapotherm 40 L, 80% afebrile Vitals Vitals Vital Signs Date Time Temp Pulse Resp B/P (MAP) Pulse Ox O2 Delivery O2 Flow Rate FiO2 02/20/21 09:21 93 VAPOTHERM 40.0 02/20/21 07:00 97.3 85 18 131/81 (98) 97.3 Physical Exam Physical Exam GEN axo3 male on BIPAP HEENT: Normocephalic, atraumatic. Anicteric. NECK: Supple, no JVD. LUNGS: Crackles bilaterally. HEART: S1, S2. ABDOMEN: Soft, nontender, nondistended. Bowel sounds present. EXTREMITIES: No edema, no cyanosis. DERMATOLOGIC: Warm, dry, no generalized rash. NEUROLOGIC: Alert, oriented, grossly nonfocal. PSYCHIATRIC: Calm and cooperative. PIV looks clean. General: Alert, mild distress Heart: Regular rate (tele reg, reviewed) Abdomen: Normal bowel sounds, Soft Extremities: No clubbing Skin: No rashes Labs LABS Laboratory Tests Test 02/20/21 05:10 White Blood Count 13.0 x10^3/uL (4.0-11.0) Red Blood Count 4.56 x10^6/uL (4.30-5.70) Hemoglobin 14.6 g/dL (13.0-17.5) Hematocrit 42.6 % (39.0-53.0) Mean Corpuscular Volume 94 fL (79-100) Mean Corpuscular Hemoglobin 32 pg (25-35) Mean Corpuscular Hemoglobin Concent 34 g/dL (31-37) Red Cell Distribution Width 13.5 % (11.5-14.5) Platelet Count 110 x10^3/uL (140-400) Sodium Level 138 mmol/L (136-145) Potassium Level 3.9 mmol/L (3.5-5.1) Chloride Level 103 mmol/L (98-107) Carbon Dioxide Level 29 mmol/L (21-32) Anion Gap 6 (6-14) Blood Urea Nitrogen 23 mg/dL (8-26) Creatinine 0.7 mg/dL (0.7-1.3) Estimated GFR (Cockcroft-Gault) 116.7 Glucose Level 134 mg/dL (70-99) Calcium Level 8.5 mg/dL (8.5-10.1) Comment Review of Relevant I have reviewed the following items rosalinda (where applicable) has been applied. Labs Laboratory Tests Test 02/20/21 05:10 White Blood Count 13.0 x10^3/uL (4.0-11.0) Red Blood Count 4.56 x10^6/uL (4.30-5.70) Hemoglobin 14.6 g/dL (13.0-17.5) Hematocrit 42.6 % (39.0-53.0) Mean Corpuscular Volume 94 fL (79-100) Mean Corpuscular Hemoglobin 32 pg (25-35) Mean Corpuscular Hemoglobin Concent 34 g/dL (31-37) Red Cell Distribution Width 13.5 % (11.5-14.5) Platelet Count 110 x10^3/uL (140-400) Sodium Level 138 mmol/L (136-145) Potassium Level 3.9 mmol/L (3.5-5.1) Chloride Level 103 mmol/L (98-107) Carbon Dioxide Level 29 mmol/L (21-32) Anion Gap 6 (6-14) Blood Urea Nitrogen 23 mg/dL (8-26) Creatinine 0.7 mg/dL (0.7-1.3) Estimated GFR (Cockcroft-Gault) 116.7 Glucose Level 134 mg/dL (70-99) Calcium Level 8.5 mg/dL (8.5-10.1) Laboratory Tests Test 02/20/21 05:10 White Blood Count 13.0 x10^3/uL (4.0-11.0) Red Blood Count 4.56 x10^6/uL (4.30-5.70) Hemoglobin 14.6 g/dL (13.0-17.5) Hematocrit 42.6 % (39.0-53.0) Mean Corpuscular Volume 94 fL (79-100) Mean Corpuscular Hemoglobin 32 pg (25-35) Mean Corpuscular Hemoglobin Concent 34 g/dL (31-37) Red Cell Distribution Width 13.5 % (11.5-14.5) Platelet Count 110 x10^3/uL (140-400) Sodium Level 138 mmol/L (136-145) Potassium Level 3.9 mmol/L (3.5-5.1) Chloride Level 103 mmol/L (98-107) Carbon Dioxide Level 29 mmol/L (21-32) Anion Gap 6 (6-14) Blood Urea Nitrogen 23 mg/dL (8-26) Creatinine 0.7 mg/dL (0.7-1.3) Estimated GFR (Cockcroft-Gault) 116.7 Glucose Level 134 mg/dL (70-99) Calcium Level 8.5 mg/dL (8.5-10.1) Medications Current Medications Acetaminophen (Tylenol) 650 mg PRN Q6HRS PRN PO MILD PAIN / TEMP > 100.3'F Last administered on 01/30/21at 20:09; Start 01/30/21 at 19:00; Stop 01/30/21 at 20:15; Status DC Enoxaparin Sodium (Lovenox Per Pharmacy Prophylaxis Dosing) 1 each PRN DAILY PRN MC SEE COMMENTS; Start 01/30/21 at 19:45 Enoxaparin Sodium (Lovenox 40mg Syringe) 40 mg Q24H SQ Last administered on 02/19/21at 22:41; Start 01/30/21 at 20:00 Remdesivir 200 mg/ Sodium Chloride 210 ml @ 210 mls/hr 1X ONCE IV Last administered on 01/30/21at 20:08; Start 01/30/21 at 20:00; Stop 01/30/21 at 20:59; Status DC Remdesivir 100 mg/ Sodium Chloride 230 ml @ 460 mls/hr Q24H IV Last administered on 02/03/21at 21:20; Start 01/31/21 at 20:00; Stop 02/03/21 at 20:29; Status DC Acetaminophen (Tylenol) 650 mg PRN Q6HRS PRN PO MILD PAIN OR FEVER Last administered on 02/18/21at 21:38; Start 01/30/21 at 19:45 Ascorbic Acid (Vitamin C) 1,000 mg DAILY PO Last administered on 02/20/21 08:50; Start 01/31/21 at 09:00 Cetirizine HCl (ZyrTEC) 10 mg DAILY PO Last administered on 02/20/21 08:50; Start 01/31/21 at 09:00 Vitamin D (Vitamin D3) 5,000 unit DAILY PO Last administered on 02/20/21 08:50; Start 01/31/21 at 09:00 Enoxaparin Sodium (Lovenox 30mg Syringe) 30 mg Q24H SQ ; Start 01/30/21 at 21: 00; Status Cancel Famotidine (Pepcid) 20 mg HS PO Last administered on 02/19/21at 22:42; Start 01/30/21 at 21:00 Non-Formulary Medication (Ipratropium/ Albuterol Sulfate (Combivent Respimat Inhal)) 2 inh QID IH ; Start 01/30/21 at 21:00; Status UNV Methylprednisolone Sodium Succinate (SOLU-Medrol 125MG VIAL) 60 mg Q8HRS IV Last administered on 02/09/21at 05:41; Start 01/30/21 at 22:00; Stop 02/09/21 at 10:13; Status DC Morphine Sulfate (Morphine Sulfate) 2 mg PRN Q2HR PRN IVP MODERATE TO SEVERE PAIN Last administered on 02/14/21at 22:56; Start 01/30/21 at 20:30 Zinc Sulfate (Orazinc) 220 mg DAILY PO Last administered on 02/20/21 08:50; Start 01/31/21 at 09:00 Albuterol/ Ipratropium (Duoneb) 3 ml RTQID NEB ; Start 01/30/21 at 21:00; Status Cancel Albuterol/ Ipratropium (Combivent Respimat 20-100 Mcg) 2 puff RTQID INH Last administered on 02/19/21at 20:00; Start 01/30/21 at 21:00 Alprazolam (Xanax) 0.25 mg PRN Q8HRS PRN PO ANXIETY / AGITATION Last administered on 02/01/21at 08:59; Start 01/31/21 at 15:15; Stop 02/02/21 at 14:14; Status DC Lorazepam (Ativan Inj) 1 mg PRN Q8HRS PRN IVP ANXIETY / AGITATION Last administered on 02/01/21at 14:05; Start 02/01/21 at 11:15; Stop 02/02/21 at 14:14; Status DC Thiamine Mononitrate (Vitamin B-1) 100 mg DAILY PO Last administered on 02/20/21at 08:50; Start 02/02/21 at 09:00 Sterile Water (WATER for RESP) 1,000 ml CONT PRN INH VIA VAPOTHERM DEVICE Last administered on 02/19/21at 01:35; Start 02/01/21 at 19:15 Haloperidol Lactate (Haldol Inj) 5 mg PRN Q6HRS PRN IVP AGITATION; Start 02/02/21 at 14:15 Insulin Human Lispro (HumaLOG) 0-7 UNITS TIDWMEALS SQ ; Start 02/03/21 at 12:00; Stop 02/04/21 at 09:08; Status DC Dextrose (Dextrose 50%-Water Syringe) 12.5 gm PRN Q15MIN PRN IV SEE COMMENTS; Start 02/03/21 at 10:15 Potassium Chloride/Dextrose/ Sod Cl 1,000 ml @ 100 mls/hr Q10H IV Last administered on 02/04/21at 16:54; Start 02/03/21 at 10:15; Stop 02/04/21 at 22:33; Status DC Insulin Glargine (Lantus Syringe) 8 unit DAILY SQ ; Start 02/04/21 at 09:00; Stop 02/04/21 at 08:50; Status DC Tocilizumab 800 mg/Sodium Chloride 100 ml @ 100 mls/hr 1X ONCE IV ; Start 02/05/21 at 09:00; Stop 02/05/21 at 09:59; Status Cancel Methylprednisolone Sodium Succinate (SOLU-Medrol 40MG VIAL) 60 mg [id number] IV Last administered on 02/14/21at 05:45; Start 02/09/21 at 18:00; Stop 02/14/21 at 09:54; Status DC Guaifenesin (Mucinex) 1,200 mg BID PO Last administered on 02/20/21at 08:50; Start 02/11/21 at 21:00 Polyethylene Glycol (miraLAX PACKET) 17 gm PRN BID PRN PO CONSTIPATION; Start 02/12/21 at 10:30 Methylprednisolone Sodium Succinate (SOLU-Medrol 125MG VIAL) 60 mg DAILY IV Last administered on 02/19/21at 08:53; Start 02/15/21 at 09:00; Stop 02/20/21 at 08:34; Status DC Methylprednisolone Sodium Succinate (SOLU-Medrol 125MG VIAL) 40 mg DAILY IV Last administered on 02/20/21at 08:49; Start 02/20/21 at 09:00 Active Scripts Active Reported Morphine Sulfate 2 Mg/1 Ml Cartridge 2 Mg IV PRN Q4HRS PRN Zinc Sulfate 50 Mg Tablet 220 Mg PO DAILY Methylprednisolone Sod Succ 125 Mg Vial 60 Mg IJ Q8HRS Combivent Respimat Inhal (Ipratropium/Albuterol Sulfate) 4 Gm Aer.w.adap 2 Inh IH QID Pepcid (Famotidine) 20 Mg Tablet 20 Mg PO HS Lovenox (Enoxaparin Sodium) 30 Mg/0.3 Ml Disp.syrin 30 Mg SQ DAILY Vitamin D3 (Vitamin D) 125 Mcg Capsule 125 Mcg PO DAILY 5,000 UNITS = 125 MCG Zyrtec (Cetirizine Hcl) 10 Mg Tablet 1 Tab PO DAILY Ascorbic Acid 500 Mg Tablet 2 Mg PO DAILY Acetaminophen 325 Mg Tablet 2 Tab PO PRN Q6HRS PRN 30 Days No Known Medications Prior To Admisstion (Info) Each 1 Each Vitals/I & O Vital Sign - Last 24 Hours 02/19/21 02/19/21 02/19/21 02/19/21 10:13 11:00 12:31 15:00 Temp 96.3 97.4 96.3 97.4 Pulse 91 84 Resp 20 20 B/P (MAP) 131/67 (88) 133/81 (98) Pulse Ox 96 94 94 95 O2 Delivery VAPOTHERM Nasal Cannula VAPOTHERM vapotherm O2 Flow Rate 40.0 6.0 40.0 40.0 02/19/21 02/19/21 02/19/21 02/19/21 16:00 18:06 19:00 20:00 Temp 98.1 98.1 Pulse 103 Resp 18 B/P (MAP) 132/79 (96) Pulse Ox 93 88 90 94 O2 Delivery VAPOTHERM VAPOTHERM vapotherm VAPOTHERM O2 Flow Rate 40.0 40.0 40.0 40.0 02/19/21 02/19/21 02/19/21 02/20/21 20:00 23:00 23:30 03:40 Temp 97.6 97.6 Pulse 93 Resp 18 B/P (MAP) 133/85 (101) Pulse Ox 96 92 95 O2 Delivery Vapotherm vapotherm VAPOTHERM VAPOTHERM O2 Flow Rate 40.0 40.0 40.0 40.0 02/20/21 02/20/21 02/20/21 02/20/21 04:00 05:09 07:00 09:21 Temp 97.7 97.3 97.7 97.3 Pulse 94 85 Resp 20 18 B/P (MAP) 141/87 (105) 131/81 (98) Pulse Ox 90 94 94 93 O2 Delivery vapotherm VAPOTHERM VAPOTHERM O2 Flow Rate 40.0 40.0 40.0 40.0 Intake and Output 02/19/21 02/19/21 02/20/21 15:00 23:00 07:00 Intake Total 720 ml 460 ml 100 ml Output Total 200 ml 600 ml Balance 520 ml 460 ml -500 ml Justicifation of Admission Dx: Justifications for Admission: Justification of Admission Dx: Yes Sepsis: Hypoxemia JACQUELINE MCGARRY MD Feb 20, 2021 09:58
[2021-02-20 11:00] VITALS: BP 135/81
--- NOTE | 2021-02-20 11:15 | NUR ---
SS following up with discharge planning. SS reviewed pt chart and discussed with pt RN. Pt is currently on Vapotherm at 75%. COVID19 positive. Pt on IV Solu Medrol. PT/OT recommended home. [employer] denied pt for LTACH placement. SS will continue to follow for discharge planning.
[2021-02-20 15:00] VITALS: BP 134/89
[2021-02-20] MEDS: ENOXAPARIN 40 MG/0.4 ML SYRINGE. SQ SCH (21:32)
[2021-02-20] MEDS: FAMOTIDINE 20 MG TABLET. PO SCH (21:32)
[2021-02-20 23:00] VITALS: BP 130/80
[2021-02-21] MEDS: STERILE WATER for RESP 1,000 ML BAG. INH PRN ×2 (00:43→13:00)
[2021-02-21 04:30] VITALS: BP 113/65
[2021-02-21 06:56] VITALS: BP 120/71
--- NOTE | 2021-02-21 08:05 | PDOC ---
PULMONARY PROGRESS NOTES DATE: 02/21/21 TIME: 08:04 Subjective Patient remains on Vapotherm 40 L, 75% afebrile anxious about getting better no overnight concerns Vitals Vital Signs Date Time Temp Pulse Resp B/P (MAP) Pulse Ox O2 Delivery O2 Flow Rate FiO2 02/21/21 06:56 98.0 84 18 120/71 (87) 92 vapotherm 40.0 98.0 Comments Pt. seen during visual exam preformed no distress RRR Vapotherm 80% no obvious rash or edema Labs Laboratory Tests Test 02/20/21 05:10 White Blood Count 13.0 x10^3/uL (4.0-11.0) Red Blood Count 4.56 x10^6/uL (4.30-5.70) Hemoglobin 14.6 g/dL (13.0-17.5) Hematocrit 42.6 % (39.0-53.0) Mean Corpuscular Volume 94 fL (79-100) Mean Corpuscular Hemoglobin 32 pg (25-35) Mean Corpuscular Hemoglobin Concent 34 g/dL (31-37) Red Cell Distribution Width 13.5 % (11.5-14.5) Platelet Count 110 x10^3/uL (140-400) Sodium Level 138 mmol/L (136-145) Potassium Level 3.9 mmol/L (3.5-5.1) Chloride Level 103 mmol/L (98-107) Carbon Dioxide Level 29 mmol/L (21-32) Anion Gap 6 (6-14) Blood Urea Nitrogen 23 mg/dL (8-26) Creatinine 0.7 mg/dL (0.7-1.3) Estimated GFR (Cockcroft-Gault) 116.7 Glucose Level 134 mg/dL (70-99) Calcium Level 8.5 mg/dL (8.5-10.1) Medications Active Scripts Medications Dose Route/Sig Max Daily Dose Days Date Category Dose Instructions Morphine Sulfate 2 Mg/1 Ml Cartridge 2 Mg IV PRN Q4HRS PRN 01/30/21 Reported Zinc Sulfate 50 Mg Tablet 220 Mg PO DAILY 01/30/21 Reported Methylprednisolone Sod Succ 125 Mg Vial 60 Mg IJ Q8HRS 01/30/21 Reported Combivent Respimat Inhal (Ipratropium/Albuterol Sulfate) 4 Gm Aer.w.adap 2 Inh IH QID 01/30/21 Reported Pepcid (Famotidine) 20 Mg Tablet 20 Mg PO HS 01/30/21 Reported Lovenox (Enoxaparin Sodium) 30 Mg/0.3 Ml Disp.syrin 30 Mg SQ DAILY 01/30/21 Reported Vitamin D3 (Vitamin D) 125 Mcg Capsule 125 Mcg PO DAILY 01/30/21 Reported 5,000 UNITS = 125 MCG Zyrtec (Cetirizine Hcl) 10 Mg Tablet 1 Tab PO DAILY 01/30/21 Reported Ascorbic Acid 500 Mg Tablet 2 Mg PO DAILY 01/30/21 Reported Acetaminophen 325 Mg Tablet 2 Tab PO PRN Q6HRS PRN 30 01/30/21 Reported No Known Medications Prior To Admisstion (Info) Each 1 Each 02/29/20 Reported Impression . IMPRESSION: 1. Acute hypoxemic respiratory failure secondary to COVID-19 viral pneumonia./Acute lung injury and early ARDS. Slowly improving 2. COVID-19 viral pneumonia. 3. Abnormal chest x-ray, compatible with viral pneumonia. 4. Nonspecific anxiety, possible clinical depression Plan . Updated 02/21/21 Continue supplemental oxygen to keep sats above 92% currently on Vapotherm, currently on 75% and 40 liters will slowly wean as tolerated, slowly improving reduce Fi02 to 75% today IS at bedside Continue steroids with taper, will reduce dose today and change to PO in am S/P remdesivir/Tocilizumab PT/OT DVT/GI PPX :lovenox D/W RN and RT Socailw ork for DC planning ELIZABETH ODELL MD Feb 21, 2021 08:05
[2021-02-21] MEDS: ASCORBIC ACID 1,000 MG TABLET PO SCH (08:52)
[2021-02-21] MEDS: ZINC SULFATE 220 MG CAPSULE. PO SCH (08:52)
[2021-02-21] MEDS: THIAMINE 100 MG TABLET. PO SCH (08:52)
[2021-02-21] MEDS: CETIRIZINE HCL 10 MG TABLET. PO SCH (08:54)
[2021-02-21] MEDS: CHOLECALCIFEROL (VITAMIN D3) 5,000 UNIT CAPSULE PO SCH (08:54)
[2021-02-21] MEDS: methylPREDNISolone SOD SUCC PF 125 MG/2 ML VIAL. IV SCH (08:55)
[2021-02-21] MEDS: IPRATROPIUM/ALBUTEROL 20/100mcg/INH INHALER. INH SCH ×4 (08:56→20:52)
--- NOTE | 2021-02-21 08:58 | PDOC ---
PROGRESS NOTES Date of Service: DATE: 02/21/21 TIME: 08:56 Chief Complaint Chief Complaint SEPSIS, was POA Severe malnutrition was POA, with obesity, BMI 32 Acute hypoxic respiratory failure COVID-19 pneumonia r transaminitis History of Present Illness History of Present Illness Mr Quinones is a 56-year-old male with no significant past medical history except for degenerative joint disease who was transferred from [facility] with complaints of fever, headache, dry cough, shortness of breath for the past 3 days, admitted on 01/29/2021. Patient stated that he was actually exposed from his son he was worsening and required to come to the ED at [facility] and he was found to be hypoxic and required 2 L of nasal cannula oxygen. Chest x-ray over there showed bilateral mild bibasilar infiltrates. Covid test was positive and patient was transferred to [facility] for pulmonary evaluation and treatment. Patient was started on Remdesivir and IV steroids. Currently patient is requiring 15 L high flow nasal cannula and IV steroids. 02/02: No acute events overnight. Patient was saturating 92% on 15 L nasal cannula and he had desatted down to 70% after he had to blow his nose. Patient was placed on BiPAP at 100% FiO2. Chest leg appears to be worsening. 02/03: Last dose of remdesivir. Could not tolerate vapotherm and is now on BIPAP. 02/04: poor Po intake, dry, dark urine 02/05: Desaturates to 72% when he takes off his BiPAP. Advised to get back on BIPAP after eating. he is able to place himself back on. Frustrated with the severity of his hypoxia. 02/06: Status post remdesivir. Still requiring BiPAP 75% FiO2 with significant desaturations when he is not wearing assessment with nonrebreather O2. 02/07: Still with significant desaturations when he raises BiPAP even on 15 L high flow nasal cannula. Discussed transitioning back to Vapotherm if we can treat his anxiety. He is amenable to this. He is frustrated with staying in the hospital understands he may be a longer term COVID recovery and is amenable to LTACH referral. I discussed with pulmonology. 02/08: Afebrile. 70% FiO2 on BiPAP 06/11. Feels better. Did not tolerated Vapotherm. Significant desaturations when he transitions to high flow nasal cannula O2 while eating. Discussed referral to LTACH with pulmonology and ID as it appears he will need a longer COVID recovery. 02/09: Patient on 70% FiO2. Via BiPAP 06/11 when seen by pulmonology. Feels better and is seen on vapotherm 40l/min 100% FiO2 with saturations 89%, tolerating well. 02/11/2021 patient seen at edge of bed. FiO2 at 89%. Dropped to low 80s while talking to us. Educated patient on conserving energy and working to keep FiO2 higher. D/W RN Chart Reviewed 02/12/2021 Patient was seen and examined in bed. FiO2 of 87% while on Vapotherm with 40L of 90% O2. D/W RN, Chart Review Patient has not had a bowel movement in two days. Patient feels he is doing better but his FiO2 still drops with activity or speaking Discussed need to rest and focus on breathing to maintain proper FiO2. 02/13/2021 Patient was resting in bed with NAD Seen and examined in bed. FiO2 of 92% while on Vapotherm with 40L of 90% O2. D/W RN Chart Review Discussed need to rest and focus on breathing to maintain proper FiO2 02/14/2021 Patient was awake, alert and NAD Seen and examine in bed. FiO2 92% while on Vapotherm with 40L of 90% O2 Discussed that we will continue to monitor for clinical improvement 02/15/2021 Patient resting upon entry into room. Upon exam in bed he was awake, alert and NAD FiO2 90% while on Vapotherm with 40L of 90% O2 Discussed continued monitoring and that he is making slow improvements. Patient was encouraged by improvements and eager to return to as high of function as possible. 02/16/2021 Patient awake, alert and on computer. FiO2 92% while on Vapotherm with 40L of 90% O2 Continuing to make slow improvements Discussed continuing treatment plan at this time 02/17/2021 Patient resting upon entry into room. Upon exam in bed he was awake, alert and NAD FiO2 90% while on Vapotherm with 40L of 85% O2 We will continue to monitor as he is making slow improvements Discharge plan will be created as he continues with current treatment 02/18/2021 Patient in prone position upon entry into room. States that he placed himself in this position after he had read that it would help online. Upon exam in bed he was awake, alert and NAD FiO2 90% while on Vapotherm with 40L of 85% O2 D/W RN, Chart review We will continue to monitor and discharge disposition in process via social work 02/19/2021 Patient in prone position upon entry into room. States that he placed himself in this position after he had read that it would help online. Upon exam in bed he was awake, alert and NAD FiO2 90% while on Vapotherm with 40L of 85% O2 D/W RN, Chart review We will continue to monitor and discharge disposition in process via social work Patient remains on Vapotherm 40 L, 80% afebrile 02/20/2021 Patient in prone position upon entry into room. States that he placed himself in this position after he had read that it would help online. Upon exam in bed he was awake, alert and NAD FiO2 90% while on Vapotherm with 40L of 85% O2 D/W RN, Chart review We will continue to monitor and discharge disposition in process via social work Patient remains on Vapotherm 40 L, 80% afebrile remdesivir/Tocilizumab PT/OT DVT/GI PPX :lovenox 02/21/2021 Upon exam in bed he was awake, alert and NAD on Vapotherm with 40L of 94% O2 D/W RN, Chart review We will continue to monitor and discharge disposition in process via social work SYMPTOMS SLOW TO RESOLVE afebrile remdesivir/Tocilizumab PT/OT DVT/GI PPX :lovenox CXR 02-21 Vitals Vitals Vital Signs Date Time Temp Pulse Resp B/P (MAP) Pulse Ox O2 Delivery O2 Flow Rate FiO2 02/21/21 08:16 94 VAPOTHERM 40.0 02/21/21 06:56 98.0 84 18 120/71 (87) 98.0 Physical Exam Physical Exam GEN axo3 male on BIPAP HEENT: Normocephalic, atraumatic. Anicteric. NECK: Supple, no JVD. LUNGS: Crackles bilaterally. HEART: S1, S2. ABDOMEN: Soft, nontender, nondistended. Bowel sounds present. EXTREMITIES: No edema, no cyanosis. DERMATOLOGIC: Warm, dry, no generalized rash. NEUROLOGIC: Alert, oriented, grossly nonfocal. PSYCHIATRIC: Calm and cooperative. PIV looks clean. General: Alert, Oriented X3, Cooperative, mild distress Heart: Regular rate (tele reg, reviewed) Lungs: Clear Abdomen: Normal bowel sounds, Soft Extremities: No clubbing Skin: No rashes Labs LABS PATIENT: KWABENA QUINONES PACCOUNT: [id number] : 1965 LOCATION: [facility] AGE: 56 SEX: M EXAM STATUS: ADM IN ORD. PHYSICIAN: JACQUELINE MCGARRY MD REASON: PNEUMONIA PROCEDURE: CHEST AP ONLY Single view of the chest. 02/21/2021 11:16 AM Indication: Reason: PNEUMONIA / Spl. Instructions: / History: Comparison: Chest radiograph February 14, 2021 Findings: No pneumothorax. No significant effusion. Severe bilateral interstitial and alveolar infiltrates, overall similar to comparison study. Low lung volumes noted. Allowing for this heart size is normal. No acute osseous changes noted in the interim. IMPRESSION: Severe bilateral infiltrates, overall similar to comparison study. Electronically signed by: Nino Berman MD (02/21/2021 12:14 PM) [id number] DICTATED and SIGNED BY: NINO BERMAN MD DATE: 02/21/21 [id number] 0 Exam: Chest one view INDICATION: Chest pain TECHNIQUE: Frontal view of the chest Comparisons: 02/10/2021 FINDINGS: The cardiomediastinal silhouette and pulmonary vessels are within normal limits. Patchy bilateral airspace disease. No pleural effusion. IMPRESSION: Patchy bilateral airspace disease, similar to mildly increased when compared to prior study. Electronically signed by: Aquilino Carlson MD (02/14/2021 10:21 PM) [id number] DICTATED and SIGNED BY: AQUILINO CARLSON MD DATE: 02/14/[id number] 0 Comment Review of Relevant I have reviewed the following items rosalinda (where applicable) has been applied. Labs Laboratory Tests Test 02/20/21 05:10 White Blood Count 13.0 x10^3/uL (4.0-11.0) Red Blood Count 4.56 x10^6/uL (4.30-5.70) Hemoglobin 14.6 g/dL (13.0-17.5) Hematocrit 42.6 % (39.0-53.0) Mean Corpuscular Volume 94 fL (79-100) Mean Corpuscular Hemoglobin 32 pg (25-35) Mean Corpuscular Hemoglobin Concent 34 g/dL (31-37) Red Cell Distribution Width 13.5 % (11.5-14.5) Platelet Count 110 x10^3/uL (140-400) Sodium Level 138 mmol/L (136-145) Potassium Level 3.9 mmol/L (3.5-5.1) Chloride Level 103 mmol/L (98-107) Carbon Dioxide Level 29 mmol/L (21-32) Anion Gap 6 (6-14) Blood Urea Nitrogen 23 mg/dL (8-26) Creatinine 0.7 mg/dL (0.7-1.3) Estimated GFR (Cockcroft-Gault) 116.7 Glucose Level 134 mg/dL (70-99) Calcium Level 8.5 mg/dL (8.5-10.1) Medications Current Medications Acetaminophen (Tylenol) 650 mg PRN Q6HRS PRN PO MILD PAIN / TEMP > 100.3'F Last administered on 01/30/21at 20:09; Start 01/30/21 at 19:00; Stop 01/30/21 at 20:15; Status DC Enoxaparin Sodium (Lovenox Per Pharmacy Prophylaxis Dosing) 1 each PRN DAILY PRN MC SEE COMMENTS; Start 01/30/21 at 19:45 Enoxaparin Sodium (Lovenox 40mg Syringe) 40 mg Q24H SQ Last administered on 02/20/21at 21:32; Start 01/30/21 at 20:00 Remdesivir 200 mg/ Sodium Chloride 210 ml @ 210 mls/hr 1X ONCE IV Last administered on 01/30/21at 20:08; Start 01/30/21 at 20:00; Stop 01/30/21 at 20:59; Status DC Remdesivir 100 mg/ Sodium Chloride 230 ml @ 460 mls/hr Q24H IV Last administered on 02/03/21at 21:20; Start 01/31/21 at 20:00; Stop 02/03/21 at 20:29; Status DC Acetaminophen (Tylenol) 650 mg PRN Q6HRS PRN PO MILD PAIN OR FEVER Last administered on 02/18/21at 21:38; Start 01/30/21 at 19:45 Ascorbic Acid (Vitamin C) 1,000 mg DAILY PO Last administered on 02/21/21at 08:52; Start 01/31/21 at 09:00 Cetirizine HCl (ZyrTEC) 10 mg DAILY PO Last administered on 02/21/21 08:54; Start 01/31/21 at 09:00 Vitamin D (Vitamin D3) 5,000 unit DAILY PO Last administered on 02/21/21 08:54; Start 01/31/21 at 09:00 Enoxaparin Sodium (Lovenox 30mg Syringe) 30 mg Q24H SQ ; Start 01/30/21 at 21:00; Status Cancel Famotidine (Pepcid) 20 mg HS PO Last administered on 02/20/21at 21:32; Start 01/30/21 at 21:00 Non-Formulary Medication (Ipratropium/ Albuterol Sulfate (Combivent Respimat Inhal)) 2 inh QID IH ; Start 01/30/21 at 21:00; Status UNV Methylprednisolone Sodium Succinate (SOLU-Medrol 125MG VIAL) 60 mg Q8HRS IV Last administered on 02/09/21at 05:41; Start 01/30/21 at 22:00; Stop 02/09/21 at 10:13; Status DC Morphine Sulfate (Morphine Sulfate) 2 mg PRN Q2HR PRN IVP MODERATE TO SEVERE PAIN Last administered on 02/14/21at 22:56; Start 01/30/21 at 20:30 Zinc Sulfate (Orazinc) 220 mg DAILY PO Last administered on 02/21/21at 08:52; Start 01/31/21 at 09:00 Albuterol/ Ipratropium (Duoneb) 3 ml RTQID NEB ; Start 01/30/21 at 21:00; Status Cancel Albuterol/ Ipratropium (Combivent Respimat 20-100 Mcg) 2 puff RTQID INH Last administered on 02/20/21at 21:32; Start 01/30/21 at 21:00 Alprazolam (Xanax) 0.25 mg PRN Q8HRS PRN PO ANXIETY / AGITATION Last administered on 02/01/21at 08:59; Start 01/31/21 at 15:15; Stop 02/02/21 at 14:14; Status DC Lorazepam (Ativan Inj) 1 mg PRN Q8HRS PRN IVP ANXIETY / AGITATION Last administered on 02/01/21at 14:05; Start 02/01/21 at 11:15; Stop 02/02/21 at 14:14; Status DC Thiamine Mononitrate (Vitamin B-1) 100 mg DAILY PO Last administered on 02/21/21at 08:52; Start 02/02/21 at 09:00 Sterile Water (WATER for RESP) 1,000 ml CONT PRN INH VIA VAPOTHERM DEVICE Last administered on 02/21/21at 00:43; Start 02/01/21 at 19:15 Haloperidol Lactate (Haldol Inj) 5 mg PRN Q6HRS PRN IVP AGITATION; Start 02/02/21 at 14:15 Insulin Human Lispro (HumaLOG) 0-7 UNITS TIDWMEALS SQ ; Start 02/03/21 at 12:00; Stop 02/04/21 at 09:08; Status DC Dextrose (Dextrose 50%-Water Syringe) 12.5 gm PRN Q15MIN PRN IV SEE COMMENTS; Start 02/03/21 at 10:15 Potassium Chloride/Dextrose/ Sod Cl 1,000 ml @ 100 mls/hr Q10H IV Last administered on 02/04/21at 16:54; Start 02/03/21 at 10:15; Stop 02/04/21 at 22:33; Status DC Insulin Glargine (Lantus Syringe) 8 unit DAILY SQ ; Start 02/04/21 at 09:00; Stop 02/04/21 at 08:50; Status DC Tocilizumab 800 mg/Sodium Chloride 100 ml @ 100 mls/hr 1X ONCE IV ; Start 02/05/21 at 09:00; Stop 02/05/21 at 09:59; Status Cancel Methylprednisolone Sodium Succinate (SOLU-Medrol 40MG VIAL) 60 mg [id number] IV Last administered on 02/14/21at 05:45; Start 02/09/21 at 18:00; Stop 02/14/21 at 09:54; Status DC Guaifenesin (Mucinex) 1,200 mg BID PO Last administered on 02/21/21at 08:53; Start 02/11/21 at 21:00 Polyethylene Glycol (miraLAX PACKET) 17 gm PRN BID PRN PO CONSTIPATION; Start 02/12/21 at 10:30 Methylprednisolone Sodium Succinate (SOLU-Medrol 125MG VIAL) 60 mg DAILY IV Last administered on 02/19/21at 08:53; Start 02/15/21 at 09:00; Stop 02/20/21 at 08:34; Status DC Methylprednisolone Sodium Succinate (SOLU-Medrol 125MG VIAL) 40 mg DAILY IV Last administered on 02/21/21at 08:55; Start 02/20/21 at 09:00 Active Scripts Active Reported Morphine Sulfate 2 Mg/1 Ml Cartridge 2 Mg IV PRN Q4HRS PRN Zinc Sulfate 50 Mg Tablet 220 Mg PO DAILY Methylprednisolone Sod Succ 125 Mg Vial 60 Mg IJ Q8HRS Combivent Respimat Inhal (Ipratropium/Albuterol Sulfate) 4 Gm Aer.w.adap 2 Inh IH QID Pepcid (Famotidine) 20 Mg Tablet 20 Mg PO HS Lovenox (Enoxaparin Sodium) 30 Mg/0.3 Ml Disp.syrin 30 Mg SQ DAILY Vitamin D3 (Vitamin D) 125 Mcg Capsule 125 Mcg PO DAILY 5,000 UNITS = 125 MCG Zyrtec (Cetirizine Hcl) 10 Mg Tablet 1 Tab PO DAILY Ascorbic Acid 500 Mg Tablet 2 Mg PO DAILY Acetaminophen 325 Mg Tablet 2 Tab PO PRN Q6HRS PRN 30 Days No Known Medications Prior To Admisstion (Info) Each 1 Each Vitals/I & O Vital Sign - Last 24 Hours 02/20/21 02/20/21 02/20/21 02/20/21 09:21 11:00 12:30 15:00 Temp 97.1 96.8 97.1 96.8 Pulse 90 83 Resp 22 20 B/P (MAP) 135/81 (99) 134/89 (104) Pulse Ox 93 95 95 97 O2 Delivery VAPOTHERM vapotherm 45/ 75 VAPOTHERM VAPOTHERM 40/75 O2 Flow Rate 40.0 40.0 02/20/21 02/20/21 02/20/21 02/20/21 17:15 20:00 20:33 23:00 Temp 97.7 97.7 Pulse 84 Resp 20 B/P (MAP) 130/80 (97) Pulse Ox 95 96 96 O2 Delivery VAPOTHERM Vapotherm VAPOTHERM VAPOTHERM 40/75 O2 Flow Rate 40.0 40.0 40.0 02/20/21 02/21/21 02/21/21 02/21/21 23:28 02:25 04:30 05:16 Temp 97.5 97.5 Pulse 80 Resp 18 B/P (MAP) 113/65 (81) Pulse Ox 97 97 95 96 O2 Delivery VAPOTHERM VAPOTHERM vapotherm VAPOTHERM O2 Flow Rate 40.0 40.0 40.0 40.0 02/21/21 02/21/21 06:56 08:16 Temp 98.0 98.0 Pulse 84 Resp 18 B/P (MAP) 120/71 (87) Pulse Ox 92 94 O2 Delivery vapotherm VAPOTHERM O2 Flow Rate 40.0 40.0 Intake and Output 02/20/21 02/20/21 02/21/21 15:00 23:00 07:00 Intake Total 980 ml 210 ml Output Total 400 ml 1800 ml 1000 ml Balance 580 ml -1590 ml -1000 ml Justicifation of Admission Dx: Justifications for Admission: Justification of Admission Dx: Yes Sepsis: Hypoxemia JACQUELINE CMGARRY MD Feb 21, 2021 08:58
[2021-02-21 11:00] VITALS: BP 119/68
--- NOTE | 2021-02-21 12:17 | RAD ---
Single view of the chest. 02/21/2021 11:16 AM Indication: Reason: PNEUMONIA / Spl. Instructions: / History: Comparison: Chest radiograph February 14, 2021 Findings: No pneumothorax. No significant effusion. Severe bilateral interstitial and alveolar infilt rates, overall similar to comparison study. Low lung volumes noted. Allowing for this heart size is n ormal. No acute osseous changes noted in the interim. IMPRESSION: Severe bilateral infiltrates, overall similar to comparison study. Electronically signed by: Nino Cabrera MD (02/21/2021 12:14 PM) [id number]
[2021-02-21 14:57] VITALS: BP 145/83
[2021-02-21 19:00] VITALS: BP 127/71
[2021-02-21] MEDS: ENOXAPARIN 40 MG/0.4 ML SYRINGE. SQ SCH (20:52)
[2021-02-21] MEDS: FAMOTIDINE 20 MG TABLET. PO SCH (20:52)
[2021-02-21 23:00] VITALS: BP_SYST 120; BP_SYST 131; BP_DIAS 61; BP_DIAS 74
[2021-02-22] MEDS: STERILE WATER for RESP 1,000 ML BAG. INH PRN ×2 (00:14→13:04)
[2021-02-22 08:15] VITALS: BP 111/64
--- NOTE | 2021-02-22 09:34 | PDOC ---
PROGRESS NOTES Date of Service: DATE: 02/22/21 TIME: 09:33 Chief Complaint Chief Complaint SEPSIS, was POA Severe malnutrition was POA, with obesity, BMI 32 Acute hypoxic respiratory failure COVID-19 pneumonia r transaminitis History of Present Illness History of Present Illness Mr Preciado is a 56-year-old male with no significant past medical history except for degenerative joint disease who was transferred from [facility] with complaints of fever, headache, dry cough, shortness of breath for the past 3 days, admitted on 01/29/2021. Patient stated that he was actually exposed from his son he was worsening and required to come to the ED at [facility] and he was found to be hypoxic and required 2 L of nasal cannula oxygen. Chest x-ray over there showed bilateral mild bibasilar infiltrates. Covid test was positive and patient was transferred to [facility] for pulmonary evaluation and treatment. Patient was started on Remdesivir and IV steroids. Currently patient is requiring 15 L high flow nasal cannula and IV steroids. 02/02: No acute events overnight. Patient was saturating 92% on 15 L nasal cannula and he had desatted down to 70% after he had to blow his nose. Patient was placed on BiPAP at 100% FiO2. Chest leg appears to be worsening. 02/03: Last dose of remdesivir. Could not tolerate vapotherm and is now on BIPAP. 02/04: poor Po intake, dry, dark urine 02/05: Desaturates to 72% when he takes off his BiPAP. Advised to get back on BIPAP after eating. he is able to place himself back on. Frustrated with the severity of his hypoxia. 02/06: Status post remdesivir. Still requiring BiPAP 75% FiO2 with significant desaturations when he is not wearing assessment with nonrebreather O2. 02/07: Still with significant desaturations when he raises BiPAP even on 15 L high flow nasal cannula. Discussed transitioning back to Vapotherm if we can treat his anxiety. He is amenable to this. He is frustrated with staying in the hospital understands he may be a longer term COVID recovery and is amenable to LTACH referral. I discussed with pulmonology. 02/08: Afebrile. 70% FiO2 on BiPAP 06/11. Feels better. Did not tolerated Vapotherm. Significant desaturations when he transitions to high flow nasal cannula O2 while eating. Discussed referral to LTACH with pulmonology and ID as it appears he will need a longer COVID recovery. 02/09: Patient on 70% FiO2. Via BiPAP 06/11 when seen by pulmonology. Feels better and is seen on vapotherm 40l/min 100% FiO2 with saturations 89%, tolerating well. 02/11/2021 patient seen at edge of bed. FiO2 at 89%. Dropped to low 80s while talking to us. Educated patient on conserving energy and working to keep FiO2 higher. D/W RN Chart Reviewed 02/12/2021 Patient was seen and examined in bed. FiO2 of 87% while on Vapotherm with 40L of 90% O2. D/W RN, Chart Review Patient has not had a bowel movement in two days. Patient feels he is doing better but his FiO2 still drops with activity or speaking Discussed need to rest and focus on breathing to maintain proper FiO2. 02/13/2021 Patient was resting in bed with NAD Seen and examined in bed. FiO2 of 92% while on Vapotherm with 40L of 90% O2. D/W RN Chart Review Discussed need to rest and focus on breathing to maintain proper FiO2 02/14/2021 Patient was awake, alert and NAD Seen and examine in bed. FiO2 92% while on Vapotherm with 40L of 90% O2 Discussed that we will continue to monitor for clinical improvement 02/15/2021 Patient resting upon entry into room. Upon exam in bed he was awake, alert and NAD FiO2 90% while on Vapotherm with 40L of 90% O2 Discussed continued monitoring and that he is making slow improvements. Patient was encouraged by improvements and eager to return to as high of function as possible. 02/16/2021 Patient awake, alert and on computer. FiO2 92% while on Vapotherm with 40L of 90% O2 Continuing to make slow improvements Discussed continuing treatment plan at this time 02/17/2021 Patient resting upon entry into room. Upon exam in bed he was awake, alert and NAD FiO2 90% while on Vapotherm with 40L of 85% O2 We will continue to monitor as he is making slow improvements Discharge plan will be created as he continues with current treatment 02/18/2021 Patient in prone position upon entry into room. States that he placed himself in this position after he had read that it would help online. Upon exam in bed he was awake, alert and NAD FiO2 90% while on Vapotherm with 40L of 85% O2 D/W RN, Chart review We will continue to monitor and discharge disposition in process via social work 02/19/2021 Patient in prone position upon entry into room. States that he placed himself in this position after he had read that it would help online. Upon exam in bed he was awake, alert and NAD FiO2 90% while on Vapotherm with 40L of 85% O2 D/W RN, Chart review We will continue to monitor and discharge disposition in process via social work Patient remains on Vapotherm 40 L, 80% afebrile 02/20/2021 Patient in prone position upon entry into room. States that he placed himself in this position after he had read that it would help online. Upon exam in bed he was awake, alert and NAD FiO2 90% while on Vapotherm with 40L of 85% O2 D/W RN, Chart review We will continue to monitor and discharge disposition in process via social work Patient remains on Vapotherm 40 L, 80% afebrile remdesivir/Tocilizumab PT/OT DVT/GI PPX :lovenox 02/21/2021 Upon exam in bed he was awake, alert and NAD on Vapotherm with 40L of 94% O2 D/W RN, Chart review We will continue to monitor and discharge disposition in process via social work SYMPTOMS SLOW TO RESOLVE afebrile remdesivir/Tocilizumab PT/OT DVT/GI PPX :lovenox CXR 02-2102/22/2021 Upon exam in bed he was awake, alert and NAD 70% on Vapotherm with 40L of 94% O2 D/W RN, Chart review We will continue to monitor and discharge disposition in process via social work SYMPTOMS SLOW TO RESOLVE afebrile remdesivir/Tocilizumab PT/OT DVT/GI PPX :lovenox CXR 02-21 Vitals Vitals Vital Signs Date Time Temp Pulse Resp B/P (MAP) Pulse Ox O2 Delivery O2 Flow Rate FiO2 02/22/21 08:15 93 VAPOTHERM 40.0 02/21/21 23:00 98.1 81 18 120/74 (89) 98.1 Physical Exam Physical Exam GEN axo3 male on BIPAP HEENT: Normocephalic, atraumatic. Anicteric. NECK: Supple, no JVD. LUNGS: Crackles bilaterally. HEART: S1, S2. ABDOMEN: Soft, nontender, nondistended. Bowel sounds present. EXTREMITIES: No edema, no cyanosis. DERMATOLOGIC: Warm, dry, no generalized rash. NEUROLOGIC: Alert, oriented, grossly nonfocal. PSYCHIATRIC: Calm and cooperative. PIV looks clean. General: Alert, Oriented X3, Cooperative, mild distress Heart: Regular rate (tele reg, reviewed) Lungs: Clear Abdomen: Normal bowel sounds, Soft Extremities: No clubbing Skin: No rashes Comment Review of Relevant I have reviewed the following items rosalinda (where applicable) has been applied. Medications Current Medications Acetaminophen (Tylenol) 650 mg PRN Q6HRS PRN PO MILD PAIN / TEMP > 100.3'F Last administered on 01/30/21at 20:09; Start 01/30/21 at 19:00; Stop 01/30/21 at 20:15; Status DC Enoxaparin Sodium (Lovenox Per Pharmacy Prophylaxis Dosing) 1 each PRN DAILY PRN MC SEE COMMENTS; Start 01/30/21 at 19:45 Enoxaparin Sodium (Lovenox 40mg Syringe) 40 mg Q24H SQ Last administered on 02/21/21at 20:52; Start 01/30/21 at 20:00 Remdesivir 200 mg/ Sodium Chloride 210 ml @ 210 mls/hr 1X ONCE IV Last administered on 01/30/21at 20:08; Start 01/30/21 at 20:00; Stop 01/30/21 at 20:59; Status DC Remdesivir 100 mg/ Sodium Chloride 230 ml @ 460 mls/hr Q24H IV Last administered on 02/03/21at 21:20; Start 01/31/21 at 20:00; Stop 02/03/21 at 20:29; Status DC Acetaminophen (Tylenol) 650 mg PRN Q6HRS PRN PO MILD PAIN OR FEVER Last administered on 02/18/21at 21:38; Start 01/30/21 at 19:45 Ascorbic Acid (Vitamin C) 1,000 mg DAILY PO Last administered on 02/21/21at 08:52; Start 01/31/21 at 09:00 Cetirizine HCl (ZyrTEC) 10 mg DAILY PO Last administered on 02/21/21at 08:54; Start 01/31/21 at 09:00 Vitamin D (Vitamin D3) 5,000 unit DAILY PO Last administered on 02/21/21at 08:54; Start 01/31/21 at 09:00 Enoxaparin Sodium (Lovenox 30mg Syringe) 30 mg Q24H SQ ; Start 01/30/21 at 21:00; Status Cancel Famotidine (Pepcid) 20 mg HS PO Last administered on 02/21/21at 20:52; Start 01/30/21 at 21:00 Non-Formulary Medication (Ipratropium/ Albuterol Sulfate (Combivent Respimat Inhal)) 2 inh QID IH ; Start 01/30/21 at 21:00; Status UNV Methylprednisolone Sodium Succinate (SOLU-Medrol 125MG VIAL) 60 mg Q8HRS IV Last administered on 02/09/21at 05:41; Start 01/30/21 at 22:00; Stop 02/09/21 at 10:13; Status DC Morphine Sulfate (Morphine Sulfate) 2 mg PRN Q2HR PRN IVP MODERATE TO SEVERE PAIN Last administered on 02/14/21at 22:56; Start 01/30/21 at 20:30 Zinc Sulfate (Orazinc) 220 mg DAILY PO Last administered on 02/21/21at 08:52; Start 01/31/21 at 09:00 Albuterol/ Ipratropium (Duoneb) 3 ml RTQID NEB ; Start 01/30/21 at 21:00; Sta tus Cancel Albuterol/ Ipratropium (Combivent Respimat 20-100 Mcg) 2 puff RTQID INH Last administered on 02/21/21at 20:52; Start 01/30/21 at 21:00 Alprazolam (Xanax) 0.25 mg PRN Q8HRS PRN PO ANXIETY / AGITATION Last administered on 02/01/21at 08:59; Start 01/31/21 at 15:15; Stop 02/02/21 at 14:14; Status DC Lorazepam (Ativan Inj) 1 mg PRN Q8HRS PRN IVP ANXIETY / AGITATION Last adm inistered on 02/01/21at 14:05; Start 02/01/21 at 11:15; Stop 02/02/21 at 14:14; Status DC Thiamine Mononitrate (Vitamin B-1) 100 mg DAILY PO Last administered on 02/21/21at 08:52; Start 02/02/21 at 09:00 Sterile Water (WATER for RESP) 1,000 ml CONT PRN INH VIA VAPOTHERM DEVICE Last administered on 02/22/21at 00:14; Start 02/01/21 at 19:15 Haloperidol Lactate (Haldol Inj) 5 mg PRN Q6HRS PRN IVP AGITATION; Start 02/02/21 at 14:15 Insulin Human Lispro (HumaLOG) 0-7 UNITS TIDWMEALS SQ ; Start 02/03/21 at 12:00; Stop 02/04/21 at 09:08; Status DC Dextrose (Dextrose 50%-Water Syringe) 12.5 gm PRN Q15MIN PRN IV SEE COMMENTS; Start 02/03/21 at 10:15 Potassium Chloride/Dextrose/ Sod Cl 1,000 ml @ 100 mls/hr Q10H IV Last administered on 02/04/21at 16:54; Start 02/03/21 at 10:15; Stop 02/04/21 at 22:33; Status DC Insulin Glargine (Lantus Syringe) 8 unit DAILY SQ ; Start 02/04/21 at 09:00; Stop 02/04/21 at 08:50; Status DC Tocilizumab 800 mg/Sodium Chloride 100 ml @ 100 mls/hr 1X ONCE IV ; Start 02/05/21 at 09:00; Stop 02/05/21 at 09:59; Status Cancel Methylprednisolone Sodium Succinate (SOLU-Medrol 40MG VIAL) 60 mg [id number] IV Last administered on 02/14/21at 05:45; Start 02/09/21 at 18:00; Stop 02/14/21 at 09:54; Status DC Guaifenesin (Mucinex) 1,200 mg BID PO Last administered on 02/21/21at 20:52; Start 02/11/21 at 21:00 Polyethylene Glycol (miraLAX PACKET) 17 gm PRN BID PRN PO CONSTIPATION; Start 02/12/21 at 10:30 Methylprednisolone Sodium Succinate (SOLU-Medrol 125MG VIAL) 60 mg DAILY IV Last administered on 02/19/21at 08:53; Start 02/15/21 at 09:00; Stop 02/20/21 at 08:34; Status DC Methylprednisolone Sodium Succinate (SOLU-Medrol 125MG VIAL) 40 mg DAILY IV Last administered on 02/21/21at 08:55; Start 02/20/21 at 09:00; Stop 02/21/21 at 20:48; Status DC Prednisone (Prednisone) 30 mg DAILY PO ; Start 02/22/21 at 09:00 Active Scripts Active Reported Morphine Sulfate 2 Mg/1 Ml Cartridge 2 Mg IV PRN Q4HRS PRN Zinc Sulfate 50 Mg Tablet 220 Mg PO DAILY Methylprednisolone Sod Succ 125 Mg Vial 60 Mg IJ Q8HRS Combivent Respimat Inhal (Ipratropium/Albuterol Sulfate) 4 Gm Aer.w.adap 2 Inh IH QID Pepcid (Famotidine) 20 Mg Tablet 20 Mg PO HS Lovenox (Enoxaparin Sodium) 30 Mg/0.3 Ml Disp.syrin 30 Mg SQ DAILY Vitamin D3 (Vitamin D) 125 Mcg Capsule 125 Mcg PO DAILY 5,000 UNITS = 125 MCG Zyrtec (Cetirizine Hcl) 10 Mg Tablet 1 Tab PO DAILY Ascorbic Acid 500 Mg Tablet 2 Mg PO DAILY Acetaminophen 325 Mg Tablet 2 Tab PO PRN Q6HRS PRN 30 Days No Known Medications Prior To Admisstion (Info) Each 1 Each Vitals/I & O Vital Sign - Last 24 Hours 02/21/21 02/21/21 02/21/21 02/21/21 11:00 12:41 14:57 16:26 Temp 98.5 96.8 98.5 96.8 Pulse 92 128 Resp 20 20 B/P (MAP) 119/68 (85) 145/83 (103) Pulse Ox 96 99 81 95 O2 Delivery vapotherm VAPOTHERM vapotherm VAPOTHERM O2 Flow Rate 40.0 40.0 40.0 40.0 02/21/21 02/21/21 02/21/21 02/21/21 19:00 20:00 21:05 23:00 Temp 98.6 98.1 98.6 98.1 Pulse 100 81 Resp 18 18 B/P (MAP) 127/71 (89) 120/74 (89) Pulse Ox 92 95 93 O2 Delivery vapotherm Vapotherm VAPOTHERM vapotherm O2 Flow Rate 40.0 40.0 40.0 40.0 02/22/21 02/22/21 02/22/21 02/22/21 00:33 03:35 05:00 08:15 Pulse Ox 94 94 94 93 O2 Delivery VAPOTHERM VAPOTHERM VAPOTHERM VAPOTHERM O2 Flow Rate 40.0 40.0 40.0 40.0 Intake and Output 02/21/21 02/21/21 02/22/21 15:00 23:00 07:00 Intake Total 545 ml 405 ml 300 ml Output Total 350 ml 900 ml 800 ml Balance 195 ml -495 ml -500 ml Justicifation of Admission Dx: Justifications for Admission: Justification of Admission Dx: Yes Sepsis: Hypoxemia JACQUELINE MCGARRY MD Feb 22, 2021 09:34
[2021-02-22] MEDS: ASCORBIC ACID 1,000 MG TABLET PO SCH (09:45)
[2021-02-22] MEDS: CHOLECALCIFEROL (VITAMIN D3) 5,000 UNIT CAPSULE PO SCH (09:45)
[2021-02-22] MEDS: ZINC SULFATE 220 MG CAPSULE. PO SCH (09:45)
[2021-02-22] MEDS: predniSONE 10 MG TABLET PO SCH (09:45)
[2021-02-22] MEDS: THIAMINE 100 MG TABLET. PO SCH (09:45)
[2021-02-22] MEDS: CETIRIZINE HCL 10 MG TABLET. PO SCH (09:45)
[2021-02-22] MEDS: IPRATROPIUM/ALBUTEROL 20/100mcg/INH INHALER. INH SCH ×4 (09:46→21:06)
--- NOTE | 2021-02-22 10:06 | PDOC ---
PULMONARY PROGRESS NOTES DATE: 02/22/21 TIME: 10:04 Subjective Patient remains on Vapotherm 40 L, 70% afebrile anxious about getting better no overnight concerns Vitals Vital Signs Date Time Temp Pulse Resp B/P (MAP) Pulse Ox O2 Delivery O2 Flow Rate FiO2 02/22/21 08:15 97.5 75 16 111/64 (80) 90 97.5 02/22/21 08:15 VAPOTHERM 40.0 Comments Pt. seen during covid - pandemic visual exam preformed no distress RRR Vapotherm 80% no obvious rash or edema General: Alert, No acute distress Medications Active Scripts Medications Dose Route/Sig Max Daily Dose Days Date Category Dose Instructions Morphine Sulfate 2 Mg/1 Ml Cartridge 2 Mg IV PRN Q4HRS PRN 01/30/21 Reported Zinc Sulfate 50 Mg Tablet 220 Mg PO DAILY 01/30/21 Reported Methylprednisolone Sod Succ 125 Mg Vial 60 Mg IJ Q8HRS 01/30/21 Reported Combivent Respimat Inhal (Ipratropium/Albuterol Sulfate) 4 Gm Aer.w.adap 2 Inh IH QID 01/30/21 Reported Pepcid (Famotidine) 20 Mg Tablet 20 Mg PO HS 01/30/21 Reported Lovenox (Enoxaparin Sodium) 30 Mg/0.3 Ml Disp.syrin 30 Mg SQ DAILY 01/30/21 Reported Vitamin D3 (Vitamin D) 125 Mcg Capsule 125 Mcg PO DAILY 01/30/21 Reported 5,000 UNITS = 125 MCG Zyrtec (Cetirizine Hcl) 10 Mg Tablet 1 Tab PO DAILY 01/30/21 Reported Ascorbic Acid 500 Mg Tablet 2 Mg PO DAILY 01/30/21 Reported Acetaminophen 325 Mg Tablet 2 Tab PO PRN Q6HRS PRN 30 01/30/21 Reported No Known Medications Prior To Admisstion (Info) Each 1 Each 02/29/20 Reported Impression . IMPRESSION: 1. Acute hypoxemic respiratory failure secondary to COVID-19 viral pneumonia./Acute lung injury and early ARDS. Slowly improving 2. COVID-19 viral pneumonia. 3. Abnormal chest x-ray, compatible with viral pneumonia. 4. Nonspecific anxiety, possible clinical depression Plan . Updated 02/22/21 Continue supplemental oxygen to keep sats above 92% currently on Vapotherm, currently on 70% and 40 liters will slowly wean as tolerated, slowly improving Once down to 60% FiO2 via Vapotherm, will try nasal cannula IS at bedside Continue steroids with taper, on p.o. prednisone now S/P remdesivir/Tocilizumab PT/OT DVT/GI PPX :lovenox D/W RN and RT ELIZABETH ODELL MD Feb 22, 2021 10:06
[2021-02-22 10:45] LABS: C-REACTIVE PROTEIN 2.1 mg/L (0-3.3); CALCIUM 8.8 mg/dL (8.5-10.1); CREATININE 0.9 mg/dL (0.7-1.3); GFR 87.3; POTASSIUM 3.8 mmol/L (3.5-5.1)
[2021-02-22 11:30] VITALS: BP 88/47
--- NOTE | 2021-02-22 13:26 | NUR ---
SS following up with discharge planning. SS reviewed pt chart and discussed with pt RN. Pt is currently on Vapotherm at 70%. COVID19 positive. PT/OT recommended home. [employer] denied pt for LTACH placement. SS will continue to follow for discharge planning.
[2021-02-22 19:00] VITALS: BP 124/77
[2021-02-22] MEDS: FAMOTIDINE 20 MG TABLET. PO SCH (21:07)
[2021-02-22] MEDS: ENOXAPARIN 40 MG/0.4 ML SYRINGE. SQ SCH (21:07)
[2021-02-23 07:00] VITALS: BP 117/70
--- NOTE | 2021-02-23 09:11 | PDOC ---
PROGRESS NOTES Date of Service: DATE: 02/23/21 TIME: 09:11 Chief Complaint Chief Complaint SEPSIS, was POA Severe malnutrition was POA, with obesity, BMI 32 Acute hypoxic respiratory failure COVID-19 pneumonia r transaminitis History of Present Illness History of Present Illness Mr Preciado is a 56-year-old male with no significant past medical history except for degenerative joint disease who was transferred from [facility] with complaints of fever, headache, dry cough, shortness of breath for the past 3 days, admitted on 01/29/2021. Patient stated that he was actually exposed from his son he was worsening and required to come to the ED at [facility] and he was found to be hypoxic and required 2 L of nasal cannula oxygen. Chest x-ray over there showed bilateral mild bibasilar infiltrates. Covid test was positive and patient was transferred to [facility] for pulmonary evaluation and treatment. Patient was started on Remdesivir and IV steroids. Currently patient is requiring 15 L high flow nasal cannula and IV steroids. 02/02: No acute events overnight. Patient was saturating 92% on 15 L nasal cannula and he had desatted down to 70% after he had to blow his nose. Patient was placed on BiPAP at 100% FiO2. Chest leg appears to be worsening. 02/03: Last dose of remdesivir. Could not tolerate vapotherm and is now on BIPAP. 02/04: poor Po intake, dry, dark urine 02/05: Desaturates to 72% when he takes off his BiPAP. Advised to get back on BIPAP after eating. he is able to place himself back on. Frustrated with the severity of his hypoxia. 02/06: Status post remdesivir. Still requiring BiPAP 75% FiO2 with significant desaturations when he is not wearing assessment with nonrebreather O2. 02/07: Still with significant desaturations when he raises BiPAP even on 15 L high flow nasal cannula. Discussed transitioning back to Vapotherm if we can treat his anxiety. He is amenable to this. He is frustrated with staying in the hospital understands he may be a longer term COVID recovery and is amenable to LTACH referral. I discussed with pulmonology. 02/08: Afebrile. 70% FiO2 on BiPAP 06/11. Feels better. Did not tolerated Vapotherm. Significant desaturations when he transitions to high flow nasal cannula O2 while eating. Discussed referral to LTACH with pulmonology and ID as it appears he will need a longer COVID recovery. 02/09: Patient on 70% FiO2. Via BiPAP 06/11 when seen by pulmonology. Feels better and is seen on vapotherm 40l/min 100% FiO2 with saturations 89%, tolerating well. 02/11/2021 patient seen at edge of bed. FiO2 at 89%. Dropped to low 80s while talking to us. Educated patient on conserving energy and working to keep FiO2 higher. D/W RN Chart Reviewed 02/12/2021 Patient was seen and examined in bed. FiO2 of 87% while on Vapotherm with 40L of 90% O2. D/W RN, Chart Review Patient has not had a bowel movement in two days. Patient feels he is doing better but his FiO2 still drops with activity or speaking Discussed need to rest and focus on breathing to maintain proper FiO2. 02/13/2021 Patient was resting in bed with NAD Seen and examined in bed. FiO2 of 92% while on Vapotherm with 40L of 90% O2. D/W RN Chart Review Discussed need to rest and focus on breathing to maintain proper FiO2 02/14/2021 Patient was awake, alert and NAD Seen and examine in bed. FiO2 92% while on Vapotherm with 40L of 90% O2 Discussed that we will continue to monitor for clinical improvement 02/15/2021 Patient resting upon entry into room. Upon exam in bed he was awake, alert and NAD FiO2 90% while on Vapotherm with 40L of 90% O2 Discussed continued monitoring and that he is making slow improvements. Patient was encouraged by improvements and eager to return to as high of function as possible. 02/16/2021 Patient awake, alert and on computer. FiO2 92% while on Vapotherm with 40L of 90% O2 Continuing to make slow improvements Discussed continuing treatment plan at this time 02/17/2021 Patient resting upon entry into room. Upon exam in bed he was awake, alert and NAD FiO2 90% while on Vapotherm with 40L of 85% O2 We will continue to monitor as he is making slow improvements Discharge plan will be created as he continues with current treatment 02/18/2021 Patient in prone position upon entry into room. States that he placed himself in this position after he had read that it would help online. Upon exam in bed he was awake, alert and NAD FiO2 90% while on Vapotherm with 40L of 85% O2 D/W RN, Chart review We will continue to monitor and discharge disposition in process via social work 02/19/2021 Patient in prone position upon entry into room. States that he placed himself in this position after he had read that it would help online. Upon exam in bed he was awake, alert and NAD FiO2 90% while on Vapotherm with 40L of 85% O2 D/W RN, Chart review We will continue to monitor and discharge disposition in process via social work Patient remains on Vapotherm 40 L, 80% afebrile 02/20/2021 Patient in prone position upon entry into room. States that he placed himself in this position after he had read that it would help online. Upon exam in bed he was awake, alert and NAD FiO2 90% while on Vapotherm with 40L of 85% O2 D/W RN, Chart review We will continue to monitor and discharge disposition in process via social work Patient remains on Vapotherm 40 L, 80% afebrile remdesivir/Tocilizumab PT/OT DVT/GI PPX :lovenox 02/21/2021 Upon exam in bed he was awake, alert and NAD on Vapotherm with 40L of 94% O2 D/W RN, Chart review We will continue to monitor and discharge disposition in process via social work SYMPTOMS SLOW TO RESOLVE afebrile remdesivir/Tocilizumab PT/OT DVT/GI PPX :lovenox CXR 02-2102/22/2021 Upon exam in bed he was awake, alert and NAD 70% on Vapotherm with 40L of 94% O2 D/W RN, Chart review We will continue to monitor and discharge disposition in process via social work SYMPTOMS SLOW TO RESOLVE afebrile remdesivir/Tocilizumab PT/OT DVT/GI PPX :lovenox CXR 02-2102/23/2021 Upon exam in bed he was DOSING /NAD 70% on Vapotherm with 40L of 94% O2 D/W RN, Chart review We will continue to monitor and discharge disposition in process via social work SYMPTOMS SLOW TO RESOLVE afebrile remdesivir/Tocilizumab PT/OT DVT/GI PPX :lovenox CXR 8-18 02/23/2021 RESTING IN BED 70% on Vapotherm with 40L of 94% O2 D/W RN, Chart review We will continue to monitor and discharge disposition in process via social work SYMPTOMS SLOW TO RESOLVE afebrile remdesivir/Tocilizumab PT/OT DVT/GI PPX :lovenox CXR 02-21 Once down to 60% FiO2 via Vapotherm, try nasal cannula IS at bedside Continue steroids with taper, on p.o. prednisone now D/W RN Vitals Vitals Vital Signs Date Time Temp Pulse Resp B/P (MAP) Pulse Ox O2 Delivery O2 Flow Rate FiO2 02/23/21 07:32 94 VAPOTHERM 40.0 02/23/21 07:00 98.0 96 18 117/70 (86) 98.0 Physical Exam Physical Exam GEN [email or web address] male on BIPAP HEENT: Normocephalic, atraumatic. Anicteric. NECK: Supple, no JVD. LUNGS: Crackles bilaterally. HEART: S1, S2. ABDOMEN: Soft, nontender, nondistended. Bowel sounds present. EXTREMITIES: No edema, no cyanosis. DERMATOLOGIC: Warm, dry, no generalized rash. NEUROLOGIC: Alert, oriented, grossly nonfocal. PSYCHIATRIC: Calm and cooperative. PIV looks clean. General: Alert, Oriented X3, Cooperative, mild distress Heart: Regular rate (tele reg, reviewed) Abdomen: Normal bowel sounds, Soft Extremities: No clubbing Skin: No rashes Comment Review of Relevant I have reviewed the following items rosalinda (where applicable) has been applied. Labs Laboratory Tests Test 02/22/21 09:10 Sodium Level 141 mmol/L (136-145) Potassium Level 3.8 mmol/L (3.5-5.1) Chloride Level 104 mmol/L (98-107) Carbon Dioxide Level 28 mmol/L (21-32) Anion Gap 9 (6-14) Blood Urea Nitrogen 24 mg/dL (8-26) Creatinine 0.9 mg/dL (0.7-1.3) Estimated GFR (Cockcroft-Gault) 87.3 Glucose Level 152 mg/dL (70-99) Calcium Level 8.8 mg/dL (8.5-10.1) Ferritin 1520 ng/mL (26-388) C-Reactive Protein, Quantitative 2.1 mg/L (0-3.3) Medications Current Medications Acetaminophen (Tylenol) 650 mg PRN Q6HRS PRN PO MILD PAIN / TEMP > 100.3'F Last administered on 01/30/21at 20:09; Start 01/30/21 at 19:00; Stop 01/30/21 at 20:15; Status DC Enoxaparin Sodium (Lovenox Per Pharmacy Prophylaxis Dosing) 1 each PRN DAILY PRN MC SEE COMMENTS; Start 01/30/21 at 19:45 Enoxaparin Sodium (Lovenox 40mg Syringe) 40 mg Q24H SQ Last administered on 02/22/21at 21:07; Start 01/30/21 at 20:00 Remdesivir 200 mg/ Sodium Chloride 210 ml @ 210 mls/hr 1X ONCE IV Last administered on 01/30/21at 20:08; Start 01/30/21 at 20:00; Stop 01/30/21 at 20:59; Status DC Remdesivir 100 mg/ Sodium Chloride 230 ml @ 460 mls/hr Q24H IV Last administered on 02/03/21at 21:20; Start 01/31/21 at 20:00; Stop 02/03/21 at 20:29; Status DC Acetaminophen (Tylenol) 650 mg PRN Q6HRS PRN PO MILD PAIN OR FEVER Last administered on 02/18/21at 21:38; Start 01/30/21 at 19:45 Ascorbic Acid (Vitamin C) 1,000 mg DAILY PO Last administered on 02/22/21at 09:45; Start 01/31/21 at 09:00 Cetirizine HCl (ZyrTEC) 10 mg DAILY PO Last administered on 02/22/21at 09:45; Start 01/31/21 at 09:00 Vitamin D (Vitamin D3) 5,000 unit DAILY PO Last administered on 02/22/21at 09:45; Start 01/31/21 at 09:00 Enoxaparin Sodium (Lovenox 30mg Syringe) 30 mg Q24H SQ ; Start 01/30/21 at 21:00; Status Cancel Famotidine (Pepcid) 20 mg HS PO Last administered on 02/22/21at 21:07; Start 01/30/21 at 21:00 Non-Formulary Medication (Ipratropium/ Albuterol Sulfate (Combivent Respimat Inhal)) 2 inh QID IH ; Start 01/30/21 at 21:00; Status UNV Methylprednisolone Sodium Succinate (SOLU-Medrol 125MG VIAL) 60 mg Q8HRS IV Last administered on 02/09/21at 05:41; Start 01/30/21 at 22:00; Stop 02/09/21 at 10:13; Status DC Morphine Sulfate (Morphine Sulfate) 2 mg PRN Q2HR PRN IVP MODERATE TO SEVERE PAIN Last administered on 02/14/21at 22:56; Start 01/30/21 at 20:30 Zinc Sulfate (Orazinc) 220 mg DAILY PO Last administered on 02/22/21at 09:45; Start 01/31/21 at 09:00 Albuterol/ Ipratropium (Duoneb) 3 ml RTQID NEB ; Start 01/30/21 at 21:00; Status Cancel Albuterol/ Ipratropium (Combivent Respimat 20-100 Mcg) 2 puff RTQID INH Last administered on 02/22/21at 21:06; Start 01/30/21 at 21:00 Alprazolam (Xanax) 0.25 mg PRN Q8HRS PRN PO ANXIETY / AGITATION Last administered on 02/01/21at 08:59; Start 01/31/21 at 15:15; Stop 02/02/21 at 14:14; Status DC Lorazepam (Ativan Inj) 1 mg PRN Q8HRS PRN IVP ANXIETY / AGITATION Last administered on 02/01/21at 14:05; Start 02/01/21 at 11:15; Stop 02/02/21 at 14:14; Status DC Thiamine Mononitrate (Vitamin B-1) 100 mg DAILY PO Last administered on 02/22/21at 09:45; Start 02/02/21 at 09:00 Sterile Water (WATER for RESP) 1,000 ml CONT PRN INH VIA VAPOTHERM DEVICE Last administered on 02/22/21at 13:04; Start 02/01/21 at 19:15 Haloperidol Lactate (Haldol Inj) 5 mg PRN Q6HRS PRN IVP AGITATION; Start 02/02/21 at 14:15 Insulin Human Lispro (HumaLOG) 0-7 UNITS TIDWMEALS SQ ; Start 02/03/21 at 12:00; Stop 02/04/21 at 09:08; Status DC Dextrose (Dextrose 50%-Water Syringe) 12.5 gm PRN Q15MIN PRN IV SEE COMMENTS; Start 02/03/21 at 10:15 Potassium Chloride/Dextrose/ Sod Cl 1,000 ml @ 100 mls/hr Q10H IV Last administered on 02/04/21at 16:54; Start 02/03/21 at 10:15; Stop 02/04/21 at 22:33; Status DC Insulin Glargine (Lantus Syringe) 8 unit DAILY SQ ; Start 02/04/21 at 09:00; Stop 02/04/21 at 08:50; Status DC Tocilizumab 800 mg/Sodium Chloride 100 ml @ 100 mls/hr 1X ONCE IV ; Start 02/05/21 at 09:00; Stop 02/05/21 at 09:59; Status Cancel Methylprednisolone Sodium Succinate (SOLU-Medrol 40MG VIAL) 60 mg [id number] IV Last administered on 02/14/21at 05:45; Start 02/09/21 at 18:00; Stop 02/14/21 at 09:54; Status DC Guaifenesin (Mucinex) 1,200 mg BID PO Last administered on 02/22/21at 21:07; Start 02/11/21 at 21:00 Polyethylene Glycol (miraLAX PACKET) 17 gm PRN BID PRN PO CONSTIPATION; Start 02/12/21 at 10:30 Methylprednisolone Sodium Succinate (SOLU-Medrol 125MG VIAL) 60 mg DAILY IV Last administered on 02/19/21at 08:53; Start 02/15/21 at 09:00; Stop 02/20/21 at 08:34; Status DC Methylprednisolone Sodium Succinate (SOLU-Medrol 125MG VIAL) 40 mg DAILY IV Last administered on 02/21/21at 08:55; Start 02/20/21 at 09:00; Stop 02/21/21 at 20:48; Status DC Prednisone (Prednisone) 30 mg DAILY PO Last administered on 02/22/21at 09:45; Start 02/22/21 at 09:00 Active Scripts Active Reported Morphine Sulfate 2 Mg/1 Ml Cartridge 2 Mg IV PRN Q4HRS PRN Zinc Sulfate 50 Mg Tablet 220 Mg PO DAILY Methylprednisolone Sod Succ 125 Mg Vial 60 Mg IJ Q8HRS Combivent Respimat Inhal (Ipratropium/Albuterol Sulfate) 4 Gm Aer.w.adap 2 Inh IH QID Pepcid (Famotidine) 20 Mg Tablet 20 Mg PO HS Lovenox (Enoxaparin Sodium) 30 Mg/0.3 Ml Disp.syrin 30 Mg SQ DAILY Vitamin D3 (Vitamin D) 125 Mcg Capsule 125 Mcg PO DAILY 5,000 UNITS = 125 MCG Zyrtec (Cetirizine Hcl) 10 Mg Tablet 1 Tab PO DAILY Ascorbic Acid 500 Mg Tablet 2 Mg PO DAILY Acetaminophen 325 Mg Tablet 2 Tab PO PRN Q6HRS PRN 30 Days No Known Medications Prior To Admisstion (Info) Each 1 Each Vitals/I & O Vital Sign - Last 24 Hours 02/22/21 02/22/21 02/22/21 02/22/21 11:30 11:30 13:02 16:15 Temp 98.0 98.0 98.0 98.0 Pulse 91 Resp 18 B/P (MAP) 88/47 (61) Pulse Ox 95 90 94 O2 Delivery VAPOTHERM VAPOTHERM O2 Flow Rate 40.0 40.0 02/22/21 02/22/21 02/22/21 02/22/21 17:00 19:00 20:00 21:05 Temp 97.8 97.6 97.8 97.6 Pulse 115 Resp B/P (MAP) 124/77 (93) Pulse Ox 94 93 95 O2 Delivery vapotherm Vapotherm VAPOTHERM O2 Flow Rate 40.0 40.0 40.0 02/23/21 02/23/21 02/23/21 02/23/21 00:50 03:22 05:49 07:00 Temp 98.0 98.0 Pulse 96 Resp 18 B/P (MAP) 117/70 (86) Pulse Ox 97 95 94 93 O2 Delivery VAPOTHERM VAPOTHERM VAPOTHERM vapotherm O2 Flow Rate 40.0 40.0 40.0 40.0 02/23/21 07:32 Pulse Ox 94 O2 Delivery VAPOTHERM O2 Flow Rate 40.0 Intake and Output 02/22/21 02/22/21 02/23/21 15:00 23:00 07:00 Output Total 400 ml 400 ml 800 ml Balance -400 ml -400 ml -800 ml Justicifation of Admission Dx: Justifications for Admission: Justification of Admission Dx: Yes Sepsis: Hypoxemia JACQUELINE MCGARRY MD Feb 23, 2021 09:11
[2021-02-23] MEDS: CHOLECALCIFEROL (VITAMIN D3) 5,000 UNIT CAPSULE PO SCH (10:35)
[2021-02-23] MEDS: ZINC SULFATE 220 MG CAPSULE. PO SCH (10:35)
[2021-02-23] MEDS: CETIRIZINE HCL 10 MG TABLET. PO SCH (10:37)
[2021-02-23] MEDS: predniSONE 10 MG TABLET PO SCH (10:37)
[2021-02-23] MEDS: ASCORBIC ACID 1,000 MG TABLET PO SCH (10:37)
[2021-02-23] MEDS: IPRATROPIUM/ALBUTEROL 20/100mcg/INH INHALER. INH SCH ×4 (10:38→20:58)
[2021-02-23] MEDS: THIAMINE 100 MG TABLET. PO SCH (10:38)
--- NOTE | 2021-02-23 10:39 | PDOC ---
PULMONARY PROGRESS NOTES DATE: 02/23/21 TIME: 10:38 Subjective Patient remains on Vapotherm 40 L, 60% afebrile anxious about getting better no overnight concerns Vitals Vital Signs Date Time Temp Pulse Resp B/P (MAP) Pulse Ox O2 Delivery O2 Flow Rate FiO2 02/23/21 07:32 94 VAPOTHERM 40.0 02/23/21 07:00 98.0 96 18 117/70 (86) 98.0 Comments Pt. seen during visual exam preformed no distress RRR Vapotherm 80% no obvious rash or edema General: Alert, No acute distress Labs Laboratory Tests Test 02/22/21 09:10 Sodium Level 141 mmol/L (136-145) Potassium Level 3.8 mmol/L (3.5-5.1) Chloride Level 104 mmol/L (98-107) Carbon Dioxide Level 28 mmol/L (21-32) Anion Gap 9 (6-14) Blood Urea Nitrogen 24 mg/dL (8-26) Creatinine 0.9 mg/dL (0.7-1.3) Estimated GFR (Cockcroft-Gault) 87.3 Glucose Level 152 mg/dL (70-99) Calcium Level 8.8 mg/dL (8.5-10.1) Ferritin 1520 ng/mL (26-388) C-Reactive Protein, Quantitative 2.1 mg/L (0-3.3) Medications Active Scripts Medications Dose Route/Sig Max Daily Dose Days Date Category Dose Instructions Morphine Sulfate 2 Mg/1 Ml Cartridge 2 Mg IV PRN Q4HRS PRN 01/30/21 Reported Zinc Sulfate 50 Mg Tablet 220 Mg PO DAILY 01/30/21 Reported Methylprednisolone Sod Succ 125 Mg Vial 60 Mg IJ Q8HRS 01/30/21 Reported Combivent Respimat Inhal (Ipratropium/Albuterol Sulfate) 4 Gm Aer.w.adap 2 Inh IH QID 01/30/21 Reported Pepcid (Famotidine) 20 Mg Tablet 20 Mg PO HS 01/30/21 Reported Lovenox (Enoxaparin Sodium) 30 Mg/0.3 Ml Disp.syrin 30 Mg SQ DAILY 01/30/21 Reported Vitamin D3 (Vitamin D) 125 Mcg Capsule 125 Mcg PO DAILY 01/30/21 Reported 5,000 UNITS = 125 MCG Zyrtec (Cetirizine Hcl) 10 Mg Tablet 1 Tab PO DAILY 01/30/21 Reported Ascorbic Acid 500 Mg Tablet 2 Mg PO DAILY 01/30/21 Reported Acetaminophen 325 Mg Tablet 2 Tab PO PRN Q6HRS PRN 30 01/30/21 Reported No Known Medications Prior To Admisstion (Info) Each 1 Each 02/29/20 Reported Impression . IMPRESSION: 1. Acute hypoxemic respiratory failure secondary to COVID-19 viral pneumonia./Acute lung injury and early ARDS. Slowly improving 2. COVID-19 viral pneumonia. 3. Abnormal chest x-ray, compatible with viral pneumonia. 4. Nonspecific anxiety, possible clinical depression Plan . Updated 02/23/21 Continue supplemental oxygen to keep sats above 92% currently on Vapotherm, currently on 60% and 40 liters will slowly wean as tolerated, slowly improving will try nasal cannula IS at bedside Continue steroids with taper, on p.o. prednisone now S/P remdesivir/Tocilizumab PT/OT DVT/GI PPX :lovenox D/W RN and RT Updated 02/22/21 Continue supplemental oxygen to keep sats above 92% currently on Vapotherm, currently on 70% and 40 liters will slowly wean as tolerated, slowly improving Once down to 60% FiO2 via Vapotherm, will try nasal cannula IS at bedside Continue steroids with taper, on p.o. prednisone now S/P remdesivir/Tocilizumab PT/OT DVT/GI PPX :lovenox D/W RN and RT ELIZABETH ODELL MD Feb 23, 2021 10:39
[2021-02-23 11:00] VITALS: BP 122/80
--- NOTE | 2021-02-23 11:30 | NUR ---
SS following up with discharge planning. SS reviewed pt chart and discussed with pt RN. Pt is currently on Vapotherm at 60%. COVID19 positive. PT/OT recommended home. [employer] denied pt for LTACH placement. SS will continue to follow for discharge planning.
[2021-02-23] MEDS: STERILE WATER for RESP 1,000 ML BAG. INH PRN (13:40)
[2021-02-23 15:00] VITALS: BP 126/80
[2021-02-23 19:40] VITALS: BP 112/64
[2021-02-23] MEDS: ENOXAPARIN 40 MG/0.4 ML SYRINGE. SQ SCH (20:58)
[2021-02-23] MEDS: FAMOTIDINE 20 MG TABLET. PO SCH (20:58)
[2021-02-23 22:12] VITALS: BP 124/78
[2021-02-24 04:46] LABS: BASO % 0 % (0-3); EOS # 0.2 x10^3/uL (0.0-0.7); EOS % 2 % (0-3); HEMATOCRIT 40.1 % (39.0-53.0); HEMOGLOBIN 13.7 g/dL (13.0-17.5); LYMPH # 1.2 x10^3/uL (1.0-4.8); LYMPH % 15 % (24-48); MEAN CORPUSCULAR HEMOGLOBIN 32 pg (25-35); MEAN CORPUSCULAR HGB CONC 34 g/dL (31-37); MEAN CORPUSCULAR VOLUME 93 fL (79-100); MONO # 0.3 x10^3/uL (0.0-1.1); MONO % 4 % (0-9); NEUT # 6.3 x10^3/uL (1.8-7.7); NEUT % 79 % (31-73); PLATELET COUNT 103 x10^3/uL (140-400); RED CELL DISTRIBUTION WIDTH 13.3 % (11.5-14.5)
[2021-02-24] MEDS: STERILE WATER for RESP 1,000 ML BAG. INH PRN (04:54)
[2021-02-24 05:31] LABS: ALBUMIN 2.3 g/dL (3.4-5.0); ALBUMIN/GLOBULIN RATIO 0.8 (1.0-1.7); CALCIUM 8.1 mg/dL (8.5-10.1); CREATININE 0.8 mg/dL (0.7-1.3); POTASSIUM 3.8 mmol/L (3.5-5.1); TOTAL BILIRUBIN 0.3 mg/dL (0.2-1.0); TOTAL PROTEIN 5.3 g/dL (6.4-8.2)
[2021-02-24 07:00] VITALS: BP 114/64
[2021-02-24] MEDS: predniSONE 10 MG TABLET PO SCH (09:47)
[2021-02-24] MEDS: CHOLECALCIFEROL (VITAMIN D3) 5,000 UNIT CAPSULE PO SCH (09:47)
[2021-02-24] MEDS: CETIRIZINE HCL 10 MG TABLET. PO SCH (09:47)
[2021-02-24] MEDS: ZINC SULFATE 220 MG CAPSULE. PO SCH (09:47)
[2021-02-24] MEDS: ASCORBIC ACID 1,000 MG TABLET PO SCH (09:47)
[2021-02-24] MEDS: THIAMINE 100 MG TABLET. PO SCH (09:48)
[2021-02-24] MEDS: IPRATROPIUM/ALBUTEROL 20/100mcg/INH INHALER. INH SCH ×4 (09:48→22:19)
--- NOTE | 2021-02-24 10:01 | PDOC ---
PULMONARY PROGRESS NOTES DATE: 02/24/21 TIME: 09:59 Subjective Patient remains on Vapotherm 23 lpm 21% fi02 afebrile feels better sob better. Vitals Vital Signs Date Time Temp Pulse Resp B/P (MAP) Pulse Ox O2 Delivery O2 Flow Rate FiO2 02/24/21 07:33 96 Nasal Cannula 6.0 02/24/21 07:00 97.6 94 20 114/64 (81) 97.6 Comments Pt. seen during pandemic visual exam preformed no distress RRR Vapotherm no obvious rash or edema General: Alert, No acute distress Labs Laboratory Tests Test 02/24/21 04:00 White Blood Count 8.0 x10^3/uL (4.0-11.0) Red Blood Count 4.30 x10^6/uL (4.30-5.70) Hemoglobin 13.7 g/dL (13.0-17.5) Hematocrit 40.1 % (39.0-53.0) Mean Corpuscular Volume 93 fL (79-100) Mean Corpuscular Hemoglobin 32 pg (25-35) Mean Corpuscular Hemoglobin Concent 34 g/dL (31-37) Red Cell Distribution Width 13.3 % (11.5-14.5) Platelet Count 103 x10^3/uL (140-400) Neutrophils (%) (Auto) 79 % (31-73) Lymphocytes (%) (Auto) 15 % (24-48) Monocytes (%) (Auto) 4 % (0-9) Eosinophils (%) (Auto) 2 % (0-3) Basophils (%) (Auto) 0 % (0-3) Neutrophils # (Auto) 6.3 x10^3/uL (1.8-7.7) Lymphocytes # (Auto) 1.2 x10^3/uL (1.0-4.8) Monocytes # (Auto) 0.3 x10^3/uL (0.0-1.1) Eosinophils # (Auto) 0.2 x10^3/uL (0.0-0.7) Basophils # (Auto) 0.0 x10^3/uL (0.0-0.2) Sodium Level 140 mmol/L (136-145) Potassium Level 3.8 mmol/L (3.5-5.1) Chloride Level 105 mmol/L (98-107) Carbon Dioxide Level 30 mmol/L (21-32) Anion Gap 5 (6-14) Blood Urea Nitrogen 20 mg/dL (8-26) Creatinine 0.8 mg/dL (0.7-1.3) Estimated GFR (Cockcroft-Gault) 100.0 BUN/Creatinine Ratio 25 (6-20) Glucose Level 95 mg/dL (70-99) Calcium Level 8.1 mg/dL (8.5-10.1) Ferritin 1315 ng/mL (26-388) Total Bilirubin 0.3 mg/dL (0.2-1.0) Aspartate Amino Transf (AST/SGOT) 25 U/L (15-37) Alanine Aminotransferase (ALT/SGPT) 101 U/L (16-63) Alkaline Phosphatase 63 U/L (46-116) Total Protein 5.3 g/dL (6.4-8.2) Albumin 2.3 g/dL (3.4-5.0) Albumin/Globulin Ratio 0.8 (1.0-1.7) Laboratory Tests Test 02/24/21 04:00 White Blood Count 8.0 x10^3/uL (4.0-11.0) Red Blood Count 4.30 x10^6/uL (4.30-5.70) Hemoglobin 13.7 g/dL (13.0-17.5) Hematocrit 40.1 % (39.0-53.0) Mean Corpuscular Volume 93 fL (79-100) Mean Corpuscular Hemoglobin 32 pg (25-35) Mean Corpuscular Hemoglobin Concent 34 g/dL (31-37) Red Cell Distribution Width 13.3 % (11.5-14.5) Platelet Count 103 x10^3/uL (140-400) Neutrophils (%) (Auto) 79 % (31-73) Lymphocytes (%) (Auto) 15 % (24-48) Monocytes (%) (Auto) 4 % (0-9) Eosinophils (%) (Auto) 2 % (0-3) Basophils (%) (Auto) 0 % (0-3) Neutrophils # (Auto) 6.3 x10^3/uL (1.8-7.7) Lymphocytes # (Auto) 1.2 x10^3/uL (1.0-4.8) Monocytes # (Auto) 0.3 x10^3/uL (0.0-1.1) Eosinophils # (Auto) 0.2 x10^3/uL (0.0-0.7) Basophils # (Auto) 0.0 x10^3/uL (0.0-0.2) Sodium Level 140 mmol/L (136-145) Potassium Level 3.8 mmol/L (3.5-5.1) Chloride Level 105 mmol/L (98-107) Carbon Dioxide Level 30 mmol/L (21-32) Anion Gap 5 (6-14) Blood Urea Nitrogen 20 mg/dL (8-26) Creatinine 0.8 mg/dL (0.7-1.3) Estimated GFR (Cockcroft-Gault) 100.0 BUN/Creatinine Ratio 25 (6-20) Glucose Level 95 mg/dL (70-99) Calcium Level 8.1 mg/dL (8.5-10.1) Ferritin 1315 ng/mL (26-388) Total Bilirubin 0.3 mg/dL (0.2-1.0) Aspartate Amino Transf (AST/SGOT) 25 U/L (15-37) Alanine Aminotransferase (ALT/SGPT) 101 U/L (16-63) Alkaline Phosphatase 63 U/L (46-116) Total Protein 5.3 g/dL (6.4-8.2) Albumin 2.3 g/dL (3.4-5.0) Albumin/Globulin Ratio 0.8 (1.0-1.7) Medications Active Scripts Medications Dose Route/Sig Max Daily Dose Days Date Category Dose Instructions Morphine Sulfate 2 Mg/1 Ml Cartridge 2 Mg IV PRN Q4HRS PRN 01/30/21 Reported Zinc Sulfate 50 Mg Tablet 220 Mg PO DAILY 01/30/21 Reported Methylprednisolone Sod Succ 125 Mg Vial 60 Mg IJ Q8HRS 01/30/21 Reported Combivent Respimat Inhal (Ipratropium/Albuterol Sulfate) 4 Gm Aer.w.adap 2 Inh IH QID 01/30/21 Reported Pepcid (Famotidine) 20 Mg Tablet 20 Mg PO HS 01/30/21 Reported Lovenox (Enoxaparin Sodium) 30 Mg/0.3 Ml Disp.syrin 30 Mg SQ DAILY 01/30/21 Reported Vitamin D3 (Vitamin D) 125 Mcg Capsule 125 Mcg PO DAILY 01/30/21 Reported 5,000 UNITS = 125 MCG Zyrtec (Cetirizine Hcl) 10 Mg Tablet 1 Tab PO DAILY 01/30/21 Reported Ascorbic Acid 500 Mg Tablet 2 Mg PO DAILY 01/30/21 Reported Acetaminophen 325 Mg Tablet 2 Tab PO PRN Q6HRS PRN 30 01/30/21 Reported No Known Medications Prior To Admisstion (Info) Each 1 Each 02/29/20 Reported Impression . IMPRESSION: 1. Acute hypoxemic respiratory failure secondary to COVID-19 viral pneumonia./Acute lung injury and early ARDS. Slowly improving 2. COVID-19 viral pneumonia. 3. Abnormal chest x-ray, compatible with viral pneumonia. 4. Nonspecific anxiety, possible clinical depression Plan . Continue supplemental oxygen to keep sats above 90% currently on Vapotherm, currently on 23 lpm and 21% fio2 will slowly wean as tolerated, slowly improving try NC IS to use multiple times an hr Continue steroids with taper, on p.o. prednisone now w taper S/P remdesivir/Tocilizumab PT/OT DVT/GI PPX :lovenox D/W RN and RT KEVIN GAO MD Feb 24, 2021 10:01
--- NOTE | 2021-02-24 10:18 | PDOC ---
PROGRESS NOTES Date of Service: DATE: 02/24/21 TIME: 10:17 Chief Complaint Chief Complaint SEPSIS, was POA Severe malnutrition was POA, with obesity, BMI 32 Acute hypoxic respiratory failure COVID-19 pneumonia r transaminitis History of Present Illness History of Present Illness Mr Preciado is a 56-year-old male with no significant past medical history except for degenerative joint disease who was transferred from [facility] with complaints of fever, headache, dry cough, shortness of breath for the past 3 days, admitted on 01/29/2021. Patient stated that he was actually exposed from his son he was worsening and required to come to the ED at [facility] and he was found to be hypoxic and required 2 L of nasal cannula oxygen. Chest x-ray over there showed bilateral mild bibasilar infiltrates. Covid test was positive and patient was transferred to [facility] for pulmonary evaluation and treatment. Patient was started on Remdesivir and IV steroids. Currently patient is requiring 15 L high flow nasal cannula and IV steroids. 02/02: No acute events overnight. Patient was saturating 92% on 15 L nasal cannula and he had desatted down to 70% after he had to blow his nose. Patient was placed on BiPAP at 100% FiO2. Chest leg appears to be worsening. 02/03: Last dose of remdesivir. Could not tolerate vapotherm and is now on BIPAP. 02/04: poor Po intake, dry, dark urine 02/05: Desaturates to 72% when he takes off his BiPAP. Advised to get back on BIPAP after eating. he is able to place himself back on. Frustrated with the severity of his hypoxia. 02/06: Status post remdesivir. Still requiring BiPAP 75% FiO2 with significant desaturations when he is not wearing assessment with nonrebreather O2. 02/07: Still with significant desaturations when he raises BiPAP even on 15 L high flow nasal cannula. Discussed transitioning back to Vapotherm if we can treat his anxiety. He is amenable to this. He is frustrated with staying in the hospital understands he may be a longer term COVID recovery and is amenable to LTACH referral. I discussed with pulmonology. 02/08: Afebrile. 70% FiO2 on BiPAP 06/11. Feels better. Did not tolerated Vapotherm. Significant desaturations when he transitions to high flow nasal cannula O2 while eating. Discussed referral to LTACH with pulmonology and ID as it appears he will need a longer COVID recovery. 02/09: Patient on 70% FiO2. Via BiPAP 06/11 when seen by pulmonology. Feels better and is seen on vapotherm 40l/min 100% FiO2 with saturations 89%, tolerating well. 02/11/2021 patient seen at edge of bed. FiO2 at 89%. Dropped to low 80s while talking to us. Educated patient on conserving energy and working to keep FiO2 higher. D/W RN Chart Reviewed 02/12/2021 Patient was seen and examined in bed. FiO2 of 87% while on Vapotherm with 40L of 90% O2. D/W RN, Chart Review Patient has not had a bowel movement in two days. Patient feels he is doing better but his FiO2 still drops with activity or speaking Discussed need to rest and focus on breathing to maintain proper FiO2. 02/13/2021 Patient was resting in bed with NAD Seen and examined in bed. FiO2 of 92% while on Vapotherm with 40L of 90% O2. D/W RN Chart Review Discussed need to rest and focus on breathing to maintain proper FiO2 02/14/2021 Patient was awake, alert and NAD Seen and examine in bed. FiO2 92% while on Vapotherm with 40L of 90% O2 Discussed that we will continue to monitor for clinical improvement 02/15/2021 Patient resting upon entry into room. Upon exam in bed he was awake, alert and NAD FiO2 90% while on Vapotherm with 40L of 90% O2 Discussed continued monitoring and that he is making slow improvements. Patient was encouraged by improvements and eager to return to as high of function as possible. 02/16/2021 Patient awake, alert and on computer. FiO2 92% while on Vapotherm with 40L of 90% O2 Continuing to make slow improvements Discussed continuing treatment plan at this time 02/17/2021 Patient resting upon entry into room. Upon exam in bed he was awake, alert and NAD FiO2 90% while on Vapotherm with 40L of 85% O2 We will continue to monitor as he is making slow improvements Discharge plan will be created as he continues with current treatment 02/18/2021 Patient in prone position upon entry into room. States that he placed himself in this position after he had read that it would help online. Upon exam in bed he was awake, alert and NAD FiO2 90% while on Vapotherm with 40L of 85% O2 D/W RN, Chart review We will continue to monitor and discharge disposition in process via social work 02/19/2021 Patient in prone position upon entry into room. States that he placed himself in this position after he had read that it would help online. Upon exam in bed he was awake, alert and NAD FiO2 90% while on Vapotherm with 40L of 85% O2 D/W RN, Chart review We will continue to monitor and discharge disposition in process via social work Patient remains on Vapotherm 40 L, 80% afebrile 02/20/2021 Patient in prone position upon entry into room. States that he placed himself in this position after he had read that it would help online. Upon exam in bed he was awake, alert and NAD FiO2 90% while on Vapotherm with 40L of 85% O2 D/W RN, Chart review We will continue to monitor and discharge disposition in process via social work Patient remains on Vapotherm 40 L, 80% afebrile remdesivir/Tocilizumab PT/OT DVT/GI PPX :lovenox 02/21/2021 Upon exam in bed he was awake, alert and NAD on Vapotherm with 40L of 94% O2 D/W RN, Chart review We will continue to monitor and discharge disposition in process via social work SYMPTOMS SLOW TO RESOLVE afebrile remdesivir/Tocilizumab PT/OT DVT/GI PPX :lovenox CXR 02-2102/22/2021 Upon exam in bed he was awake, alert and NAD 70% on Vapotherm with 40L of 94% O2 D/W RN, Chart review We will continue to monitor and discharge disposition in process via social work SYMPTOMS SLOW TO RESOLVE afebrile remdesivir/Tocilizumab PT/OT DVT/GI PPX :lovenox CXR 02-2102/23/2021 Upon exam in bed he was DOSING /NAD 70% on Vapotherm with 40L of 94% O2 D/W RN, Chart review We will continue to monitor and discharge disposition in process via social work SYMPTOMS SLOW TO RESOLVE afebrile remdesivir/Tocilizumab PT/OT DVT/GI PPX :lovenox CXR 8-18 02/24/2021 RESTING IN BED 70% on Vapotherm with 40L of 94% O2 D/W RN, Chart review We will continue to monitor and discharge disposition in process via social work SYMPTOMS SLOW TO RESOLVE afebrile remdesivir/Tocilizumab PT/OT DVT/GI PPX :lovenox CXR 8-18 Once down to 60% FiO2 via Vapotherm, try nasal cannula IS at bedside Continue steroids with taper, on p.o. prednisone now D/W RN 02/24/2021 RESTING IN BED D/W RN, Chart review We will continue to monitor and discharge disposition in process via social work SYMPTOMS SLOW TO RESOLVE afebrile remdesivir/Tocilizumab PT/OT DVT/GI PPX :lovenox CXR 8-18 IS at bedside Continue steroids with taper, on p.o. prednisone now D/W RN currently on 23 lpm and 21% fio2 wean as tolerated, improving try NC IS FREQ PER HOUR Vitals Vitals Vital Signs Date Time Temp Pulse Resp B/P (MAP) Pulse Ox O2 Delivery O2 Flow Rate FiO2 02/24/21 07:33 96 Nasal Cannula 6.0 02/24/21 07:00 97.6 94 20 114/64 (81) 97.6 Physical Exam Physical Exam GEN axo3 male on BIPAP HEENT: Normocephalic, atraumatic. Anicteric. NECK: Supple, no JVD. LUNGS: Crackles bilaterally. HEART: S1, S2. ABDOMEN: Soft, nontender, nondistended. Bowel sounds present. EXTREMITIES: No edema, no cyanosis. DERMATOLOGIC: Warm, dry, no generalized rash. NEUROLOGIC: Alert, oriented, grossly nonfocal. PSYCHIATRIC: Calm and cooperative. PIV looks clean. General: Alert, Oriented X3, Cooperative, No acute distress Heart: Regular rate (tele reg, reviewed), Normal S1, Normal S2 Lungs: Clear Abdomen: Normal bowel sounds, Soft, No tenderness Extremities: No clubbing, No cyanosis, No edema Skin: No rashes Labs LABS Laboratory Tests Test 02/24/21 04:00 White Blood Count 8.0 x10^3/uL (4.0-11.0) Red Blood Count 4.30 x10^6/uL (4.30-5.70) Hemoglobin 13.7 g/dL (13.0-17.5) Hematocrit 40.1 % (39.0-53.0) Mean Corpuscular Volume 93 fL (79-100) Mean Corpuscular Hemoglobin 32 pg (25-35) Mean Corpuscular Hemoglobin Concent 34 g/dL (31-37) Red Cell Distribution Width 13.3 % (11.5-14.5) Platelet Count 103 x10^3/uL (140-400) Neutrophils (%) (Auto) 79 % (31-73) Lymphocytes (%) (Auto) 15 % (24-48) Monocytes (%) (Auto) 4 % (0-9) Eosinophils (%) (Auto) 2 % (0-3) Basophils (%) (Auto) 0 % (0-3) Neutrophils # (Auto) 6.3 x10^3/uL (1.8-7.7) Lymphocytes # (Auto) 1.2 x10^3/uL (1.0-4.8) Monocytes # (Auto) 0.3 x10^3/uL (0.0-1.1) Eosinophils # (Auto) 0.2 x10^3/uL (0.0-0.7) Basophils # (Auto) 0.0 x10^3/uL (0.0-0.2) Sodium Level 140 mmol/L (136-145) Potassium Level 3.8 mmol/L (3.5-5.1) Chloride Level 105 mmol/L (98-107) Carbon Dioxide Level 30 mmol/L (21-32) Anion Gap 5 (6-14) Blood Urea Nitrogen 20 mg/dL (8-26) Creatinine 0.8 mg/dL (0.7-1.3) Estimated GFR (Cockcroft-Gault) 100.0 BUN/Creatinine Ratio 25 (6-20) Glucose Level 95 mg/dL (70-99) Calcium Level 8.1 mg/dL (8.5-10.1) Ferritin 1315 ng/mL (26-388) Total Bilirubin 0.3 mg/dL (0.2-1.0) Aspartate Amino Transf (AST/SGOT) 25 U/L (15-37) Alanine Aminotransferase (ALT/SGPT) 101 U/L (16-63) Alkaline Phosphatase 63 U/L (46-116) Total Protein 5.3 g/dL (6.4-8.2) Albumin 2.3 g/dL (3.4-5.0) Albumin/Globulin Ratio 0.8 (1.0-1.7) Comment Review of Relevant I have reviewed the following items rosalinda (where applicable) has been applied. Labs Laboratory Tests Test 02/24/21 04:00 White Blood Count 8.0 x10^3/uL (4.0-11.0) Red Blood Count 4.30 x10^6/uL (4.30-5.70) Hemoglobin 13.7 g/dL (13.0-17.5) Hematocrit 40.1 % (39.0-53.0) Mean Corpuscular Volume 93 fL (79-100) Mean Corpuscular Hemoglobin 32 pg (25-35) Mean Corpuscular Hemoglobin Concent 34 g/dL (31-37) Red Cell Distribution Width 13.3 % (11.5-14.5) Platelet Count 103 x10^3/uL (140-400) Neutrophils (%) (Auto) 79 % (31-73) Lymphocytes (%) (Auto) 15 % (24-48) Monocytes (%) (Auto) 4 % (0-9) Eosinophils (%) (Auto) 2 % (0-3) Basophils (%) (Auto) 0 % (0-3) Neutrophils # (Auto) 6.3 x10^3/uL (1.8-7.7) Lymphocytes # (Auto) 1.2 x10^3/uL (1.0-4.8) Monocytes # (Auto) 0.3 x10^3/uL (0.0-1.1) Eosinophils # (Auto) 0.2 x10^3/uL (0.0-0.7) Basophils # (Auto) 0.0 x10^3/uL (0.0-0.2) Sodium Level 140 mmol/L (136-145) Potassium Level 3.8 mmol/L (3.5-5.1) Chloride Level 105 mmol/L (98-107) Carbon Dioxide Level 30 mmol/L (21-32) Anion Gap 5 (6-14) Blood Urea Nitrogen 20 mg/dL (8-26) Creatinine 0.8 mg/dL (0.7-1.3) Estimated GFR (Cockcroft-Gault) 100.0 BUN/Creatinine Ratio 25 (6-20) Glucose Level 95 mg/dL (70-99) Calcium Level 8.1 mg/dL (8.5-10.1) Ferritin 1315 ng/mL (26-388) Total Bilirubin 0.3 mg/dL (0.2-1.0) Aspartate Amino Transf (AST/SGOT) 25 U/L (15-37) Alanine Aminotransferase (ALT/SGPT) 101 U/L (16-63) Alkaline Phosphatase 63 U/L (46-116) Total Protein 5.3 g/dL (6.4-8.2) Albumin 2.3 g/dL (3.4-5.0) Albumin/Globulin Ratio 0.8 (1.0-1.7) Laboratory Tests Test 02/24/21 04:00 White Blood Count 8.0 x10^3/uL (4.0-11.0) Red Blood Count 4.30 x10^6/uL (4.30-5.70) Hemoglobin 13.7 g/dL (13.0-17.5) Hematocrit 40.1 % (39.0-53.0) Mean Corpuscular Volume 93 fL (79-100) Mean Corpuscular Hemoglobin 32 pg (25-35) Mean Corpuscular Hemoglobin Concent 34 g/dL (31-37) Red Cell Distribution Width 13.3 % (11.5-14.5) Platelet Count 103 x10^3/uL (140-400) Neutrophils (%) (Auto) 79 % (31-73) Lymphocytes (%) (Auto) 15 % (24-48) Monocytes (%) (Auto) 4 % (0-9) Eosinophils (%) (Auto) 2 % (0-3) Basophils (%) (Auto) 0 % (0-3) Neutrophils # (Auto) 6.3 x10^3/uL (1.8-7.7) Lymphocytes # (Auto) 1.2 x10^3/uL (1.0-4.8) Monocytes # (Auto) 0.3 x10^3/uL (0.0-1.1) Eosinophils # (Auto) 0.2 x10^3/uL (0.0-0.7) Basophils # (Auto) 0.0 x10^3/uL (0.0-0.2) Sodium Level 140 mmol/L (136-145) Potassium Level 3.8 mmol/L (3.5-5.1) Chloride Level 105 mmol/L (98-107) Carbon Dioxide Level 30 mmol/L (21-32) Anion Gap 5 (6-14) Blood Urea Nitrogen 20 mg/dL (8-26) Creatinine 0.8 mg/dL (0.7-1.3) Estimated GFR (Cockcroft-Gault) 100.0 BUN/Creatinine Ratio 25 (6-20) Glucose Level 95 mg/dL (70-99) Calcium Level 8.1 mg/dL (8.5-10.1) Ferritin 1315 ng/mL (26-388) Total Bilirubin 0.3 mg/dL (0.2-1.0) Aspartate Amino Transf (AST/SGOT) 25 U/L (15-37) Alanine Aminotransferase (ALT/SGPT) 101 U/L (16-63) Alkaline Phosphatase 63 U/L (46-116) Total Protein 5.3 g/dL (6.4-8.2) Albumin 2.3 g/dL (3.4-5.0) Albumin/Globulin Ratio 0.8 (1.0-1.7) Medications Current Medications Acetaminophen (Tylenol) 650 mg PRN Q6HRS PRN PO MILD PAIN / TEMP > 100.3'F Last administered on 01/30/21at 20:09; Start 01/30/21 at 19:00; Stop 01/30/21 at 20:15; Status DC Enoxaparin Sodium (Lovenox Per Pharmacy Prophylaxis Dosing) 1 each PRN DAILY PRN MC SEE COMMENTS; Start 01/30/21 at 19:45 Enoxaparin Sodium (Lovenox 40mg Syringe) 40 mg Q24H SQ Last administered on 02/23/21at 20:58; Start 01/30/21 at 20:00 Remdesivir 200 mg/ Sodium Chloride 210 ml @ 210 mls/hr 1X ONCE IV Last administered on 01/30/21at 20:08; Start 01/30/21 at 20:00; Stop 01/30/21 at 20:59; Status DC Remdesivir 100 mg/ Sodium Chloride 230 ml @ 460 mls/hr Q24H IV Last administered on 02/03/21at 21:20; Start 01/31/21 at 20:00; Stop 02/03/21 at 20:29; Status DC Acetaminophen (Tylenol) 650 mg PRN Q6HRS PRN PO MILD PAIN OR FEVER Last administered on 02/18/21at 21:38; Start 01/30/21 at 19:45 Ascorbic Acid (Vitamin C) 1,000 mg DAILY PO Last administered on 02/24/21at 09:47; Start 01/31/21 at 09:00 Cetirizine HCl (ZyrTEC) 10 mg DAILY PO Last administered on 02/24/21 09:47; Start 01/31/21 at 09:00 Vitamin D (Vitamin D3) 5,000 unit DAILY PO Last administered on 02/24/21at 09:47; Start 01/31/21 at 09:00 Enoxaparin Sodium (Lovenox 30mg Syringe) 30 mg Q24H SQ ; Start 01/30/21 at 21:00; Status Cancel Famotidine (Pepcid) 20 mg HS PO Last administered on 02/23/21at 20:58; Start 01/30/21 at 21:00 Non-Formulary Medication (Ipratropium/ Albuterol Sulfate (Combivent Respimat Inhal)) 2 inh QID IH ; Start 01/30/21 at 21:00; Status UNV Methylprednisolone Sodium Succinate (SOLU-Medrol 125MG VIAL) 60 mg Q8HRS IV Las t administered on 02/09/21at 05:41; Start 01/30/21 at 22:00; Stop 02/09/21 at 10:13; Status DC Morphine Sulfate (Morphine Sulfate) 2 mg PRN Q2HR PRN IVP MODERATE TO SEVERE PAIN Last administered on 02/14/21at 22:56; Start 01/30/21 at 20:30 Zinc Sulfate (Orazinc) 220 mg DAILY PO Last administered on 02/24/21at 09:47; Start 01/31/21 at 09:00 Albuterol/ Ipratropium (Duoneb) 3 ml RTQID NEB ; Start 01/30/21 at 21:00; Status Cancel Albuterol/ Ipratropium (Combivent Respimat 20-100 Mcg) 2 puff RTQID INH Last administered on 02/24/21at 09:48; Start 01/30/21 at 21:00 Alprazolam (Xanax) 0.25 mg PRN Q8HRS PRN PO ANXIETY / AGITATION Last admini stered on 02/01/21at 08:59; Start 01/31/21 at 15:15; Stop 02/02/21 at 14:14; Status DC Lorazepam (Ativan Inj) 1 mg PRN Q8HRS PRN IVP ANXIETY / AGITATION Last administered on 02/01/21at 14:05; Start 02/01/21 at 11:15; Stop 02/02/21 at 14:14; Status DC Thiamine Mononitrate (Vitamin B-1) 100 mg DAILY PO Last administered on 02/24/21at 09:48; Start 02/02/21 at 09:00 Sterile Water (WATER for RESP) 1,000 ml CONT PRN INH VIA VAPOTHERM DEVICE Last administered on 02/24/21at 04:54; Start 02/01/21 at 19:15 Haloperidol Lactate (Haldol Inj) 5 mg PRN Q6HRS PRN IVP AGITATION; Start 02/02/21 at 14:15 Insulin Human Lispro (HumaLOG) 0-7 UNITS TIDWMEALS SQ ; Start 02/03/21 at 12:00; Stop 02/04/21 at 09:08; Status DC Dextrose (Dextrose 50%-Water Syringe) 12.5 gm PRN Q15MIN PRN IV SEE COMMENTS; Start 02/03/21 at 10:15 Potassium Chloride/Dextrose/ Sod Cl 1,000 ml @ 100 mls/hr Q10H IV Last administered on 02/04/21at 16:54; Start 02/03/21 at 10:15; Stop 02/04/21 at 22:33; Status DC Insulin Glargine (Lantus Syringe) 8 unit DAILY SQ ; Start 02/04/21 at 09:00; Stop 02/04/21 at 08:50; Status DC Tocilizumab 800 mg/Sodium Chloride 100 ml @ 100 mls/hr 1X ONCE IV ; Start 02/05/21 at 09:00; Stop 02/05/21 at 09:59; Status Cancel Methylprednisolone Sodium Succinate (SOLU-Medrol 40MG VIAL) 60 mg [id number] IV Last administered on 02/14/21at 05:45; Start 02/09/21 at 18:00; Stop 02/14/21 at 09:54; Status DC Guaifenesin (Mucinex) 1,200 mg BID PO Last administered on 02/24/21at 09:47; Start 02/11/21 at 21:00 Polyethylene Glycol (miraLAX PACKET) 17 gm PRN BID PRN PO CONSTIPATION; Start 02/12/21 at 10:30 Methylprednisolone Sodium Succinate (SOLU-Medrol 125MG VIAL) 60 mg DAILY IV Last administered on 02/19/21at 08:53; Start 02/15/21 at 09:00; Stop 02/20/21 at 08:34; Status DC Methylprednisolone Sodium Succinate (SOLU-Medrol 125MG VIAL) 40 mg DAILY IV Last administered on 02/21/21at 08:55; Start 02/20/21 at 09:00; Stop 02/21/21 at 20:48; Status DC Prednisone (Prednisone) 30 mg DAILY PO Last administered on 02/24/21at 09:47; Start 02/22/21 at 09:00 Active Scripts Active Reported Morphine Sulfate 2 Mg/1 Ml Cartridge 2 Mg IV PRN Q4HRS PRN Zinc Sulfate 50 Mg Tablet 220 Mg PO DAILY Methylprednisolone Sod Succ 125 Mg Vial 60 Mg IJ Q8HRS Combivent Respimat Inhal (Ipratropium/Albuterol Sulfate) 4 Gm Aer.w.adap 2 Inh IH QID Pepcid (Famotidine) 20 Mg Tablet 20 Mg PO HS Lovenox (Enoxaparin Sodium) 30 Mg/0.3 Ml Disp.syrin 30 Mg SQ DAILY Vitamin D3 (Vitamin D) 125 Mcg Capsule 125 Mcg PO DAILY 5,000 UNITS = 125 MCG Zyrtec (Cetirizine Hcl) 10 Mg Tablet 1 Tab PO DAILY Ascorbic Acid 500 Mg Tablet 2 Mg PO DAILY Acetaminophen 325 Mg Tablet 2 Tab PO PRN Q6HRS PRN 30 Days No Known Medications Prior To Admisstion (Info) Each 1 Each Vitals/I & O Vital Sign - Last 24 Hours 02/23/21 02/23/21 02/23/21 02/23/21 11:00 11:24 13:40 15:00 Temp 97.6 97.5 97.6 97.5 Pulse 96 80 Resp 20 18 B/P (MAP) 122/80 (94) 126/80 (95) Pulse Ox 91 94 92 90 O2 Delivery VAPOTHERM VAPOTHERM O2 Flow Rate 40.0 40.0 40.0 40.0 02/23/21 02/23/21 02/23/21 02/23/21 15:45 17:59 19:40 19:43 Temp 98.2 98.2 Pulse 96 Resp 21 B/P (MAP) 112/64 (80) Pulse Ox 93 93 94 O2 Delivery VAPOTHERM VAPOTHERM vapotherm Vapotherm O2 Flow Rate 40.0 40.0 40.0 40.0 02/23/21 02/23/21 02/23/21 02/24/21 20:39 22:12 23:52 02:00 Temp 97.5 97.5 Pulse 95 Resp 21 B/P (MAP) 124/78 (93) Pulse Ox 95 92 96 95 O2 Delivery VAPOTHERM vapotherm VAPOTHERM VAPOTHERM O2 Flow Rate 40.0 40.0 40.0 40.0 02/24/21 02/24/21 02/24/21 02/24/21 03:00 05:00 07:00 07:33 Temp 97.6 97.6 Pulse 85 94 Resp 20 B/P (MAP) 114/64 (81) Pulse Ox 92 96 96 96 O2 Delivery vapotherm VAPOTHERM Nasal Cannula Nasal Cannula O2 Flow Rate 40.0 6.0 6.0 Intake and Output 02/23/21 02/23/21 02/24/21 15:00 23:00 07:00 Intake Total 965 ml 140 ml Output Total 700 ml 400 ml 300 ml Balance 265 ml -400 ml -160 ml Justicifation of Admission Dx: Justifications for Admission: Justification of Admission Dx: Yes Sepsis: Hypoxemia JACQUELINE MCGARRY MD Feb 24, 2021 10:18
[2021-02-24 11:00] VITALS: BP 104/60
[2021-02-24 15:00] VITALS: BP 113/75
[2021-02-24 19:24] VITALS: BP 135/80
[2021-02-24] MEDS: FAMOTIDINE 20 MG TABLET. PO SCH (22:18)
[2021-02-24] MEDS: ENOXAPARIN 40 MG/0.4 ML SYRINGE. SQ SCH (22:19)
[2021-02-24 22:30] VITALS: BP 135/79
[2021-02-25 02:43] VITALS: BP 133/71
[2021-02-25 06:28] VITALS: BP 114/72
[2021-02-25] MEDS: IPRATROPIUM/ALBUTEROL 20/100mcg/INH INHALER. INH SCH ×4 (08:00→20:00)
[2021-02-25] MEDS: ASCORBIC ACID 1,000 MG TABLET PO SCH (09:02)
[2021-02-25] MEDS: predniSONE 10 MG TABLET PO SCH (09:02)
[2021-02-25] MEDS: THIAMINE 100 MG TABLET. PO SCH (09:03)
[2021-02-25] MEDS: CETIRIZINE HCL 10 MG TABLET. PO SCH (09:03)
[2021-02-25] MEDS: CHOLECALCIFEROL (VITAMIN D3) 5,000 UNIT CAPSULE PO SCH (09:03)
[2021-02-25] MEDS: ZINC SULFATE 220 MG CAPSULE. PO SCH (09:03)
--- NOTE | 2021-02-25 10:38 | PDOC ---
PROGRESS NOTES Date of Service: DATE: 02/25/21 TIME: 10:36 Chief Complaint Chief Complaint SEPSIS, was POA Severe malnutrition was POA, with obesity, BMI 32 Acute hypoxic respiratory failure COVID-19 pneumonia r transaminitis History of Present Illness History of Present Illness Mr Preciado is a 56-year-old male with no significant past medical history except for degenerative joint disease who was transferred from [facility] with complaints of fever, headache, dry cough, shortness of breath for the past 3 days, admitted on 01/29/2021. Patient stated that he was actually exposed from his son he was worsening and required to come to the ED at [facility] and he was found to be hypoxic and required 2 L of nasal cannula oxygen. Chest x-ray over there showed bilateral mild bibasilar infiltrates. Covid test was positive and patient was transferred to [facility] for pulmonary evaluation and treatment. Patient was started on Remdesivir and IV steroids. Currently patient is requiring 15 L high flow nasal cannula and IV steroids. 02/02: No acute events overnight. Patient was saturating 92% on 15 L nasal cannula and he had desatted down to 70% after he had to blow his nose. Patient was placed on BiPAP at 100% FiO2. Chest leg appears to be worsening. 02/03: Last dose of remdesivir. Could not tolerate vapotherm and is now on BIPAP. 02/04: poor Po intake, dry, dark urine 02/05: Desaturates to 72% when he takes off his BiPAP. Advised to get back on BIPAP after eating. he is able to place himself back on. Frustrated with the severity of his hypoxia. 02/06: Status post remdesivir. Still requiring BiPAP 75% FiO2 with significant desaturations when he is not wearing assessment with nonrebreather O2. 02/07: Still with significant desaturations when he raises BiPAP even on 15 L high flow nasal cannula. Discussed transitioning back to Vapotherm if we can treat his anxiety. He is amenable to this. He is frustrated with staying in the hospital understands he may be a longer term COVID recovery and is amenable to LTACH referral. I discussed with pulmonology. 02/08: Afebrile. 70% FiO2 on BiPAP 06/11. Feels better. Did not tolerated Vapotherm. Significant desaturations when he transitions to high flow nasal cannula O2 while eating. Discussed referral to LTACH with pulmonology and ID as it appears he will need a longer COVID recovery. 02/09: Patient on 70% FiO2. Via BiPAP 06/11 when seen by pulmonology. Feels better and is seen on vapotherm 40l/min 100% FiO2 with saturations 89%, tolerating well. 02/11/2021 patient seen at edge of bed. FiO2 at 89%. Dropped to low 80s while talking to us. Educated patient on conserving energy and working to keep FiO2 higher. D/W RN Chart Reviewed 02/12/2021 Patient was seen and examined in bed. FiO2 of 87% while on Vapotherm with 40L of 90% O2. D/W RN, Chart Review Patient has not had a bowel movement in two days. Patient feels he is doing better but his FiO2 still drops with activity or speaking Discussed need to rest and focus on breathing to maintain proper FiO2. 02/13/2021 Patient was resting in bed with NAD Seen and examined in bed. FiO2 of 92% while on Vapotherm with 40L of 90% O2. D/W RN Chart Review Discussed need to rest and focus on breathing to maintain proper FiO2 02/14/2021 Patient was awake, alert and NAD Seen and examine in bed. FiO2 92% while on Vapotherm with 40L of 90% O2 Discussed that we will continue to monitor for clinical improvement 02/15/2021 Patient resting upon entry into room. Upon exam in bed he was awake, alert and NAD FiO2 90% while on Vapotherm with 40L of 90% O2 Discussed continued monitoring and that he is making slow improvements. Patient was encouraged by improvements and eager to return to as high of function as possible. 02/16/2021 Patient awake, alert and on computer. FiO2 92% while on Vapotherm with 40L of 90% O2 Continuing to make slow improvements Discussed continuing treatment plan at this time 02/17/2021 Patient resting upon entry into room. Upon exam in bed he was awake, alert and NAD FiO2 90% while on Vapotherm with 40L of 85% O2 We will continue to monitor as he is making slow improvements Discharge plan will be created as he continues with current treatment 02/18/2021 Patient in prone position upon entry into room. States that he placed himself in this position after he had read that it would help online. Upon exam in bed he was awake, alert and NAD FiO2 90% while on Vapotherm with 40L of 85% O2 D/W RN, Chart review We will continue to monitor and discharge disposition in process via social work 02/19/2021 Patient in prone position upon entry into room. States that he placed himself in this position after he had read that it would help online. Upon exam in bed he was awake, alert and NAD FiO2 90% while on Vapotherm with 40L of 85% O2 D/W RN, Chart review We will continue to monitor and discharge disposition in process via social work Patient remains on Vapotherm 40 L, 80% afebrile 02/20/2021 Patient in prone position upon entry into room. States that he placed himself in this position after he had read that it would help online. Upon exam in bed he was awake, alert and NAD FiO2 90% while on Vapotherm with 40L of 85% O2 D/W RN, Chart review We will continue to monitor and discharge disposition in process via social work Patient remains on Vapotherm 40 L, 80% afebrile remdesivir/Tocilizumab PT/OT DVT/GI PPX :lovenox 02/21/2021 Upon exam in bed he was awake, alert and NAD on Vapotherm with 40L of 94% O2 D/W RN, Chart review We will continue to monitor and discharge disposition in process via social work SYMPTOMS SLOW TO RESOLVE afebrile remdesivir/Tocilizumab PT/OT DVT/GI PPX :lovenox CXR 02-2102/22/2021 Upon exam in bed he was awake, alert and NAD 70% on Vapotherm with 40L of 94% O2 D/W RN, Chart review We will continue to monitor and discharge disposition in process via social work SYMPTOMS SLOW TO RESOLVE afebrile remdesivir/Tocilizumab PT/OT DVT/GI PPX :lovenox CXR 02-2102/23/2021 Upon exam in bed he was DOSING /NAD 70% on Vapotherm with 40L of 94% O2 D/W RN, Chart review We will continue to monitor and discharge disposition in process via social work SYMPTOMS SLOW TO RESOLVE afebrile remdesivir/Tocilizumab PT/OT DVT/GI PPX :lovenox CXR 8-18 02/24/2021 RESTING IN BED 70% on Vapotherm with 40L of 94% O2 D/W RN, Chart review We will continue to monitor and discharge disposition in process via social work SYMPTOMS SLOW TO RESOLVE afebrile remdesivir/Tocilizumab PT/OT DVT/GI PPX :lovenox CXR 8-18 Once down to 60% FiO2 via Vapotherm, try nasal cannula IS at bedside Continue steroids with taper, on p.o. prednisone now D/W RN 02/24/2021 RESTING IN BED D/W RN, Chart review We will continue to monitor and discharge disposition in process via social work SYMPTOMS SLOW TO RESOLVE afebrile remdesivir/Tocilizumab PT/OT DVT/GI PPX :lovenox CXR 02-21 IS at bedside Continue steroids with taper, on p.o. prednisone now D/W RN currently on 23 lpm and 21% fio2 wean as tolerated, improving try NC IS FREQ PER HOUR 02/25/2021 D/W RN, Chart review We will continue to monitor and discharge disposition in process via social work SYMPTOMS SLOW TO RESOLVE afebrile remdesivir/Tocilizumab PT/OT DVT/GI PPX :lovenox CXR 8-18 IS at bedside Continue steroids with taper, on p.o. prednisone now D/W RN improving try 6 liters NC IS FREQ PER HOUR Vitals Vitals Vital Signs Date Time Temp Pulse Resp B/P (MAP) Pulse Ox O2 Delivery O2 Flow Rate FiO2 02/25/21 08:00 Nasal Cannula 6.0 02/25/21 06:28 98.5 82 18 114/72 (86) 97 98.5 Physical Exam Physical Exam GEN axo3 male on BIPAP HEENT: Normocephalic, atraumatic. Anicteric. NECK: Supple, no JVD. LUNGS: Crackles bilaterally. HEART: S1, S2. ABDOMEN: Soft, nontender, nondistended. Bowel sounds present. EXTREMITIES: No edema, no cyanosis. DERMATOLOGIC: Warm, dry, no generalized rash. NEUROLOGIC: Alert, oriented, grossly nonfocal. PSYCHIATRIC: Calm and cooperative. PIV looks clean. General: Alert, Oriented X3, Cooperative, No acute distress Heart: Regular rate (tele reg, reviewed), Normal S1, Normal S2 Lungs: Clear Abdomen: Normal bowel sounds, Soft, No tenderness Extremities: No clubbing, No cyanosis, No edema Skin: No rashes Comment Review of Relevant I have reviewed the following items rosalinda (where applicable) has been applied. Labs Laboratory Tests Test 02/24/21 04:00 White Blood Count 8.0 x10^3/uL (4.0-11.0) Red Blood Count 4.30 x10^6/uL (4.30-5.70) Hemoglobin 13.7 g/dL (13.0-17.5) Hematocrit 40.1 % (39.0-53.0) Mean Corpuscular Volume 93 fL (79-100) Mean Corpuscular Hemoglobin 32 pg (25-35) Mean Corpuscular Hemoglobin Concent 34 g/dL (31-37) Red Cell Distribution Width 13.3 % (11.5-14.5) Platelet Count 103 x10^3/uL (140-400) Neutrophils (%) (Auto) 79 % (31-73) Lymphocytes (%) (Auto) 15 % (24-48) Monocytes (%) (Auto) 4 % (0-9) Eosinophils (%) (Auto) 2 % (0-3) Basophils (%) (Auto) 0 % (0-3) Neutrophils # (Auto) 6.3 x10^3/uL (1.8-7.7) Lymphocytes # (Auto) 1.2 x10^3/uL (1.0-4.8) Monocytes # (Auto) 0.3 x10^3/uL (0.0-1.1) Eosinophils # (Auto) 0.2 x10^3/uL (0.0-0.7) Basophils # (Auto) 0.0 x10^3/uL (0.0-0.2) Sodium Level 140 mmol/L (136-145) Potassium Level 3.8 mmol/L (3.5-5.1) Chloride Level 105 mmol/L (98-107) Carbon Dioxide Level 30 mmol/L (21-32) Anion Gap 5 (6-14) Blood Urea Nitrogen 20 mg/dL (8-26) Creatinine 0.8 mg/dL (0.7-1.3) Estimated GFR (Cockcroft-Gault) 100.0 BUN/Creatinine Ratio 25 (6-20) Glucose Level 95 mg/dL (70-99) Calcium Level 8.1 mg/dL (8.5-10.1) Ferritin 1315 ng/mL (26-388) Total Bilirubin 0.3 mg/dL (0.2-1.0) Aspartate Amino Transf (AST/SGOT) 25 U/L (15-37) Alanine Aminotransferase (ALT/SGPT) 101 U/L (16-63) Alkaline Phosphatase 63 U/L (46-116) Total Protein 5.3 g/dL (6.4-8.2) Albumin 2.3 g/dL (3.4-5.0) Albumin/Globulin Ratio 0.8 (1.0-1.7) Medications Current Medications Acetaminophen (Tylenol) 650 mg PRN Q6HRS PRN PO MILD PAIN / TEMP > 100.3'F Last administered on 01/30/21at 20:09; Start 01/30/21 at 19:00; Stop 01/30/21 at 20:15; Status DC Enoxaparin Sodium (Lovenox Per Pharmacy Prophylaxis Dosing) 1 each PRN DAILY PRN MC SEE COMMENTS; Start 01/30/21 at 19:45 Enoxaparin Sodium (Lovenox 40mg Syringe) 40 mg Q24H SQ Last administered on 02/24/21at 22:19; Start 01/30/21 at 20:00 Remdesivir 200 mg/ Sodium Chloride 210 ml @ 210 mls/hr 1X ONCE IV Last administered on 01/30/21at 20:08; Start 01/30/21 at 20:00; Stop 01/30/21 at 20:59; Status DC Remdesivir 100 mg/ Sodium Chloride 230 ml @ 460 mls/hr Q24H IV Last administered on 02/03/21at 21:20; Start 01/31/21 at 20:00; Stop 02/03/21 at 20:29; Status DC Acetaminophen (Tylenol) 650 mg PRN Q6HRS PRN PO MILD PAIN OR FEVER Last administered on 02/18/21at 21:38; Start 01/30/21 at 19:45 Ascorbic Acid (Vitamin C) 1,000 mg DAILY PO Last administered on 02/25/21at 09:02; Start 01/31/21 at 09:00 Cetirizine HCl (ZyrTEC) 10 mg DAILY PO Last administered on 02/25/21at 09:03; Start 01/31/21 at 09:00 Vitamin D (Vitamin D3) 5,000 unit DAILY PO Last administered on 02/25/21at 09:03; Start 01/31/21 at 09:00 Enoxaparin Sodium (Lovenox 30mg Syringe) 30 mg Q24H SQ ; Start 01/30/21 at 21:00; Status Cancel Famotidine (Pepcid) 20 mg HS PO Last administered on 02/24/21at 22:18; Start 01/30/21 at 21:00 Non-Formulary Medication (Ipratropium/ Albuterol Sulfate (Combivent Respimat Inhal)) 2 inh QID IH ; Start 01/30/21 at 21:00; Status UNV Methylprednisolone Sodium Succinate (SOLU-Medrol 125MG VIAL) 60 mg Q8HRS IV Last administered on 02/09/21at 05:41; Start 01/30/21 at 22:00; Stop 02/09/21 at 10:13; Status DC Morphine Sulfate (Morphine Sulfate) 2 mg PRN Q2HR PRN IVP MODERATE TO SEVERE PAIN Last administered on 02/14/21at 22:56; Start 01/30/21 at 20:30 Zinc Sulfate (Orazinc) 220 mg DAILY PO Last administered on 02/25/21at 09:03; Start 01/31/21 at 09:00 Albuterol/ Ipratropium (Duoneb) 3 ml RTQID NEB ; Start 01/30/21 at 21:00; Status Cancel Albuterol/ Ipratropium (Combivent Respimat 20-100 Mcg) 2 puff RTQID INH Last administered on 02/24/21at 22:19; Start 01/30/21 at 21:00 Alprazolam (Xanax) 0.25 mg PRN Q8HRS PRN PO ANXIETY / AGITATION Last administered on 02/01/21at 08:59; Start 01/31/21 at 15:15; Stop 02/02/21 at 14:14; Status DC Lorazepam (Ativan Inj) 1 mg PRN Q8HRS PRN IVP ANXIETY / AGITATION Last administered on 02/01/21at 14:05; Start 02/01/21 at 11:15; Stop 02/02/21 at 14:14; Status DC Thiamine Mononitrate (Vitamin B-1) 100 mg DAILY PO Last administered on 02/25/21at 09:03; Start 02/02/21 at 09:00 Sterile Water (WATER for RESP) 1,000 ml CONT PRN INH VIA VAPOTHERM DEVICE Last administered on 02/24/21at 04:54; Start 02/01/21 at 19:15 Haloperidol Lactate (Haldol Inj) 5 mg PRN Q6HRS PRN IVP AGITATION; Start 02/02/21 at 14:15 Insulin Human Lispro (HumaLOG) 0-7 UNITS TIDWMEALS SQ ; Start 02/03/21 at 12:00; Stop 02/04/21 at 09:08; Status DC Dextrose (Dextrose 50%-Water Syringe) 12.5 gm PRN Q15MIN PRN IV SEE COMMENTS; Start 02/03/21 at 10:15 Potassium Chloride/Dextrose/ Sod Cl 1,000 ml @ 100 mls/hr Q10H IV Last administered on 02/04/21at 16:54; Start 02/03/21 at 10:15; Stop 02/04/21 at 22:33; Status DC Insulin Glargine (Lantus Syringe) 8 unit DAILY SQ ; Start 02/04/21 at 09:00; Stop 02/04/21 at 08:50; Status DC Tocilizumab 800 mg/Sodium Chloride 100 ml @ 100 mls/hr 1X ONCE IV ; Start 02/05/21 at 09:00; Stop 02/05/21 at 09:59; Status Cancel Methylprednisolone Sodium Succinate (SOLU-Medrol 40MG VIAL) 60 mg [id number] IV Last administered on 02/14/21at 05:45; Start 02/09/21 at 18:00; Stop 02/14/21 at 09:54; Status DC Guaifenesin (Mucinex) 1,200 mg BID PO Last administered on 02/25/21at 09:03; Start 02/11/21 at 21:00 Polyethylene Glycol (miraLAX PACKET) 17 gm PRN BID PRN PO CONSTIPATION; Start 02/12/21 at 10:30 Methylprednisolone Sodium Succinate (SOLU-Medrol 125MG VIAL) 60 mg DAILY IV Last administered on 02/19/21at 08:53; Start 02/15/21 at 09:00; Stop 02/20/21 at 08:34; Status DC Methylprednisolone Sodium Succinate (SOLU-Medrol 125MG VIAL) 40 mg DAILY IV Last administered on 02/21/21at 08:55; Start 02/20/21 at 09:00; Stop 02/21/21 at 20:48; Status DC Prednisone (Prednisone) 30 mg DAILY PO Last administered on 02/25/21at 09:02; Start 02/22/21 at 09:00 Active Scripts Active Reported Morphine Sulfate 2 Mg/1 Ml Cartridge 2 Mg IV PRN Q4HRS PRN Zinc Sulfate 50 Mg Tablet 220 Mg PO DAILY Methylprednisolone Sod Succ 125 Mg Vial 60 Mg IJ Q8HRS Combivent Respimat Inhal (Ipratropium/Albuterol Sulfate) 4 Gm Aer.w.adap 2 Inh IH QID Pepcid (Famotidine) 20 Mg Tablet 20 Mg PO HS Lovenox (Enoxaparin Sodium) 30 Mg/0.3 Ml Disp.syrin 30 Mg SQ DAILY Vitamin D3 (Vitamin D) 125 Mcg Capsule 125 Mcg PO DAILY 5,000 UNITS = 125 MCG Zyrtec (Cetirizine Hcl) 10 Mg Tablet 1 Tab PO DAILY Ascorbic Acid 500 Mg Tablet 2 Mg PO DAILY Acetaminophen 325 Mg Tablet 2 Tab PO PRN Q6HRS PRN 30 Days No Known Medications Prior To Admisstion (Info) Each 1 Each Vitals/I & O Vital Sign - Last 24 Hours 02/24/21 02/24/21 02/24/21 02/24/21 11:00 15:00 17:37 19:24 Temp 97.6 97.8 97.7 97.6 97.8 97.7 Pulse 90 96 114 Resp 20 18 18 B/P (MAP) 104/60 (75) 113/75 (88) 135/80 (98) Pulse Ox 97 93 97 90 O2 Delivery Nasal Cannula Nasal Cannula Nasal Cannula Nasal Cannula O2 Flow Rate 6.0 6.0 6.0 6.0 02/24/21 02/24/21 02/24/21 02/25/21 20:00 21:42 22:30 02:43 Temp 98.0 97.8 98.0 97.8 Pulse 103 85 Resp 18 16 B/P (MAP) 135/79 (97) 133/71 (91) Pulse Ox 95 94 97 O2 Delivery Nasal Cannula Nasal Cannula Nasal Cannula Nasal Cannula O2 Flow Rate 5.0 5.0 6.0 6.0 02/25/21 02/25/21 06:28 08:00 Temp 98.5 98.5 Pulse 82 Resp 18 B/P (MAP) 114/72 (86) Pulse Ox 97 O2 Delivery Nasal Cannula Nasal Cannula O2 Flow Rate 6.0 6.0 Intake and Output 02/24/21 02/24/21 02/25/21 15:00 23:00 07:00 Intake Total 840 ml 1200 ml 0 ml Output Total 400 ml 600 ml Balance 440 ml 600 ml 0 ml Justicifation of Admission Dx: Justifications for Admission: Justification of Admission Dx: Yes Sepsis: Hypoxemia JACQUELINE MCGARRY MD Feb 25, 2021 10:38
[2021-02-25 11:39] VITALS: BP 102/57
[2021-02-25 15:00] VITALS: BP 121/78
[2021-02-25 19:33] VITALS: BP 113/74
[2021-02-25] MEDS: FAMOTIDINE 20 MG TABLET. PO SCH (22:25)
[2021-02-25] MEDS: ENOXAPARIN 40 MG/0.4 ML SYRINGE. SQ SCH (22:26)
[2021-02-25 22:33] VITALS: BP 115/56
[2021-02-26 02:46] VITALS: BP 115/65
[2021-02-26 07:30] VITALS: BP 110/57
[2021-02-26] MEDS: CHOLECALCIFEROL (VITAMIN D3) 5,000 UNIT CAPSULE PO SCH (10:55)
[2021-02-26] MEDS: THIAMINE 100 MG TABLET. PO SCH (10:55)
[2021-02-26] MEDS: IPRATROPIUM/ALBUTEROL 20/100mcg/INH INHALER. INH SCH ×4 (10:55→20:00)
[2021-02-26] MEDS: ZINC SULFATE 220 MG CAPSULE. PO SCH (10:55)
[2021-02-26] MEDS: ASCORBIC ACID 1,000 MG TABLET PO SCH (10:56)
[2021-02-26] MEDS: predniSONE 10 MG TABLET PO SCH (10:56)
[2021-02-26] MEDS: CETIRIZINE HCL 10 MG TABLET. PO SCH (10:57)
--- NOTE | 2021-02-26 11:04 | PDOC ---
PULMONARY PROGRESS NOTES DATE: 02/26/21 TIME: 11:02 Subjective Patient off Vapotherm and now on 4 L nasal cannula. Vitals Vital Signs Date Time Temp Pulse Resp B/P (MAP) Pulse Ox O2 Delivery O2 Flow Rate FiO2 02/26/21 10:54 98.4 98.4 02/26/21 08:00 Nasal Cannula 4.5 02/26/21 07:30 82 20 97 Comments Pt. seen during covid -19 pandemic visual exam preformed no distress RRR Vapotherm no obvious rash or edema General: Alert, No acute distress Lungs: Clear Medications Active Scripts Medications Dose Route/Sig Max Daily Dose Days Date Category Dose Instructions Morphine Sulfate 2 Mg/1 Ml Cartridge 2 Mg IV PRN Q4HRS PRN 01/30/21 Reported Zinc Sulfate 50 Mg Tablet 220 Mg PO DAILY 01/30/21 Reported Methylprednisolone Sod Succ 125 Mg Vial 60 Mg IJ Q8HRS 01/30/21 Reported Combivent Respimat Inhal (Ipratropium/Albuterol Sulfate) 4 Gm Aer.w.adap 2 Inh IH QID 01/30/21 Reported Pepcid (Famotidine) 20 Mg Tablet 20 Mg PO HS 01/30/21 Reported Lovenox (Enoxaparin Sodium) 30 Mg/0.3 Ml Disp.syrin 30 Mg SQ DAILY 01/30/21 Reported Vitamin D3 (Vitamin D) 125 Mcg Capsule 125 Mcg PO DAILY 01/30/21 Reported 5,000 UNITS = 125 MCG Zyrtec (Cetirizine Hcl) 10 Mg Tablet 1 Tab PO DAILY 01/30/21 Reported Ascorbic Acid 500 Mg Tablet 2 Mg PO DAILY 01/30/21 Reported Acetaminophen 325 Mg Tablet 2 Tab PO PRN Q6HRS PRN 30 01/30/21 Reported No Known Medications Prior To Admisstion (Info) Each 1 Each 02/29/20 Reported Impression . IMPRESSION: 1. Acute hypoxemic respiratory failure secondary to COVID-19 viral pneumonia./Acute lung injury and early ARDS. Slowly improving 2. COVID-19 viral pneumonia. 3. Abnormal chest x-ray, compatible with viral pneumonia. 4. Nonspecific anxiety, possible clinical depression Plan . Continue supplemental oxygen to keep sats above 90%. Currently on 4 L nasal cannula. Patient can discharge home on nasal cannula after 6-minute walk IS to use multiple times an hr Patient currently on oral prednisone. Can discontinue since he already had more than 10 days S/P remdesivir/Tocilizumab PT/OT DVT/GI PPX :lovenox D/W RN and RT ELIZABETH ODELL MD Feb 26, 2021 11:04
--- NOTE | 2021-02-26 11:10 | PDOC ---
[employer] PROGRESS NOTE Date of Service DOS: DATE: 02/26/21 TIME: 11:08 Chief Complaint Chief Complaint SEPSIS, was POA Severe malnutrition was POA, with obesity, BMI 32 Acute hypoxic respiratory failure COVID-19 pneumonia transaminitis History of Present Illness History of Present Illness Mr Preciado is a 56-year-old male with no significant past medical history except for degenerative joint disease who was transferred from [facility] with complaints of fever, headache, dry cough, shortness of breath for the past 3 days, admitted on 01/29/2021. Patient stated that he was actually exposed from his son he was worsening and required to come to the ED at [facility] and he was found to be hypoxic and required 2 L of nasal cannula oxygen. Chest x-ray over there showed bilateral mild bibasilar infiltrates. Covid test was positive and patient was transferred to [facility] for pulmonary evaluation and treatment. Patient was started on Remdesivir and IV steroids. Currently patient is requiring 15 L high flow nasal cannula and IV steroids. 02/02: No acute events overnight. Patient was saturating 92% on 15 L nasal cannula and he had desatted down to 70% after he had to blow his nose. Patient was placed on BiPAP at 100% FiO2. Chest leg appears to be worsening. 02/03: Last dose of remdesivir. Could not tolerate vapotherm and is now on BIPAP. 02/04: poor Po intake, dry, dark urine 02/05: Desaturates to 72% when he takes off his BiPAP. Advised to get back on BIPAP after eating. he is able to place himself back on. Frustrated with the severity of his hypoxia. 3: Status post remdesivir. Still requiring BiPAP 75% FiO2 with significant desaturations when he is not wearing assessment with nonrebreather O2. 4: Still with significant desaturations when he raises BiPAP even on 15 L high flow nasal cannula. Discussed transitioning back to Vapotherm if we can treat his anxiety. He is amenable to this. He is frustrated with staying in the hospital understands he may be a longer term COVID recovery and is amenable to LTACH referral. I discussed with pulmonology. 02/08: Afebrile. 70% FiO2 on BiPAP 06/11. Feels better. Did not tolerated Vapotherm. Significant desaturations when he transitions to high flow nasal cannula O2 while eating. Discussed referral to LTACH with pulmonology and ID as it appears he will need a longer COVID recovery. 02/09: Patient on 70% FiO2. Via BiPAP 06/11 when seen by pulmonology. Feels better and is seen on vapotherm 40l/min 100% FiO2 with saturations 89%, tolerating well. 02/11/2021 patient seen at edge of bed. FiO2 at 89%. Dropped to low 80s while talking to us. Educated patient on conserving energy and working to keep FiO2 higher. D/W RN Chart Reviewed 02/12/2021 Patient was seen and examined in bed. FiO2 of 87% while on Vapotherm with 40L of 90% O2. D/W RN, Chart Review Patient has not had a bowel movement in two days. Patient feels he is doing better but his FiO2 still drops with activity or speaking Discussed need to rest and focus on breathing to maintain proper FiO2. 02/13/2021 Patient was resting in bed with NAD Seen and examined in bed. FiO2 of 92% while on Vapotherm with 40L of 90% O2. D/W RN Chart Review Discussed need to rest and focus on breathing to maintain proper FiO2 02/14/2021 Patient was awake, alert and NAD Seen and examine in bed. FiO2 92% while on Vapotherm with 40L of 90% O2 Discussed that we will continue to monitor for clinical improvement 02/15/2021 Patient resting upon entry into room. Upon exam in bed he was awake, alert and NAD FiO2 90% while on Vapotherm with 40L of 90% O2 Discussed continued monitoring and that he is making slow improvements. Patient was encouraged by improvements and eager to return to as high of fu nction as possible. 02/16/2021 Patient awake, alert and on computer. FiO2 92% while on Vapotherm with 40L of 90% O2 Continuing to make slow improvements Discussed continuing treatment plan at this time 02/17/2021 Patient resting upon entry into room. Upon exam in bed he was awake, alert and NAD FiO2 90% while on Vapotherm with 40L of 85% O2 We will continue to monitor as he is making slow improvements Discharge plan will be created as he continues with current treatment 02/18/2021 Patient in prone position upon entry into room. States that he placed himself in this position after he had read that it would help online. Upon exam in bed he was awake, alert and NAD FiO2 90% while on Vapotherm with 40L of 85% O2 D/W RN, Chart review We will continue to monitor and discharge disposition in process via social work 02/19/2021 Patient in prone position upon entry into room. States that he placed himself in this position after he had read that it would help online. Upon exam in bed he was awake, alert and NAD FiO2 90% while on Vapotherm with 40L of 85% O2 D/W RN, Chart review We will continue to monitor and discharge disposition in process via social work Patient remains on Vapotherm 40 L, 80% afebrile 02/20/2021 Patient in prone position upon entry into room. States that he placed himself in this position after he had read that it would help online. Upon exam in bed he was awake, alert and NAD FiO2 90% while on Vapotherm with 40L of 85% O2 D/W RN, Chart review We will continue to monitor and discharge disposition in process via social work Patient remains on Vapotherm 40 L, 80% afebrile remdesivir/Tocilizumab PT/OT DVT/GI PPX :lovenox 02/21/2021 Upon exam in bed he was awake, alert and NAD on Vapotherm with 40L of 94% O2 D/W RN, Chart review We will continue to monitor and discharge disposition in process via social work SYMPTOMS SLOW TO RESOLVE afebrile remdesivir/Tocilizumab PT/OT DVT/GI PPX :lovenox CXR 02-2102/22/2021 Upon exam in bed he was awake, alert and NAD 70% on Vapotherm with 40L of 94% O2 D/W RN, Chart review We will continue to monitor and discharge disposition in process via social work SYMPTOMS SLOW TO RESOLVE afebrile remdesivir/Tocilizumab PT/OT DVT/GI PPX :lovenox CXR 02-2102/23/2021 Upon exam in bed he was DOSING /NAD 70% on Vapotherm with 40L of 94% O2 D/W RN, Chart review We will continue to monitor and discharge disposition in process via social work SYMPTOMS SLOW TO RESOLVE afebrile remdesivir/Tocilizumab PT/OT DVT/GI PPX :lovenox CXR 8-18 02/24/2021 RESTING IN BED 70% on Vapotherm with 40L of 94% O2 D/W RN, Chart review We will continue to monitor and discharge disposition in process via social work SYMPTOMS SLOW TO RESOLVE afebrile remdesivir/Tocilizumab PT/OT DVT/GI PPX :lovenox CXR 8-18 Once down to 60% FiO2 via Vapotherm, try nasal cannula IS at bedside Continue steroids with taper, on p.o. prednisone now D/W RN 02/24/2021 RESTING IN BED D/W RN, Chart review We will continue to monitor and discharge disposition in process via social work SYMPTOMS SLOW TO RESOLVE afebrile remdesivir/Tocilizumab PT/OT DVT/GI PPX :lovenox CXR - IS at bedside Continue steroids with taper, on p.o. prednisone now D/W RN currently on 23 lpm and 21% fio2 wean as tolerated, improving try NC IS FREQ PER HOUR 02/25/2021 D/W RN, Chart review We will continue to monitor and discharge disposition in process via social work SYMPTOMS SLOW TO RESOLVE afebrile remdesivir/Tocilizumab PT/OT DVT/GI PPX :lovenox CXR 8-18 IS at bedside Continue steroids with taper, on p.o. prednisone now D/W RN improving try 6 liters NC IS FREQ PER HOUR 02/26 Patient seen and examined t bedside. No major changes or events. Possible d/c today. Vitals/I&O Vitals/I&O: Vital Signs Date Time Temp Pulse Resp B/P (MAP) Pulse Ox O2 Delivery O2 Flow Rate FiO2 02/26/21 10:54 98.4 98.4 02/26/21 08:00 Nasal Cannula 4.5 02/26/21 07:30 82 20 97 I & O 02/25/21 02/25/21 02/26/21 15:00 23:00 07:00 Intake Total 120 ml 180 ml 0 ml Output Total 900 ml 400 ml 200 ml Balance -780 ml -220 ml -200 ml Physical Exam Physical Exam: GEN axo3 male on BIPAP HEENT: Normocephalic, atraumatic. Anicteric. NECK: Supple, no JVD. LUNGS: Crackles bilaterally. HEART: S1, S2. ABDOMEN: Soft, nontender, nondistended. Bowel sounds present. EXTREMITIES: No edema, no cyanosis. DERMATOLOGIC: Warm, dry, no generalized rash. NEUROLOGIC: Alert, oriented, grossly nonfocal. PSYCHIATRIC: Calm and cooperative. PIV looks clean. General: Alert, Oriented X3, Cooperative, No acute distress Heart: Regular rate (tele reg, reviewed), Normal S1, Normal S2 Lungs: Clear Abdomen: Normal bowel sounds, Soft, No tenderness Extremities: No clubbing, No cyanosis, No edema Skin: No rashes Comment Review of Relevant I have reviewed the following items rosalinda (where applicable) has been applied. Justifications for Admission Other Justification KWABENA BAILEY MD Feb 26, 2021 11:10
--- NOTE | 2021-02-26 15:34 | NUR ---
SS following up with discharge planning. SS reviewed pt chart and discussed with pt RN. Pt is currently requiring oxygen at rest at six liters nasal canula. COVID19 recovered. PT/OT recommended home. Six minute walk completed and pt needing high flow oxygen with exertion. Per RT, respiratory not stable for discharge to home at this time. SS will continue to follow for discharge planning.
[2021-02-26 15:58] VITALS: BP 110/59
[2021-02-26 19:54] VITALS: BP 106/73
[2021-02-26] MEDS: ENOXAPARIN 40 MG/0.4 ML SYRINGE. SQ SCH (20:40)
[2021-02-26] MEDS: FAMOTIDINE 20 MG TABLET. PO SCH (20:40)
[2021-02-26 22:29] VITALS: BP 127/85
[2021-02-27 07:50] VITALS: BP 130/76
[2021-02-27] MEDS: IPRATROPIUM/ALBUTEROL 20/100mcg/INH INHALER. INH SCH ×4 (08:00→20:00)
[2021-02-27] MEDS: CETIRIZINE HCL 10 MG TABLET. PO SCH (08:45)
[2021-02-27] MEDS: CHOLECALCIFEROL (VITAMIN D3) 5,000 UNIT CAPSULE PO SCH (08:45)
[2021-02-27] MEDS: ZINC SULFATE 220 MG CAPSULE. PO SCH (08:45)
[2021-02-27] MEDS: ASCORBIC ACID 1,000 MG TABLET PO SCH (08:45)
[2021-02-27] MEDS: THIAMINE 100 MG TABLET. PO SCH (08:45)
--- NOTE | 2021-02-27 09:53 | PDOC ---
PULMONARY PROGRESS NOTES DATE: 02/27/21 TIME: 09:52 Subjective Patient did not past the 6-minute walk test. He required more than 10 L of oxygen. Patient states he feels better. He has been sleeping in prone position. He still wants to go home. Vitals Vital Signs Date Time Temp Pulse Resp B/P (MAP) Pulse Ox O2 Delivery O2 Flow Rate FiO2 02/27/21 09:44 95 Nasal Cannula 10.0 02/26/21 22:29 98 20 127/85 (99) 02/26/21 19:54 97.7 97.7 Comments Pt. seen during covid -19 pandemic visual exam preformed no distress RRR Vapotherm no obvious rash or edema General: Alert, No acute distress Lungs: Clear Medications Active Scripts Medications Dose Route/Sig Max Daily Dose Days Date Category Dose Instructions Morphine Sulfate 2 Mg/1 Ml Cartridge 2 Mg IV PRN Q4HRS PRN 01/30/21 Reported Zinc Sulfate 50 Mg Tablet 220 Mg PO DAILY 01/30/21 Reported Methylprednisolone Sod Succ 125 Mg Vial 60 Mg IJ Q8HRS 01/30/21 Reported Combivent Respimat Inhal (Ipratropium/Albuterol Sulfate) 4 Gm Aer.w.adap 2 Inh IH QID 01/30/21 Reported Pepcid (Famotidine) 20 Mg Tablet 20 Mg PO HS 01/30/21 Reported Lovenox (Enoxaparin Sodium) 30 Mg/0.3 Ml Disp.syrin 30 Mg SQ DAILY 01/30/21 Reported Vitamin D3 (Vitamin D) 125 Mcg Capsule 125 Mcg PO DAILY 01/30/21 Reported 5,000 UNITS = 125 MCG Zyrtec (Cetirizine Hcl) 10 Mg Tablet 1 Tab PO DAILY 01/30/21 Reported Ascorbic Acid 500 Mg Tablet 2 Mg PO DAILY 01/30/21 Reported Acetaminophen 325 Mg Tablet 2 Tab PO PRN Q6HRS PRN 30 01/30/21 Reported No Known Medications Prior To Admisstion (Info) Each 1 Each 02/29/20 Reported Impression . IMPRESSION: 1. Acute hypoxemic respiratory failure secondary to COVID-19 viral pneumonia./Acute lung injury and early ARDS. Slowly improving 2. COVID-19 viral pneumonia. 3. Abnormal chest x-ray, compatible with viral pneumonia. 4. Nonspecific anxiety, possible clinical depression Plan . Continue supplemental oxygen to keep sats above 90%. Currently on 10 L nasal cannula. Repeat 6-minute walk test again tomorrow. Likely go home on 10 L of oxygen. IS to use multiple times an hr Patient currently on oral prednisone. Can discontinue since he already had more than 10 days S/P remdesivir/Tocilizumab PT/OT DVT/GI PPX :lovenox D/W RN and RT ELIZABETH ODELL MD Feb 27, 2021 09:53
[2021-02-27 10:54] VITALS: BP 114/70
--- NOTE | 2021-02-27 11:11 | NUR ---
SS following up with discharge planning. SS reviewed pt chart and discussed with pt RN. Pt is currently requiring oxygen at eight to ten liters nasal canula. COVID19 recovered. PT/OT recommended home. Six minute walk completed yesterday and pt needing high flow oxygen with exertion. Per RT, respiratory not stable for discharge to home at this time. SS will continue to follow for discharge planning.
[2021-02-27 15:07] VITALS: BP 124/69
--- NOTE | 2021-02-27 15:11 | PDOC ---
[employer] PROGRESS NOTE Date of Service DOS: DATE: 02/27/21 TIME: 15:10 Chief Complaint Chief Complaint SEPSIS, was POA Severe malnutrition was POA, with obesity, BMI 32 Acute hypoxic respiratory failure COVID-19 pneumonia transaminitis History of Present Illness History of Present Illness Mr Preciado is a 56-year-old male with no significant past medical history except for degenerative joint disease who was transferred from [facility] with complaints of fever, headache, dry cough, shortness of breath for the past 3 days, admitted on 01/29/2021. Patient stated that he was actually exposed from his son he was worsening and required to come to the ED at [facility] and he was found to be hypoxic and required 2 L of nasal cannula oxygen. Chest x-ray over there showed bilateral mild bibasilar infiltrates. Covid test was positive and patient was transferred to [facility] for pulmonary evaluation and treatment. Patient was started on Remdesivir and IV steroids. Currently patient is requiring 15 L high flow nasal cannula and IV steroids. 02/02: No acute events overnight. Patient was saturating 92% on 15 L nasal cannula and he had desatted down to 70% after he had to blow his nose. Patient was placed on BiPAP at 100% FiO2. Chest leg appears to be worsening. 02/03: Last dose of remdesivir. Could not tolerate vapotherm and is now on BIPAP. 02/04: poor Po intake, dry, dark urine 02/05: Desaturates to 72% when he takes off his BiPAP. Advised to get back on BIPAP after eating. he is able to place himself back on. Frustrated with the severity of his hypoxia. 3: Status post remdesivir. Still requiring BiPAP 75% FiO2 with significant desaturations when he is not wearing assessment with nonrebreather O2. 4: Still with significant desaturations when he raises BiPAP even on 15 L high flow nasal cannula. Discussed transitioning back to Vapotherm if we can treat his anxiety. He is amenable to this. He is frustrated with staying in the hospital understands he may be a longer term COVID recovery and is amenable to LTACH referral. I discussed with pulmonology. 02/08: Afebrile. 70% FiO2 on BiPAP 06/11. Feels better. Did not tolerated Vapotherm. Significant desaturations when he transitions to high flow nasal cannula O2 while eating. Discussed referral to LTACH with pulmonology and ID as it appears he will need a longer COVID recovery. 02/09: Patient on 70% FiO2. Via BiPAP 06/11 when seen by pulmonology. Feels better and is seen on vapotherm 40l/min 100% FiO2 with saturations 89%, tolerating well. 02/11/2021 patient seen at edge of bed. FiO2 at 89%. Dropped to low 80s while talking to us. Educated patient on conserving energy and working to keep FiO2 higher. D/W RN Chart Reviewed 02/12/2021 Patient was seen and examined in bed. FiO2 of 87% while on Vapotherm with 40L of 90% O2. D/W RN, Chart Review Patient has not had a bowel movement in two days. Patient feels he is doing better but his FiO2 still drops with activity or speaking Discussed need to rest and focus on breathing to maintain proper FiO2. 02/13/2021 Patient was resting in bed with NAD Seen and examined in bed. FiO2 of 92% while on Vapotherm with 40L of 90% O2. D/W RN Chart Review Discussed need to rest and focus on breathing to maintain proper FiO2 02/14/2021 Patient was awake, alert and NAD Seen and examine in bed. FiO2 92% while on Vapotherm with 40L of 90% O2 Discussed that we will continue to monitor for clinical improvement 02/15/2021 Patient resting upon entry into room. Upon exam in bed he was awake, alert and NAD FiO2 90% while on Vapotherm with 40L of 90% O2 Discussed continued monitoring and that he is making slow improvements. Patient was encouraged by improvements and eager to return to as high of fu nction as possible. 02/16/2021 Patient awake, alert and on computer. FiO2 92% while on Vapotherm with 40L of 90% O2 Continuing to make slow improvements Discussed continuing treatment plan at this time 02/17/2021 Patient resting upon entry into room. Upon exam in bed he was awake, alert and NAD FiO2 90% while on Vapotherm with 40L of 85% O2 We will continue to monitor as he is making slow improvements Discharge plan will be created as he continues with current treatment 02/18/2021 Patient in prone position upon entry into room. States that he placed himself in this position after he had read that it would help online. Upon exam in bed he was awake, alert and NAD FiO2 90% while on Vapotherm with 40L of 85% O2 D/W RN, Chart review We will continue to monitor and discharge disposition in process via social work 02/19/2021 Patient in prone position upon entry into room. States that he placed himself in this position after he had read that it would help online. Upon exam in bed he was awake, alert and NAD FiO2 90% while on Vapotherm with 40L of 85% O2 D/W RN, Chart review We will continue to monitor and discharge disposition in process via social work Patient remains on Vapotherm 40 L, 80% afebrile 02/20/2021 Patient in prone position upon entry into room. States that he placed himself in this position after he had read that it would help online. Upon exam in bed he was awake, alert and NAD FiO2 90% while on Vapotherm with 40L of 85% O2 D/W RN, Chart review We will continue to monitor and discharge disposition in process via social work Patient remains on Vapotherm 40 L, 80% afebrile remdesivir/Tocilizumab PT/OT DVT/GI PPX :lovenox 02/21/2021 Upon exam in bed he was awake, alert and NAD on Vapotherm with 40L of 94% O2 D/W RN, Chart review We will continue to monitor and discharge disposition in process via social work SYMPTOMS SLOW TO RESOLVE afebrile remdesivir/Tocilizumab PT/OT DVT/GI PPX :lovenox CXR 02-2102/22/2021 Upon exam in bed he was awake, alert and NAD 70% on Vapotherm with 40L of 94% O2 D/W RN, Chart review We will continue to monitor and discharge disposition in process via social work SYMPTOMS SLOW TO RESOLVE afebrile remdesivir/Tocilizumab PT/OT DVT/GI PPX :lovenox CXR 02-2102/23/2021 Upon exam in bed he was DOSING /NAD 70% on Vapotherm with 40L of 94% O2 D/W RN, Chart review We will continue to monitor and discharge disposition in process via social work SYMPTOMS SLOW TO RESOLVE afebrile remdesivir/Tocilizumab PT/OT DVT/GI PPX :lovenox CXR 8-18 02/24/2021 RESTING IN BED 70% on Vapotherm with 40L of 94% O2 D/W RN, Chart review We will continue to monitor and discharge disposition in process via social work SYMPTOMS SLOW TO RESOLVE afebrile remdesivir/Tocilizumab PT/OT DVT/GI PPX :lovenox CXR 8-18 Once down to 60% FiO2 via Vapotherm, try nasal cannula IS at bedside Continue steroids with taper, on p.o. prednisone now D/W RN 02/24/2021 RESTING IN BED D/W RN, Chart review We will continue to monitor and discharge disposition in process via social work SYMPTOMS SLOW TO RESOLVE afebrile remdesivir/Tocilizumab PT/OT DVT/GI PPX :lovenox CXR 8-18 IS at bedside Continue steroids with taper, on p.o. prednisone now D/W RN currently on 23 lpm and 21% fio2 wean as tolerated, improving try NC IS FREQ PER HOUR 02/25/2021 D/W RN, Chart review We will continue to monitor and discharge disposition in process via social work SYMPTOMS SLOW TO RESOLVE afebrile remdesivir/Tocilizumab PT/OT DVT/GI PPX :lovenox CXR 8-18 IS at bedside Continue steroids with taper, on p.o. prednisone now D/W RN improving try 6 liters NC IS FREQ PER HOUR 02/26 Patient seen and examined t bedside. No major changes or events. Possible d/c today. 02/27 Patient seen and examined at bedside. Was on 10 L nasal cannula when evaluated. Failed 6-minute walk. Will attempt this again tomorrow. Patient agreeable. Plan of care discussed with bedside RN. Hopeful discharge tomorrow. Vitals/I&O Vitals/I&O: Vital Signs Date Time Temp Pulse Resp B/P (MAP) Pulse Ox O2 Delivery O2 Flow Rate FiO2 02/27/21 15:07 97.8 120 22 124/69 (87) 95 Nasal Cannula 6.0 97.8 I & O 02/26/21 02/26/21 02/27/21 15:00 23:00 07:00 Intake Total 300 ml 1300 ml 0 ml Output Total 2300 ml Balance 300 ml -1000 ml 0 ml Physical Exam Physical Exam: GEN axo3 male on BIPAP HEENT: Normocephalic, atraumatic. Anicteric. NECK: Supple, no JVD. LUNGS: Crackles bilaterally. HEART: S1, S2. ABDOMEN: Soft, nontender, nondistended. Bowel sounds present. EXTREMITIES: No edema, no cyanosis. DERMATOLOGIC: Warm, dry, no generalized rash. NEUROLOGIC: Alert, oriented, grossly nonfocal. PSYCHIATRIC: Calm and cooperative. PIV looks clean. General: Alert, Oriented X3, Cooperative, No acute distress Heart: Regular rate (tele reg, reviewed), Normal S1, Normal S2 Lungs: Clear Abdomen: Normal bowel sounds, Soft, No tenderness Extremities: No clubbing, No cyanosis, No edema Skin: No rashes Comment Review of Relevant I have reviewed the following items rosalinda (where applicable) has been applied. Justifications for Admission Other Justification KWABENA BAILEY MD Feb 27, 2021 15:11
[2021-02-27 19:51] VITALS: BP 122/60
[2021-02-27] MEDS: ENOXAPARIN 40 MG/0.4 ML SYRINGE. SQ SCH (20:17)
[2021-02-27] MEDS: FAMOTIDINE 20 MG TABLET. PO SCH (20:18)
[2021-02-27 22:31] VITALS: BP 104/62
[2021-02-28 07:00] VITALS: BP 120/84
[2021-02-28] MEDS: CETIRIZINE HCL 10 MG TABLET. PO SCH (08:47)
[2021-02-28] MEDS: ZINC SULFATE 220 MG CAPSULE. PO SCH (08:48)
[2021-02-28] MEDS: ASCORBIC ACID 1,000 MG TABLET PO SCH (08:48)
[2021-02-28] MEDS: CHOLECALCIFEROL (VITAMIN D3) 5,000 UNIT CAPSULE PO SCH (08:48)
[2021-02-28] MEDS: THIAMINE 100 MG TABLET. PO SCH (08:48)
[2021-02-28] MEDS: IPRATROPIUM/ALBUTEROL 20/100mcg/INH INHALER. INH SCH ×3 (08:50→16:00)
[2021-02-28 11:00] VITALS: BP 124/79
--- NOTE | 2021-02-28 11:06 | PDOC ---
PULMONARY PROGRESS NOTES DATE: 02/28/21 TIME: 11:04 Subjective Patient feels better. Remains on 5 L nasal cannula. Vitals Vital Signs Date Time Temp Pulse Resp B/P (MAP) Pulse Ox O2 Delivery O2 Flow Rate FiO2 02/28/21 08:30 Nasal Cannula 4.5 02/28/21 07:00 98.7 109 18 120/84 (96) 92 98.7 Comments Pt. seen during covid -19 pandemic visual exam preformed no distress RRR Vapotherm no obvious rash or edema General: Alert, No acute distress Lungs: Clear Medications Active Scripts Medications Dose Route/Sig Max Daily Dose Days Date Category Dose Instructions Morphine Sulfate 2 Mg/1 Ml Cartridge 2 Mg IV PRN Q4HRS PRN 01/30/21 Reported Zinc Sulfate 50 Mg Tablet 220 Mg PO DAILY 01/30/21 Reported Methylprednisolone Sod Succ 125 Mg Vial 60 Mg IJ Q8HRS 01/30/21 Reported Combivent Respimat Inhal (Ipratropium/Albuterol Sulfate) 4 Gm Aer.w.adap 2 Inh IH QID 01/30/21 Reported Pepcid (Famotidine) 20 Mg Tablet 20 Mg PO HS 01/30/21 Reported Lovenox (Enoxaparin Sodium) 30 Mg/0.3 Ml Disp.syrin 30 Mg SQ DAILY 01/30/21 Reported Vitamin D3 (Vitamin D) 125 Mcg Capsule 125 Mcg PO DAILY 01/30/21 Reported 5,000 UNITS = 125 MCG Zyrtec (Cetirizine Hcl) 10 Mg Tablet 1 Tab PO DAILY 01/30/21 Reported Ascorbic Acid 500 Mg Tablet 2 Mg PO DAILY 01/30/21 Reported Acetaminophen 325 Mg Tablet 2 Tab PO PRN Q6HRS PRN 30 01/30/21 Reported No Known Medications Prior To Admisstion (Info) Each 1 Each 02/29/20 Reported Impression . IMPRESSION: 1. Acute hypoxemic respiratory failure secondary to COVID-19 viral pneumonia./Acute lung injury and early ARDS. Slowly improving 2. COVID-19 viral pneumonia. 3. Abnormal chest x-ray, compatible with viral pneumonia. 4. Nonspecific anxiety, possible clinical depression Plan . Continue supplemental oxygen to keep sats above 90%. Repeat 6-minute walk test today. Likely discharge home today. IS to use multiple times an hr Status post treatment with oral steroids. S/P remdesivir/Tocilizumab PT/OT DVT/GI PPX :lovenox D/W RN and RT Discharge home today. ELIZABETH ODELL MD Feb 28, 2021 11:06
--- NOTE | 2021-02-28 12:29 | PDOC3 ---
[facility]-Discharge Summary Date of Admission: Date of Admission: Jan 31, 2021 Date of Discharge: Date of Discharge: Feb 28, 2021 Admission Diagnosis: Problems: (1) COVID-19 Discharge Diagnosis: Discharge Diagnosis: Same Consults: Consults: Infectious disease, pulmonary Hospital Course: Hospital Course: History of Present Illness Mr Preciado is a 56-year-old male with no significant past medical history except for degenerative joint disease who was transferred from [facility] with complaints of fever, headache, dry cough, shortness of breath for the past 3 days, admitted on 01/29/2021. Patient stated that he was actually exposed from his son he was worsening and required to come to the ED at [facility] and he was found to be hypoxic and required 2 L of nasal cannula oxygen. Chest x-ray over there showed bilateral mild bibasilar infiltrates. Covid test was positive and patient was transferred to [facility] for pulmonary evaluation and treatment. Patient was started on Remdesivir and IV steroids. Currently patient is requiring 15 L high flow nasal cannula and IV steroids. 02/02: No acute events overnight. Patient was saturating 92% on 15 L nasal cannula and he had desatted down to 70% after he had to blow his nose. Patient was placed on BiPAP at 100% FiO2. Chest leg appears to be worsening. 02/03: Last dose of remdesivir. Could not tolerate vapotherm and is now on BIPAP. 02/04: poor Po intake, dry, dark urine 02/05: Desaturates to 72% when he takes off his BiPAP. Advised to get back on BIPAP after eating. he is able to place himself back on. Frustrated with the severity of his hypoxia. 3: Status post remdesivir. Still requiring BiPAP 75% FiO2 with significant desaturations when he is not wearing assessment with nonrebreather O2. 4: Still with significant desaturations when he raises BiPAP even on 15 L high flow nasal cannula. Discussed transitioning back to Vapotherm if we can treat his anxiety. He is amenable to this. He is frustrated with staying in the hospital understands he may be a longer term COVID recovery and is amenable to LTACH referral. I discussed with pulmonology. 02/08: Afebrile. 70% FiO2 on BiPAP 06/11. Feels better. Did not tolerated Vapotherm. Significant desaturations when he transitions to high flow nasal cannula O2 while eating. Discussed referral to LTACH with pulmonology and ID as it appears he will need a longer COVID recovery. 02/09: Patient on 70% FiO2. Via BiPAP 06/11 when seen by pulmonology. Feels better and is seen on vapotherm 40l/min 100% FiO2 with saturations 89%, tolerating well. 02/11/2021 patient seen at edge of bed. FiO2 at 89%. Dropped to low 80s while talking to us. Educated patient on conserving energy and working to keep FiO2 higher. D/W RN Chart Reviewed 02/12/2021 Patient was seen and examined in bed. FiO2 of 87% while on Vapotherm with 40L of 90% O2. D/W RN, Chart Review Patient has not had a bowel movement in two days. Patient feels he is doing better but his FiO2 still drops with activity or speaking Discussed need to rest and focus on breathing to maintain proper FiO2. 02/13/2021 Patient was resting in bed with NAD Seen and examined in bed. FiO2 of 92% while on Vapotherm with 40L of 90% O2. D/W RN Chart Review Discussed need to rest and focus on breathing to maintain proper FiO2 02/14/2021 Patient was awake, alert and NAD Seen and examine in bed. FiO2 92% while on Vapotherm with 40L of 90% O2 Discussed that we will continue to monitor for clinical improvement 02/15/2021 Patient resting upon entry into room. Upon exam in bed he was awake, alert and NAD FiO2 90% while on Vapotherm with 40L of 90% O2 Discussed continued monitoring and that he is making slow improvements. Patient was encouraged by improvements and eager to return to as high of function as possible. 02/16/2021 Patient awake, alert and on computer. FiO2 92% while on Vapotherm with 40L of 90% O2 Continuing to make slow improvements Discussed continuing treatment plan at this time 02/17/2021 Patient resting upon entry into room. Upon exam in bed he was awake, alert and NAD FiO2 90% while on Vapotherm with 40L of 85% O2 We will continue to monitor as he is making slow improvements Discharge plan will be created as he continues with current treatment 02/18/2021 Patient in prone position upon entry into room. States that he placed himself in this position after he had read that it would help online. Upon exam in bed he was awake, alert and NAD FiO2 90% while on Vapotherm with 40L of 85% O2 D/W RN, Chart review We will continue to monitor and discharge disposition in process via social work 02/19/2021 Patient in prone position upon entry into room. States that he placed himself in this position after he had read that it would help online. Upon exam in bed he was awake, alert and NAD FiO2 90% while on Vapotherm with 40L of 85% O2 D/W RN, Chart review We will continue to monitor and discharge disposition in process via social work Patient remains on Vapotherm 40 L, 80% afebrile 02/20/2021 Patient in prone position upon entry into room. States that he placed himself in this position after he had read that it would help online. Upon exam in bed he was awake, alert and NAD FiO2 90% while on Vapotherm with 40L of 85% O2 D/W RN, Chart review We will continue to monitor and discharge disposition in process via social work Patient remains on Vapotherm 40 L, 80% afebrile remdesivir/Tocilizumab PT/OT DVT/GI PPX :lovenox 02/21/2021 Upon exam in bed he was awake, alert and NAD on Vapotherm with 40L of 94% O2 D/W RN, Chart review We will continue to monitor and discharge disposition in process via social work SYMPTOMS SLOW TO RESOLVE afebrile remdesivir/Tocilizumab PT/OT DVT/GI PPX :lovenox CXR 02-2102/22/2021 Upon exam in bed he was awake, alert and NAD 70% on Vapotherm with 40L of 94% O2 D/W RN, Chart review We will continue to monitor and discharge disposition in process via social work SYMPTOMS SLOW TO RESOLVE afebrile remdesivir/Tocilizumab PT/OT DVT/GI PPX :lovenox CXR 02-2102/23/2021 Upon exam in bed he was DOSING /NAD 70% on Vapotherm with 40L of 94% O2 D/W RN, Chart review We will continue to monitor and discharge disposition in process via social work SYMPTOMS SLOW TO RESOLVE afebrile remdesivir/Tocilizumab PT/OT DVT/GI PPX :lovenox CXR 8-18 02/24/2021 RESTING IN BED 70% on Vapotherm with 40L of 94% O2 D/W RN, Chart review We will continue to monitor and discharge disposition in process via social work SYMPTOMS SLOW TO RESOLVE afebrile remdesivir/Tocilizumab PT/OT DVT/GI PPX :lovenox CXR 8-18 Once down to 60% FiO2 via Vapotherm, try nasal cannula IS at bedside Continue steroids with taper, on p.o. prednisone now D/W RN 02/24/2021 RESTING IN BED D/W RN, Chart review We will continue to monitor and discharge disposition in process via social work SYMPTOMS SLOW TO RESOLVE afebrile remdesivir/Tocilizumab PT/OT DVT/GI PPX :lovenox CXR 818 IS at bedside Continue steroids with taper, on p.o. prednisone now D/W RN currently on 23 lpm and 21% fio2 wean as tolerated, improving try NC IS FREQ PER HOUR 02/25/2021 D/W RN, Chart review We will continue to monitor and discharge disposition in process via social work SYMPTOMS SLOW TO RESOLVE afebrile remdesivir/Tocilizumab PT/OT DVT/GI PPX :lovenox CXR 8-18 IS at bedside Continue steroids with taper, on p.o. prednisone now D/W RN improving try 6 liters NC IS FREQ PER HOUR 02/26 Patient seen and examined t bedside. No major changes or events. Possible d/c today. 02/27 Patient seen and examined at bedside. Was on 10 L nasal cannula when evaluated. Failed 6-minute walk. Will attempt this again tomorrow. Patient agreeable. Plan of care discussed with bedside RN. Hopeful discharge tomorrow. 02/28 Patient examined at bedside. He really wants to go home today. We will plan another 6-minute walk test and if he passes he can discharge. Plan discussed with bedside nurse. Disposition: Disposition/Orders: D/C to Home Activity: Activity: Resume previous activity Diet: Diet: Regular Medications: Home Meds Reported Medications Morphine Sulfate (MORPHINE SULFATE) 2 Mg/1 Ml Cartridge, 2 MG IV PRN Q4HRS PRN for PAIN, EACH 01/30/21 Zinc Sulfate (Zinc Sulfate) 50 Mg Tablet, 220 MG PO DAILY for , TAB 01/30/21 Ipratropium/Albuterol Sulfate (COMBIVENT RESPIMAT INHAL) 4 Gm Aer.w.adap, 2 INH IH QID for , EACH 01/30/21 Famotidine (PEPCID) 20 Mg Tablet, 20 MG PO HS for , TAB 01/30/21 Enoxaparin Sodium (LOVENOX) 30 Mg/0.3 Ml Disp.syrin, 30 MG SQ DAILY for ANTI-CO AGULANT, DIS.SYR 01/30/21 Cholecalciferol (Vitamin D3) (Vitamin D3 ) 125 Mcg Capsule, 125 MCG PO DAILY for SUPPLEMENT, CAP 5,000 UNITS = 125 MCG 01/30/21 Cetirizine Hcl (ZYRTEC) 10 Mg Tablet, 1 TAB PO DAILY for , #30 TAB 2 Refills 01/30/21 Ascorbic Acid (ASCORBIC ACID) 500 Mg Tablet, 2 MG PO DAILY for , TAB 01/30/21 Acetaminophen (ACETAMINOPHEN) 325 Mg Tablet, 2 TAB PO PRN Q6HRS PRN for pain or fever for 30 Days, #30 TAB 0 Refills 01/30/21 Discontinued Reported Medications Methylprednisolone Sod Succ (METHYLPREDNISOLONE SOD SUCC) 125 Mg Vial, 60 MG IJ Q8HRS for , EACH 01/30/21 Info (NO KNOWN MEDICATIONS PRIOR TO ADMISSTION) Each, 1 EACH , EACH 02/29/20 Scheduled Ascorbic Acid (Ascorbic Acid), 2 MG PO DAILY, (Reported) Cetirizine Hcl (Zyrtec), 1 TAB PO DAILY, (Reported) Cholecalciferol (Vitamin D3) (Vitamin D3 ), 125 MCG PO DAILY, (Reported) Enoxaparin Sodium (Lovenox), 30 MG SQ DAILY, (Reported) Famotidine (Pepcid), 20 MG PO HS, (Reported) Ipratropium/Albuterol Sulfate (Combivent Respimat Inhal), 2 INH IH QID, (Reported) Zinc Sulfate (Zinc Sulfate), 220 MG PO DAILY, (Reported) Scheduled PRN Acetaminophen (Acetaminophen), 2 TAB PO PRN Q6HRS PRN for pain or fever, (Reported) Morphine Sulfate (Morphine Sulfate), 2 MG IV PRN Q4HRS PRN for PAIN, (Reported) Discontinued Medications Info (No Known Medications Prior To Admisstion), 1 EACH , (Reported) Methylprednisolone Sod Succ (Methylprednisolone Sod Succ), 60 MG IJ Q8HRS, (Reported) Justicifation of Admission Dx: Justifications for Admission: Justification of Admission Dx: Yes Sepsis: Hypoxemia KWABENA BAIELY MD Feb 28, 2021 12:28
--- NOTE | 2021-02-28 12:45 | NUR ---
SS following up with discharge planning. SS reviewed pt chart and discussed with pt RN. Pt is currently requiring oxygen at six liters nasal canula. COVID19 positive. PT/OT recommended home independent. Six minute walk completed and script received for oxygen. Script and clinical phoned and faxed to [facility], ; fax [phone]. Oxygen tanks provided to pt for home. Pt's RN notified.
[2021-02-28] MEDS ORDERED: IPRA4AER IH (17:06)
--- NOTE | 2021-02-28 17:42 | NUR ---
Discharge Note: KWABENA QUINONES [address] Discharge instructions and discharge home medications reviewed with Patient and a copy given. All questions have been answered and understanding verbalized. The following instructions and handouts were given: oxygen use at home, PNA IV discontinued, no complications. Patient discharged to home with self care on 6 L O2 at rest and 10 L with exertion. patient sent home with two oxygen tanks. All belongings taken home with patient.
== END 2021-02-28 17:25 | disposition home or self-care (01) | DRG 871 ==
LOC: 2 SOUTH 17:26 → 6 SOUTH 02-02 09:50
PROVIDERS: ADMIT Internal Medicine; ATTEND Internal Medicine
PROC: 5A0935A Assistance with Respiratory Ventilation, Less than 24 Consecutive Hours, High Flow/Velocity Cannula (ICD-10-PCS; 2021-01-30)
PROC: 5A0935A Assistance with Respiratory Ventilation, Less than 24 Consecutive Hours, High Flow/Velocity Cannula (ICD-10-PCS; 2021-01-31)
PROC: XW033E5 Introduction of Remdesivir Anti-infective into Peripheral Vein, Percutaneous Approach, New Technology Group 5 (ICD-10-PCS; principal; 2021-02-01)
PROC: 5A09557 Assistance with Respiratory Ventilation, Greater than 96 Consecutive Hours, Continuous Positive Airway Pressure (ICD-10-PCS; 2021-02-01)
PROC: 5A0935A Assistance with Respiratory Ventilation, Less than 24 Consecutive Hours, High Flow/Velocity Cannula (ICD-10-PCS; 2021-02-01)
DX: A41.89 Other specified sepsis (principal); E43 Unspecified severe protein-calorie malnutrition; J12.82 Pneumonia due to coronavirus disease 2019; J96.01 Acute respiratory failure with hypoxia; U07.1 COVID-19; D72.810 Lymphocytopenia; E66.9 Obesity, unspecified; E87.6 Hypokalemia; F41.9 Anxiety disorder, unspecified; M19.90 Unspecified osteoarthritis, unspecified site; Z68.32 Body mass index [BMI] 32.0-32.9, adult; Z79.899 Other long term (current) drug therapy
CPT/HCPCS: 36415; 36600; 71045; 80048; 80053; 82728; 82805; 82962; 83880; 85007; 85025; 85027; 86140; 94618; 94660; 94760; J1650; J1815; J2060; J2270; J2920; J2930; J3480; J7050; J7512; G0378; J7030